=== PATIENT | female | born 1940 | race Caucasian/White ===

== ENCOUNTER → 2023-05-09 11:11 | Outpatient (REF) | payer OTHER, MEDICAID, SELFPAY | LOC: RAD 11:11 | PROVIDERS: ATTENDING PHYSICIAN Physician Assistant; FAMILY PHYSICIAN Family Medicine | DX: I65.23 Occlusion and stenosis of bilateral carotid arteries (principal) | CPT/HCPCS: 70496; 70498; Q9967 ==

== ENCOUNTER → 2023-06-06 13:13 | Outpatient (REF) | payer OTHER, MEDICAID, SELFPAY | LOC: RAD 13:13 | PROVIDERS: ATTENDING PHYSICIAN Surgery Vascular Surgery; FAMILY PHYSICIAN Family Medicine | DX: I77.0 Arteriovenous fistula, acquired (principal) | CPT/HCPCS: 93990 ==

== ENCOUNTER 2023-06-27 14:05 | Inpatient (IN) | payer OTHER, SELFPAY ==
[2023-06-27] VITALS (17 sets, daily range): BP systolic 109–168; BP diastolic 48–88; BMI 26.7
--- NOTE | 2023-06-27 10:21 | W.SUR.PREOP ---
Pre-Operative Surgical Note
-
I have examined this patient prior to the performance of the scheduled procedure.
The patient's condition is unchanged from the time of the current History and
Physical and the patient is able to undergo the scheduled procedure.
[2023-06-27] MEDS: BACTROBAN NASAL 1 GRAM NASAL (10:28)
[2023-06-27] MEDS: PERIDEX 0.12% ORAL RINSE 15 ML PO (10:29)
[2023-06-27] MEDS: VANCOCIN 200 IV (10:30)
[2023-06-27 10:31] LABS: Hematocrit 32.7 % (37.0-47.0); Hemoglobin 10.7 g/dL (12.0-16.0); Mean Corp Hgb Conc. 32.7 g/dL (33.0-37.0); Mean Corpuscular Hgb 36.4 pg (27.0-31.0); Mean Corpuscular Volume 111.2 fL (81.0-99.0); Mean Platelet Volume 11.3 fL (7.4-10.4); Platelet Count 89 10^3/uL (130-400); Red Blood Cell Count 2.94 10^6/uL (4.20-5.40); Red Cell Dist. Width 14.2 % (11.5-14.5); White Blood Cell Count 5.8 10^3/uL (4.8-10.8)
[2023-06-27 10:36] LABS: Glucose - Point of Care 131 mg/dl (70-99)
[2023-06-27 10:48] LABS: INR 1.04; PT 13.6 Sec (11.4-14.6)
[2023-06-27 10:49] LABS: APTT 30.9 Sec (23.4-35.0)
[2023-06-27 10:51] LABS: Blood Urea Nitrogen 24 mg/dl (7-17); Carbon Dioxide 29 mmol/L (22-30); Chloride 97 mmol/L (98-107); Estimated Creatinine Clearance 11 ml/min; Glucose 141 mg/dl (70-99); Potassium 5.2 mmol/L (3.5-5.1); Sodium 134 mmol/L (135-145); eGFR 11.77
--- NOTE | 2023-06-27 14:06 | W.SUR.POST ---
Surgical Immediate Post Op
Note
Pre Op Diagnosis: ESRD
Post Op Diagnosis: ESRD
Procedure Performed: Brachiobasilic AV fistula creation left upper extremity
Primary Surgeon: Antonio Lambert MD
Assist: FRIDA Helm
Anesthesia: GETA
Estimated Blood Loss: 10 ml
Fluids: See anesthesia flowsheet
Drains/Shunts: N/A
Specimens/Cultures: N/A
Doppler/Duplex/Angio (Y/N): Y, Doppler
Complications: None
Operative Findings: Palpable thrill at AV fistula, Doppler radial pulse
[2023-06-27] MEDS: SUBLIMAZE 50 MCG IV (14:38)
[2023-06-27] MEDS: SUBLIMAZE 25 MCG IV ×2 (14:54→14:59)
[2023-06-27 15:12] LABS: Glucose - Point of Care 135 mg/dl (70-99)
[2023-06-27] MEDS: NSS 500 IV (15:20)
--- NOTE | 2023-06-27 16:03 | PTCARENOTE ---
Pt arrived to [address] [place] [address] s/p [facility] AV fistula creation. Pt NV intact, +thrill/bruit, small spot of blood along incision line. Pt states mild pain, but tolerable and does not want any pain medication at this time. Pt oriented to call dave and room, bed
locked and in lowest position, call dave within reach.
[2023-06-27] MEDS: ROXICODONE 5 MG PO ×2 (16:50→21:32)
--- NOTE | 2023-06-27 17:02 | W.CON.NEPH ---
Consultation
-
Date/Time Consultation Requested: 06/27/23 1524
Date/Time Consultation Performed: 06/27/23 1710
Requesting Provider: Antonio Keller
Performing Provider: Adina Chino
Reason for Consultation: ESRD
Medical History
-
Chief Complaint: Here for AVF revision
History of Present Illness:
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 She underwent 3rd revision today of her
nonfunctioning left upper arm AV fistula today and plan HD tomorrow. She has a right chest wall tunneled HD CVC in place. She began hemodialysis in January 2023. She has a history of diabetes mellitus with microvascular complications, maintained on
insulin. She has a history of CAD with non-ST elevated NV in January 2023. Unfortunately, unable to revascularize on cardiac catheterization. She offers no cp or sob. Pain at surgical site. No LE edema. No N/v.
Past Medical History
1.� ESRD, January 2023, presumed due to diabetic nephropathy.
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
3.� Left upper arm AV fistula with revision earlier today.
4.� CAD with NSTEMI January 2023 with cardiac catheterization
�� � revealing occluded left circumflex, unable to open.
5.� Paroxysmal atrial fibrillation on systemic anticoagulation.
6.� History of heart failure, mixed type, resolved with hemodialysis.
7.� History of TAVR.
8.� Anemia, in part CKD related.
9.� Thrombocytopenia.
10. Hypertension.
11. Right chest wall tunneled HD CVC.
12. History of CVA/TIA.
13. Left bundle branch block.
14. PAD.
15. Secondary hyperparathyroidism.
16. Breast cancer.
17. Left carotid endarterectomy.
18. Bilateral eyelid surgery.
19. Cataract surgery.
20. Lens implant.
21. Tonsillectomy.
22. Breast biopsy.
23. Right breast lumpectomy.
24. Peripheral neuropathy.
Social History
She resides alone. She stopped smoking over 50 years ago. No regular alcohol use. She previously worked in the [employer] industry, the [employer] and in [employer].
Family History
�No ESRD though positive for CAD and breast cancer.
Allergies / Home Medications
Allergy/AdvReac Type Severity Reaction Status Date / Time
penicillin V Allergy Rash Verified 06/21/23 11:02
Penicillins Allergy Rash Verified 06/21/23 11:02
Sulfa (Sulfonamide Allergy Rash Verified 06/21/23 11:02
Antibiotics)
sulfamethoxazole Allergy Rash Verified 06/21/23 11:02
[From Bactrim]
trimethoprim [From Bactrim] Allergy Rash Verified 06/21/23 11:02
Medication Instructions Recorded Confirmed Type
cholecalciferol (vitamin D3) 50 4,000 unit PO DAILY Supplement 12/05/13 06/21/23 History
mcg (2,000 unit) tablet
atorvastatin 80 mg tablet 80 mg PO HS High Cholesterol 05/21/17 06/21/23 History
insulin aspart U-100 100 unit/mL 12 unit SC .2MEALSDAILY Diabetes 09/16/20 06/21/23 History
(3 mL) subcutaneous pen (Novolog
FlexPen U-100 Insulin aspart)
insulin degludec 100 unit/mL (3 0 - 18 unit SC HS Diabetes 09/16/20 06/21/23 History
mL) subcutaneous pen (Tresiba
FlexTouch U-100 insulin)
lutein 20 mg tablet 20 mg PO DAILY Supplement 01/09/22 06/21/23 History
furosemide 80 mg tablet 80 mg PO DAILY Fluid 10/05/22 06/21/23 History
Retention/Swelling
apixaban 2.5 mg tablet (Eliquis) 2.5 mg PO BID #60 tabs 02/01/23 06/21/23 Rx
amiodarone 200 mg tablet 200 mg PO DAILY Arrhythmia 04/18/23 06/21/23 History
sevelamer carbonate 800 mg tablet 800 mg PO TID hyperphosphatemia 04/18/23 06/21/23 History
vitamin B complex-vitamin C-folic 1 tab PO HS Supplement 04/18/23 06/21/23 History
acid 0.8 mg tablet (Nephro
Vitamins)
acetaminophen 325 mg tablet 650 mg PO HS 06/21/23 06/21/23 History
(Tylenol)
Review of Systems
-
All complete 12 point ORS have been inquired and found negative other than stated in HPI
Physical Exam
Vital Signs
Vital Signs
Temp Pulse Resp BP Pulse Ox
98.1 F 76 18 115/55 99
06/27/23 16:50 06/27/23 16:50 06/27/23 16:50 06/27/23 16:50 06/27/23 16:50
Lab Results
WBC 5.8 10^3/uL (4.8-10.8) 06/27/23 10:20
RBC 2.94 10^6/uL (4.20-5.40) L 06/27/23 10:20
Hgb 10.7 g/dL (12.0-16.0) L 06/27/23 10:20
Hct 32.7 % (37.0-47.0) L 06/27/23 10:20
Plt Count 89 10^3/uL (130-400) L 06/27/23 10:20
Sodium 134 mmol/L (135-145) L 06/27/23 10:20
Potassium 5.2 mmol/L (3.5-5.1) H 06/27/23 10:20
Chloride 97 mmol/L (98-107) L 06/27/23 10:20
Carbon Dioxide 29 mmol/L (22-30) 06/27/23 10:20
BUN 24 mg/dl (7-17) H 06/27/23 10:20
Creatinine 3.7 mg/dL (0.6-1.0) H 06/27/23 10:20
eGFR 11.77 06/27/23 10:20
Glucose 141 mg/dl (70-99) H 06/27/23 10:20
Calcium 9.0 mg/dl (8.4-10.2) 06/27/23 10:20
Physical Exam
General: Awake, Alert, Oriented and AOx3
HEENT: EOMI and Anicteric
Respiratory: Clear and Normal Excursion
Cardiac: S1/S2 and Regular Rate/Rhythm
Abdomen: Soft, Nontender and Nondistended
Musculoskeletal: No Cyanosis, No Edema and Other (left UE AVF +bruit, incision noted)
Skin: No Rash
Neuro: Nonfocal/Grossly Intact
Psych: Mood/afflect pleasant, Insight/judgement good, Appropriate and Other
Assessment/Plan
-
IMP:
Left upper arm AV fistula revision 06/26
ESRD [facility]
Acute NV with old LBBB status post cardiac catheterization (occluded left circumflex unable to be open) January 2023
Paroxysmal atrial fibrillation on systemic anticoagulation
History heart failure mixed type
History of TAVR
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
Thrombocytopenia
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
Hypertension
Right chest wall tunneled HD CVC
History CVA
Metabolic alkalosis
LBBB
PAD
Secondary hyperparathyroidism
PLan:
Electively P/for left AVF revision
lives alone and unable to get to HD unit tomorrow
plan HD tomorrow and likely d/c after
resume home meds, including phos binders
BP stable
renal diet and FR
d/c IVF
Data Reviewed
-
Labs: Labs Reviewed by me
[2023-06-27 17:28] LABS: Glucose - Point of Care 187 mg/dl (70-99)
--- NOTE | 2023-06-27 17:34 | OR.RPT ---
Operative Report
Operative Report
PROCEDURE DATE: 06/27/2023
Preoperative diagnosis: End-stage renal disease on hemodialysis
Postoperative diagnosis: Same
Procedure: Left upper extremity brachiobasilic arteriovenous fistula creation with single stage basilic vein transposition.
Surgeon: Fausto
Pipe Jeeper: CYNTHIA Bermudez required for all aspects of procedure including traction/countertraction, following of suture line, assistance with closure.
Complications: None
Anesthesia: General
Indications for procedure:
Failed prior left brachiocephalic AV access. Failed revision attempt. Therefore brought for attempted left upper extremity brachiobasilic fistula versus AV graft. Risk/benefits/alternatives were also discussed. Patient understood all wish to
proceed.
Description of procedure:
Patient was identified brought to the operating room placed on the table in supine position. After the adequate administration of anesthesia and perioperative antibiotics she was prepped and draped in the standard surgical fashion. A standard
preoperative timeout was undertaken and everybody was in agreement the plan. A longitudinal incision was made in the medial distal upper arm that was carried through the skin subcutaneous tissue with electrocautery. There is moderate amount of
fatty subcutaneous tissue and this made finding the basilic vein somewhat challenging. I finally was able to find it. The basilic vein was identified and carefully dissected away from surrounding structures and great care to avoid any injury to
structures. It appeared to be a very suitable vein. I therefore then continued my incisions extending proximally up towards the axilla and distally just to the level of the antecubital fossa. The basilic vein was carefully dissected away from
surrounding structures take great care to avoid any injury to structures, namely the median antebrachial cutaneous nerve which was carefully preserved from harm's way. Any branches of the basilic vein were ligated between silk ties and then
divided. As such I was able to mobilize the entirety of the basilic vein out of its bed. More centrally, there was what appeared to be confluence with the deep veins. I therefore did not mobilize beyond this area. Once I fully mobilized
sufficient length of vein I then ligated the vein distally with a silk tie and a clip and then transected it. I then untethered it from the nerve. I distended under heparinized saline. It distended very well. I marked the anterior surface under
distention to avoid any kinking or twisting when I tunneled it.
Next I deepened my dissection in the distal aspect of my incision through the fascial layer, thereby identifying the brachial artery and carefully dissected away from surrounding structures and great care to avoid any injury to structures. I passed
Vesseloops around it proximally distally. It was noted to be a fairly calcified walled artery, but had a good pulsation.
Next I gave the patient 3000 units of intravenous heparin. I then tightened my Vesseloops (double looped) proximally and distally on the brachial artery. Next I made an arteriotomy with 11 blade and extended using a Waller scissor. I then
spatulated the vein and sewed an end-to-side anastomosis using a running 6-0 Prolene suture. I then completed and tied down my suture line. Next I released my Vesseloops on the artery and the bulldog clamp tied placed on the vein. There was an
excellent thrill in the fistula. Hemostasis was now confirmed along the suture line. I confirmed good distal flow with a good doppler signal at the radial artery at the wrist. At this point I was very satisfied. I therefore irrigated all my
incision sites. Hemostasis was fully achieved and confirmed. I then maintained the vein and a superficialized position. Deep to the vein, I closed the wound bed using 2-0 Vicryl interrupted suture. Deep dermal 3-0 Vicryl suture was then run.
The vein was now resting on top of that subcutaneous layer. I carefully mobilized the skin edges, and finally 4-0 Monocryl subcuticular stitch was run directly over the transposed/superficial lysed vein. Dermabond was applied to the incision
sites. Patient tolerated the procedure well.
[2023-06-27] MEDS: NOVOLOG FLEXPEN-HIGH RESISTANCE 2 UNITS SC (17:53)
[2023-06-27] MEDS: RENVELA 800 MG PO (17:53)
[2023-06-27] MEDS: HEPARIN 5000 UNITS SC (20:07)
[2023-06-27 21:27] LABS: Glucose - Point of Care 228 mg/dl (70-99)
[2023-06-27] MEDS: LIPITOR 80 MG PO (21:32)
[2023-06-27] MEDS: TYLENOL 650 MG PO (21:32)
[2023-06-27] MEDS: B COMPLEX w/VITAMIN C 1 CAPLET PO (21:32)
[2023-06-28] MEDS: ROXICODONE 5 MG PO ×2 (01:49→06:25)
[2023-06-28 03:12] VITALS: BP 115/42
[2023-06-28 06:00] VITALS: BMI 26.4
[2023-06-28] MEDS: RENVELA 800 MG PO (06:25)
[2023-06-28 08:00] VITALS: BP 127/56
[2023-06-28 08:11] LABS: Glucose - Point of Care 178 mg/dl (70-99)
[2023-06-28 08:33] LABS: Hematocrit 26.6 % (37.0-47.0); Hemoglobin 8.6 g/dL (12.0-16.0); Mean Corp Hgb Conc. 32.3 g/dL (33.0-37.0); Mean Corpuscular Hgb 36.3 pg (27.0-31.0); Mean Corpuscular Volume 112.2 fL (81.0-99.0); Mean Platelet Volume 11.6 fL (7.4-10.4); Platelet Count 105 10^3/uL (130-400); Red Blood Cell Count 2.37 10^6/uL (4.20-5.40); Red Cell Dist. Width 14.1 % (11.5-14.5); White Blood Cell Count 9.4 10^3/uL (4.8-10.8)
[2023-06-28] MEDS: NOVOLOG FLEXPEN-HIGH RESISTANCE 2 UNITS SC (08:50)
[2023-06-28 08:51] LABS: Blood Urea Nitrogen 42 mg/dl (7-17); Calcium 8.7 mg/dl (8.4-10.2); Carbon Dioxide 28 mmol/L (22-30); Chloride 97 mmol/L (98-107); Estimated Creatinine Clearance 8 ml/min; Glucose 198 mg/dl (70-99); Potassium 5.9 mmol/L (3.5-5.1); Sodium 132 mmol/L (135-145); eGFR 8.01
[2023-06-28] MEDS: VITAMIN D3 (cholecalciferol) 100 MCG PO (08:51)
--- NOTE | 2023-06-28 09:24 | W.PN.VS ---
Addendum entered and electronically signed by Antonio Lambert MD 06/28/23 14:35:
Seen and examined with CYNTHIA Rodríguez. Agree with findings as noted below. Left upper extremity with moderate ecchymosis and mild edema versus diffuse mild hematoma (no focal collection). Palpable thrill in fistula. Incision clean dry and intact. Left
hand warm and pink. Plan/as discussed and noted below.
Original Note:
Today's Communication / Plan
-
See below, plan reviewed with attending Dr. Antonio Lambert
Assessment/Plan
-
Assessment: 82 year old female POD #1 Left upper extremity brachiobasilic arteriovenous fistula creation with single stage basilic vein transposition
Plan:
HD today
Gentle vandana wrap to LUE
If LUE edema remains unchanged this afternoon will dc
Eliquis to restart in two days instructed on dc medication list
Office f/u left on dc instructions
Subjective Data
-
Date of Service: June 28, 2023
Patient seen and examined at bedside, pain at E AVF creation site managed with PRN pain medications. Tolerating HD currently on circuit. Denies nausea, vomiting, fever, and chills.
Objective Data
-
Vital Signs
Temp Pulse Resp BP Pulse Ox
99 F 72 17 127/56 96
06/28/23 08:00 06/28/23 08:00 06/28/23 08:00 06/28/23 08:00 06/28/23 08:00
Intake and Output
06/27/23 06/28/23 06/29/23
06:59 06:59 06:59
Intake Total 1365 / 1365
Output Total 0 / 0
Balance 1365 / 1365
Intake:
Oral fluids 1235 / 1235
IV fluids (Total) 130 / 130
NS 100 / 100
Nss 500 ml @ 40 mls/hr IV . 30 / 30
[id number] [facility] Rx#:[id number]
Output:
Urine, Voided 0 / 0
Lab Results
06/28/23 08:11
06/28/23 08:11
Calcium 8.7 mg/dl (8.4-10.2) 06/28/23 08:11
Physical Exam
-
AAOx3
No dyspnea on room air
LUE with +1 edema, no evidence of hematoma, compartments all soft, +Doppler signal at AVF, + right radial doppler signal, hand warm, suture line well approximated with exofin glue intact
Tolerating HD via chest wall tunneled catheter
--- NOTE | 2023-06-28 09:43 | W.[place]-PDMP ---
[place]-PD[place]
-
Checked the [place]- Prescription Drug Monitoring Program website, no red flags identified; safe to proceed with prescription.
--- NOTE | 2023-06-28 10:19 | W.PN.NEPH.HD ---
Assessment
-
Patient seen on HD
sbp 106
will provide tameka for falling hgb
still with significant post op pain
Progress Note - Hemodialysis
-
Date of Service: June 28, 2023
Duration: 30 minutes and 3 hours
Potassium Bath: 2
Calcium Bath: 2.5
Opti-Dialyzer: 160
Ultrafiltration: Other (2kg)
Blood Flow: 400
Dialysate Flow: 600
Heparin: none
EPO: 6k to be given , hgb down
[2023-06-28] MEDS: RETACRIT 6000 UNITS IV (10:32)
[2023-06-28] MEDS: HEPARIN 3900 UNITS INTRACATH (11:01)
[2023-06-28] MEDS: LASIX 80 MG PO (11:41)
[2023-06-28] MEDS: PACERONE 200 MG PO (11:41)
[2023-06-28] MEDS: RENVELA PO (11:42)
[2023-06-28 12:23] LABS: Glycohemoglobin (HgbA1c) 6.2 % (4.0-5.6)
[2023-06-28] MEDS: NOVOLOG FLEXPEN-HIGH RESISTANCE SC (12:57)
--- NOTE | 2023-06-28 13:16 | W.DS.TRANS ---
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
-
Discharge Instructions:
Discharge Diagnosis/Procedures AVF creation
Diet As tolerated
Activity No strenuous activity
Driving Restrictions No driving for 1 week
Bathing Restrictions OK to Shower
Instructions:
Stand-Alone Forms: DC Instr - Vascular OR
Changes to Home Medications: Yes
Discharge Medications:
DC Medications w/original date entered in [employer]
cholecalciferol (vitamin D3) 50 mcg (2,000 unit) tablet 4,000 unit PO DAILY Supplement 12/05/13
atorvastatin 80 mg tablet 80 mg PO HS High Cholesterol 05/21/17
insulin aspart U-100 100 unit/mL (3 mL) subcutaneous pen (Novolog FlexPen U-100 Insulin aspart) 12 unit SC .2MEALSDAILY Diabetes 09/16/20
insulin degludec 100 unit/mL (3 mL) subcutaneous pen (Tresiba FlexTouch U-100 insulin) 0 - 18 unit SC HS Diabetes 09/16/20
lutein 20 mg tablet 20 mg PO DAILY Supplement 01/09/22
furosemide 80 mg tablet 80 mg PO DAILY Fluid Retention/Swelling 10/05/22
apixaban 2.5 mg tablet (Eliquis) 2.5 mg PO BID #60 tabs 02/01/23
amiodarone 200 mg tablet 200 mg PO DAILY Arrhythmia 04/18/23
sevelamer carbonate 800 mg tablet 800 mg PO TID hyperphosphatemia 04/18/23
vitamin B complex-vitamin C-folic acid 0.8 mg tablet (Nephro Vitamins) 1 tab PO HS Supplement 04/18/23
acetaminophen 325 mg tablet (Tylenol) 650 mg PO HS 06/21/23
oxycodone 5 mg tablet 5 mg PO Q4HPRN PRN moderate pain #6 tabs 06/28/23
Home Medication Changes
held: apixaban 2.5 mg tablet (Eliquis) 2.5 mg PO BID #60 tabs 02/01/23
added: oxycodone 5 mg tablet 5 mg PO Q4HPRN PRN moderate pain #6 tabs 06/28/23
Pending Results: No
--- NOTE | 2023-06-28 16:58 | CM ---
met with patient at bedside.she lives [place] at [address]pt uses an electric wc to ambullate,is able to cook and clean her apt.she is I bathing.patient goes to hd [facility] at [facility].her pcp is dr das and she uses [facility] for her meds.marie rubio takes her to dialysis and back.she is adm for left fistula revision.had hd today and is stable for dishcarge.faxed hd flow sheets to [facility].patient has declined home care services.
== END 2023-06-28 13:51 | disposition home or self-care (01) | DRG 264 ==
LOC: 2 SOUTH 14:05
PROVIDERS: Nurse Practitioner; Specialist; ADMITTING PHYSICIAN Surgery Vascular Surgery; CONSULT PHYSICIAN Internal Medicine; FAMILY PHYSICIAN Family Medicine
PROC: 03180JV Bypass Left Brachial Artery to Superior Vena Cava with Synthetic Substitute, Open Approach (ICD-10-PCS; 2023-06-27)
PROC: 5A1D70Z Performance of Urinary Filtration, Intermittent, Less than 6 Hours Per Day (ICD-10-PCS; 2023-06-28)
DX: I13.2 Hypertensive heart and chronic kidney disease with heart failure and with stage 5 chronic kidney disease, or end stage renal disease (principal); N18.6 End stage renal disease; E11.22 Type 2 diabetes mellitus with diabetic chronic kidney disease; Z99.2 Dependence on renal dialysis
CPT/HCPCS: 36819; 80048; 82962; 83036; 85027; 85610; 85730; 86850; 86900; 86901; G0257; P9047; Q5106

== ENCOUNTER → 2023-08-01 12:44 | Outpatient (REF) | payer OTHER, SELFPAY | LOC: RAD 12:44 | PROVIDERS: ATTENDING PHYSICIAN Registered Nurse; FAMILY PHYSICIAN Internal Medicine Geriatric Medicine | DX: I77.0 Arteriovenous fistula, acquired (principal) | CPT/HCPCS: 93990 ==

== ENCOUNTER 2023-08-15 06:31 | Day surgery (SDC) | payer OTHER, SELFPAY ==
[2023-08-15 10:40] VITALS: BMI 26.6
[2023-08-15 10:45] VITALS: BP 177/68
[2023-08-15 10:52] LABS: Glucose - Point of Care 136 mg/dl (70-99)
[2023-08-15] MEDS: TYLENOL 1000 MG PO (10:58)
[2023-08-15 11:45] VITALS: BP 170/85
[2023-08-15 11:50] VITALS: BP 124/47
--- NOTE | 2023-08-15 12:17 | W.IMMPOSTOP ---
Surgical Immed Post Op Note
-
Primary Surgeon: Wesley Nye MD
Assisting Surgeon: None
Inclinometer Tester: Rebecca Lizama
Pre-op Diagnosis: Right breast sebaceous cyst
Post-op Diagnosis: Same
Procedure Performed: Excision of a right breast sebaceous cyst
Anesthesia Type: Local
Specimen / Cultures: Right breast sebaceous cyst
Estimated Blood Loss: 3 cc
Complications: None
Operative Findings: 2 x 3 cm sebaceous cyst on the right breast removed entirely without violation of the capsule. Wound was measured to be roughly 3 x 4 cm. The skin was fairly immobile so a small flap was created and closed with 8 vertical
mattress 3-0 nylon sutures. The wound was covered with Vaseline gauze strip followed by gauze/Tegaderm dressing.
--- NOTE | 2023-08-15 12:21 | OR.RPT ---
Operative Report
Operative Report
Patient Name: Giana Hirsch
: 1940
Date of Operation: 08/15/2023
Preoperative Diagnosis: Right breast sebaceous cyst
Postoperative Diagnosis: Same
Procedure(s):
Excision of right breast sebaceous cyst
Surgeon(s):
Dr. Nye
Wash Tank Tender(s):
FREDRICK Mercer
Anesthesia: Local
Estimated Blood Loss: 3 cc
Urine Output: None
Drains/Lines/Implants: None
Specimens:
1. Sebaceous cyst
Indication for surgery:
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 She is on Eliquis and did not want to stop it for procedures so elected to have this done in the operating room as opposed to the office. Risk
benefits and alternatives discussed, patient agreed to surgery.
Operative Findings: 2 x 3 cm sebaceous cyst on the right breast removed entirely without violation of the capsule. Wound was measured to be roughly 3 x 4 cm. The skin was fairly immobile so a small flap was created and closed with 8 vertical
mattress 3-0 nylon sutures. The wound was covered with Vaseline gauze strip followed by gauze/Tegaderm dressing.
Details of the operation:
The patient was brought to the operating room a placed in the supine position. An elliptical incision over natural skin lines was marked and the skin was anesthetized using 10 cc of 1% lidocaine with epinephrine. Incision was made using a 15 blade
and carried down through the subcutaneous tissue. The cyst was dissected out without violation of the capsule. The wound was fairly large measuring roughly 3 x 4 cm. The skin was fairly immobile so a small skin flap was made but due to the
tension I elected to use 8 vertical mattress 3-0 nylon sutures. The wound was then covered with Vaseline gauze strip followed by gauze/Tegaderm dressing. All counts were correct at the end of procedure. The patient was then transferred to the PACU
for recovery.
I was the attending physician and performed the procedure with assistance from the PA student above. I was present for all portions of the case
Wesley yNe MD
== END 2023-08-15 12:40 | disposition home or self-care (01) ==
LOC: SDS 06:31
PROVIDERS: ATTENDING PHYSICIAN Surgery
DX: N60.81 Other benign mammary dysplasias of right breast (principal)
CPT/HCPCS: 19120; 88304; 82962

== ENCOUNTER 2023-09-15 13:29 | Inpatient (IN) | payer OTHER, SELFPAY ==
[2023-09-15 07:42] VITALS: BP 167/68
--- NOTE | 2023-09-15 08:27 | ED.GENMED ---
History of Present Illness
General
Chief Complaint: Abdominal Pain
Source: patient
Time Seen by Provider: 09/15/23 08:18
Travel History
Have you had any contact with someone who has COVID-19?: No
Do you have any symptoms of coronavirus? Fever > 100 degrees, chills, cough, shortness of breath, sore throat, loss of taste or smell, muscle aches, or headache?: No
History of Present Illness
History of Present Illness:
83-year-old female presents to the emergency room complaining of abdominal pain. Patient has been having some upper abdominal discomfort after eating and associated with belching for the past several days. However over the past 24 hours her
symptoms have become more severe. She has mild nausea. Patient denies any previous abdominal surgery. She has end-stage renal disease and receives dialysis Saturday.
Past History
Past History
ED Past Medical History: CVA, HTN, Hypercholesterolemia, IDDM, Renal failure, Valvular disease and Other (Cardiomegaly)
ED Past Surgical History: Other (CEA)
Social History
Tobacco: Former smoker
Alcohol: None
Personal:
Living: with family
Employment: Retired
Family History
Family History: Diabetes
Phy Exam
Physical Exam
Physical Exam:
General: Awake, Alert, Oriented X3. No acute distress.
Vitals: unremarkable
Head: Atraumatic
Eyes: Pupils equal, EOMI
Throat: Airway intact, no exudates
Neck: Trachea midline
Lungs: Clear and equal b/l
Heart: Regular rate, no murmurs
Abd: Soft, significant tenderness to palpation right upper quadrant and epigastric, No pulsatile mass
Neuro: Nonfocal
Skin: Warm, dry, no rash
Extremities: pulses equal b/l, no edema
Course
Orders/Labs/Results
Orders:
Orders
09/15/23 07:46
EKG [Electrocardiogram (*1)] Urgent
Reason for Study: Chest Pain
EKG- Treatment ONCE
09/15/23 08:25
Urinalysis Reflex To Culture Urgent
HYDROmorphone [Dilaudid] 0.5 mg IV NOW STA
Ondansetron Injectable [Zofran] 4 mg IV NOW STA
09/15/23 08:27
US Abdomen Complete/Upper Urgent
Comment:
Reason For Exam: ruq/epigastric pain
09/15/23 08:29
Complete Blood Count/With Diff Urgent
09/15/23 09:40
Comprehensive Metabolic Panel Urgent
Lipase Urgent
Troponin I Urgent
09/15/23 11:06
Cefepime HCl [Maxipime] 2,000 mg IV NOW STA
MetroNIDAZOLE 500 MG/100 ML [Flagyl 500 mg] 100 ml IV NOW
09/15/23 11:24
Lactate Level [Lactic Acid] Urgent
09/15/23 12:48
Morphine Sulfate 2 mg IV NOW STA
Ondansetron Injectable [Zofran] 4 mg IV Q6HPRN PRN
09/15/23 13:01
Admit/Transfer Patient As Directed
Co-Sign Provider:
Level of Care: Inpatient admission
Assign to:: Medical/Surgical
Physician / Group: hospitalist
Diagnosis: choledocholithiasis/cholecystitis
Reason for Hospitalization: biliary obstruction
Expected length of stay greater than two midnights?: Yes
ELOS- Estimated Length of Stay in days: 2
I certify the patient meets the requirements for IP care: Yes
09/15/23 13:02
Code Status As Directed
Resuscitation Status: Full Code
09/15/23 13:21
Mrcp Without MR [MR Mrcp Without] Urgent
Comment:
Reason For Exam: choledocholithiasis
Recent pill cam endoscopy?: No
09/15/23 13:27
Amiodarone [Pacerone] 200 mg PO DAILY
Abnormal Lab Results
09/15/23 09/15/23 09/15/23
08:29 09:40 11:24
WBC 11.5 H 10^3/uL
(4.8-10.8)
RBC 3.10 L 10^6/uL
(4.20-5.40)
Hgb 10.9 L g/dL
(12.0-16.0)
Hct 33.0 L %
(37.0-47.0)
MCV 106.5 H fL
(81.0-99.0)
MCH 35.2 H pg
(27.0-31.0)
Plt Count 113 L 10^3/uL
(130-400)
MPV 11.6 H fL
(7.4-10.4)
Abs Immat Gran (auto) 0.1 H 10^3/uL
(0-0.05)
Absolute Neuts (auto) 10.6 H 10^3/uL
(1.4-6.5)
Absolute Lymphs (auto) 0.3 L 10^3/uL
(1.2-3.4)
Neutrophils % 92.6 H %
(42.2-75.2)
Lymphocytes % 2.4 L %
(20.5-51.1)
Potassium 5.3 H mmol/L
(3.5-5.1)
Chloride 93 L mmol/L
(98-107)
BUN 53 H mg/dl
(7-17)
Creatinine 6.0 H* mg/dL
(0.6-1.0)
Glucose 267 H mg/dl
(70-99)
Lactic Acid 3.6 H mmol/L
(0.7-2.0)
Total Bilirubin 1.9 H mg/dl
(0.2-1.3)
AST 1020 H* U/L
(14-36)
ALT 728 H* U/L
(0-35)
Alkaline Phosphatase 355 H U/L
(38-126)
Troponin I 0.119 H* ng/ml
Lipase 1539 H* U/L
(23-300)
09/15/23 08:29
09/15/23 09:40
Vital Signs
Initial and Last Documented VS:
Initial Vital Signs
Temp Pulse Resp BP Pulse Ox
97.6 F 95 16 167/68 99
09/15/23 07:42 09/15/23 07:42 09/15/23 07:42 09/15/23 07:42 09/15/23 07:42
Last Documented Vital Signs
Temp Pulse Resp BP Pulse Ox
97.6 F 87 16 137/55 99
09/15/23 07:42 09/15/23 13:46 09/15/23 12:27 09/15/23 13:46 09/15/23 12:27
MDM/Problems Addressed
Differential Diagnosis Includes:
Acute cholecystitis, pancreatitis, kidney stone,, nephritis
MDM/Problems Addressed:
Patient presents with significant right upper quadrant and epigastric abdominal pain. She is quite tender on exam. Ultrasound shows significant biliary dilation as well as cholelithiasis. Labs show elevated LFTs and lipase. Patient given
antibiotics for acute cholecystitis. She will require hospitalization for stabilizing care including possibly requiring an ERCP. Dr. Knapp is on for gastroenterology and I notified her of the patient.
Chronic conditions affecting care: DM and HTN
*Radiology
Radiology exam reviewed: radiology read reviewed
*Pulse Oximetry
Patient hypoxic: no
*EKG
Interpreted by ED Provider?: Yes
Heart Rate: 95
QRS Pattern: left bundle branch block
Ischemia: no ischemia
*Cuffer Interpretation
Rate: normal
Rhythm: sinus
*Critical Care Note
Total Time (30-74mins, 75-104mins- exclusive of procedures): Not Applicable
ED Attending Note
-
Portions of this chart may have been created with voice recognition software.� Occasional wrong word or��sound alike� substitutions may have occurred due to the inherent limitations of voice recognition software.
Discharge Plan
Departure
Patient Disposition: Admit
Date of Disposition: 09/15/23
Time of Disposition: 11:11
Presentation/result/management discussed w/ accepting MD/DO: Hospitalist
Condition: Fair
Discharge Problem:
Abdominal pain, acute, Choledocholithiasis, Pancreatitis due to common bile duct stone
Interventions
Interventions:
*Risk Screen - Suicide Last Done: 09/15/23 07:42
*General Assessment Last Done: 09/15/23 07:42
*Neglect/Abuse Screening Last Done: 09/15/23 07:42
ED- Fall Risk Assessment Last Done: 09/15/23 09:05
*ED COVID-19 Vaccine History Last Done: 09/15/23 09:03
GZ-Tkmcav-Lpleowlply Assessment Last Done: 09/15/23 08:45
[2023-09-15 08:41] LABS: % Basophils 0.2 % (0-2); % Eosinophils 0.1 % (0-6); % Immature Granulocytes 0.4 % (0-0.5); % Lymphocytes 2.4 % (20.5-51.1); % Monocytes 4.3 % (1.7-9.3); % Neutrophils 92.6 % (42.2-75.2); Absolute Immature Granulocytes 0.1 10^3/uL (0-0.05); Absolute Lymphocytes 0.3 10^3/uL (1.2-3.4); Absolute Monocytes 0.5 10^3/uL (0.1-0.6); Absolute Neutrophils 10.6 10^3/uL (1.4-6.5); Hemoglobin 10.9 g/dL (12.0-16.0); Mean Corpuscular Hgb 35.2 pg (27.0-31.0); Mean Corpuscular Volume 106.5 fL (81.0-99.0); Mean Platelet Volume 11.6 fL (7.4-10.4); Nucleated Red Blood Cells % 0 %; Platelet Count 113 10^3/uL (130-400); Red Cell Dist. Width 14.4 % (11.5-14.5); White Blood Cell Count 11.5 10^3/uL (4.8-10.8)
[2023-09-15] MEDS: DILAUDID 0.5 MG IV ×2 (09:28→14:37)
[2023-09-15] MEDS: ZOFRAN 4 MG IV (09:28)
[2023-09-15 10:24] LABS: Troponin I 0.119 ng/ml
[2023-09-15 10:30] LABS: ALT (SGPT) 728 U/L (0-35); Albumin 4.1 g/dl (3.5-5.0); Alkaline Phosphatase 355 U/L (38-126); Blood Urea Nitrogen 53 mg/dl (7-17); Calcium 9.8 mg/dl (8.4-10.2); Carbon Dioxide 26 mmol/L (22-30); Chloride 93 mmol/L (98-107); Glucose 267 mg/dl (70-99); Lipase 1539 U/L (23-300); Potassium 5.3 mmol/L (3.5-5.1); Sodium 135 mmol/L (135-145); Total Bilirubin 1.9 mg/dl (0.2-1.3); Total Protein 7.2 g/dl (6.3-8.2); eGFR 6.55
[2023-09-15 10:39] LABS: AST (SGOT) 1020 U/L (14-36)
[2023-09-15 11:13] VITALS: BP 137/55
[2023-09-15] MEDS: MAXIPIME 2000 MG IV (11:33)
[2023-09-15] MEDS: FLAGYL 500 MG 100 IV (11:41)
[2023-09-15 11:49] LABS: Lactic Acid 3.6 mmol/L (0.7-2.0)
[2023-09-15 12:27] VITALS: BP 132/74
--- NOTE | 2023-09-15 12:41 | HPS.HSE ---
Family Physician
-
Family Physician: Pascual Lange
Chief Complaint
-
Abdominal pain and nausea
History of Present Illness
This is a 83 y.o female with past medical history significant for ESRD on hemodialysis via a left upper extremity AV fistula q. Wednesdays, coronary artery disease, diastolic CHF with preserved EF, proximal atrial fibrillation,
diabetes on insulin, hypertension, hyperlipidemia, prior CVA status post left carotid endarterectomy, history of breast cancer status post right lumpectomy presenting to the emergency department with worsening diffuse abdominal pain.
Patient reports that she has been having abdominal pain for the last 2 weeks. The pain is described as colicky. She associates it with belching. She reports that the pain is worse after eating. She takes antacids and the pain is somewhat
improved only to recur again. She reports nausea. She denies vomiting although she attempted to vomit to improve her pain. She is been having regular bowel movements and last bowel movement was this morning. She denies any abdominal distention.
She has not had any fevers or chills. She does not notice any changes to the color of urine or stool. Patient denies chest pain shortness of breath palpitations dyspnea on exertion or exertional chest pain.
On arrival in the emergency department she was afebrile at 97.6, blood pressure was stable at 137 over 70s, pulse was 96 respiratory was 16 and oxygen saturation was 97% on room air. On 2 L she was 100%. ECG shows sinus rhythm at 95 with 4 degree
AV block and left bundle branch block. ST depressions in V4-619 from prior. Initial troponin was elevated at 0.19. She had a ultrasound of the abdomen which showed severe by biliary ductal dilation as well as numerous gallstones and gallbladder
with moderate distention of the gallbladder. No sonographic Hung sign indicated. Patient had mild leukocytosis to 11,500, hemoglobin is stable at 10.9, platelet count is 113 (has known chronic from cytopenia). Chemistry is notable for a
potassium of 5.3 bicarb of 28 creatinine of 6.0 and a glucose of 267. She has a lactic acid of 3.6. T. bili is elevated at 1.9, she has marked elevations in AST ALT and alk phos.
Medical History
Past Medical History
Past Medical History: Reports CAD, CHF (diastolic CHF), CVA, HTN, Hypercholesterolemia, IDDM and Renal Failure (ESRD on HD M/W/F via LUE AVF)
Past Surgical History: Reports Other (Left CEA)
Additional Past Surgical History:
lumpectomy
Social History
Tobacco: Non-smoker
Alcohol: None
Drug: None
Personal: Single
Living: Alone
Employment: Retired
Family History
Family History: Not pertinent
Allergies / Home Medications
Allergies reflects when Allergies were last updated in [employer].
Home Medications with original date entered in [employer]
Allergy/Medication List:
Allergies
Allergy/AdvReac Type Severity Reaction Status Date / Time
penicillin V Allergy Rash Verified 09/15/23 07:41
Penicillins Allergy Rash Verified 09/15/23 07:41
Sulfa (Sulfonamide Allergy Rash Verified 09/15/23 07:41
Antibiotics)
sulfamethoxazole Allergy Rash Verified 09/15/23 07:41
[From Bactrim]
trimethoprim [From Bactrim] Allergy Rash Verified 09/15/23 07:41
Home Medications
atorvastatin 80 mg tablet 80 mg PO HS High Cholesterol 05/21/17
insulin aspart U-100 100 unit/mL (3 mL) subcutaneous pen (Novolog FlexPen U-100 Insulin aspart) 12 unit SC BID Diabetes 09/16/20
insulin degludec 100 unit/mL (3 mL) subcutaneous pen (Tresiba FlexTouch U-100 insulin) 10 unit SC HS Diabetes 09/16/20
lutein 20 mg tablet 20 mg PO DAILY Supplement 01/09/22
furosemide 80 mg tablet 80 mg PO DAILY Fluid Retention/Swelling 10/05/22
apixaban 2.5 mg tablet (Eliquis) 2.5 mg PO BID #60 tabs 02/01/23
amiodarone 200 mg tablet 200 mg PO DAILY Arrhythmia 04/18/23
sevelamer carbonate 800 mg tablet 800 mg PO BID hyperphosphatemia 04/18/23
vitamin B complex-vitamin C-folic acid 0.8 mg tablet (Nephro Vitamins) 1 tab PO HS Supplement 04/18/23
diphenhydramine 25 mg-acetaminophen 500 mg tablet (Tylenol PM Extra Strength) 2 tab PO HS 09/15/23
Review of Systems
-
History Source: Patient
Constitutional: Reports No Symptoms
EENT: Reports No Symptoms
Respiratory: Reports No Symptoms
Cardiac: Reports No Symptoms
Abdomen/GI: Reports Abdominal Pain and Nausea
: Reports No Symptoms
Musculoskeletal: Reports No Symptoms
Skin: Reports No Symptoms
Neurological: Reports No Symptoms
Endocrine: Reports No Symptoms
Hematologic/Lymphatic: Reports No Symptoms
Psych: Reports No Symptoms
Physical Exam
Vital Signs
Vital Signs
Temp Pulse Resp BP Pulse Ox
97.6 F 85 16 132/74 99
09/15/23 07:42 09/15/23 12:27 09/15/23 12:27 09/15/23 12:27 09/15/23 12:27
Physical Exam
General: Well Developed, No Apparent Distress, Conversant and Obese
HEENT: NormoCephalic, Anicteric, Moist mucous membranes, Atraumatic, PERRLA and Oxygen
Respiratory: Clear
Cardiac: S1/S2 and Regular Rhythm
Breast: Deferred by me
GI: Soft, Non Distended, Normal Bowel Sounds, Tender and No Hepatosplenomegaly
Rectal: Deferred by Provider
Genito-urinary: Deferred by me
Musculoskeletal: No Clubbing, No Cyanosis, Edema, Left Lower Extremity and Edema, Right Lower Extremity
Skin: Warm
Neuro: AO x 3
Hematologic/Lymphatic: No Lymphadenopathy
Psych: Calm
Laboratory Results
-
09/15/23 08:29
09/15/23 09:40
Laboratory Results
Lactic Acid 3.6 mmol/L (0.7-2.0) H 09/15/23 11:24
Total Bilirubin 1.9 mg/dl (0.2-1.3) H 09/15/23 09:40
AST 1020 U/L (14-36) H* 09/15/23 09:40
ALT 728 U/L (0-35) H* 09/15/23 09:40
Alkaline Phosphatase 355 U/L (38-126) H 09/15/23 09:40
Troponin I 0.119 ng/ml H* 09/15/23 09:40
Lipase 1539 U/L (23-300) H* 09/15/23 09:40
Data Reviewed
-
Ultrasound: Report Reviewed by me
Medical Tests (Nuc Med, Echo, EKG etc): Image Personally Visualized and interpreted
Lab Data: Labs Reviewed by me
Old Records: Reviewed
Impression/Plan
-
IMPRESSION:
PLAN:
1. Choledocholithiasis w/ gallstone pancreatitis: Patient with biliary ductal dilation, marked elevation of LFTs and Lipase. Abdominal pain and nausea but no vomiting. There is gall bladder distention but no hung signs, no fevers, chills or
marked leukocytosis. Cannot rule out calculous cholecystitis entirely. Less likely cholangitis.
- admit to med/surg
- NPO except ice-chips and sips
- pain control with morphine, antiemetics
- very gentle maintenance fluids with LR at 30 ml/hr.
- she is mod-risk for resistant infection, will continue cefepime/flagyl
- mrcp
- GI consultation for ERCP in am
- Surgery consultation for cholecystectomy
2. Trop Elevation - Non MS trop elevation. She has chronic elevation though moderately higher than baseline at 0.19 secondary to inflammatory process and ESRD. No acute ECG changes. No volume overload.
- trend troponin
- treat underlying choledocholithiasis and pancratitis
3. ESRD -
- nephrology consultation, patient on HD via LUE AVF M/W/F. Still has permcath.
- npo for now
- small fluid bolus of 250 ml NS
4. AFIB - pAFIB
- continue amio 200 daily
- holding AC pending ERCP
- may need to bridge with heparin if getting surgery afterwards
5. DM II - on Tresiba 10 hs and aspart 10 bidac
- insulin sliding scale for now while NPO
DVT PPX - heparin sq
Code Status - Full Code (if expected to make reasonable recovery). Intubation ok.
[2023-09-15] MEDS: MORPHINE SULFATE 2 MG IV (12:57)
[2023-09-15] MEDS: PACERONE 200 MG PO (13:46)
--- NOTE | 2023-09-15 14:08 | W.CON.NEPH ---
Consultation
-
Date/Time Consultation Requested: 09/15/23 1330
Date/Time Consultation Performed: 09/15/23 1615
Requesting Provider: Criss Thomas
Performing Provider: Adina Chino
Reason for Consultation: ESRD
Medical History
-
Chief Complaint: Abd pain, nausea
History of Present Illness:
82 years of age, known to our service with a history of ESRD due to presumed diabetic nephropathy on HD MWF, at [facility] in [place] on a had nonfunctioning left upper arm AV fistula functioning now post 3rd revision recently, history of
diabetes mellitus with microvascular complications, maintained on insulin. She has a history of CAD with non-ST elevated IA in January 2023. Unfortunately, unable to revascularize on cardiac catheterization, DCHF,, P Afib on eliquis, Amiodarone, HLD
on statin, prior CVA with left CEA, who presented with colicky abd pain for 2weeks worse with eating hence presented to ER.. ultrasound of the abdomen which showed severe by biliary ductal dilation as well as numerous gallstones and gallbladder with
moderate distention of the gallbladder. , mild leukocytosis to 11,500, hemoglobin is stable at 10.9, platelet count is 113 (has known chronic from cytopenia). Chemistry is notable for a potassium of 5.3 bicarb of 28 creatinine of 6.0 and a glucose
of 267. She has a lactic acid of 3.6. T. bili is elevated at 1.9, she has marked elevations in AST ALT and alk phos, lipase 1539. With IV dilaudid pain controlled. Offers no CP or sob. Recently her AVF has been accessed and functioning well at HD
unit. She offers no n/v currently.
Past Medical History
1.� ESRD, January 2023, presumed due to diabetic nephropathy.
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
3.� Left upper arm AV fistula with revisionx3
4.� CAD with NSTEMI January 2023 with cardiac catheterization
�� � revealing occluded left circumflex, unable to open.
5.� Paroxysmal atrial fibrillation on systemic anticoagulation.
6.� History of heart failure, mixed type, resolved with hemodialysis.
7.� History of TAVR.
8.� Anemia, in part CKD related.
9.� Thrombocytopenia.
10. Hypertension.
11. Right chest wall tunneled HD CVC.
12. History of CVA/TIA.
13. Left bundle branch block.
14. PAD.
15. Secondary hyperparathyroidism.
16. Breast cancer.
17. Left carotid endarterectomy.
18. Bilateral eyelid surgery.
19. Cataract surgery.
20. Lens implant.
21. Tonsillectomy.
22. Breast biopsy.
23. Right breast lumpectomy.
24. Peripheral neuropathy.
right breast sebaceous cyst removal 08/2023
Past Surgical History: Other (see above)
Social History
She resides alone. She stopped smoking over 50 years ago. No regular alcohol use. She previously worked in the [employer], the [employer] and in [employer].
Family History
�No ESRD though positive for CAD and breast cancer.
Allergies / Home Medications
Allergy/AdvReac Type Severity Reaction Status Date / Time
penicillin V Allergy Rash Verified 09/15/23 07:41
Penicillins Allergy Rash Verified 09/15/23 07:41
Sulfa (Sulfonamide Allergy Rash Verified 09/15/23 07:41
Antibiotics)
sulfamethoxazole Allergy Rash Verified 09/15/23 07:41
[From Bactrim]
trimethoprim [From Bactrim] Allergy Rash Verified 09/15/23 07:41
�Medication �Instructions �Recorded �Confirmed �Type
atorvastatin 80 mg tablet 80 mg PO HS High Cholesterol 05/21/17 09/15/23 History
insulin aspart U-100 100 unit/mL 12 unit SC BID Diabetes 09/16/20 09/15/23 History
(3 mL) subcutaneous pen (Novolog
FlexPen U-100 Insulin aspart)
insulin degludec 100 unit/mL (3 10 unit SC HS Diabetes 09/16/20 09/15/23 History
mL) subcutaneous pen (Tresiba
FlexTouch U-100 insulin)
lutein 20 mg tablet 20 mg PO DAILY Supplement 01/09/22 09/15/23 History
furosemide 80 mg tablet 80 mg PO DAILY Fluid 10/05/22 09/15/23 History
Retention/Swelling
apixaban 2.5 mg tablet (Eliquis) 2.5 mg PO BID #60 tabs 02/01/23 09/15/23 Rx
amiodarone 200 mg tablet 200 mg PO DAILY Arrhythmia 04/18/23 09/15/23 History
sevelamer carbonate 800 mg tablet 800 mg PO BID hyperphosphatemia 04/18/23 09/15/23 History
vitamin B complex-vitamin C-folic 1 tab PO HS Supplement 04/18/23 09/15/23 History
acid 0.8 mg tablet (Nephro
Vitamins)
diphenhydramine 25 2 tab PO HS 09/15/23 09/15/23 History
mg-acetaminophen 500 mg tablet
(Tylenol PM Extra Strength)
Review of Systems
-
All complete 12 point ROS have been inquired and found negative other than stated in HPI
Physical Exam
Vital Signs
Vital Signs
Temp Pulse Resp BP Pulse Ox
97.6 F 87 16 137/55 99
09/15/23 07:42 09/15/23 13:46 09/15/23 12:27 09/15/23 13:46 09/15/23 12:27
Lab Results
WBC 11.5 10^3/uL (4.8-10.8) H 09/15/23 08:29
RBC 3.10 10^6/uL (4.20-5.40) L 09/15/23 08:29
Hgb 10.9 g/dL (12.0-16.0) L 09/15/23 08:29
Hct 33.0 % (37.0-47.0) L 09/15/23 08:29
Plt Count 113 10^3/uL (130-400) L 09/15/23 08:29
Sodium 135 mmol/L (135-145) 09/15/23 09:40
Potassium 5.3 mmol/L (3.5-5.1) H 09/15/23 09:40
Chloride 93 mmol/L (98-107) L 09/15/23 09:40
Carbon Dioxide 26 mmol/L (22-30) 09/15/23 09:40
BUN 53 mg/dl (7-17) H 09/15/23 09:40
Creatinine 6.0 mg/dL (0.6-1.0) H* 09/15/23 09:40
eGFR 6.55 09/15/23 09:40
Glucose 267 mg/dl (70-99) H 09/15/23 09:40
Calcium 9.8 mg/dl (8.4-10.2) 09/15/23 09:40
Albumin 4.1 g/dl (3.5-5.0) 09/15/23 09:40
UD abd:
IMPRESSION:
1. SEVERE BILIARY DILATATION suggesting a distal common bile duct obstruction.
2. Distended gallbladder containing cholelithiasis.
3. Severe calcific atherosclerotic plaque in the abdominal aorta.
4. Severe chronic bilateral renal disease.
Physical Exam
General: Awake, Alert, Oriented, AOx3, No Distress and Nontoxic
HEENT: EOMI and Anicteric
Respiratory: Clear, Normal Excursion and Nonlabored Respirations
Cardiac: S1/S2 and Regular Rate/Rhythm
Breast: Deferred by me
Abdomen: Soft, Nontender and Nondistended
Musculoskeletal: No Cyanosis and No Edema
Skin: No Rash, Warm and Dry
Neuro: Nonfocal/Grossly Intact
Psych: Mood/afflect pleasant, Insight/judgement good and Appropriate
Vascular Access: AVF (left UE)
Data Reviewed
-
Radiology: Report Reviewed by me and Discussed with Patient
Labs: Labs Reviewed by me and Discussed with Patient
Assessment/Plan
-
IMP:
Choledocholithiasis w/ gallstone pancreatitis
Trop Elevation - Non IA trop elevation.
[facility] Joe Ezra
Left upper arm AV fistula revision 06/27/23
h/o IA with old LBBB status post cardiac catheterization (occluded left circumflex unable to be open) January 2023
Paroxysmal atrial fibrillation on systemic anticoagulation
History heart failure mixed type
History of TAVR
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
Thrombocytopenia
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
Hypertension
Right chest wall tunneled HD CVC
History CVA
LBBB
PAD
Secondary hyperparathyroidism
PLan:
A/w abd pain -concern of gall stone in CBD, choledocholithiasis
GI and sug consulted
recommended MRCP
ok for agusto study if can not be avoided
less risk of NSS with newer agents reviewed with pt
plan HD tomorrow after MRCP
AVF is functioning, need emla cream
BP stable
ok for gentle IVF while NPO with NS
mild hyperkalemia
renal diet and FR when resumes
[2023-09-15 15:02] VITALS: BMI 25.7
[2023-09-15 15:03] VITALS: BP 108/41
--- NOTE | 2023-09-15 16:03 | CON.GS ---
Consultation
-
Date/Time Consultation Requested: 09/15/23
Requesting Provider: Alvarado Hernandez
Reason for Consultation: choledocholithiasis possible cholecystitis
Medical History
-
Chief Complaint: abdominal pain
History of Present Illness:
Ms. Valderrama is an 83 yo female with a h/o CVA s/p L CEA, DM, CAD with GA in 2022, HFpEF, AFib on Eliquis (LD evening of 09/13), TAVR, breast CA with lumpectomy, ESRD on HD m/w/f and recent sebaceous cyst removal from the right chest with Dr. Nye
one month ago who presents with intermittent post prandial upper abdominal pain over the past 2 weeks which was quick to resolve until last night when pain persisted and she was unable to sleep causing her to present through the ED for evaluation.
She notes belching with these episodes but no nausea and vomiting. She reports that after several doses of pain medications, she is now feeling better and has minimal pain. Abdomen is non-tender on exam.
Past Medical History
Past Medical History: Arrhythmias (afib on eliquis), CAD (GA 2022- occluded left circ (unable to stent)), Cancer (breast ca s/p lumpectomy), CHF (hfpef), CVA, HTN, Hypercholesterolemia, NIDDM, Renal Failure (ESRD with HD M/W/F since january 2023)
and Other (secondary hyperparathyroidism)
Past Surgical History: Cardiac (Left CEA, TAVR) and Other (right breast sebaceous cyst removal 08/2023 (Dr. Nye), Left arm fistula, Right chest tunneled HD access)
Social History
Tobacco: Former Smoker (quit >50 years ago)
Alcohol: None
Employment: Retired (worked in the [employer] industry and the [employer])
Family History
Family History: Reviewed & Not Pertinent
Allergies / Home Medications
Allergy/AdvReac Type Severity Reaction Status Date / Time
penicillin V Allergy Rash Verified 09/15/23 07:41
Penicillins Allergy Rash Verified 09/15/23 07:41
Sulfa (Sulfonamide Allergy Rash Verified 09/15/23 07:41
Antibiotics)
sulfamethoxazole Allergy Rash Verified 09/15/23 07:41
[From Bactrim]
trimethoprim [From Bactrim] Allergy Rash Verified 09/15/23 07:41
�Medication �Instructions �Recorded �Confirmed �Type
atorvastatin 80 mg tablet 80 mg PO HS High Cholesterol 05/21/17 09/15/23 History
insulin aspart U-100 100 unit/mL 12 unit SC BID Diabetes 09/16/20 09/15/23 History
(3 mL) subcutaneous pen (Novolog
FlexPen U-100 Insulin aspart)
insulin degludec 100 unit/mL (3 10 unit SC HS Diabetes 09/16/20 09/15/23 History
mL) subcutaneous pen (Tresiba
FlexTouch U-100 insulin)
lutein 20 mg tablet 20 mg PO DAILY Supplement 01/09/22 09/15/23 History
furosemide 80 mg tablet 80 mg PO DAILY Fluid 10/05/22 09/15/23 History
Retention/Swelling
apixaban 2.5 mg tablet (Eliquis) 2.5 mg PO BID #60 tabs 02/01/23 09/15/23 Rx
amiodarone 200 mg tablet 200 mg PO DAILY Arrhythmia 04/18/23 09/15/23 History
sevelamer carbonate 800 mg tablet 800 mg PO BID hyperphosphatemia 04/18/23 09/15/23 History
vitamin B complex-vitamin C-folic 1 tab PO HS Supplement 04/18/23 09/15/23 History
acid 0.8 mg tablet (Nephro
Vitamins)
diphenhydramine 25 2 tab PO HS 09/15/23 09/15/23 History
mg-acetaminophen 500 mg tablet
(Tylenol PM Extra Strength)
Review of Systems
-
History Source: Patient
All other systems: Negative unless noted
A 10 point review of systems was completed, and was negative except as per HPI.
Physical Exam
Vital Signs
Temp Pulse Resp BP Pulse Ox
98.3 F 89 18 108/41 95
09/15/23 15:03 09/15/23 15:03 09/15/23 15:03 09/15/23 15:03 09/15/23 15:03
09/14/23 09/15/23 09/16/23
06:59 06:59 06:59
Actual Weight 74.48 kg
Body Mass Index (BMI) 25.7
Lab Results
09/15/23 08:29
09/15/23 09:40
WBC 11.5 10^3/uL (4.8-10.8) H 09/15/23 08:29
Hgb 10.9 g/dL (12.0-16.0) L 09/15/23 08:29
Hct 33.0 % (37.0-47.0) L 09/15/23 08:29
Plt Count 113 10^3/uL (130-400) L 09/15/23 08:29
Abs Immat Gran (auto) 0.1 10^3/uL (0-0.05) H 09/15/23 08:29
Neutrophils % 92.6 % (42.2-75.2) H 09/15/23 08:29
Physical Exam
General: Well Developed and Well Nourished
HEENT: Moist Mucous Membranes
Respiratory: Non Labored Respirations
GI: Soft, Non Tender and Non Distended
Skin: Warm and Dry
Neuro: Awake, Alert and AO x 3
Psych: Calm
Data Reviewed
-
Ultrasound: Image Personally Visualized and interpreted, Report Reviewed by me, Discussed with Physician and Discussed with Patient
Labs: Labs Reviewed by me, Discussed with Physician and Discussed with Patient
Old Records: Reviewed
Assessment / Plan
-
Ms. Valderrama is an 83 yo female with a h/o CVA s/p L CEA, DM, CAD with GA in 2022, HFpEF, AFib on Eliquis, TAVR, breast CA with lumpectomy, ESRD on HD m// who presents with intermittent post prandial upper abdominal pain over the past 2 weeks which
was quick to resolve until last night when pain persisted and she was unable to sleep causing her to present through the ED for evaluation. Bilirubin mildly elevated with significant transaminitis and elevation. US with severe biliary dilatation and
cholelithiasis noted with some mild distention and gallbladder wall thickening. AFVSS. Mild leukocytosis. Imaging and labs suggestive of gallstone pancreatitis. Pain currently resolved after analgesics.
--Formal GI eval pending, discussed with store loss prevention manager provider via TT. MRCP recommended given abnormal US findings. Patient notes she is claustrophobic and would like to undergo this tomorrow with sedation and not today
--NPO for testing
--Hold Eliquis
--Ideally would undergo laparoscopic cholecystectomy this admission once pancreatitis resolved and choledocholithiasis is ruled out/treated. Given her cardiac history, will request cardiac clearance prior to any operative intervention
[2023-09-15] MEDS: LR 500 IV ×2 (16:46→17:03)
[2023-09-15] MEDS: HEPARIN 5000 UNITS SC (16:47)
[2023-09-15 18:02] LABS: Glucose - Point of Care 225 mg/dl (70-99)
[2023-09-15] MEDS: NOVOLOG FLEXPEN-MODERATE RESISTANCE 3 UNITS SC (18:20)
[2023-09-15] MEDS: NSS 1000 IV (20:29)
[2023-09-15 22:53] LABS: Glucose - Point of Care 218 mg/dl (70-99)
[2023-09-15 23:00] VITALS: BP 105/22
[2023-09-16] MEDS: HEPARIN SC ×3 (00:15→16:43)
[2023-09-16] MEDS: NOVOLOG FLEXPEN-MODERATE RESISTANCE SC ×2 (00:16→18:01)
--- NOTE | 2023-09-16 03:15 | PTCARENOTE ---
pt was feeling sob, and uneasy, thought her blood sugar was low, accucheck was 218. Checked pulse ox - 99% on RA. This RN placed pt on 2L O2 for comfort and this seemed to help patient relax. Pt was told to alert nurse if the feeling did not go
away. Will continue to monitor.
[2023-09-16 05:59] LABS: Glucose - Point of Care 215 mg/dl (70-99)
[2023-09-16 06:00] VITALS: BMI 25.3
[2023-09-16] MEDS: NOVOLOG FLEXPEN-MODERATE RESISTANCE 3 UNITS SC (06:27)
[2023-09-16 07:12] LABS: Urine Albumin 1+ (Neg - Trace); Urine Bilirubin 1+ (Negative); Urine Character Slightly Cloudy (Clear); Urine Color Yellow; Urine Glucose 1+ (Negative); Urine Ketone Negative (Negative); Urine Leukocyte Negative (Negative); Urine Nitrite Negative (Negative); Urine Occult Blood 1+ (Negative); Urine Specific Gravity 1.005 (<1.030); Urine Urobilinogen Negative (Neg - 1+)
[2023-09-16 07:50] VITALS: BP 161/58
[2023-09-16 07:59] LABS: Urine Granular Cast 0-2 /LPF (0); Urine Hyaline Cast 0-2 /LPF (0-2); Urine Squamous Cell >30 /LPF (Few)
[2023-09-16 08:01] LABS: Urine Bacteria Moderate (Negative); Urine Red Blood Cell 0-2 /HPF (0-2); Urine White Cell 0-2 /HPF (0-5); Urine Yeast Many (Negative)
[2023-09-16] MEDS: PACERONE 200 MG PO (08:59)
--- NOTE | 2023-09-16 09:03 | CON.CAR ---
Addendum entered and electronically signed by Oh Colon MD 09/16/23 12:04:
I saw and examined the patient.
The CUSTOMS IMPORT SPECIALIST's note was reviewed and I agree with the note.
Comment: 83 y/o female with hypertension, severe aortic stenosis s/p TAVR 2019, CAD (with INTERIOR DESIGNER Lcirc), PAD (hx LCEA 2014 Dr. Lambert, 50-69% SUE), ESRD/HD (Dr. Asencio), anemia, breast cancer, PAF on Eliquis, DM2, ICM EF 45-50%, and stroke here with
gallstone pancreatitis. She otherwise denies cp, sob and palptiaitons. on exam she is lethargic after recieving pain and sedating meds but appropriate. She has rrr, no m/r/g, lungs cta. She has a soft abd. She will be elevated risk for any and all
procedures, but no contraindication to proceeding. She has a very high C2V score and should be bridged during any prolonged periods off of DOAC when ok with the teams doing procedures. She has an nonischemic myocardial injury in the setting of
critical illness--Acute gallstone pancreatitis.
Original Note:
Consultation
Consultation Request
Date/Time Consultation Requested: 09/15/23 1633
Date/Time Consultation Performed: 09/16/23 0923
Requesting Provider: Dr. Hernandez
Performing Provider: Jaylene GALICIA for Dr. Colon
Reason for Consultation: pre-operative cardiovascular risk assessment
Medical History
-
Chief Complaint: abdominal pain
History of Present Illness:
83 y/o female with hypertension, severe aortic stenosis s/p TAVR 2019, CAD (with INTERIOR DESIGNER Lcirc), PAD (hx LCEA 2014 Dr. Lambert, 50-69% SUE), ESRD/HD (Dr. Asencio), anemia, breast cancer, PAF on Eliquis, DM2, ICM EF 45-50%, and stroke who is here for evaluation
of 2 weeks of abdominal pain (upper and around to back). It was noted after eating and Pepcid helped, but then over the weekend became constant and severe. She is admitted with suspected choledocholithiasis, gallstone pancreatitis. GI and surgery
consulted. Plan is for MRCP, and ultimately likely lap jose a and we are consulted for pre-op cardiovascular risk assessment. She has no CP, but did have some SOB with abdominal pain, which has resolved since she no longer has abdominal pain.
Past Medical History
Past Medical History: Arrhythmias, CAD, Cancer, CHF, CVA, HTN, NIDDM, Renal Failure and Valvular Disease
Social History
Living: Other ([place])
Family History
Family History: Reviewed & Not Pertinent
Allergies / Home Medications
Allergy/AdvReac Type Severity Reaction Status Date / Time
penicillin V Allergy Rash Verified 09/15/23 07:41
Penicillins Allergy Rash Verified 09/15/23 07:41
Sulfa (Sulfonamide Allergy Rash Verified 09/15/23 07:41
Antibiotics)
sulfamethoxazole Allergy Rash Verified 09/15/23 07:41
[From Bactrim]
trimethoprim [From Bactrim] Allergy Rash Verified 09/15/23 07:41
�Medication �Instructions �Recorded �Confirmed �Type
atorvastatin 80 mg tablet 80 mg PO HS High Cholesterol 05/21/17 09/15/23 History
insulin aspart U-100 100 unit/mL 12 unit SC BID Diabetes 09/16/20 09/15/23 History
(3 mL) subcutaneous pen (Novolog
FlexPen U-100 Insulin aspart)
insulin degludec 100 unit/mL (3 10 unit SC HS Diabetes 09/16/20 09/15/23 History
mL) subcutaneous pen (Tresiba
FlexTouch U-100 insulin)
lutein 20 mg tablet 20 mg PO DAILY Supplement 01/09/22 09/15/23 History
furosemide 80 mg tablet 80 mg PO DAILY Fluid 10/05/22 09/15/23 History
Retention/Swelling
apixaban 2.5 mg tablet (Eliquis) 2.5 mg PO BID #60 tabs 02/01/23 09/15/23 Rx
amiodarone 200 mg tablet 200 mg PO DAILY Arrhythmia 04/18/23 09/15/23 History
sevelamer carbonate 800 mg tablet 800 mg PO BID hyperphosphatemia 04/18/23 09/15/23 History
vitamin B complex-vitamin C-folic 1 tab PO HS Supplement 04/18/23 09/15/23 History
acid 0.8 mg tablet (Nephro
Vitamins)
diphenhydramine 25 2 tab PO HS 09/15/23 09/15/23 History
mg-acetaminophen 500 mg tablet
(Tylenol PM Extra Strength)
Review of Systems
-
History Source: Patient
All other systems: Negative unless noted
Respiratory: Trouble Breathing (when in pain)
Abdomen/GI: Abdominal Pain
Physical Exam
Vital Signs
Temp Pulse Resp BP Pulse Ox
98.8 F 79 16 161/58 95
09/16/23 07:50 09/16/23 07:50 09/16/23 07:50 09/16/23 07:50 09/16/23 07:50
Lab Results
Troponin I 0.119 ng/ml H* 09/15/23 09:40
Physical Exam
General: Well Developed, Well Nourished and No Apparent Distress
HEENT: Normocephalic and Anicteric
Respiratory: Clear and Non Labored Respirations
Cardiac: Regular Rhythm
Musculoskeletal: No Edema
Skin: Warm and Dry
Neuro: AO x 3
Psych: Calm
Impression / Plan
-
Choledocholithiasis, gallstone pancreatitis:
-surgery and GI following
-on ABX
-plan is for MRCP today
-likely lap jose a this admit
-pre-op cardiovascular risk assessment: Patient is at above average risk for cardiac complications (2.5% by NSQIP risk calculator) for proposed procedure (lap jose a). However, she denies any CP. She had SOB, but only when she was in pain. Currently
breathing comfortably on RA. Eliquis held - resume as soon as able (see below).
Abnormal troponin:
-denies CP
-trop was 0.119, EKG stable with LBBB
-repeat trop this AM
-suspect acute non-ischemic myocardial injury in setting of acute illness as above
PAF:
-stable in SR
-on amiodarone as OP
-Eliquis held for procedure- resume as soon as safe from surgery standpoint. [id number] score is 9 for HTN, age, female, CAD/PAD, stroke, DM. If she needs to be off prolonged period of time, and okay with surgery, will need bridging. Last dose was
09/14/23.
ICM EF 45-50%:
-volume status appears stable
-follow
s/p TAVR:
-stable by most recent echo
CAD:
-cath 01/28/23: Right dominant circulation with a 60% lesion in the distal RCA, a 60-70% lesion in the mid LAD spanning the origin of the diagonal, and occlusion of the ostial circumflex immediately after the origin of the first obtuse marginal,
initially thought to be an acute lesion but later revealed to be a chronic total occlusion. Unsuccessful PCI of the ostial circumflex. Med management. On statin and Eliquis as OP (held).
-denies angina
LBBB: chronic, stable
ESRD: HD per nephro
Data Reviewed
-
EKG: Tracing Personally Visualized and interpreted (SR LBBB 95 BPM stable)
Ultrasound: Report Reviewed by me (abd u/s: SEVERE BILIARY DILATATION suggesting a distal common bile duct obstruction. Distended gallbladder containing cholelithiasis)
Medical Tests (Nuc Med, Echo etc): Report Reviewed by me (01/29/23: EF 45-50%. Circumflex territory hypokinesis. Mild concentric left ventricular hypertrophy. Stage II diastolic dysfunction. Severely dilated left atrium. S/p TAVR #23 Paulino Ubaldo.
Peak/mean gradients are 25/13 mmHg. PAP 42 mmHg.)
Labs: Labs Reviewed by me
--- NOTE | 2023-09-16 09:08 | CON.GI ---
Addendum entered and electronically signed by Traci Knapp MD 09/16/23 11:57:
Needs 48 hr hold post Eliquis, ERCP at the earliest tomorrow.
aware.
Addendum entered and electronically signed by Traci Knapp MD 09/16/23 11:37:
I saw and examined the patient.
The NEWSPAPER VENDOR or PA's note was reviewed and I agree with the note.
Comment: 83-year-old female with multiple medical problems including non-ST elevation NC in January, currently not on Plavix, end-stage renal disease on hemodialysis, TAVR, CVA presenting with acute onset mid abdominal pain/discomfort but also in
the mid back. Has been having postprandial abdominal discomfort for few months but more so since Saturday night after dinner. no previous history of pancreatitis but pancreatic insufficiency causing diarrhea in the past, took Creon for couple of
years but since her dialysis, diarrhea stopped and she stopped the Creon. Currently has 1 formed stool a day. Previous smoker, no alcohol use. No recent new medication. In the ER, she has elevated LFTs and lipase, abdominal ultrasound showing
diffuse intrahepatic bile duct dilation with CBD up to 1.5 cm, multiple gallstones with wall thickening of the gallbladder. MRI showed choledocholithiasis obstructing the distal common duct.
On Eliquis, last dose Saturday.
-Gallstone pancreatitis, MRI/MRCP showing choledocholithiasis
Currently no abdominal pain. Last Eliquis dose Saturday.
Currently on Abx
She will be going in for ERCP this afternoon. Consent already obtained.
-For other GI issues, including history of pancreatic insufficiency and colon polyps, continue to follow-up with Dr. Dominique as outpatient.
Original Note:
Consultation
-
Date/Time Consultation Requested: 09/15/2023 7625
Date/Time Consultation Performed: 09/16/23 3762
Requesting Provider: Dr. Hernandez
Performing Provider: Dr. Knapp/FRIDA Lim
Reason for Consultation: CBD dilatation, elevated LFTs
Medical History
Chief Complaint / HPI
Chief Complaint: back pain
History of Present Illness:
83-year-old female with past medical history of CAD with non-ST elevated NC 01/2023, end-stage renal disease on HD Saturday, diabetes, anemia, history of TAVR, hypertension, PAD, PAF, CVA/TIA, CHF, hypertension, hyperlipidemia, breast
cancer status post right lumpectomy, thrombocytopenia who presents to the emergency room with what she states is a discomfort that feels like 'gas' in her back. We are asked to evaluate for the same as well as elevated LFTs and CBD dilatation. She
states that she would have this feeling on and off for the past week however Saturday and Saturday this became intense and she could not sleep. Because of this she called security at [facility] and was sent over to the emergency room. She states that
Dilaudid made the pain better. She also had associated epigastric discomfort. She had nausea however no vomiting. She states that she has only vomited twice in the past 50 years. She had a history of chronic diarrhea and was on Creon for the
past 2 years. She states since she was placed on dialysis in January this has subsided. She denies any fevers, chills, melena, hematochezia, dysphagia or odynophagia. No early satiety or unintentional weight loss. She does not make much urine.
She quit smoking approximately 50 years ago. She does not drink any alcohol. She has no prior history of pancreatitis. At the present time the patient states that her pain has resolved. The patient is on Eliquis for history of A-fib. Her last
dose was on Saturday. She was on Plavix prior but is not on this. She denies any NSAIDs. She does take Tylenol PM in the evening to help her sleep. She is due for dialysis today. This will be performed after she goes down to MRI/MRCP. WBC 11.5,
hemoglobin 10.9, hematocrit 33.0, platelet 113, sodium 135, potassium 5.3, chloride 93, BUN 53, creatinine 6.0, glucose 267, lactic acid, 3.6, total bilirubin 1.9, AST 1020, ALT 728, alk phos 355, troponin 0.119, lipase 1539. Awaiting repeat labs
today. Ultrasound of the abdomen shows diffuse intrahepatic biliary dilatation with severe distention of the CBD measuring up to 1.5 cm. There are many layering shadowing calcified gallstones within the gallbladder. The gallbladder is distended
with diffuse gallbladder wall thickening. Other findings will be detailed below.
Past Medical History
Past Medical History: CAD, Cancer (Breast cancer), CHF, HTN, Hypercholesterolemia, Renal Failure (On HD Saturday) and Other (Thrombocytopenia, PAD, secondary hyperparathyroidism,)
Past Surgical History: Tonsilectomy and Other (L4-L5 laminectomy x 2, left endarterectomy, bilateral cataracts, TAVR (2019) left AV fistula, blepharoplasty, right chest wall tunneled HD, right breast biopsy, right breast lumpectomy, excision right
breast sebaceous cyst)
Social History
Tobacco: Former Smoker
Alcohol: None
Drug: None
Living: Assisted Living
Family History
Family History: Other (No family history of gastrointestinal malignancy or IBD)
Allergies / Home Medications
Allergy/AdvReac Type Severity Reaction Status Date / Time
penicillin V Allergy Rash Verified 09/15/23 07:41
Penicillins Allergy Rash Verified 09/15/23 07:41
Sulfa (Sulfonamide Allergy Rash Verified 09/15/23 07:41
Antibiotics)
sulfamethoxazole Allergy Rash Verified 09/15/23 07:41
[From Bactrim]
trimethoprim [From Bactrim] Allergy Rash Verified 09/15/23 07:41
�Medication �Instructions �Recorded
atorvastatin 80 mg tablet 80 mg PO HS High Cholesterol 05/21/17
insulin aspart U-100 100 unit/mL 12 unit SC BID Diabetes 09/16/20
(3 mL) subcutaneous pen (Novolog
FlexPen U-100 Insulin aspart)
insulin degludec 100 unit/mL (3 10 unit SC HS Diabetes 09/16/20
mL) subcutaneous pen (Tresiba
FlexTouch U-100 insulin)
lutein 20 mg tablet 20 mg PO DAILY Supplement 01/09/22
furosemide 80 mg tablet 80 mg PO DAILY Fluid 10/05/22
Retention/Swelling
apixaban 2.5 mg tablet (Eliquis) 2.5 mg PO BID #60 tabs 02/01/23
amiodarone 200 mg tablet 200 mg PO DAILY Arrhythmia 04/18/23
sevelamer carbonate 800 mg tablet 800 mg PO BID hyperphosphatemia 04/18/23
vitamin B complex-vitamin C-folic 1 tab PO HS Supplement 04/18/23
acid 0.8 mg tablet (Nephro
Vitamins)
diphenhydramine 25 2 tab PO HS 09/15/23
mg-acetaminophen 500 mg tablet
(Tylenol PM Extra Strength)
Review of Systems
-
All other systems: A 12 pt ROS was Negative except as stated above in HPI
Vital Signs
Temp Pulse Resp BP Pulse Ox
98.8 F 79 16 161/58 95
09/16/23 07:50 09/16/23 08:59 09/16/23 07:50 09/16/23 08:59 09/16/23 07:50
Physical Exam
Exam
General: No Apparent Distress
HEENT: Anicteric
Respiratory: Clear (Anterior)
Cardiac: Regular Rhythm
GI: Soft, Non Distended, Normal Bowel Sounds and Tender (Mild epigastric tenderness)
Musculoskeletal: No Edema
Skin: Warm and Dry
Neuro: AO x 3
Psych: Calm
Results
WBC 11.5 10^3/uL (4.8-10.8) H 09/15/23 08:29
Hgb 10.9 g/dL (12.0-16.0) L 09/15/23 08:29
Hct 33.0 % (37.0-47.0) L 09/15/23 08:29
MCV 106.5 fL (81.0-99.0) H 09/15/23 08:29
Plt Count 113 10^3/uL (130-400) L 09/15/23 08:29
Absolute Neuts (auto) 10.6 10^3/uL (1.4-6.5) H 09/15/23 08:29
Sodium 135 mmol/L (135-145) 09/15/23 09:40
Potassium 5.3 mmol/L (3.5-5.1) H 09/15/23 09:40
Chloride 93 mmol/L (98-107) L 09/15/23 09:40
Carbon Dioxide 26 mmol/L (22-30) 09/15/23 09:40
BUN 53 mg/dl (7-17) H 09/15/23 09:40
Creatinine 6.0 mg/dL (0.6-1.0) H* 09/15/23 09:40
Calcium 9.8 mg/dl (8.4-10.2) 09/15/23 09:40
Total Bilirubin 1.9 mg/dl (0.2-1.3) H 09/15/23 09:40
AST 1020 U/L (14-36) H* 09/15/23 09:40
ALT 728 U/L (0-35) H* 09/15/23 09:40
Alkaline Phosphatase 355 U/L (38-126) H 09/15/23 09:40
Lipase 1539 U/L (23-300) H* 09/15/23 09:40
Diagnostic Image Results:
US Abdomen 09/15/23:
IMPRESSION:
1. SEVERE BILIARY DILATATION suggesting a distal common bile duct obstruction.
2. Distended gallbladder containing cholelithiasis.
3. Severe calcific atherosclerotic plaque in the abdominal aorta.
4. Severe chronic bilateral renal disease.
Electronically signed by Mateo Samayoa MD, 09/15/2023 9:48 AM
Prior GI Procedures:
EGD:
Colonoscopy: 04/10/2022 (Do) - Preparation of the colon was fair.
- The examined portion of the ileum was normal.
- Two 5 to 7 mm polyps in the cecum, removed using
injection-lift and a hot snare. Resected and retrieved.
- One 6 mm polyp in the ascending colon, removed using
injection-lift and a hot snare. Resected and retrieved.
- One 7 mm polyp in the descending colon, removed with
a hot snare. Resected and retrieved.
- One 7 mm polyp in the sigmoid colon, removed with a
hot snare. Resected and retrieved.
- One 10 mm polyp in the rectum, removed with a hot
snare. Resected and retrieved. Tattooed.
- Diverticulosis in the sigmoid colon and in the
descending colon.
- Biopsies were taken with a cold forceps from the
entire colon for evaluation of microscopic colitis.
- Large hemorrhoids
- Lax sphincter tone.
polyps tubular adenomas, random bx negative for micro colitis.
Assessment / Plan
-
83-year-old female with past medical history of CAD with non-ST elevated NC 01/2023, end-stage renal disease on HD Saturday, diabetes, anemia, history of TAVR, hypertension, PAD, PAF, CVA/TIA, CHF, hypertension, hyperlipidemia, breast
cancer status post right lumpectomy, thrombocytopenia who presents to the emergency room with what she states is a discomfort that feels like 'gas' in her back. We are asked to evaluate for the same as well as elevated LFTs and CBD dilatation. WBC
11.5, hemoglobin 10.9, hematocrit 33.0, platelet 113, sodium 135, potassium 5.3, chloride 93, BUN 53, creatinine 6.0, glucose 267, lactic acid, 3.6, total bilirubin 1.9, AST 1020, ALT 728, alk phos 355, troponin 0.119, lipase 1539. Awaiting repeat
labs today. Ultrasound of the abdomen shows diffuse intrahepatic biliary dilatation with severe distention of the CBD measuring up to 1.5 cm. There are many layering shadowing calcified gallstones within the gallbladder. The gallbladder is
distended with diffuse gallbladder wall thickening.
Impression:
Epigastric pain/upper abdominal discomfort
Dilated CBD
Cholelithiasis
Elevated LFTs
Elevated lipase
--> Findings suggest choledocholithiasis versus passed stone. Patient currently without any pain at present time.
Other Dx:
-PAF, on Eliquis-> last dose Saturday
-End-stage renal disease on HD Saturday
-History CHF
-History of CVA/TIA
-History anemia, thrombocytopenia
Plan:
-N.p.o. except for p.o. meds, on low-dose IV fluids (40 cc an hour)
-MRI/MRCP this a.m., patient with history of pancreatic insufficiency warranting Creon in the past. Has not needed to use in the past 6 months.
-Possible ERCP later on today after MRI/MRCP resulted, consent signed as patient will be receiving Ativan prior to MRI
-CBC, BMP, LFTs in a.m.
-On cefepime/Flagyl
-Cardiology consult pending
-Surgery following
Data Reviewed
-
Ultrasound: Report Reviewed by me
Old Records: Reviewed
-
-
Thank you for consultation and allowing me to participate in the patient's care. Please call the special forces weapons sergeant GI physician during the after hours with any questions or concerns.
[2023-09-16] MEDS: ATIVAN 1.5 MG IV (09:45)
[2023-09-16] MEDS: NSS (PRESERVATIVE FREE) 0.75 ML IV (09:46)
--- NOTE | 2023-09-16 10:05 | W.PN.GS2 ---
Today's Communication / Plan
-
MRCP
Assessment / Plan
-
83-year-old female with PMH of ESRD, CAD/MD, CVA s/p left CEA, HTN, HLD, DM, A-fib (on Eliquis), diastolic CHF who presents with gallstone pancreatitis
AFVSS
Pain much improved
Labs pending
Discussed with GI VAISHALI/Attending at bedside
- GI following with us with plan for MRCP to eval biliary tree
� ABX as per primary team
- HD as per nephrology
� Analgesics/antiemetics
� Diet as per GI
� Hold Eliquis, okay for DVT PPx from surgical standpoint
No emergent surgical intervention planned today; would recommend cholecystectomy this admission to prevent recurrence; cardiology consult requested for cardiac risk stratification
Subjective Data
-
Date of Service: September 16, 2023
Patient seen and examined at bedside with Dr. Nye. Denies n/v. Minimal epigastric discomfort, otherwise denies pain.
Objective Data
-
Intake and Output
09/15/23 09/16/23 09/17/23
06:59 06:59 06:59
Intake Total 240 / 240
Output Total
Balance 230 / 230
Intake:
Oral fluids 240 / 240
Output:
Urine, Voided
Vital Signs
Temp Pulse Resp BP Pulse Ox
98.8 F 79 16 161/58 95
09/16/23 07:50 09/16/23 08:59 09/16/23 07:50 09/16/23 08:59 09/16/23 07:50
Calcium 9.8 mg/dl (8.4-10.2) 09/15/23 09:40
Total Bilirubin 1.9 mg/dl (0.2-1.3) H 09/15/23 09:40
AST 1020 U/L (14-36) H* 09/15/23 09:40
ALT 728 U/L (0-35) H* 09/15/23 09:40
Alkaline Phosphatase 355 U/L (38-126) H 09/15/23 09:40
Total Protein 7.2 g/dl (6.3-8.2) 09/15/23 09:40
Albumin 4.1 g/dl (3.5-5.0) 09/15/23 09:40
Physical Exam
-
NAD
ABD soft, mildly tender to epigastric area, nd
--- NOTE | 2023-09-16 10:31 | W.PN.HOSP.TC ---
Addendum entered and electronically signed by Suzanne Rosario MD 09/16/23 16:48:
Addendum
Repeat troponin came back around 3. Patient has no symptoms. She is sleeping comfortably during dialysis. Likely positive troponin nonischemic myocardial injury related to renal failure.
Continue monitoring. d/w cardiology.
Hyperkalemia, treated with hemodialysis
End
Original Note:
Today's Communication/Plan
-
Discussed with GI doctor, MRCP is reviewed, plans for ERCP today
Assessment / Plan
Assessment / Plan
Physical Exam
General: Well Developed, No Apparent Distress, Conversant and Obese
HEENT: Normocephalic, Anicteric, Moist mucous membranes, Atraumatic, PERRLA and Oxygen
Respiratory: Clear
Cardiac: S1/S2 and Regular Rhythm
GI: Soft, Non Distended, Normal Bowel Sounds.
Rectal: Deferred by Provider
Genito-urinary: No [place]
Musculoskeletal: No Clubbing, No Cyanosis, no Edema, Left Lower Extremity and Edema, Right Lower Extremity
Skin: Warm
Neuro: AO x 3, she follows commands
Psych: Calm
# Choledocholithiasis w/ gallstone pancreatitis: Patient with biliary ductal dilation, marked elevation of LFTs and Lipase. Abdominal pain and nausea but no vomiting. There is gall bladder distention but no hung signs, no fevers, chills or
marked leukocytosis. Cannot rule out calculous cholecystitis entirely. Less likely cholangitis.
- admit to med/surg
- NPO except ice-chips and sips
- pain control with morphine, antiemetics
- very gentle maintenance fluids with LR at 30 ml/hr.
- she is mod-risk for resistant infection, will continue cefepime/flagyl
- mrcp
Appreciate GI and surgery input
# Claustrophobia, will give IV Ativan
# hyperkalemia, recheck and treat if necessary with HD
# ESRD -
-Primary senior sql developer Dr Asencio
patient on HD via LUE AVF M/W/F. Still has permcath.
- npo for now
- small fluid bolus of 250 ml NS, she would like to use lidocaine cream if fistula
To be utilized
# Paroxysmal atrial fibrillation
No history of palpitations or chest pain.
- continue amio 200 daily
- holding AC pending GI workup
# History of chronic heart failure with reduced ejection fraction. Last ejection fraction reportedly 45 to 50%. She is euvolemic. No shortness of breath or hypoxia.
#History of aortic stenosis status post TAVR.
# Positive troponin with no chest pain. Likely nonischemic myocardial injury in setting of acute illness.
# DM II - on Tresiba 10 hs and aspart 10 bidac
- insulin sliding scale for now while NPO
DVT PPX - heparin sq
Code Status - Full Code (if expected to make reasonable recovery). Intubation ok.
Total time spent to see the patient, examine the patient on the floor, review data and lab results, discuss treatment plan with patient, nursing staff around 55 minutes
Anticipated Discharge: 24 - 48 hours
Subjective/Interval History
-
Date of Service: September 16, 2023
Seen earlier, no pain, no nausea
wanted sedation for MRI
Objective Data
-
Labs:
Laboratory Results
09/16/23 09/16/23
06:00 07:38
WBC Pending
Hgb Pending
Hct Pending
Plt Count Pending
Sodium Pending
Potassium Pending
Chloride Pending
Carbon Dioxide Pending
BUN Pending
Creatinine Pending
Glucose Pending
Calcium Pending
Total Bilirubin Pending
AST Pending
ALT Pending
Alkaline Phosphatase Pending
Vital Signs:
Vital Signs
Temp Pulse Resp BP Pulse Ox
98.8 F 79 16 161/58 95
09/16/23 07:50 09/16/23 08:59 09/16/23 07:50 09/16/23 08:59 09/16/23 07:50
I&O
09/15/23 09/16/23 09/17/23
06:59 06:59 06:59
Intake Total 240 / 240
Output Total
Balance 230 / 230
[2023-09-16 12:02] LABS: Glucose - Point of Care 259 mg/dl (70-99)
--- NOTE | 2023-09-16 12:07 | W.PN.NEPH.HD ---
Assessment
-
Patient seen for dialysis
Hemodynamically stable for UF
Will utilize catheter today
Progress Note - Hemodialysis
-
Date of Service: September 16, 2023
Duration: 30 minutes and 3 hours
Potassium Bath: 2
Calcium Bath: 2.5
Opti-Dialyzer: 160
Ultrafiltration: Other (1kg)
Blood Flow: 400
Dialysate Flow: 600
Heparin: held
EPO: given
[2023-09-16] MEDS: NOVOLOG FLEXPEN-MODERATE RESISTANCE 5 UNITS SC (12:14)
[2023-09-16 13:19] LABS: Hematocrit 27.7 % (37.0-47.0); Hemoglobin 8.9 g/dL (12.0-16.0); Mean Corp Hgb Conc. 32.1 g/dL (33.0-37.0); Mean Corpuscular Hgb 35.3 pg (27.0-31.0); Mean Corpuscular Volume 109.9 fL (81.0-99.0); Mean Platelet Volume 12.3 fL (7.4-10.4); Platelet Count 109 10^3/uL (130-400); Red Blood Cell Count 2.52 10^6/uL (4.20-5.40); Red Cell Dist. Width 14.8 % (11.5-14.5); White Blood Cell Count 7.4 10^3/uL (4.8-10.8)
[2023-09-16] MEDS: RETACRIT 2000 UNITS IV (13:40)
[2023-09-16 14:50] LABS: Albumin 3.3 g/dl (3.5-5.0); Alkaline Phosphatase 251 U/L (38-126); Blood Urea Nitrogen 62 mg/dl (7-17); Calcium 8.6 mg/dl (8.4-10.2); Carbon Dioxide 17 mmol/L (22-30); Chloride 102 mmol/L (98-107); Direct Bilirubin 2.3 mg/dl (0.0-0.4); Estimated Creatinine Clearance 7 ml/min; Glucose 190 mg/dl (70-99); Potassium 6.9 mmol/L (3.5-5.1); Sodium 134 mmol/L (135-145); Total Bilirubin 2.5 mg/dl (0.2-1.3); Total Protein 5.6 g/dl (6.3-8.2); eGFR 6.06
[2023-09-16 15:08] LABS: AST (SGOT) 1383 U/L (14-36)
--- NOTE | 2023-09-16 15:08 | CM ---
Reviewed chart, placed a call to patient's daughter to obtain information for assessment as patient was tired and in dialysis. Patient's daughter answered and stated that she could talk. Patient's daughter stated patient lives in independent living
at [facility]. She described her as mostly independent with bathing, dressing, most ADLs and ambulates with a cane, walker or long distances in a w/c. 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 She gets her meals from [facility] when she doesn't
want to cook. Patient uses the [facility] Van to dialysis. Patient goes to [facility]. Patient's daughter takes patient to her doctor's appointments and takes her shopping.
Patient has a cane, walker in addition to her w/c.
Patient has not had VN but has had the aides from [facility] in to assist her when she has needed it. Patient's daughter stated that patient has the option to pay privately for aides and can have access to as much care as she needs.
Patient's daughter expressed that she was hopeful that patient could return to her apartment upon discharge but stated that they will be agreeable to what is indicated.
Plan: Case management will continue to follow and assist with discharge planning. Patient/family hopeful that patient can return to her apartment.
[2023-09-16 15:41] LABS: ALT (SGPT) 1187 U/L (0-35)
[2023-09-16 16:02] VITALS: BP 113/45
[2023-09-16] MEDS: FLAGYL 500 MG 100 IV ×2 (16:33→23:21)
[2023-09-16] MEDS: MAXIPIME 1000 MG IV (16:35)
[2023-09-16] MEDS: STERILE WATER FOR INJECTION 10 ML IV (16:35)
[2023-09-16 18:01] LABS: Glucose - Point of Care 107 mg/dl (70-99)
--- NOTE | 2023-09-16 20:00 | PTCARENOTE ---
Assumed care of patient at 1900. Patient drowsy but arouses to verbal stimuli, Ox3. Patient reports feelings of 'chest tightness', pointed to bilateral anterior chest wall/breast area, admits to feeling SOB but denied pain worsening on inspiration
or radiating elsewhere. 2L NC placed for comfort and EKG performed - resulted NSR with LBBB, no change from prior. Troponin ordered for 1999 and resulted at 3.880, follow up ordered for 399.
[2023-09-16] MEDS: FLAGYL 500 MG IV (20:09)
[2023-09-16 21:47] LABS: Glucose - Point of Care 210 mg/dl (70-99)
[2023-09-16 23:06] VITALS: BP 119/60
[2023-09-16] MEDS: HEPARIN 5000 UNITS SC (23:22)
[2023-09-16 23:27] LABS: Glucose - Point of Care 183 mg/dl (70-99)
[2023-09-16] MEDS: NOVOLOG FLEXPEN-MODERATE RESISTANCE 1 UNITS SC (23:27)
[2023-09-17] VITALS (7 sets, daily range): BP systolic 110–139; BP diastolic 38–69; BMI 24.9
[2023-09-17 04:40] LABS: Hematocrit 26.5 % (37.0-47.0); Hemoglobin 8.6 g/dL (12.0-16.0); Mean Corp Hgb Conc. 32.5 g/dL (33.0-37.0); Mean Corpuscular Hgb 35.1 pg (27.0-31.0); Mean Corpuscular Volume 108.2 fL (81.0-99.0); Mean Platelet Volume 12.2 fL (7.4-10.4); Platelet Count 108 10^3/uL (130-400); Red Blood Cell Count 2.45 10^6/uL (4.20-5.40); Red Cell Dist. Width 14.8 % (11.5-14.5); White Blood Cell Count 6.2 10^3/uL (4.8-10.8)
[2023-09-17 05:07] LABS: Albumin 3.2 g/dl (3.5-5.0); Alkaline Phosphatase 300 U/L (38-126); Blood Urea Nitrogen 36 mg/dl (7-17); Carbon Dioxide 25 mmol/L (22-30); Chloride 97 mmol/L (98-107); Direct Bilirubin 1.6 mg/dl (0.0-0.4); Estimated Creatinine Clearance 11 ml/min; Glucose 112 mg/dl (70-99); Potassium 5.1 mmol/L (3.5-5.1); Sodium 132 mmol/L (135-145); Total Bilirubin 1.7 mg/dl (0.2-1.3); Total Protein 6.1 g/dl (6.3-8.2); eGFR 10.99
[2023-09-17 05:16] LABS: ALT (SGPT) 1222 U/L (0-35); AST (SGOT) 1344 U/L (14-36)
[2023-09-17] MEDS: NOVOLOG FLEXPEN-MODERATE RESISTANCE SC ×2 (05:30→15:10)
[2023-09-17 05:31] LABS: Glucose - Point of Care 111 mg/dl (70-99)
--- NOTE | 2023-09-17 07:54 | W.PN.HOSP.TC ---
Today's Communication/Plan
-
.
Assessment / Plan
Assessment / Plan
Physical Exam
General: Well Developed, No Apparent Distress, Conversant and Obese
HEENT: Normocephalic, Anicteric, Moist mucous membranes, Atraumatic, PERRLA and Oxygen
Respiratory: Clear
Cardiac: S1/S2 and Regular Rhythm
GI: Soft, Non Distended, Normal Bowel Sounds.
Rectal: Deferred by Provider
Genito-urinary: No [place]
Musculoskeletal: No Clubbing, No Cyanosis, no Edema, Left Lower Extremity and Edema, Right Lower Extremity
Skin: Warm
Neuro: AO x 3, she follows commands
Psych: Calm
# Choledocholithiasis w/ gallstone acute pancreatitis:
No abd pain or nausea, luckily she is not symptomatic at this point. No fevers.
Still on broad spectrum ABx with Flagyl and cefepime.
MRI confirmed CBD obstructing stone with pancreatitis
Plan for ERCP after Eliquis washout.
Appreciate GI and surgery input
# hyponatremia, mild
No confusion
# hyperkalemia, treated with HD
# ESRD -
-Primary domestic maid Dr Asencio
patient on HD via LUE AVF M/W/. Still has permcath and we used it for HD.
Appreciate nephrology help
# Paroxysmal atrial fibrillation
No history of palpitations or chest pain.
- continue amio 200 daily
- holding AC pending finishing GI workup
# History of chronic heart failure with reduced ejection fraction. Last ejection fraction reportedly 45 to 50%. She is euvolemic. No shortness of breath or hypoxia.
#History of aortic stenosis status post TAVR.
# Nonischemic myocardial injury in setting of acute illness and renal failure.
No chest pain
# DM II - Home dose: on Tresiba 10 hs and aspart 10 bidac
- insulin sliding scale for now
DVT PPX - heparin sq
Code Status - Full Code (if expected to make reasonable recovery). Intubation ok.
Total time spent to see the patient, examine the patient on the floor, review data and lab results, discuss treatment plan with patient, consultants, nursing staff around 55 minutes
Anticipated Discharge: 24 - 48 hours
Subjective/Interval History
-
Date of Service: September 17, 2023
No chest pain
No abd pain, nausea or fevers
Objective Data
-
Labs:
Laboratory Results
09/17/23
04:34
WBC 6.2
Hgb 8.6 L
Hct 26.5 L
Plt Count 108 L
Sodium 132 L
Potassium 5.1 D
Chloride 97 L
Carbon Dioxide 25
BUN 36 H
Creatinine 3.9 H
Glucose 112 H
Calcium 9.0
Total Bilirubin 1.7 H
AST 1344 H*
ALT 1222 H*
Alkaline Phosphatase 300 H
Vital Signs:
Vital Signs
Temp Pulse Resp BP Pulse Ox
98.2 F 70 16 139/38 100
09/17/23 07:18 09/17/23 07:18 09/17/23 07:18 09/17/23 07:18 09/17/23 07:18
I&O
09/16/23 09/17/23 09/18/23
06:59 06:59 06:59
Intake Total 240 / 240
Output Total
Balance 230 / 230
[2023-09-17 08:27] LABS: Glucose - Point of Care 116 mg/dl (70-99)
[2023-09-17] MEDS: FLAGYL 500 MG 100 IV ×3 (08:31→23:36)
[2023-09-17] MEDS: HEPARIN 5000 UNITS SC ×3 (08:31→23:36)
[2023-09-17] MEDS: PACERONE 200 MG PO (08:32)
--- NOTE | 2023-09-17 10:57 | W.PN.GS2 ---
Today's Communication / Plan
-
- ERCP today
� Diet as per GI, NPO PM for possible lap jose a
Assessment / Plan
-
83-year-old female with PMH of ESRD, CAD/IA, CVA s/p L CEA, HTN, HLD, DM, A-fib (on Eliquis), diastolic CHF who presents with gallstone pancreatitis
MRCP (09/16/2023): Obstructing choledocholithiasis in the distal CBD, extensive cholelithiasis, acute interstitial pancreatitis, severe chronic bilateral renal disease, atherosclerotic plaque in the abdominal aorta
AFVSS
Pain much improved
Labs with slight down trend in bilirubin and LFTs
Role of cholecystectomy in preventing future episodes of choledocholithiasis and gallstone pancreatitis was reviewed. Timing TBD. Plan for ERCP today.
- ERCP today
� ABX as per primary team
- HD as per nephrology
� Analgesics/antiemetics
� Diet as per GI, NPO PM for possible lap jose a
� Hold Eliquis, okay for DVT PPx from surgical standpoint
Subjective Data
-
Date of Service: September 17, 2023
No complaints. Abdominal pain improved. Vomiting. No fevers.
Objective Data
-
Intake and Output
09/16/23 09/17/23 09/18/23
06:59 06:59 06:59
Intake Total 240 / 240
Output Total
Balance 230 / 230
Intake:
Oral fluids 240 / 240
Output:
Urine, Voided
Vital Signs
Temp Pulse Resp BP Pulse Ox
98.2 F 70 16 145/59 96
09/17/23 07:18 09/17/23 08:32 09/17/23 07:18 09/17/23 08:32 09/17/23 08:15
Lab Results
09/17/23 04:34
06/11/24 04:34
Calcium 9.0 mg/dl (8.4-10.2) 09/17/23 04:34
Total Bilirubin 1.7 mg/dl (0.2-1.3) H 09/17/23 04:34
Direct Bilirubin 1.6 mg/dl (0.0-0.4) H 09/17/23 04:34
AST 1344 U/L (14-36) H* 09/17/23 04:34
ALT 1222 U/L (0-35) H* 09/17/23 04:34
Alkaline Phosphatase 300 U/L (38-126) H 09/17/23 04:34
Total Protein 6.1 g/dl (6.3-8.2) L 09/17/23 04:34
Albumin 3.2 g/dl (3.5-5.0) L 09/17/23 04:34
Physical Exam
-
Gen: NAD
Abd: soft, NT/ND, non-peritoneal
--- NOTE | 2023-09-17 11:20 | W.PN.NEPH.PH ---
Today's Communication / Plan
-
Hd tomorrow
Assessment/Plan
-
IMP:
Choledocholithiasis w/ gallstone pancreatitis
Trop Elevation - Non MT trop elevation.
ESRD [facility], [facility]
Left upper arm AV fistula revision 06/27/23
h/o MT with old LBBB status post cardiac catheterization (occluded left circumflex unable to be open) January 2023
Paroxysmal atrial fibrillation on systemic anticoagulation
History heart failure mixed type
History of TAVR
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
Thrombocytopenia
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
Hypertension
Right chest wall tunneled HD CVC
History CVA
LBBB
PAD
Secondary hyperparathyroidism
PLan:
A/w abd pain -concern of gall stone in CBD, choledocholithiasis
ERCP today, likely choley tomorrow
plan HD tomorrow
orders provided
AVF is functioning but using catheter while inpatient
BP stable
ok for gentle IVF while NPO with NS
mild hyperkalemia
renal diet and FR when resumes
-
-
Date of Service: September 17, 2023
CC / HPI / ROS
-
Chief Complaint:
ESRD
History of Present Illness:
ESRD MWF
hemodynamically stable
Review of Systems:
no chest pain or sob
Labs
-
Labs:
WBC 6.2 10^3/uL (4.8-10.8) 09/17/23 04:34
RBC 2.45 10^6/uL (4.20-5.40) L 09/17/23 04:34
Hgb 8.6 g/dL (12.0-16.0) L 09/17/23 04:34
Hct 26.5 % (37.0-47.0) L 09/17/23 04:34
Plt Count 108 10^3/uL (130-400) L 09/17/23 04:34
Sodium 132 mmol/L (135-145) L 09/17/23 04:34
Potassium 5.1 mmol/L (3.5-5.1) D 09/17/23 04:34
Chloride 97 mmol/L (98-107) L 09/17/23 04:34
Carbon Dioxide 25 mmol/L (22-30) 09/17/23 04:34
BUN 36 mg/dl (7-17) H 09/17/23 04:34
Creatinine 3.9 mg/dL (0.6-1.0) H 09/17/23 04:34
eGFR 10.99 09/17/23 04:34
Glucose 112 mg/dl (70-99) H 09/17/23 04:34
Calcium 9.0 mg/dl (8.4-10.2) 09/17/23 04:34
Albumin 3.2 g/dl (3.5-5.0) L 09/17/23 04:34
Physical Exam
-
Vital Signs:
Vital Signs
Temp Pulse Resp BP Pulse Ox
98.2 F 70 16 145/59 96
09/17/23 07:18 09/17/23 08:32 09/17/23 07:18 09/17/23 08:32 09/17/23 08:15
Cardiovascular:: Regular rate and rhythm
Respiratory:: Bilateral: CTA
Lung Excursion:: Normal
Abdomen:: Nontender and Soft
Bowel Sounds:: Normal
Extremity Edema:: None: Bilateral:
[place] Catheter: No
Other Findings::
AVF/CVC catheter
--- NOTE | 2023-09-17 11:52 | W.PN.CD ---
Addendum entered and electronically signed by Oh Colon MD 09/17/23 13:09:
I saw and examined the patient.
The ORCHESTRA TEACHER's note was reviewed and I agree with the note.
Comment: She is 'happy as a clam'. She is feeling so much better. No cp or sob. She has an rrr no m/r/g, lungs cta. She is for ercp today. Trop noted, but elevated this year to same degree without intervenable disease, she had ESRD and has no cp
or ecg change. Will update echo, but no plan for cath. Given her elevated chads2 vasc score, she should be bridged with heparin if going to be off Eliquis for prolonged periods.
Original Note:
Today's Communication / Plan
-
ERCP today
Echocardiogram
Impression / Plan
-
Choledocholithiasis, gallstone pancreatitis:
-Surgery and GI following
-on ABX
-ERCP today
-likely lap jose a this admit
Pre-op cardiovascular risk assessment
-Patient is at above average risk for cardiac complications (2.5% by NSQIP risk calculator) for proposed procedure (lap jose a)
Abnormal troponin, type unknown
-Peak troponin 3.880, update echo
-EKG stable with LBBB
Paroxysmal atrial fibrillation
-Stable in SR
-On amiodarone as OP
-Eliquis held for procedure, resume as soon as safe from surgery standpoint
-[id number] score is 9 (HTN, age, female, CAD/PAD, stroke, DM). If she needs to be off prolonged period of time, and okay with surgery, will need bridging. Last dose was 09/14/23.
ICM EF 45-50%:
-volume status appears stable
-follow
s/p TAVR:
-stable by most recent echo
CAD:
-Cath 01/28/23: Right dominant circulation with a 60% lesion in the distal RCA, a 60-70% lesion in the mid LAD spanning the origin of the diagonal, and occlusion of the ostial circumflex immediately after the origin of the first obtuse marginal,
initially thought to be an acute lesion but later revealed to be a chronic total occlusion. Unsuccessful PCI of the ostial circumflex. Med management.
-On statin and Eliquis as OP (held).
-Stable without angina
LBBB, chronic, stable
ESRD, on HD per nephro
SUBJECTIVE:
Denies CP, SOB, and dizziness.
Physical Exam
Vital Signs/Labs
Vital Signs
Temp Pulse Resp BP Pulse Ox
98.2 F 70 16 145/59 96
09/17/23 07:18 09/17/23 08:32 09/17/23 07:18 09/17/23 08:32 09/17/23 08:15
09/16/23 09/17/23 09/18/23
06:59 06:59 06:59
Actual Weight 73.198 kg 72.178 kg
09/17/23 04:34
09/17/23 04:34
LAB Results
09/15/23 09/15/23 09/16/23
08:29 09:40 12:55
Troponin I Cancelled 0.119 H* 3.290 H*
09/16/23 09/17/23
19:56 04:34
Troponin I 3.880 H* 3.130 H*
Physical Exam
Constitutional: No acute distress and Comfortable
EENT: Anicteric and Moist mucous membranes
Cardiovascular: Rhythm & rate is regular, Pedal edema is absent and S1S2 is normal
Respiratory: Respiratory effort normal and Lungs clear to auscul.
GI: Distention absent and Normal bowel sounds
Neuro/Psych: AO x 3
Other: Skin (warm and dry)
Data Reviewed
-
Date of Service: September 17, 2023
[2023-09-17] MEDS: STERILE WATER FOR INJECTION 10 ML IV (11:54)
[2023-09-17] MEDS: MAXIPIME 1000 MG IV (11:54)
--- NOTE | 2023-09-17 12:00 | PTOTSP ---
Reviewed chart and attempted to see pt for PT evaluation. Pt declined to participate, stating she has been up to the bathroom and has no concerns about her mobility at this time. Pt anticipates having procedures today and surgery tomorrow. Agreed to
follow up post-op. Will sign off at this time. Please re-order PT/OT post-op when stable to begin activity.
[2023-09-17 14:30] LABS: Glucose - Point of Care 141 mg/dl (70-99)
[2023-09-17 17:09] LABS: Glucose - Point of Care 259 mg/dl (70-99)
[2023-09-17] MEDS: NOVOLOG FLEXPEN-MODERATE RESISTANCE 5 UNITS SC (17:14)
[2023-09-17 21:42] LABS: Glucose - Point of Care 379 mg/dl (70-99)
[2023-09-17] MEDS: NOVOLOG FLEXPEN 9 UNITS SC (22:00)
[2023-09-17 23:56] LABS: Glucose - Point of Care 320 mg/dl (70-99)
[2023-09-17] MEDS: NOVOLOG FLEXPEN-MODERATE RESISTANCE 7 UNITS SC (23:56)
[2023-09-18] VITALS (14 sets, daily range): BP systolic 110–150; BP diastolic 38–70; BMI 25.9
[2023-09-18] MEDS: NOVOLOG FLEXPEN-MODERATE RESISTANCE 1 UNITS SC ×2 (05:26→17:50)
[2023-09-18 05:30] LABS: Glucose - Point of Care 199 mg/dl (70-99)
[2023-09-18] MEDS: HEPARIN SC (08:25)
[2023-09-18 08:35] LABS: Hemoglobin 8.7 g/dL (12.0-16.0)
[2023-09-18 09:07] LABS: Albumin 3.3 g/dl (3.5-5.0); Alkaline Phosphatase 271 U/L (38-126); Carbon Dioxide 25 mmol/L (22-30); Chloride 94 mmol/L (98-107); Direct Bilirubin 1.1 mg/dl (0.0-0.4); Potassium 5.2 mmol/L (3.5-5.1); Sodium 130 mmol/L (135-145); Total Bilirubin 1.1 mg/dl (0.2-1.3); Total Protein 6.5 g/dl (6.3-8.2)
--- NOTE | 2023-09-18 09:08 | W.PN.HOSP.TC ---
Today's Communication/Plan
-
She wants to know timing of surgery
Assessment / Plan
Assessment / Plan
Physical Exam
General: Well Developed, No Apparent Distress, Conversant and Obese
HEENT: Normocephalic, Anicteric, Moist mucous membranes, Atraumatic, PERRLA and Oxygen
Respiratory: Clear
Cardiac: S1/S2 and Regular Rhythm
GI: Soft, Non Distended, Normal Bowel Sounds.
Rectal: Deferred by Provider
Genito-urinary: No [place]
Musculoskeletal: No Clubbing, No Cyanosis, no Edema, Left Lower Extremity and Edema, Right Lower Extremity
Skin: Warm
Neuro: AO x 3, she follows commands
Psych: Calm
# Choledocholithiasis w/ gallstone acute pancreatitis:
No abd pain or nausea,No fevers.
Still on broad spectrum ABx with Flagyl and cefepime.
MRI confirmed CBD obstructing stone with pancreatitis
s/p ERCP after Eliquis washout on 09/16 with good results after biliary sphincterotomy and balloon extraction by Dr heredia. Plan for Lap cholecystectomy today. Seh is NPO.
Appreciate GI and surgery input
# hyponatremia, mild
No confusion
# hyperkalemia, treated with HD
# ESRD -
-Primary stationary steam engineer Dr Asencio
patient on HD via LUE AVF M//. Still has permcath and we used it for HD.
Appreciate nephrology help
# Paroxysmal atrial fibrillation
No history of palpitations or chest pain.
- continue amio 200 daily
- holding AC pending finishing GI workup
# History of chronic heart failure with reduced ejection fraction. Last ejection fraction reportedly 45 to 50%. She is euvolemic. No shortness of breath or hypoxia.
#History of aortic stenosis status post TAVR.
# Nonischemic myocardial injury in setting of acute illness and renal failure.
No chest pain
# DM II - Home dose: on Tresiba 10 hs and aspart 10 bidac
- insulin sliding scale for now
DVT PPX - heparin sq
Code Status - Full Code (if expected to make reasonable recovery). Intubation ok.
Total time spent to see the patient, examine the patient on the floor, review data and lab results, discuss treatment plan with patient, consultants, nursing staff around 55 minutes
Anticipated Discharge: 24 - 48 hours
Subjective/Interval History
-
Date of Service: September 18, 2023
She wants to know timning of surgery
Objective Data
-
Labs:
Laboratory Results
09/18/23 09/18/23
05:00 08:17
Hgb 8.7 L
Hct 26.0 L
Sodium 130 L
Potassium 5.2 H
Chloride 94 L
Carbon Dioxide 25
Total Bilirubin Cancelled 1.1
AST Cancelled Pending
ALT Cancelled Pending
Alkaline Phosphatase Cancelled 271 H
Vital Signs:
Vital Signs
Temp Pulse Resp BP Pulse Ox
98.0 F 62 18 144/70 98
09/18/23 07:00 09/18/23 07:00 09/18/23 07:00 09/18/23 07:00 09/18/23 07:00
I&O
09/17/23 09/18/23 09/19/23
06:59 06:59 06:59
Intake Total 1400 / 1400
Output Total 0 / 0
Balance 1400 / 1400
[2023-09-18 09:17] LABS: ALT (SGPT) 1174 U/L (0-35); AST (SGOT) 1027 U/L (14-36)
[2023-09-18] MEDS: RETACRIT 10000 UNITS IV (09:40)
--- NOTE | 2023-09-18 10:37 | W.PN.NEPH.HD ---
Assessment
-
pt seen during HD
vitals stable
for OR today
accessing CVC currently
AVF is functioning -attempt to use in next HD
likely d/c tunneled catheter soon if functioning still
Progress Note - Hemodialysis
-
Date of Service: September 18, 2023
Duration: 30 minutes and 3 hours
Potassium Bath: 2
Calcium Bath: 2.5
Opti-Dialyzer: 160
Ultrafiltration: Other (2kg)
Blood Flow: 400
Dialysate Flow: 600
Heparin: no
EPO: [id number]
--- NOTE | 2023-09-18 10:37 | W.PN.CD ---
Addendum entered and electronically signed by Oh Colon MD 09/18/23 11:05:
I saw and examined the patient.
The SHERIFF'S OFFICER or PA's note was reviewed and I agree with the note.
Comment: She is on HD without complaint. rrr no m/r/g, lungs cta. Plan is for surgery this afternoon. D/w Dr Field, ok to bridge with heparin 24 hours post op and start Eliquis 48 hours post op.
Original Note:
Today's Communication / Plan
-
-Patient for surgery today (lap jose a)
-AC as soon as acceptable post-op
Impression / Plan
-
Choledocholithiasis, gallstone pancreatitis:
-s/p ERCP 09/17/23: Choledocholithiasis was found. Complete removal was accomplished by biliary sphincterotomy and balloon extraction. A biliary sphincterotomy was performed.
-plan is for lap jose a today
-on ABX
Pre-op cardiovascular risk assessment
-Patient is at above average risk for cardiac complications (2.5% by NSQIP risk calculator) for proposed procedure (lap jose a)
Abnormal troponin, type unknown
-Peak troponin 3.880
-echo 09/17/23: EF 40-45%. Hypokinesis of the inferolateral wall. Stage II diastolic dysfunction. S/p TAVR #23 Paulino Ubaldo with mean gradient of 12mmHg. Moderate pulmonary pressure. Compared to previous echo on 01/29/23, the EF is similar. The
pulmonary pressure is higher. Of note, this was after missing dialysis day, which she is having done now.
-EKG stable with LBBB
-denies CP or SOB
Paroxysmal atrial fibrillation
-Stable in SR
-On amiodarone as OP
-Eliquis held for procedure, resume as soon as safe from surgery standpoint
-[id number] score is 9 (HTN, age, female, CAD/PAD, stroke, DM). If she needs to be off prolonged period of time, and okay with surgery, will need bridging. Last dose was 09/14/23.
ICM EF 45-50%:
-volume status looks okay to me- no SOB while lying. Getting HD now.
-follow
s/p TAVR:
-stable on echo
CAD:
-Cath 01/28/23: Right dominant circulation with a 60% lesion in the distal RCA, a 60-70% lesion in the mid LAD spanning the origin of the diagonal, and occlusion of the ostial circumflex immediately after the origin of the first obtuse marginal,
initially thought to be an acute lesion but later revealed to be a chronic total occlusion. Unsuccessful PCI of the ostial circumflex. Med management.
-On statin and Eliquis as OP (held).
-Stable without angina
LBBB, chronic, stable
ESRD, on HD per nephro
Physical Exam
Vital Signs/Labs
Vital Signs
Temp Pulse Resp BP Pulse Ox
98.0 F 62 18 144/70 98
09/18/23 07:00 09/18/23 07:00 09/18/23 07:00 09/18/23 07:00 09/18/23 07:00
09/17/23 09/18/23 09/19/23
06:59 06:59 06:59
Actual Weight 72.178 kg 74.933 kg
09/18/23 08:17
09/18/23 08:17
LAB Results
09/16/23 09/16/23 09/17/23
12:55 19:56 04:34
Troponin I 3.290 H* 3.880 H* 3.130 H*
Physical Exam
Constitutional: No acute distress
EENT: Anicteric
Cardiovascular: Rhythm & rate is regular
Respiratory: Respiratory effort normal and Lungs clear to auscul.
Neuro/Psych: AO x 3
Data Reviewed
-
Date of Service: September 18, 2023
[2023-09-18] MEDS: FLAGYL 500 MG 100 IV ×3 (10:54→23:02)
[2023-09-18] MEDS: PACERONE 200 MG PO (11:36)
[2023-09-18] MEDS: HEPARIN 3900 UNITS INTRACATH (11:37)
[2023-09-18 12:07] LABS: Glucose - Point of Care 111 mg/dl (70-99)
[2023-09-18] MEDS: STERILE WATER FOR INJECTION 10 ML IV (12:10)
[2023-09-18] MEDS: MAXIPIME 1000 MG IV (12:10)
[2023-09-18] MEDS: NOVOLOG FLEXPEN-MODERATE RESISTANCE SC (12:11)
--- NOTE | 2023-09-18 15:26 | W.PN.UPDATE ---
Update Note
Progress Note Update
patient currently in the OR for cholecystectomy
Her hepatocellular injury is significant - will hold the amiodarone until it comes back down and avoid any other hepatotoxic medications
The choledocholithiasis can elevate ALT but very rarely to this degree
Cardiology aware and would restart when ALT improves
Stopped prn Tylenol as well.
recheck tomorrow and add coags
--- NOTE | 2023-09-18 15:28 | W.IMMPOSTOP ---
Surgical Immed Post Op Note
-
Primary Surgeon: Emir
Assisting: Rupali
Pre-op Diagnosis: Choledocholithiasis
Post-op Diagnosis: Same
Procedure Performed: Laparoscopic cholecystectomy
Anesthesia Type: GETA
Specimen / Cultures: Gallbladder
Estimated Blood Loss: 5cc
Complications: None immediate
Operative Findings: Floppy, mildly edematous gallbladder; critical view obtained
--- NOTE | 2023-09-18 15:29 | OR.RPT ---
Operative Report
Operative Report
Primary Surgeon: Emir
Belt Line Feeder: Rupali NEAL
Pre-op Diagnosis: Choledocholithiasis
Post-op Diagnosis: Same
Procedure Performed: Laparoscopic cholecystectomy
Anesthesia Type: GETA
Specimen / Cultures: Gallbladder
Estimated Blood Loss: 5cc
Complications: None immediate
Operative Findings: Floppy, mildly edematous gallbladder; critical view obtained
Date of Surgery: 09/18/23
Indications: This 83F developed epigastric pain and on workup was found to have choledocholithiasis. She underwent successful ERCP. Laparoscopic cholecystectomy was elected.
Description of procedure: The patient was placed on the operating table in the supine position. General anesthesia was induced. A time-out was completed verifying correct patient, procedure, site, positioning, and special equipment prior to
beginning this procedure. An orogastric tube was placed. The abdomen was prepped and draped in the usual sterile fashion. A stab incision was made in left upper quadrant and the Veress needle was inserted. Proper position was confirmed by aspiration
and saline meniscus test. The abdomen was insufflated with carbon dioxide to a pressure of 12 mmHg. The patient tolerated insufflation well.
A 5mm optical trocar was then inserted at the umbilicus. The laparoscope was inserted and the abdomen inspected. No injuries from initial trocar placement or Veress needle insertion were noted. Additional trocars were then inserted in the following
locations: a 12-mm trocar in the right epigastrium and two 5-mm trocars along the right costal margin. The abdomen was inspected and no abnormalities were found. The table was placed in the reverse Trendelenburg position with the right side up. The
dome of the gallbladder was grasped with an atraumatic grasper and retracted over the dome of the liver. The infundibulum was also grasped with an atraumatic grasper and retracted toward the right lower quadrant. This maneuver exposed Calot�s
triangle. The peritoneum overlying the gallbladder infundibulum was then incised and the cystic duct and cystic artery identified and circumferentially dissected so that a clear view of the liver was achieved through a window between the cystic duct
an cystic artery. At this time, the only two structures going into the gallbladder were the cystic artery and cystic duct.
The cystic duct and cystic artery were then doubly clipped and divided close to the gallbladder. The gallbladder was then dissected from its peritoneal attachments by electrocautery. Hemostasis was assured and the gallbladder and contained stones
were removed using an endoscopic retrieval bag placed through the subxiphoid port. The gallbladder was passed off the table as a specimen. The gallbladder fossa was copiously irrigated with saline and hemostasis was again assured. There was no
evidence of bleeding from the gallbladder fossa or cystic artery or leakage of the bile from the cystic duct stump. The subxiphoid trocar site was closed at the fascial level laparoscopically with 2-0 PDS. Secondary trocars were removed under direct
vision and noted to be hemostatic. The laparoscope was withdrawn and the umbilical trocar removed. The abdomen was allowed to collapse. The skin was closed with subcuticular sutures of 4-0 monocryl and topical skin adhesive. The orogastric tube was
removed.
The patient tolerated the procedure well and was taken to the postanesthesia care unit in stable condition.
The assistance of Rupali NEAL was required due to the complexity of the procedure. During the procedure he assisted with retraction, resection, and closure of the wound.
[2023-09-18 15:38] LABS: Glucose - Point of Care 139 mg/dl (70-99)
[2023-09-18] MEDS: HEPARIN 5000 UNITS SC ×2 (16:58→23:02)
[2023-09-18 17:04] LABS: Glucose - Point of Care 156 mg/dl (70-99)
--- NOTE | 2023-09-18 17:05 | PTCARENOTE ---
pt returned from PACU AOx3, no c/o pain. surgical sites CDI with glue. VS WNL on RA
[2023-09-18 22:02] LABS: Glucose - Point of Care 244 mg/dl (70-99)
[2023-09-19] MEDS: TYLENOL 1000 MG PO ×2 (01:29→07:45)
[2023-09-19 06:00] VITALS: BMI 25.0
[2023-09-19 06:14] LABS: INR 1.28; PT 16.1 Sec (11.4-14.6)
[2023-09-19 07:00] VITALS: BP 130/44
[2023-09-19 07:01] LABS: Albumin 3.1 g/dl (3.5-5.0); Alkaline Phosphatase 264 U/L (38-126); Total Protein 5.8 g/dl (6.3-8.2)
[2023-09-19 07:15] LABS: ALT (SGPT) 1439 U/L (0-35); AST (SGOT) 1339 U/L (14-36)
[2023-09-19 07:35] LABS: Glucose - Point of Care 201 mg/dl (70-99)
[2023-09-19] MEDS: SENOKOT-S 1 TABLET PO (07:45)
[2023-09-19] MEDS: FLAGYL 500 MG 100 IV (07:47)
[2023-09-19] MEDS: NOVOLOG FLEXPEN-MODERATE RESISTANCE 3 UNITS SC (07:48)
[2023-09-19] MEDS: HEPARIN 5000 UNITS SC ×3 (07:48→23:33)
--- NOTE | 2023-09-19 08:34 | W.PN.GS2 ---
Today's Communication / Plan
-
`
Assessment / Plan
-
Assessment: 83 y/o female POD#1 s/p lap jose a
AFVSS
doing well post op
Plan: diet as tolerated
no further role for abx post op from cholecystectomy standpoint
okay for d/c when medically cleared
hold therapeutic AC for 72hrs post op; okay to resume 15 in AM
follow up with dr cullen for 2 weeks post op
Subjective Data
-
Date of Service: September 19, 2023
pt seen and examined
c/o post op incisional pains but controlled
abdi breakfast
Objective Data
-
Intake and Output
09/18/23 09/19/23 09/20/23
06:59 06:59 06:59
Intake Total 1400 / 1400 605 / 605
Output Total 0 / 0
Balance 1400 / 1400 605 / 605
Intake:
Oral fluids 1400 / 1400 480 / 480
IV fluids (Total) 25 / 25
Normosol 25 / 25
IV piggybacks 100 / 100
Output:
Urine, Voided 0 / 0
Vital Signs
Temp Pulse Resp BP Pulse Ox
98.3 F 62 18 130/44 97
09/19/23 07:00 09/19/23 07:00 09/19/23 07:00 09/19/23 07:00 09/19/23 07:00
Lab Results
09/18/23 08:17
09/18/23 08:17
Calcium 9.0 mg/dl (8.4-10.2) 09/17/23 04:34
Total Bilirubin 1.0 mg/dl (0.2-1.3) 09/19/23 05:55
Direct Bilirubin 1.0 mg/dl (0.0-0.4) H 09/19/23 05:55
AST 1339 U/L (14-36) H* 09/19/23 05:55
ALT 1439 U/L (0-35) H* 09/19/23 05:55
Alkaline Phosphatase 264 U/L (38-126) H 09/19/23 05:55
Total Protein 5.8 g/dl (6.3-8.2) L 09/19/23 05:55
Albumin 3.1 g/dl (3.5-5.0) L 09/19/23 05:55
Physical Exam
-
NAD AAOx3
ABD: soft, ND, TTP localized to incision sites
incisions with glue dressings
[2023-09-19] MEDS: TOPROL XL 25 MG PO (09:07)
--- NOTE | 2023-09-19 11:03 | W.PN.CD ---
Today's Communication / Plan
-
-
-
Resume Eliquis when ok with medicine, gi, and surgery. I do not see an indication for heparin bridging but will defer to surgery/GI preference
-
-
Impression / Plan
-
Gallbladder disease: choledocholithiasis, gallstone pancreatitis:
-s/p ERCP 09/17/23: Choledocholithiasis was found. Complete removal was accomplished by biliary sphincterotomy and balloon extraction. A biliary sphincterotomy was performed.
-s/p lap choly 09/18/2023
-on ABX
cardiovascular risk assessment
-No cardiac complication detected
Abnormal troponin, type unknown (possible non-ischemic myocardial injury vs Type II VT), peak troponin 3.9
Paroxysmal atrial fibrillation, amio, Eliquis on hold. In sinus.
ICM EF 45-50%, euvolemic on exam
s/p TAVR for
CAD, chronic stable
LBBB, chronic, stable
ESRD, on HD per nephro
Old stroke
Subjective:
No CP or dyspnea
Data:
-echo 09/17/23: EF 40-45%. Hypokinesis of the inferolateral wall. Stage II diastolic dysfunction. S/p TAVR #23 Paulino Ubaldo with mean gradient of 12mmHg. Moderate pulmonary pressure. Compared to previous echo on 01/29/23, the EF is similar. The
pulmonary pressure is higher. Of note, this was after missing dialysis day
-Cath 01/28/23: Right dominant circulation with a 60% lesion in the distal RCA, a 60-70% lesion in the mid LAD spanning the origin of the diagonal, and occlusion of the ostial circumflex immediately after the origin of the first obtuse marginal,
initially thought to be an acute lesion but later revealed to be a chronic total occlusion. Unsuccessful PCI of the ostial circumflex. Med management.
Physical Exam
Vital Signs/Labs
Vital Signs
Temp Pulse Resp BP Pulse Ox
98.3 F 62 18 130/44 97
09/19/23 07:00 09/19/23 07:00 09/19/23 07:00 09/19/23 07:00 09/19/23 08:26
09/18/23 09/19/23 09/20/23
06:59 06:59 06:59
Actual Weight 74.933 kg 72.393 kg
09/18/23 08:17
09/18/23 08:17
PT 16.1 Sec (11.4-14.6) H 09/19/23 05:55
INR 1.28 09/19/23 05:55
LAB Results
09/16/23 09/16/23 09/17/23
12:55 19:56 04:34
Troponin I 3.290 H* 3.880 H* 3.130 H*
Physical Exam
Constitutional: No acute distress
EENT: Anicteric
Cardiovascular: Rhythm & rate is regular and Pedal edema is absent
Respiratory: Respiratory effort normal and Lungs clear to auscul.
GI: Soft and Distention absent
Neuro/Psych: AO x 3
Data Reviewed
-
Date of Service: September 19, 2023
[2023-09-19] MEDS: MAXIPIME 1000 MG IV (11:32)
[2023-09-19] MEDS: STERILE WATER FOR INJECTION 10 ML IV (11:33)
--- NOTE | 2023-09-19 11:34 | W.PN.HOSP.TC ---
Today's Communication/Plan
-
Repeat CMP to monitor LFTs
Cardiology no need for heparin bridging
HD tomorrow
Pt wants to go home on Saturday
Assessment / Plan
Assessment / Plan
Physical Exam
General: Well Developed, No Apparent Distress, Conversant and Obese
HEENT: Normocephalic, Anicteric, Moist mucous membranes, Atraumatic, PERRLA and Oxygen
Respiratory: Clear
Cardiac: S1/S2 and Regular Rhythm
GI: Soft, Non Distended, Normal Bowel Sounds.
Rectal: Deferred by Provider
Genito-urinary: No [place]
Musculoskeletal: No Clubbing, No Cyanosis, no Edema, Left Lower Extremity and Edema, Right Lower Extremity
Skin: Warm
Neuro: AO x 3, she follows commands
Psych: Calm
# Choledocholithiasis w/ gallstone acute pancreatitis:
s/p ERCP then lab jose a on 09/[address] Field, no complications reported
Mild abd discomfort
Stop ABx
MRI confirmed CBD obstructing stone with pancreatitis
s/p ERCP after Eliquis washout on 09/16 with good results after biliary sphincterotomy and balloon extraction by Dr heredia. Plan for Lap cholecystectomy today. Seh is NPO.
Appreciate GI and surgery input
# Elevated liver enzymes, likely related to cholestasis, ok to stop amiodarone for now, replace with Toprol.
Repeat LFT in am
# hyponatremia, mild
No confusion
# hyperkalemia, treated with HD
# ESRD -
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
patient on HD via LUE AVF //. Still has permcath and we used it for HD.
Appreciate nephrology help
# Paroxysmal atrial fibrillation
No history of palpitations or chest pain.
- continue amio 200 daily
- holding AC pending finishing GI workup
# History of chronic heart failure with reduced ejection fraction. Last ejection fraction reportedly 45 to 50%. She is euvolemic. No shortness of breath or hypoxia.
#History of aortic stenosis status post TAVR.
# Nonischemic myocardial injury in setting of acute illness and renal failure.
No chest pain
# DM II - Home dose: on Tresiba 10 hs and aspart 10 bidac
- insulin sliding scale for now
DVT PPX - heparin sq
Code Status - Full Code (if expected to make reasonable recovery). Intubation ok.
Total time spent to see the patient, examine the patient on the floor, review data and lab results, discuss treatment plan with patient, consultants, nursing staff around 55 minutes
Anticipated Discharge: 24 - 48 hours
Subjective/Interval History
-
Date of Service: September 19, 2023
She has abd discomfort at surgery site
no nausea
Tolerating diet
Objective Data
-
Labs:
Laboratory Results
09/19/23
05:55
PT 16.1 H
INR 1.28
Total Bilirubin 1.0
AST 1339 H*
ALT 1439 H*
Alkaline Phosphatase 264 H
Vital Signs:
Vital Signs
Temp Pulse Resp BP Pulse Ox
98.3 F 62 18 130/44 97
09/19/23 07:00 09/19/23 07:00 09/19/23 07:00 09/19/23 07:00 09/19/23 08:26
I&O
09/18/23 09/19/23 09/20/23
06:59 06:59 06:59
Intake Total 1400 / 1400 605 / 605
Output Total 0 / 0
Balance 1400 / 1400 605 / 605
[2023-09-19 11:58] LABS: Glucose - Point of Care 316 mg/dl (70-99)
[2023-09-19] MEDS: NOVOLOG FLEXPEN-MODERATE RESISTANCE 7 UNITS SC (12:59)
--- NOTE | 2023-09-19 13:49 | W.PN.NEPH.PH ---
Today's Communication / Plan
-
HD tomorrow
Assessment/Plan
-
IMP:
Choledocholithiasis w/ gallstone pancreatitis
Trop Elevation - Non FL trop elevation.
ESRD [facility], F
Left upper arm AV fistula revision 06/27/23
h/o FL with old LBBB status post cardiac catheterization (occluded left circumflex unable to be open) January 2023
Paroxysmal atrial fibrillation on systemic anticoagulation
History heart failure mixed type
History of TAVR
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
Thrombocytopenia
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
Hypertension
Right chest wall tunneled HD CVC
History CVA
LBBB
PAD
Secondary hyperparathyroidism
PLan:
A/w abd pain -concern of gall stone in CBD, choledocholithiasis
s/p ERCP 09/16,s/p lap jose a 09/17
plan HD tomorrow
AVF is functioning but using catheter while inpatient
BP stable
renal diet and FR
-
-
Date of Service: September 19, 2023
CC / HPI / ROS
-
Chief Complaint:
ESRD
History of Present Illness:
ESRD MWF
hemodynamically stable
tolerated HD yesterday
s/p lap jose a 09/17
Review of Systems:
no chest pain or sob
no n/v
abd sore but not tender
Labs
-
Labs:
WBC 6.2 10^3/uL (4.8-10.8) 09/17/23 04:34
RBC 2.45 10^6/uL (4.20-5.40) L 09/17/23 04:34
Hgb 8.7 g/dL (12.0-16.0) L 09/18/23 08:17
Hct 26.0 % (37.0-47.0) L 09/18/23 08:17
Plt Count 108 10^3/uL (130-400) L 09/17/23 04:34
Sodium 130 mmol/L (135-145) L 09/18/23 08:17
Potassium 5.2 mmol/L (3.5-5.1) H 09/18/23 08:17
Chloride 94 mmol/L (98-107) L 09/18/23 08:17
Carbon Dioxide 25 mmol/L (22-30) 09/18/23 08:17
BUN 36 mg/dl (7-17) H 09/17/23 04:34
Creatinine 3.9 mg/dL (0.6-1.0) H 09/17/23 04:34
eGFR 10.99 09/17/23 04:34
Glucose 112 mg/dl (70-99) H 09/17/23 04:34
Calcium 9.0 mg/dl (8.4-10.2) 09/17/23 04:34
Albumin 3.1 g/dl (3.5-5.0) L 09/19/23 05:55
Physical Exam
-
Vital Signs:
Vital Signs
Temp Pulse Resp BP Pulse Ox
98.3 F 62 18 130/44 97
09/19/23 07:00 09/19/23 07:00 09/19/23 07:00 09/19/23 07:00 09/19/23 08:26
Cardiovascular:: Regular rate and rhythm
Respiratory:: Bilateral: CTA
Lung Excursion:: Normal
Abdomen:: Nontender and Soft
Extremity Edema:: None: Bilateral:
[place] Catheter: No
--- NOTE | 2023-09-19 14:34 | W.PN.GI.CBS2 ---
Addendum entered and electronically signed by Eve Henao DO 09/19/23 19:00:
Patient seen and examined independently of FRIDA. I agree with her note with my additions below
Giana is an 83-year-old female who is status postcholecystectomy from yesterday and ERCP from 09/17/2023 after having choledocholithiasis and gallstone pancreatitis. We are continuing to follow her because of her significant liver enzyme elevation.
She feels well and just has mild incisional pain but much better and not the same quality as when she came in.
She denies any history of liver disease or being told she had elevated liver enzymes. She does not drink alcohol. She has no family history of liver disease
# Significant hepatocellular injury with ALT of 1400
-- Based on her records she is had mild ALT elevations roughly 2 times upper limit of normal in January 2023 but generally they are normal
-- Etiology of an ALT over thousand are generally ischemic versus viral
-- It is unusual to see ALT >1000 in obstructive stone disease
-- Perhaps it is multifactorial including obstructing stones + mild hypotension during dialysis + amiodarone + antibiotics
-- Avoid hypotension, amiodarone has been on hold since yesterday (cardiology aware), antibiotics have been stopped and stents have been removed
-- Hopefully they will trend in the right direction., Her total bilirubin is now in the normal range. Her INR is 1.28 and will check again tomorrow, check hepatitis panel for completeness
Original Note:
Today's Communication / Plan
-
abdominal pain improved -- now more incisional pain
some downward bili and alk phos but AST/ALT higher-- ? inflammation vs second etiology for elevation
amiodarone on hold, no documented hypotension but pt admits to period of hypotension with dialysis
she did have course of Cefalexin in July
cont to trend LFT's and CBC with anemia
-On cefepime/Flagyl ok to stop sent message to Dr. Rosario
Assessment / Plan
-
83-year-old female with past medical history of CAD with non-ST elevated SC 01/2023, end-stage renal disease on HD Saturday, diabetes, anemia, history of TAVR, hypertension, PAD, PAF, CVA/TIA, CHF, hypertension, hyperlipidemia, breast
cancer status post right lumpectomy, thrombocytopenia who presents to the emergency room with what she states is a discomfort that feels like 'gas' in her back. We are asked to evaluate for the same as well as elevated LFTs and CBD dilatation. WBC
11.5, hemoglobin 10.9, hematocrit 33.0, platelet 113, sodium 135, potassium 5.3, chloride 93, BUN 53, creatinine 6.0, glucose 267, lactic acid, 3.6, total bilirubin 1.9, AST 1020, ALT 728, alk phos 355, troponin 0.119, lipase 1539. Ultrasound of
the abdomen shows diffuse intrahepatic biliary dilatation with severe distention of the CBD measuring up to 1.5 cm. There are many layering shadowing calcified gallstones within the gallbladder. The gallbladder is distended with diffuse
gallbladder wall thickening.
09/15 MRI with 1. OBSTRUCTING CHOLEDOCHOLITHIASIS in the distal common bile duct and Extensive cholelithiasis. ACUTE INTERSTITIAL EDEMATOUS PANCREATITIS., b/l renal disease, diverticulosis, atherosclerosis, b/l effusion, mild CM, DDD
Laboratory Tests
09/15/23 09/16/23 09/17/23
09:40 12:55 04:34
Total Bilirubin 1.9 H 2.5 H 1.7 H
Direct Bilirubin 2.3 H 1.6 H
AST 1020 H* 1383 H* 1344 H*
ALT 728 H* 1187 H* 1222 H*
Alkaline Phosphatase 355 H 251 H 300 H
09/18/23 09/19/23
08:17 05:55
Total Bilirubin 1.1 1.0
Direct Bilirubin 1.1 H 1.0 H
AST 1027 H* 1339 H*
ALT 1174 H* 1439 H*
Alkaline Phosphatase 271 H 264 H
Impression:
Epigastric pain/upper abdominal discomfort
Dilated CBD with choledocholithiasis s/p EGD 09/16 and jose a 09/17
Cholelithiasis
Elevated LFTs with marked elevated AST/ALT
Elevated lipase
macrocytic anemia
Other Dx:
-PAF, on Eliquis-> last dose Saturday
-End-stage renal disease on HD Saturday
-History CHF
-History of CVA/TIA
-History anemia, thrombocytopenia
hx pancreatic insufficiency with creon use in past
Plan:
abdominal pain improved -- now more incisional pain
some downward bili and alk phos but AST/ALT higher-- ? inflammation vs second etiology for elevation
amiodarone on hold, no documented hypotension but pt admits to period of hypotension with dialysis
she did have course of Cefalexin in July
cont to trend LFT's and CBC with anemia
-On cefepime/Flagyl ok to stop sent message to Dr. Rosario
Subjective
Subjective
Date of Service: September 19, 2023
09/18 brown stool, on cholesterol lowering diet some incisional pain
Objective
Data Reviewed
Laboratory Data:
Laboratory Results
09/18/23 08:17
09/18/23 08:17
Laboratory Results
PT 16.1 Sec (11.4-14.6) H 09/19/23 05:55
INR 1.28 09/19/23 05:55
Total Bilirubin 1.0 mg/dl (0.2-1.3) 09/19/23 05:55
AST 1339 U/L (14-36) H* 09/19/23 05:55
ALT 1439 U/L (0-35) H* 09/19/23 05:55
Alkaline Phosphatase 264 U/L (38-126) H 09/19/23 05:55
Lipase 1539 U/L (23-300) H* 09/15/23 09:40
Vital Signs and I&O:
Vital Signs
Temp Pulse Resp BP Pulse Ox
98.3 F 62 18 130/44 97
09/19/23 07:00 09/19/23 07:00 09/19/23 07:00 09/19/23 07:00 09/19/23 13:49
I&O
09/18/23 09/19/23 09/20/23
06:59 06:59 06:59
Intake Total 1400 / 1400 605 / 605
Output Total 0 / 0
Balance 1400 / 1400 605 / 605
Physical Exam
Physical Exam
HEENT: Anicteric and Moist mucous membranes
Cardiology: Normal Sinus Rhythm
Pulmonary: Clear
GI: Soft, Non Distended and Tender (minimal abdominal pain)
Extremities: No Edema
Neuro: Non Focal
[2023-09-19 15:00] VITALS: BP 115/53
--- NOTE | 2023-09-19 16:37 | CM ---
Reviewed chart, patient refusing PT stating she is at her baseline level of functioning.
Plan: Case management will continue to follow and assist with discharge planning. Back to [facility] if indicated.
[2023-09-19 17:01] LABS: Glucose - Point of Care 254 mg/dl (70-99)
[2023-09-19] MEDS: NOVOLOG FLEXPEN-MODERATE RESISTANCE 5 UNITS SC (17:05)
[2023-09-19] MEDS: ROXICODONE 5 MG PO ×2 (17:16→22:10)
[2023-09-19 21:31] LABS: Glucose - Point of Care 344 mg/dl (70-99)
[2023-09-19] MEDS: NOVOLOG FLEXPEN 10 UNITS SC (22:11)
--- NOTE | 2023-09-19 22:15 | PTCARENOTE ---
Glucose elevated, [id number]=125. COAL CHUTE WORKER made aware, new order provided, see MAR. Will recheck glucose in 2 hours.
[2023-09-19 22:50] VITALS: BP 140/69
[2023-09-19 23:56] LABS: Glucose - Point of Care 193 mg/dl (70-99)
[2023-09-20] VITALS (30 sets, daily range): BP systolic 87–147; BP diastolic 37–113; BMI 26.0
[2023-09-20] MEDS: ROXICODONE 5 MG PO ×2 (05:54→13:55)
[2023-09-20 07:32] LABS: Glucose - Point of Care 125 mg/dl (70-99)
[2023-09-20] MEDS: NOVOLOG FLEXPEN-MODERATE RESISTANCE SC ×2 (08:21→17:20)
[2023-09-20 08:35] LABS: Glucose - Point of Care 206 mg/dl (70-99)
--- NOTE | 2023-09-20 08:51 | RR ---
A Rapid Response was called on this patient, please see Rapid Response form.
0823 request by MD Pastrana to initiate rapid d/t pt becoming unresponsive x2 while initiating dialysis. rapid quickly turned into a code as MD Pastrana did not feel a femoral pulse. This RN initiated CPR at 0825 for a total of 4 mins at which time
ROSC was achieved with a SR on the monitor per MD Pastrana. vitals obtained. during code pt placed on 6L NC and was administered a 500cc bolus. MD Rosario along with rapid response team all at bedside facilitating care. PT awake and alert on the
back end of code speaking in full sentences although did not remember the event. slip maker Ali given bedside report. Belongings and meds with pt upon transfer to the ICU.
--- NOTE | 2023-09-20 08:54 | W.PN.HOSP.TC ---
Addendum entered and electronically signed by Suzanne Rosario MD 09/20/23 11:05:
Addendum
-Post CPR chest x ray, no pneumothorax.
-Initial troponin post CPR is 0.371 which is lower than few days ago. No chest pain post CPR or before the arrest.
- good LFTs noted post lap jose a.
- positive lactic acidosis, likely due to cardiogenic shock.
End
Original Note:
Today's Communication/Plan
-
Postcardiac arrest care in ICU
Cardiac workup including echo, troponin check, further workup pending results
Start IV heparin and aspirin
Continue with Toprol
Follow-up with the blood work result
Updated family
Assessment / Plan
Assessment / Plan
Physical Exam
General: Well Developed, No Apparent Distress, Conversant and Obese
HEENT: Normocephalic, Anicteric, Moist mucous membranes, Atraumatic, PERRLA and Oxygen
Respiratory: Clear
Cardiac: S1/S2 and Regular Rhythm
GI: Soft, Non Distended, Normal Bowel Sounds.
Rectal: Deferred by Provider
Genito-urinary: No [place]
Musculoskeletal: No Clubbing, No Cyanosis, no Edema, Left Lower Extremity and Edema, Right Lower Extremity
Skin: Warm
Neuro: AO x 3, she follows commands
Psych: Calm
# Post cardiac arrest
:Histor patient was undergoing dialysis when she became unresponsive. Dialysis nurse had normal blood pressure at that time. Dialysis nurse held dialysis and try to replace back the dialyzer blood. Patient woke up and looked normal and then she
passed out again while chart writer was seeing her. Patient had no pulse at the time. Nurse was called and he started CPR for around 2 to 4 minutes. By time arrived, patient was starting to regain her pulse and she had initially high blood
pressure. Patient recovered slowly and followed commands with no neurological deficits noted. Patient was surprised by the surrounding crowded and she could not recall what happened. Blood glucose was around 200. Blood pressure and heart rate
were normal at that time. She was given oxygen and 500 cc of normal saline.
Plan::
Transfer the patient to ICU
Pursue cardiac workup including echocardiogram, troponin
Blood work CBC and CMP
Start the patient on intravenous heparin protocol for ACS. She is 48 hours post lap jose a.
Discussed with surgery: Plan was to resume anticoagulation 48 hours postsurgery, patient was on Eliquis
Will follow
Will update ICU doctor
# Choledocholithiasis w/ gallstone acute pancreatitis:
s/p ERCP then lab jose a on 09/[address] Field, no complications reported
Mild abd discomfort
Stopped ABx
MRI confirmed CBD obstructing stone with pancreatitis
s/p ERCP after Eliquis washout on 09/16 with good results after biliary sphincterotomy and balloon extraction by Dr heredia.
Appreciate GI and surgery input
# Elevated liver enzymes, likely related to cholestasis, ok to stop amiodarone for now, replaced with Toprol.
Repeat LFT in am
# hyponatremia, mild
No confusion
# hyperkalemia, treated with HD
# ESRD -
-Primary health education specialist Dr Asencio
patient on HD via LUE AVF M//. Still has permcath and we used it for HD.
Appreciate nephrology help
# Paroxysmal atrial fibrillation
No history of palpitations or chest pain.
- continue amio 200 daily
- holding AC pending finishing GI workup
# History of chronic heart failure with reduced ejection fraction. Last ejection fraction reportedly 45 to 50%. She is euvolemic. No shortness of breath or hypoxia.
#History of aortic stenosis status post TAVR.
# Nonischemic myocardial injury in setting of acute illness and renal failure.
No chest pain
# DM II - Home dose: on Tresiba 10 hs and aspart 10 bidac
- insulin sliding scale for now
DVT PPX - heparin sq
Code Status - Full Code (if expected to make reasonable recovery). Intubation ok.
Total time spent to see the patient, examine the patient on the floor, review data and lab results, discuss treatment plan with patient, consultants, nursing staff around 55 minutes
Anticipated Discharge: > 48 hours
Subjective/Interval History
-
Date of Service: September 20, 2023
Seen earlier and after code 9
Objective Data
-
Labs:
Laboratory Results
09/20/23
08:20
WBC Pending
Hgb Pending
Hct Pending
Plt Count Pending
PT Pending
INR Pending
Sodium Pending
Potassium Pending
Chloride Pending
Carbon Dioxide Pending
BUN Pending
Creatinine Pending
Glucose Pending
Calcium Pending
Total Bilirubin Pending
AST Pending
ALT Pending
Alkaline Phosphatase Pending
Vital Signs:
Vital Signs
Temp Pulse Resp BP Pulse Ox
97.8 F 68 18 140/69 96
09/19/23 22:50 09/19/23 22:50 09/19/23 22:50 09/19/23 22:50 09/19/23 22:50
I&O
09/19/23 09/20/23 09/21/23
06:59 06:59 06:59
Intake Total 605 / 605 580 / 580
Balance 605 / 605 580 / 580
[2023-09-20 08:57] LABS: Hematocrit 26.9 % (37.0-47.0); Mean Corp Hgb Conc. 33.5 g/dL (33.0-37.0); Mean Corpuscular Volume 107.6 fL (81.0-99.0); Mean Platelet Volume 12.9 fL (7.4-10.4); Platelet Count 102 10^3/uL (130-400); Red Cell Dist. Width 14.9 % (11.5-14.5); White Blood Cell Count 7.9 10^3/uL (4.8-10.8)
--- NOTE | 2023-09-20 09:00 | PTCARENOTE ---
Received patient from 3W post CPR. Pt AAOX3. Pox: 98 % 4L NC. Patient denies chest pain/abdominal pain. NSR on monitor. Plan of care ongoing.
[2023-09-20 09:16] LABS: Lactic Acid 3.1 mmol/L (0.7-2.0)
[2023-09-20 09:16] LABS: AST (SGOT) 446 U/L (14-36); Albumin 3.2 g/dl (3.5-5.0); Alkaline Phosphatase 216 U/L (38-126); Blood Urea Nitrogen 54 mg/dl (7-17); Calcium 8.6 mg/dl (8.4-10.2); Carbon Dioxide 27 mmol/L (22-30); Chloride 93 mmol/L (98-107); Estimated Creatinine Clearance 8 ml/min; Glucose 182 mg/dl (70-99); Potassium 4.6 mmol/L (3.5-5.1); Sodium 134 mmol/L (135-145); Total Protein 6.3 g/dl (6.3-8.2); eGFR 7.27
[2023-09-20 09:23] LABS: ALT (SGPT) 966 U/L (0-35)
[2023-09-20 09:33] LABS: Troponin I 0.371 ng/ml
--- NOTE | 2023-09-20 09:38 | W.PN.CD ---
Addendum entered and electronically signed by Silvino Pastrana MD 09/20/23 11:05:
Correction Code: I have is => I was...
Original Note:
Today's Communication / Plan
-
echo
tele
troponin
45 min critical care time spent by me
Impression / Plan
-
Code:
- I have is present today when the patient lost consciousness twice. The first episode was transient and she regained consciousness without intervention. Duration less than perhaps 15 seconds.
- Less than 2 minutes later she lost consciousness a second time. She had no femoral pulse on palpation and was unresponsive with some agonal respirations. CPR was initiated. She was not on telemetry. There was good femoral pulse with CPR. CPR
was initiated with in 1 minute. Defibrillation pads were placed. A cpr pause was performed and there was a rhythm in the 90 bpm range. The next pulse check showed spontaneous palpable pulse. She slowly regained consciousness. No medications
were administered. And intubation was not performed.
- The hospitalist overtook care. The patient will be transported to the ICU. Serial troponins will be obtained. An echocardiogram will be obtained.
- Differential diagnosis for her loss of consciousness with loss of pulse is broad and includes a transient arrhythmia, dialysis related hypotension, other
Gallbladder disease: choledocholithiasis, gallstone pancreatitis:
-s/p ERCP 09/17/23: Choledocholithiasis was found. Complete removal was accomplished by biliary sphincterotomy and balloon extraction. A biliary sphincterotomy was performed.
-s/p lap choly 09/18/2023
-on ABX
cardiovascular risk
- Today 09/21/2023 the patient had loss of consciousness twice. The second episode required about 4 min of CPR.
Abnormal troponin, type unknown (possible non-ischemic myocardial injury vs Type II AL), peak troponin 3.9
Paroxysmal atrial fibrillation, amio, Eliquis on hold. In sinus.
ICM EF 45-50%, euvolemic on exam
s/p TAVR for
CAD, chronic stable
LBBB, chronic, stable
ESRD, on HD per nephro
Old stroke
Subjective:
anxious after this mornings events
Data:
-echo 09/17/23: EF 40-45%. Hypokinesis of the inferolateral wall. Stage II diastolic dysfunction. S/p TAVR #23 Paulino Ubaldo with mean gradient of 12mmHg. Moderate pulmonary pressure. Compared to previous echo on 01/29/23, the EF is similar. The
pulmonary pressure is higher. Of note, this was after missing dialysis day
-Cath 01/28/23: Right dominant circulation with a 60% lesion in the distal RCA, a 60-70% lesion in the mid LAD spanning the origin of the diagonal, and occlusion of the ostial circumflex immediately after the origin of the first obtuse marginal,
initially thought to be an acute lesion but later revealed to be a chronic total occlusion. Unsuccessful PCI of the ostial circumflex. Med management.
Physical Exam
Vital Signs/Labs
Vital Signs
Temp Pulse Resp BP Pulse Ox
98.1 F 68 18 140/69 96
09/20/23 09:05 09/19/23 22:50 09/19/23 22:50 09/19/23 22:50 09/19/23 22:50
09/19/23 09/20/23 09/21/23
06:59 06:59 06:59
Actual Weight 72.393 kg 75.1 kg
09/20/23 08:20
PT 16.1 Sec (11.4-14.6) H 09/19/23 05:55
INR 1.28 09/19/23 05:55
LAB Results
09/20/23
08:45
Troponin I 0.371 H*
Physical Exam
Constitutional: No acute distress
EENT: Anicteric
Cardiovascular: Rhythm & rate is regular and Pedal edema is absent
Respiratory: Respiratory effort normal and Lungs clear to auscul.
GI: Soft and Distention absent
Neuro/Psych: Alert
Data Reviewed
-
Date of Service: September 20, 2023
--- NOTE | 2023-09-20 09:44 | W.PN.NEPH.PH ---
Today's Communication / Plan
-
observe in ICU
Hemodialysis procedure aborted due to cardiac arrest on dialysis
Will attempt dialysis tomorrow
Will discuss case with cardiology today
Assessment/Plan
-
IMP:
Choledocholithiasis w/ gallstone pancreatitis
Trop Elevation - Non MD trop elevation.
ESRD [facility], [facility]
Left upper arm AV fistula revision 06/27/23
h/o MD with old LBBB status post cardiac catheterization (occluded left circumflex unable to be open) January 2023
Paroxysmal atrial fibrillation on systemic anticoagulation
History heart failure mixed type
History of TAVR
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
Thrombocytopenia
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
Hypertension
Right chest wall tunneled HD CVC
History CVA
LBBB
PAD
Secondary hyperparathyroidism
PLan:
A/w abd pain -concern of gall stone in CBD, choledocholithiasis
Patient with cardiac arrest on dialysis today
Cardiology notes to be reviewed
plan HD tomorrow and hold off further dialysis today as patient now in intensive care unit for observation
AVF is functioning but using catheter while inpatient
BP stable
renal diet and FR
-
-
Date of Service: September 20, 2023
CC / HPI / ROS
-
Chief Complaint:
ESRD
History of Present Illness:
ESRD MWF
hemodynamically stable following cardiac arrest on dialysis to
s/p lap jose a 09/17
Review of Systems:
no chest pain or sob
no n/v
abd sore but not tender
Labs
-
Labs:
Sodium 134 mmol/L (135-145) L 09/20/23 08:20
Potassium 4.6 mmol/L (3.5-5.1) 09/20/23 08:20
Chloride 93 mmol/L (98-107) L 09/20/23 08:20
Carbon Dioxide 27 mmol/L (22-30) 09/20/23 08:20
BUN 54 mg/dl (7-17) H 09/20/23 08:20
Creatinine 5.5 mg/dL (0.6-1.0) H* 09/20/23 08:20
eGFR 7.27 09/20/23 08:20
Glucose 182 mg/dl (70-99) H 09/20/23 08:20
Calcium 8.6 mg/dl (8.4-10.2) 09/20/23 08:20
Albumin 3.2 g/dl (3.5-5.0) L 09/20/23 08:20
Physical Exam
-
Vital Signs:
Vital Signs
Temp Pulse Resp BP Pulse Ox
98.1 F 68 18 140/69 96
09/20/23 09:05 09/19/23 22:50 09/19/23 22:50 09/19/23 22:50 09/19/23 22:50
Cardiovascular:: Regular rate and rhythm
Respiratory:: Bilateral: CTA
Lung Excursion:: Normal
Abdomen:: Nontender and Soft
Bowel Sounds:: Normal
Extremity Edema:: None: Bilateral:
[place] Catheter: No
--- NOTE | 2023-09-20 10:10 | W.PN.GS2 ---
Addendum entered and electronically signed by Marshal Betancourt MD 09/20/23 10:24:
Patient seen and examined. Agree with assessment plan as documented below.
Feels tired and sore, but overall no major complaints. Denies nausea or vomiting. Mild abdominal soreness.
Gen: NAD
Abd: soft, mild tender to palpation, ND, non-peritoneal, incisions c/d/i - no erythema or drainage, slight ecchymosis
Patient is a 83 y/o F p/w choledocholithiasis s/p ERCP on 09/17/23 now POD#2 s/p lap jose a
Cardiac arrest while on HD today, CPR initiated with ROSC. She did not require intubation.
Afebrile, vitals currently stable
LFT's trending down
No leukocytosis
Plan:
-- Diet as tolerated
-- Analgesics prn
-- OK for AC with heparin gtt; will follow h/h
Original Note:
Today's Communication / Plan
-
Ok for AC
Assessment / Plan
-
Assessment: 83 y/o female presenting with choledocholithiasis s/p ERCP on 09/17/23 now POD#2 s/p lap jose a
Cardiac arrest while on HD today, CPR initiated with ROSC. She did not require intubation.
Afebrile, vitals currently stable
LFT's trending down
No leukocytosis
Plan: diet as tolerated
analgesics prn
ok for AC with heparin gtt; will follow h/h
Subjective Data
-
Date of Service: September 20, 2023
Patient seen and examined at bedside with Dr. Betancourt. Patient does not remember events from earlier this morning. Notes some incisional soreness. Denies n/v.
Objective Data
-
Intake and Output
09/19/23 09/20/23 09/21/23
06:59 06:59 06:59
Intake Total 605 / 605 580 / 580
Balance 605 / 605 580 / 580
Intake:
Oral fluids 480 / 480 580 / 580
IV fluids (Total)
Normosol
IV piggybacks 100 / 100
Vital Signs
Temp Pulse Resp BP Pulse Ox
98.1 F 68 18 140/69 96
09/20/23 09:05 09/19/23 22:50 09/19/23 22:50 09/19/23 22:50 09/19/23 22:50
Lab Results
09/20/23 08:20
Calcium 8.6 mg/dl (8.4-10.2) 09/20/23 08:20
Total Bilirubin 1.0 mg/dl (0.2-1.3) 09/20/23 08:20
Direct Bilirubin 1.0 mg/dl (0.0-0.4) H 09/20/23 08:20
AST 446 U/L (14-36) H 09/20/23 08:20
ALT 966 U/L (0-35) H* 09/20/23 08:20
Alkaline Phosphatase 216 U/L (38-126) H 09/20/23 08:20
Total Protein 6.3 g/dl (6.3-8.2) 09/20/23 08:20
Albumin 3.2 g/dl (3.5-5.0) L 09/20/23 08:20
Physical Exam
-
NAD AAOx3
ABD: soft, ND, TTP localized to incision sites with early ecchymosis
incisions with glue dressings
--- NOTE | 2023-09-20 10:42 | W.PN.GI.CBS2 ---
Addendum entered and electronically signed by Perla Garg MD 09/20/23 19:08:
I saw and examined the patient.
The CELL ATTENDANT's note was reviewed and I agree with the note.
Patient has witnessed cardiac arrest this a.m while on HD. Regained consciousness without any residual weakness. Vital stable.
LFTs were trending down this a.m.
plan
Continue trend LFT. Possible elevation tomorrow after cardiac arrest
Will check hepatitis panel
Will get ultrasound abdomen with Doppler
Further management as per medical team/cardiology
Original Note:
Today's Communication / Plan
-
events of this AM noted with arrest with start of HD -- now awake and alert
LFT improved-- mild right sided pain with improvement-- may see rise in AST/ALT if any period of hypotension with arrest
cont to trend
cont diet as tolerated
work up for arrest per cardiology and medical team
cont to trend CBC with anemia but remains stable
for echo
family updated
Assessment / Plan
-
83-year-old female with past medical history of CAD with non-ST elevated ID 01/2023, end-stage renal disease on HD Saturday, diabetes, anemia, history of TAVR, hypertension, PAD, PAF, CVA/TIA, CHF, hypertension, hyperlipidemia, breast
cancer status post right lumpectomy, thrombocytopenia who presents to the emergency room with back pain. Work up with elevated LFT's, lipase and elevated lactate. Ultrasound of the abdomen shows diffuse intrahepatic biliary dilatation with severe
distention of the CBD measuring up to 1.5 cm. There are many layering shadowing calcified gallstones within the gallbladder. The gallbladder is distended with diffuse gallbladder wall thickening. 09/15 MRI with 1. OBSTRUCTING CHOLEDOCHOLITHIASIS
in the distal common bile duct and Extensive cholelithiasis. ACUTE INTERSTITIAL EDEMATOUS PANCREATITIS., b/l renal disease, diverticulosis, atherosclerosis, b/l effusion, mild CM, DDD s/p ERCP 09/16 then jose a 09/17. Some rise in AST/ALT 09/18 but
improved 09/19. s/p arrest with CPR 09/19 with ROSC.
Laboratory Tests
09/15/23 09/16/23 09/17/23
09:40 12:55 04:34
Total Bilirubin 1.9 H 2.5 H 1.7 H
Direct Bilirubin 2.3 H 1.6 H
AST 1020 H* 1383 H* 1344 H*
ALT 728 H* 1187 H* 1222 H*
Alkaline Phosphatase 355 H 251 H 300 H
09/18/23 09/19/23
08:17 05:55
Total Bilirubin 1.1 1.0
Direct Bilirubin 1.1 H 1.0 H
AST 1027 H* 1339 H*
ALT 1174 H* 1439 H*
Alkaline Phosphatase 271 H 264 H
09/19 bili 1, AST 446, ALT 966, alk phos 216
Impression:
Epigastric pain/upper abdominal discomfort
Dilated CBD with choledocholithiasis s/p EGD 09/16 and jose a 09/17
Cholelithiasis
Elevated LFTs with marked elevated AST/ALT
Elevated lipase
macrocytic anemia
elevated troponin
Other Dx:
-PAF, on Eliis-> last dose Saturday
-End-stage renal disease on HD Saturday
-History CHF
-History of CVA/TIA
-History anemia, thrombocytopenia
hx pancreatic insufficiency with creon use in past
hx cyst with cefalexin use in July
Plan:
events of this AM noted with arrest with start of HD -- now awake and alert
LFT improved-- mild right sided pain with improvement-- may see rise in AST/ALT if any period of hypotension with arrest
cont to trend
cont diet as tolerated
work up for arrest per cardiology and medical team
cont to trend CBC with anemia but remains stable
for echo
family updated
Subjective
Subjective
Date of Service: September 20, 2023
noted events of this am with arrest with Loss of consciousness and need for CPR but now improved -- awake and alert
Objective
Data Reviewed
Laboratory Data:
Laboratory Results
09/20/23 08:20
Laboratory Results
PT 16.1 Sec (11.4-14.6) H 09/19/23 05:55
INR 1.28 09/19/23 05:55
Total Bilirubin 1.0 mg/dl (0.2-1.3) 09/20/23 08:20
AST 446 U/L (14-36) H 09/20/23 08:20
ALT 966 U/L (0-35) H* 09/20/23 08:20
Alkaline Phosphatase 216 U/L (38-126) H 09/20/23 08:20
Lipase 1539 U/L (23-300) H* 09/15/23 09:40
Vital Signs and I&O:
Vital Signs
Temp Pulse Resp BP Pulse Ox
98.1 F 68 18 140/69 96
09/20/23 09:05 09/19/23 22:50 09/19/23 22:50 09/19/23 22:50 09/19/23 22:50
I&O
09/19/23 09/20/23 09/21/23
06:59 06:59 06:59
Intake Total 605 / 605 580 / 580
Balance 605 / 605 580 / 580
Physical Exam
Physical Exam
HEENT: Other (mild jaundice )
Cardiology: Normal Sinus Rhythm
Pulmonary: Other (decreased )
GI: Soft, Non Distended and Tender (mild right sided-- improving since surgery )
Neuro: Non Focal
[2023-09-20] MEDS: HEPARIN SC (11:10)
[2023-09-20] MEDS: PROTONIX 40 MG PO (11:53)
[2023-09-20] MEDS: TOPROL XL 25 MG PO (11:53)
[2023-09-20] MEDS: LOW STRENGTH ASPIRIN 81 MG PO (11:53)
[2023-09-20 12:14] LABS: Glucose - Point of Care 226 mg/dl (70-99)
[2023-09-20 12:14] LABS: INR 1.17; Lactic Acid 1.4 mmol/L (0.7-2.0); PT 14.7 Sec (11.4-14.6)
[2023-09-20 12:15] LABS: APTT 33.3 Sec (23.4-35.0)
[2023-09-20] MEDS: HEPARIN 4000 UNITS IV (13:02)
[2023-09-20] MEDS: HEPARIN 25000 UNITS/250 ML IV (13:03)
--- NOTE | 2023-09-20 13:11 | CON.INTV ---
Consultation
Consultation Request
Date/Time Consultation Requested: 09/20/2023
Date/Time Consultation Performed: 09/20/2023
Requesting Provider: Dr. Rosario
Performing Provider: DR. David Zuleta
Reason for Consultation: Cardiorespiratory arrest
Medical History
-
History of Present Illness:
83-year-old woman initially admitted on 09/15/2023 for choledocholithiasis with gallstones pancreatitis. Subsequently underwent cholecystectomy during this admission.
On admission she had mild elevation of troponins. EKG was nonischemic. He was deemed to be type II WI.
She has history of end-stage renal disease on hemodialysis. Patient reports always getting dizzy prior to dialysis starting for the first hour.
She has history of atrial fibrillation and type 2 diabetes as well.
Her surgery was on 09/18/2023 without complications.
This morning shortly after starting dialysis patient lost consciousness twice. Initial happen for 15 seconds with rapid regain of consciousness spontaneously. Shortly after lost pulse, had agonal respirations. CPR was initiated. Regain
spontaneous circulation after 1 minute. No medications were administered.
Patient was transferred to the critical care unit for further care.
In the ICU she is alert, cooperative. Denies any lightheadedness or blurry vision.
Denies palpitation.
Denies nausea or vomiting.
Denies abdominal pain.
So far no acute abnormalities found to explain acute decompensation.
She is back to her baseline.
Past Medical History
Past Medical History: Other (See assessment and plan section)
Family History
Family History: Reviewed & Not Pertinent
Allergies / Home Medications
Allergies
Allergy/AdvReac Type Severity Reaction Status Date / Time
penicillin V Allergy Rash Verified 09/15/23 07:41
Penicillins Allergy Rash Verified 09/15/23 07:41
Sulfa (Sulfonamide Allergy Rash Verified 09/15/23 07:41
Antibiotics)
sulfamethoxazole Allergy Rash Verified 09/15/23 07:41
[From Bactrim]
trimethoprim [From Bactrim] Allergy Rash Verified 09/15/23 07:41
Home Medications
�Medication �Instructions �Recorded �Confirmed �Last Taken �Type
atorvastatin 80 mg tablet 80 mg PO HS High Cholesterol 05/21/17 09/15/23 09/14/23 History
insulin aspart U-100 100 unit/mL 12 unit SC BID Diabetes 09/16/20 09/15/23 09/14/23 History
(3 mL) subcutaneous pen (Novolog
FlexPen U-100 Insulin aspart)
insulin degludec 100 unit/mL (3 10 unit SC HS Diabetes 09/16/20 09/15/23 09/14/23 History
mL) subcutaneous pen (Tresiba
FlexTouch U-100 insulin)
lutein 20 mg tablet 20 mg PO DAILY Supplement 01/09/22 09/15/23 09/14/23 History
furosemide 80 mg tablet 80 mg PO DAILY Fluid 10/05/22 09/15/23 09/14/23 History
Retention/Swelling
apixaban 2.5 mg tablet (Eliquis) 2.5 mg PO BID #60 tabs 02/01/23 09/15/23 09/14/23 Rx
amiodarone 200 mg tablet 200 mg PO DAILY Arrhythmia 04/18/23 09/15/23 09/14/23 History
sevelamer carbonate 800 mg tablet 800 mg PO BID hyperphosphatemia 04/18/23 09/15/23 09/14/23 History
vitamin B complex-vitamin C-folic 1 tab PO HS Supplement 04/18/23 09/15/23 09/14/23 History
acid 0.8 mg tablet (Nephro
Vitamins)
diphenhydramine 25 2 tab PO HS Sleep 09/15/23 09/15/23 09/14/23 History
mg-acetaminophen 500 mg tablet
(Tylenol PM Extra Strength)
Review of Systems
-
History Source: Patient
All other systems: Negative unless noted
Vitals / Labs / Diagnostic Testing
Vital Signs
Temp Pulse Resp BP Pulse Ox
98.4 F 65 18 124/92 99
09/20/23 11:02 09/20/23 11:53 09/19/23 22:50 09/20/23 11:53 09/20/23 12:52
Lab Data
09/20/23 08:20
Laboratory Results
09/20/23
11:44
PT 14.7 H
INR 1.17
APTT 33.3
Microbiology
09/16/23 06:58 Urine Urine Culture - Final
Diagnostic Testing:
Physical Exam
-
HEENT: Normocephalic
Cardiovascular: S1/S2 and Regular Rhythm
Respiratory: Non-Labored Respirations
GI: Soft and Non Distended
Neurology: Awake
Skin: Warm
General: Comfortable
Assessment
-
Acute cardiorespiratory arrest: CPR for less than a minute without medications with regain of spontaneous circulation
Unclear if this is related to an arrhythmia or vasovagal versus less likely hypotension from dialysis.
Gallstone pancreatitis/choledocholithiasis: Status postcholecystectomy 09/18/2023
Conditions present prior admission:
Atrial fibrillation on anticoagulation
Ischemic cardiomyopathy ejection fraction 45-50%
Status post TAVR
Coronary Tory disease
Prior LBBB
End-stage renal disease on dialysis
History of prior CVA
Assessment and plan:
Unclear etiology for cardiorespiratory arrest.
No evidence for acute coronary event.
Not requiring supplemental oxygen
Chest x-ray was clear.
EKG unchanged compared to prior
No arrhythmias has been found.
Patient is back to baseline.
Neurologically intact
Hemodynamically stable
Not requiring vasopressors
She states that every time she gets hooked up to dialysis she reports some dizziness but usually goes away after several minutes.
-
Cardiology correspondence reviewed
Will maintain hemodynamic monitoring
On beta-sarah
Repeat echocardiogram
Heparin drip-follow PTT.
Telemetry monitoring.
-
Lactic acidosis postcode.-Clearing.
-
Anemia of chronic kidney disease-stable.
No leukocytosis or signs of infection.
-
Will continue to monitor for 8 hours. If there is no arrhythmias and patient remains hemodynamically stable.
Will consider transfer back to telemetry. Patient was not on telemetry before
-

Data reviewed:
-Chest x-ray 09/20/2023: Reviewed, no evidence for pneumothorax. No acute abnormalities. Low lung volumes.
-EKG 09/20/2023: Reviewed, sinus rhythm with first-degree AV block. Left bundle branch block. No significant change compared to prior.
-echo 09/17/23: EF 40-45%. Hypokinesis of the inferolateral wall. Stage II diastolic dysfunction. S/p TAVR #23 Paulino Ubaldo with mean gradient of 12mmHg. Moderate pulmonary pressure. Compared to previous echo on 01/29/23, the EF is similar. The
pulmonary pressure is higher. Of note, this was after missing dialysis day
-Cath 01/28/23: Right dominant circulation with a 60% lesion in the distal RCA, a 60-70% lesion in the mid LAD spanning the origin of the diagonal, and occlusion of the ostial circumflex immediately after the origin of the first obtuse marginal,
initially thought to be an acute lesion but later revealed to be a chronic total occlusion. Unsuccessful PCI of the ostial circumflex. Med management.
[2023-09-20] MEDS: NOVOLOG FLEXPEN-MODERATE RESISTANCE 3 UNITS SC (13:45)
--- NOTE | 2023-09-20 13:52 | PTCARENOTE ---
Patient's Pox: 98% 1 L NC. Heparin gtt infusing at 850 units/hr. Patient c/o abdominal pain 08/15. Medicated with Oxycodone 5mg. See JUN. Accu check 226. Plan of care ongoing.
--- NOTE | 2023-09-20 15:17 | WOUNDNOTE ---
R BREAST (upper, above areola)
--- NOTE | 2023-09-20 15:20 | WOUNDNOTE ---
[facility] RN note: Patient admitted with cholelithiasis/cholecystitis, s/p lap cholecystectomy 09/18/23. Patient transferred to ICU today (see physician report). Patient stated she doesn't need VN d/t she has special care at [facility].
See H&P for complete history.
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
Wound Location and type/assessment: Patient admitted with: discolored scarred sacral/buttocks skin, newly healed stage 2 sacral/buttocks pressure injury. Patient developed bilateral heel DTI vs stage 2 pressure injury, purple ecchymotic area
bilateral heel. Pedal pulses heard via portable Doppler. Dry scabbed abrasion on R great toe, R 2nd toe, L 5th toe. Suspect patient has small vessel disease.
Appetite: on low cholesterol diet.
Pressure redistribution devices in place: Centrella Max air bed. Pillow to off load heels. Patient can turn self in bed and lift heel off bed herself.
Plan: Foam dressing changed on heels. Sacral shaped silicone border foam maintained. Heels off bed with 2 pillows. Air chair cushion given by RN Criss Condon. Instructed patient pressure injury prevention measures and consistent heel elevation.
Patient verbalized understanding. Small silicone border foam ([id number] size dressing) applied to R breast discolored area for protection. Patient stated it's from her port catheter laying on her skin and also history of radiation. Patient
encouraged to follow up with her mill representative.
Updated and confirmed orders with Dr. Rosario and discussed with [employer] Donaldo.
Care plan to be updated and will follow as needed.
Note to case management requested for discharge: VN if goes home and patient agrees.
Patient plans to follow up with her vascular surgeon Dr. Lambert for heel wound follow up when discharged.
[2023-09-20 17:27] LABS: Glucose - Point of Care 144 mg/dl (70-99)
[2023-09-20 19:09] LABS: APTT 182.6 Sec (23.4-35.0)
[2023-09-20 19:19] LABS: Troponin I 0.371 ng/ml
[2023-09-20 21:17] LABS: Glucose - Point of Care 167 mg/dl (70-99)
--- NOTE | 2023-09-20 21:33 | PTCARENOTE ---
Handoff report received from off going RN. Dual RN Heparin sig noff completed. Pt received on Heparin gtt at 850 units/hr. The patient is AAOx4 and able to make her needs known. Pt complains of discomfort to her right abdomen that is tolerable. The
patient asked to receive prn pain medication and Senokot at 0300 on 09/20. Sinus rhythm on the monitor.Denies chest pain. Diminished breath sounds at the bases. Hypoactive bowel sounds. Bilateral heels with foam dressing. patient repositioned.
Safety measures are in place. Call dave is within reach. Full assessment as noted on the worklist.
[2023-09-20] MEDS: LANTUS 0.100000000000000006 UNITS SC (22:40)
[2023-09-20 22:51] LABS: Glucose - Point of Care 174 mg/dl (70-99)
[2023-09-21] VITALS (31 sets, daily range): BP systolic 73–150; BP diastolic 39–78; BMI 26.2
--- NOTE | 2023-09-21 02:36 | PTCARENOTE ---
0015: Patient reassessed. Remains AAOx3. Sinus kashif on the monitor. No further changes at this time. Safety measures maintained.
[2023-09-21 03:47] LABS: APTT 99.6 Sec (23.4-35.0)
[2023-09-21 04:31] LABS: ALT (SGPT) 632 U/L (0-35); AST (SGOT) 230 U/L (14-36); Albumin 2.7 g/dl (3.5-5.0); Alkaline Phosphatase 185 U/L (38-126); Blood Urea Nitrogen 64 mg/dl (7-17); Calcium 8.5 mg/dl (8.4-10.2); Carbon Dioxide 20 mmol/L (22-30); Chloride 97 mmol/L (98-107); Estimated Creatinine Clearance 8 ml/min; Glucose 133 mg/dl (70-99); Sodium 131 mmol/L (135-145); Total Protein 5.3 g/dl (6.3-8.2); eGFR 7.12
--- NOTE | 2023-09-21 05:57 | PTCARENOTE ---
0340: Patient cleansed. Linens changed.
0500. No changes from previous assessment.
[2023-09-21] MEDS: ROXICODONE 5 MG PO ×3 (06:21→23:04)
--- NOTE | 2023-09-21 06:29 | W.PN.HOSP.TC ---
Today's Communication/Plan
-
Resume Eliquis if cath is not planned
c/w BB, aspirin, IV heparin.
Assessment / Plan
Assessment / Plan
Physical Exam
General: Well Developed, No Apparent Distress, Conversant and Obese
HEENT: Normocephalic, Anicteric, Moist mucous membranes, Atraumatic, PERRLA and Oxygen
Respiratory: Clear
Cardiac: S1/S2 and Regular Rhythm
GI: Soft, Non Distended, Normal Bowel Sounds.
Rectal: Deferred by Provider
Genito-urinary: No [place]
Musculoskeletal: No Clubbing, No Cyanosis, no Edema, Left Lower Extremity and Edema, Right Lower Extremity
Skin: Warm
Neuro: AO x 3, she follows commands
Psych: Calm
# Post cardiac arrest while on HD
Echo showed no significant changes from baseline. Echo 09/19: LVEF is 50 to 55%, normal systolic function and no obvious wall motion abnormalities.
Troponin not significant for ACS and was down from previous readings
No chest pain
c/w Aspirin, IV heparin until we resume Eliquis if no cardiac cath is planned
c/w BB
# Choledocholithiasis w/ gallstone acute pancreatitis:
s/p ERCP then lab jose a on 09/[address] Field, no complications reported
Resumed diet now. LFT coming down
No abd discomfort
Stopped ABx
MRI confirmed CBD obstructing stone with pancreatitis
s/p ERCP after Eliquis washout on 09/16 with good results after biliary sphincterotomy and balloon extraction by Dr heredia.
Appreciate GI and surgery input
# Elevated liver enzymes, likely related to cholestasis, ok to stop amiodarone for now, replaced with Toprol.
LFT coming down
# hyponatremia, mild
No confusion
# hyperkalemia, treated with HD
# ESRD -
-Primary middleware engineer Dr Asencio
patient on HD via LUE AVF M/W/F. Still has permcath and we used it for HD. HD was postponed 09/19 due to cardiac event, today will have HD
Appreciate nephrology help
# Paroxysmal atrial fibrillation
No history of palpitations or chest pain. c/w BB
- was on amio 200 daily
- holding AC pending finishing cardiac clearance. Surgery ok with AC.
# History of chronic heart failure with reduced ejection fraction. Echo 09/19: LVEF is 50 to 55%, normal systolic function and no obvious wall motion abnormalities. She is euvolemic. No shortness of breath or hypoxia.
#History of aortic stenosis status post TAVR.
# Nonischemic myocardial injury in setting of acute illness and renal failure.
No chest pain
# DM II - Home dose: on Tresiba 10 hs and aspart 10 bidac
- insulin sliding scale for now
DVT PPX - heparin sq
Code Status - Full Code (if expected to make reasonable recovery). Intubation ok.
Total time spent to see the patient, examine the patient on the floor, review data and lab results, discuss treatment plan with patient, consultants, nursing staff around 55 minutes
Anticipated Discharge: 24 - 48 hours
Subjective/Interval History
-
Date of Service: September 21, 2023
No chest pain
No sob
No abd pain
Objective Data
-
Labs:
Laboratory Results
09/20/23 09/20/23 09/21/23
08:54 18:43 03:20
PT Cancelled
INR Cancelled
APTT 182.6 H* 99.6 H
Sodium 131 L
Potassium 5.0
Chloride 97 L
Carbon Dioxide 20 L
BUN 64 H
Creatinine 5.6 H*
Glucose 133 H
Calcium 8.5
Total Bilirubin 1.0
AST 230 H
ALT 632 H*
Alkaline Phosphatase 185 H
09/21/23
10:40
PT
INR
APTT Pending
Sodium
Potassium
Chloride
Carbon Dioxide
BUN
Creatinine
Glucose
Calcium
Total Bilirubin
AST
ALT
Alkaline Phosphatase
Vital Signs:
Vital Signs
Temp Pulse Resp BP Pulse Ox
97.7 F 55 11 137/48 98
09/21/23 03:59 09/21/23 06:00 09/21/23 06:00 09/21/23 06:00 09/21/23 05:45
I&O
09/19/23 09/20/23 09/21/23
06:59 06:59 06:59
Intake Total 605 / 605 580 / 580 358.0 / 358.0
Balance 605 / 605 580 / 580 358.0 / 358.0
[2023-09-21] MEDS: MANNITOL 25% 12.5 GRAMS IV ×3 (07:35→09:30)
--- NOTE | 2023-09-21 07:56 | W.PN.CD ---
Today's Communication / Plan
-
-Undergoing dialysis today.
-Discussed need for ICD.
-Likely can be downgraded from the ICU to telemetry.
Impression / Plan
-
Cardiac arrest /possible PEA versus V-fib:
-Cardiac arrest happened in the presence of Dr. Pastrana. 09/20/2023
-Needed CPR. Patient was not on telemetry. However only 4 minutes of CPR was able to achieve ROSC.
-ROSC with CPR -patient avoided intubation
-Echo 09/20/2023: LVEF 45 to 50%. Somewhat improved with recent cardiac arrest.
- Differential diagnosis for her loss of consciousness with loss of pulse is broad and includes a transient arrhythmia, dialysis related hypotension, other
-Patient has baseline bradycardia and has noted to be bradycardic throughout. Transiently increased EF may be secondary to her baseline bradycardia. She also has chronic left bundle branch block
-With cardiac arrest of unclear etiology, ischemic cardiomyopathy with LVEF of 45%, chronic left bundle branch block and fluctuating LVEF from 40 to 50%, and sick sinus syndrome and history of paroxysmal atrial fibrillation on amiodarone, we would
consider putting SET UP WORKER-D.
-Given recent surgery, need for antibiotics and possible infection risk, we will evaluate the date and time for device implantation.
-Patient has dialysis fistula placed on the left arm. She also has permacath placed on the right IJ tunneled to the right shoulder. Limited landscape for BiV ICD implantation.
Paroxysmal atrial fibrillation
-Noted since January 2023.
-On amiodarone, patient is reporting skin damage and hair loss since the start of amiodarone.
-Patient wants to come off of amiodarone.
-Now that she has declared her need for SET UP WORKER-D, patient can be a candidate for AVJ ablation and continued BiV pacing
-Her amiodarone can be discontinued after that.
Gallbladder disease: choledocholithiasis, gallstone pancreatitis:
-s/p ERCP 09/17/23: Choledocholithiasis was found. Complete removal was accomplished by biliary sphincterotomy and balloon extraction. A biliary sphincterotomy was performed.
-s/p lap jose a 09/18/2023
-on ABX
Abnormal troponin, type unknown (possible non-ischemic myocardial injury vs Type II MT), peak troponin 3.9
Paroxysmal atrial fibrillation, amio, Eliquis on hold. In sinus.
ICM EF 45-50%, euvolemic on exam
s/p TAVR for
CAD, chronic stable
LBBB, chronic, stable
ESRD, on HD per nephro
Old stroke
Subjective:
anxious after this mornings events. Alert and awake. Denies any chest pain.
Data:
-echo 09/17/23: EF 40-45%. Hypokinesis of the inferolateral wall. Stage II diastolic dysfunction. S/p TAVR #23 Paulino Ubaldo with mean gradient of 12mmHg. Moderate pulmonary pressure. Compared to previous echo on 01/29/23, the EF is similar. The
pulmonary pressure is higher. Of note, this was after missing dialysis day
-Cath 01/28/23: Right dominant circulation with a 60% lesion in the distal RCA, a 60-70% lesion in the mid LAD spanning the origin of the diagonal, and occlusion of the ostial circumflex immediately after the origin of the first obtuse marginal,
initially thought to be an acute lesion but later revealed to be a chronic total occlusion. Unsuccessful PCI of the ostial circumflex. Med management.
Physical Exam
Vital Signs/Labs
Vital Signs
Temp Pulse Resp BP Pulse Ox
97.7 F 55 11 137/48 98
09/21/23 03:59 09/21/23 06:00 09/21/23 06:00 09/21/23 06:00 09/21/23 05:45
09/20/23 09/21/23 09/22/23
06:59 06:59 06:59
Actual Weight 75.8 kg
09/20/23 08:54
09/21/23 03:20
PT 14.7 Sec (11.4-14.6) H 09/20/23 11:44
INR 1.17 09/20/23 11:44
APTT 99.6 Sec (23.4-35.0) H 09/21/23 03:20
LAB Results
09/20/23 09/20/23 09/20/23
08:40 08:45 09:45
Troponin I Cancelled 0.371 H* Cancelled
09/20/23 09/21/23 09/21/23
18:43 03:20 09:45
Troponin I 0.371 H* 0.340 H* Cancelled
Physical Exam
Constitutional: No acute distress and Comfortable
EENT: Anicteric and Moist mucous membranes
Cardiovascular: Rhythm & rate is regular, Pedal edema present, JVD present and Systolic murmur present
Respiratory: Respiratory effort normal, Lungs clear to auscul., Wheeze Absent and Crackles Absent
GI: Soft, Non tender and Normal bowel sounds
Neuro/Psych: Alert, Oriented and AO x 3
Other: Cath Site and Cardiac Device Site
Data Reviewed
-
Date of Service: September 21, 2023
Medical Decision Making: Reviewed Test Results, Independent Historian Assessment and Test Interpretation
EKG: Tracing Personally Visualized and interpreted
Echo: Tracing Personally Visualized and interpreted
X-Ray/CT/US/MRI/NUC/PET: Image Personally Visualized and interpreted
Labs: Labs Reviewed by me
Old Records: Reviewed
Critical Care Time (in minutes): 50
[2023-09-21] MEDS: NOVOLOG FLEXPEN-MODERATE RESISTANCE SC ×2 (08:05→12:30)
[2023-09-21] MEDS: LOW STRENGTH ASPIRIN 81 MG PO (08:05)
[2023-09-21] MEDS: PROTONIX 40 MG PO (08:05)
[2023-09-21 08:14] LABS: Glucose - Point of Care 119 mg/dl (70-99)
--- NOTE | 2023-09-21 08:41 | W.PN.NEPH.HD ---
Assessment
-
Patient seen on dialysis
Systolic blood pressure stable at 128 at current UF
No evidence of syncope or presyncope at this
Echocardiogram report reviewed and was normal
Troponin levels stable postcardiac arrest event
Progress Note - Hemodialysis
-
Date of Service: September 21, 2023
Duration: 30 minutes and 3 hours
Potassium Bath: 2
Calcium Bath: 2.5
Opti-Dialyzer: 160
Ultrafiltration: Other (2kg)
Blood Flow: 400
Dialysate Flow: 600
Heparin: none (on heparin gtt)
EPO: 10,000
[2023-09-21] MEDS: RETACRIT 10000 UNITS IV (08:50)
[2023-09-21 09:49] LABS: APTT 80.2 Sec (23.4-35.0)
--- NOTE | 2023-09-21 10:47 | W.PN.GS2 ---
Today's Communication / Plan
-
continue diet
lft trending down
no surgical intervention at this time
Assessment / Plan
-
Assessment: 83 y/o female presenting with choledocholithiasis s/p ERCP on 09/17/23 now POD#3 s/p lap jose a
Cardiac arrest while on HD on 09/19, CPR initiated with ROSC. She did not require intubation.
Afebrile, vitals currently stable
LFT's trending down
No leukocytosis
Plan: diet as tolerated
analgesics prn
On heparin gtt
Possible ICD by cards
No further surgical intervention at this time
Subjective Data
-
Date of Service: September 21, 2023
Patient states she feels okay. She has no abdominal pain. She denies nausea or vomiting. She denies nausea or vomiting. She has bowel function.
Objective Data
-
Intake and Output
09/20/23 09/21/23 09/22/23
06:59 06:59 06:59
Intake Total 580 / 580 358.0 / 364.5 13.0 / 13.0
Balance 580 / 580 358.0 / 364.5 13.0 / 13.0
Intake:
Oral fluids 580 / 580 240 / 240
IV fluids (Total) 118.0 / 124.5 13.0 / 13.0
Heparin 118.0 / 124.5 13.0 / 13.0
Vital Signs
Temp Pulse Resp BP Pulse Ox
98.4 F 52 9 123/45 100
09/21/23 08:00 09/21/23 08:30 09/21/23 08:30 09/21/23 08:30 09/21/23 08:30
Lab Results
09/20/23 08:54
09/21/23 03:20
Calcium 8.5 mg/dl (8.4-10.2) 09/21/23 03:20
Total Bilirubin 1.0 mg/dl (0.2-1.3) 09/21/23 03:20
Direct Bilirubin 1.0 mg/dl (0.0-0.4) H 09/20/23 08:20
AST 230 U/L (14-36) H 09/21/23 03:20
ALT 632 U/L (0-35) H* 09/21/23 03:20
Alkaline Phosphatase 185 U/L (38-126) H 09/21/23 03:20
Total Protein 5.3 g/dl (6.3-8.2) L 09/21/23 03:20
Albumin 2.7 g/dl (3.5-5.0) L 09/21/23 03:20
Physical Exam
-
NAD AAOx3
ABD: soft, ND, TTP localized to incision sites
incisions with glue dressings
--- NOTE | 2023-09-21 11:33 | W.PN.INTV ---
Today's Communication / Plan
Recommendations
Continue telemetry monitoring
Dialysis
Eventual ICD placement
Transferred to telemetry
Critical care team will sign off
Assessment
-
Acute cardiorespiratory arrest: CPR for less than a minute without medications with regain of spontaneous circulation
Unclear if this is related to an arrhythmia or vasovagal versus less likely hypotension from dialysis.
Gallstone pancreatitis/choledocholithiasis: Status postcholecystectomy 09/18/2023
Conditions present prior admission:
Atrial fibrillation on anticoagulation
Ischemic cardiomyopathy ejection fraction 45-50%
Status post TAVR
Coronary Tory disease
Prior LBBB
End-stage renal disease on dialysis
History of prior CVA
Assessment and plan:
Unclear etiology for cardiorespiratory arrest.
No evidence for acute coronary event.
Not hypoxemic. Not tachycardic.
Chest x-ray was clear.
EKG unchanged compared to prior
No arrhythmias on telemetry.
Asymptomatic this morning 09/21/2023
Repeat echocardiogram unrevealing. Normal LVEF. Normal RV function. 09/20/2023
Neurologically intact
Hemodynamically stable
Not requiring vasopressors
She states that every time she gets hooked up to dialysis she reports some dizziness but usually goes away after several minutes. Receiving dialysis 09/21/2023 without complications.
-
Cardiology correspondence reviewed
Will maintain hemodynamic monitoring
On beta-sarah
Telemetry monitoring.
Will need ICD placement per cardiology.
-
Continue dialysis, nephrology following.
-
Anemia of chronic kidney disease-stable.
No leukocytosis or signs of infection.
-
Transferred to telemetry.
Critical care team will sign off.
Please call pulmonary if any respiratory issues arise.
-

Data reviewed:
-Chest x-ray 09/20/2023: Reviewed, no evidence for pneumothorax. No acute abnormalities. Low lung volumes.
-EKG 09/20/2023: Reviewed, sinus rhythm with first-degree AV block. Left bundle branch block. No significant change compared to prior.
-echo 09/17/23: EF 40-45%. Hypokinesis of the inferolateral wall. Stage II diastolic dysfunction. S/p TAVR #23 Paulino Ubaldo with mean gradient of 12mmHg. Moderate pulmonary pressure. Compared to previous echo on 01/29/23, the EF is similar. The
pulmonary pressure is higher. Of note, this was after missing dialysis day
-Cath 01/28/23: Right dominant circulation with a 60% lesion in the distal RCA, a 60-70% lesion in the mid LAD spanning the origin of the diagonal, and occlusion of the ostial circumflex immediately after the origin of the first obtuse marginal,
initially thought to be an acute lesion but later revealed to be a chronic total occlusion. Unsuccessful PCI of the ostial circumflex. Med management.
Subjective Dataa
Subjective Data
Date of Service:
Date of Service: September 21, 2023
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
Subjective:
Overnight no major issues.
Remains hemodynamically stable.
No identifiable arrhythmia
Asymptomatic
Receiving dialysis
Review of Systems
General: Fever (n)
Cardiopulmonary: Dyspnea (n)
GI: Abdominal Pain (n)
Neuro: Headache (n)
Objective Data
Data Reviewed
Vital Signs / I&O / Oxygen:
Vital Signs
Temp Pulse Resp BP Pulse Ox
98.4 F 52 9 123/45 100
09/21/23 08:00 09/21/23 08:30 09/21/23 08:30 09/21/23 08:30 09/21/23 08:30
Intake and Output
09/20/23 09/21/23 09/22/23
06:59 06:59 06:59
Intake Total 580 / 580 358.0 / 364.5 13.0 / 13.0
Balance 580 / 580 358.0 / 364.5 13.0 / 13.0
SaO2 100
Nasal Cannula flow liters per 1
minute
Physical Exam
General: Respiratory Distress (n) and Comfortable
HEENT: Normocephalic
Cardiovascular: S1-S2
Respiratory: Non-Labored Respirations
GI: Soft
Neurology: Awake, Alert, AO x 3 and No Motor Deficits
Skin: Warm
Labs/Micro/Reports
Lab Data
09/20/23 08:54
09/21/23 03:20
Laboratory Results
09/20/23 09/20/23 09/20/23
08:54 11:44 18:43
PT Cancelled 14.7 H
INR Cancelled 1.17
APTT Cancelled 33.3 182.6 H*
09/21/23 09/21/23 09/21/23
03:20 09:28 10:40
PT
INR
APTT 99.6 H 80.2 H Cancelled
[2023-09-21 12:26] LABS: Glucose - Point of Care 80 mg/dl (70-99)
[2023-09-21] MEDS: SENOKOT-S 1 TABLET PO (12:34)
[2023-09-21] MEDS: TOPROL XL 25 MG PO (12:39)
--- NOTE | 2023-09-21 13:46 | W.PN.GI.CBS2 ---
Today's Communication / Plan
-
trend LFT
Assessment / Plan
-
83-year-old female with past medical history of CAD with non-ST elevated IN 01/2023, end-stage renal disease on HD Saturday, diabetes, anemia, history of TAVR, hypertension, PAD, PAF, CVA/TIA, CHF, hypertension, hyperlipidemia, breast
cancer status post right lumpectomy, thrombocytopenia who presents to the emergency room with back pain. Work up with elevated LFT's, lipase and elevated lactate. Ultrasound of the abdomen shows diffuse intrahepatic biliary dilatation with severe
distention of the CBD measuring up to 1.5 cm. There are many layering shadowing calcified gallstones within the gallbladder. The gallbladder is distended with diffuse gallbladder wall thickening. 09/15 MRI with 1. OBSTRUCTING CHOLEDOCHOLITHIASIS
in the distal common bile duct and Extensive cholelithiasis. ACUTE INTERSTITIAL EDEMATOUS PANCREATITIS., b/l renal disease, diverticulosis, atherosclerosis, b/l effusion, mild CM, DDD s/p ERCP 09/16 then jose a 09/17. Some rise in AST/ALT 09/18 but
improved 09/19. s/p arrest with CPR 09/19 with ROSC.
Laboratory Tests
09/15/23 09/16/23 09/17/23
09:40 12:55 04:34
Total Bilirubin 1.9 H 2.5 H 1.7 H
Direct Bilirubin 2.3 H 1.6 H
AST 1020 H* 1383 H* 1344 H*
ALT 728 H* 1187 H* 1222 H*
Alkaline Phosphatase 355 H 251 H 300 H
09/18/23 09/19/23
08:17 05:55
Total Bilirubin 1.1 1.0
Direct Bilirubin 1.1 H 1.0 H
AST 1027 H* 1339 H*
ALT 1174 H* 1439 H*
Alkaline Phosphatase 271 H 264 H
09/19 bili 1, AST 446, ALT 966, alk phos 216
Impression:
Epigastric pain/upper abdominal discomfort
Dilated CBD with choledocholithiasis s/p ERCP 09/16 and jose a 09/17
Elevated LFTs with marked elevated AST/ALT
Cardiac arrest 09/19
Other Dx:
-PAF, on Eliquis-> last dose Saturday
-End-stage renal disease on HD Saturday
-History CHF
-History of CVA/TIA
-History anemia, thrombocytopenia
hx pancreatic insufficiency with creon use in past
hx cyst with cefalexin use in July
Plan:
LFTs continue to trend down . continue monitor
further mx per medical/ cardiology
No further GI recommendation at this point. follow up as outpatient . will s/o
Total Time Spent with Patient (in minutes): 35
Subjective
Subjective
Date of Service: September 21, 2023
no GI complaints
Objective
Data Reviewed
Laboratory Data:
Laboratory Results
09/20/23 08:54
09/21/23 03:20
Laboratory Results
PT 14.7 Sec (11.4-14.6) H 09/20/23 11:44
INR 1.17 09/20/23 11:44
APTT Cancelled 09/21/23 10:40
Total Bilirubin 1.0 mg/dl (0.2-1.3) 09/21/23 03:20
AST 230 U/L (14-36) H 09/21/23 03:20
ALT 632 U/L (0-35) H* 09/21/23 03:20
Alkaline Phosphatase 185 U/L (38-126) H 09/21/23 03:20
Lipase 1539 U/L (23-300) H* 09/15/23 09:40
Vital Signs and I&O:
Vital Signs
Temp Pulse Resp BP Pulse Ox
97.6 F 52 9 123/45 100
09/21/23 11:46 09/21/23 08:30 09/21/23 08:30 09/21/23 08:30 09/21/23 08:30
I&O
09/20/23 09/21/23 09/22/23
06:59 06:59 06:59
Intake Total 580 / 580 358.0 / 364.5 13.0 / 13.0
Balance 580 / 580 358.0 / 364.5 13.0 / 13.0
Physical Exam
Physical Exam
GI: Soft, Non Distended and Non Tender
[2023-09-21] MEDS: NOVOLOG FLEXPEN-MODERATE RESISTANCE 3 UNITS SC (17:37)
[2023-09-21 17:43] LABS: Glucose - Point of Care 240 mg/dl (70-99)
--- NOTE | 2023-09-21 21:09 | PTCARENOTE ---
Received patient in bed. Heparin gtt at 650 units/hr (6.5ml). Patient is AAox3. The patient verbalized frustration due to feeling forgetful during the day. Encouragement provided. Plan of care for the shift reviewed with the patient. Sinus kashif on
the monitor. Crackles to left 1/[address] up. Diminished breath sounds at the bases. Hypoactive BS. Patient asked to ambulate to the bathroom. Rolling walker utilized. Pt's hunched over while walking but is steady. Pt brushed her teeth/dentures. Night
care provided. Linens changed. Pt's HR 62 while ambulating, and sinus kashif when at rest. Safety measures maintained. Bed in the lowest position. Call dave is within reach.
[2023-09-21] MEDS: LANTUS 0.100000000000000006 UNITS SC (22:01)
[2023-09-21 22:14] LABS: Glucose - Point of Care 166 mg/dl (70-99)
[2023-09-21] MEDS: HEPARIN 25000 UNITS/250 ML IV (23:09)
--- NOTE | 2023-09-22 00:59 | PTCARENOTE ---
Patient reassessed. Left hand pain is a 2 but tolerable. Patient is awake and watching television. No changes from the previous assessment.
[2023-09-22 03:30] VITALS: BP 127/40
[2023-09-22] MEDS: ROXICODONE 5 MG PO (03:31)
[2023-09-22 04:00] VITALS: BP 115/39
[2023-09-22 04:02] VITALS: BP 124/39
--- NOTE | 2023-09-22 04:12 | PTCARENOTE ---
Patient complains of left hand pain. PRN administered. No change from the previous assessment.
[2023-09-22 05:29] VITALS: BMI 25.5
[2023-09-22 05:29] LABS: Hematocrit 25.3 % (37.0-47.0); Hemoglobin 8.4 g/dL (12.0-16.0); Mean Corp Hgb Conc. 33.2 g/dL (33.0-37.0); Mean Corpuscular Hgb 34.9 pg (27.0-31.0); Red Blood Cell Count 2.41 10^6/uL (4.20-5.40)
[2023-09-22 05:40] LABS: APTT 65.9 Sec (23.4-35.0)
--- NOTE | 2023-09-22 06:43 | W.PN.HOSP.TC ---
Today's Communication/Plan
-
.Trial of HS Gabapentin
c/w Heparin gtt
c/w diet
Assessment / Plan
Assessment / Plan
Physical Exam
General: Well Developed, No Apparent Distress, Conversant and Obese
HEENT: Normocephalic, Anicteric, Moist mucous membranes, Atraumatic, PERRLA and Oxygen
Respiratory: Clear
Cardiac: S1/S2 and Regular Rhythm
GI: Soft, Non Distended, Normal Bowel Sounds.
Rectal: Deferred by Provider
Genito-urinary: No [place]
Musculoskeletal: No Clubbing, No Cyanosis, no Edema, Left Lower Extremity and Edema, Right Lower Extremity
Skin: Warm
Neuro: AO x 3, she follows commands
Psych: Calm
# Post cardiac arrest while on HD
Pulseless arrest and needed 2-4 minutes of CRP.
Echo showed no significant changes from baseline. Echo 09/19: LVEF is 50 to 55%, normal systolic function and no obvious wall motion abnormalities. Repeat troponin is lower.
Troponin not significant for ACS and was down from previous readings
No chest pain
c/w Aspirin, IV heparin until we resume Eliquis after cardiac work up is done.
c/w BB, IVU level of care.
# Nonischemic myocardial injury in setting of acute illness and renal failure.
No chest pain
# Choledocholithiasis w/ gallstone acute pancreatitis:
s/p ERCP then lab jose a on 09/[address] Field, no complications reported
Resumed diet now. LFT coming down
No abd discomfort
Stopped ABx
MRI confirmed CBD obstructing stone with pancreatitis
s/p ERCP after Eliquis washout on 09/16 with good results after biliary sphincterotomy and balloon extraction by Dr heredai.
Appreciate GI and surgery input
# Elevated liver enzymes, likely related to cholestasis, ok to stop amiodarone for now, replaced with Toprol.
LFT coming down. Tolerating diet.
# hyponatremia, mild
No confusion
# hyperkalemia, treated with HD
# ESRD -
-Primary biller Dr Asencio
patient on HD via LUE AVF M//. Still has PermCath and we used it for HD. HD was postponed 09/19 due to cardiac event, had HD this Wednesday 09/20.
Appreciate nephrology help
# Paroxysmal atrial fibrillation
No history of palpitations or chest pain. c/w BB
- was on amio 200 daily
- holding AC pending finishing cardiac clearance. Surgery ok with AC.
# History of chronic heart failure with reduced ejection fraction. Echo 09/19: LVEF is 50 to 55%, normal systolic function and no obvious wall motion abnormalities. She is euvolemic. No shortness of breath or hypoxia.
#History of aortic stenosis status post TAVR.
# DM II - Home dose: on Tresiba 10 hs and aspart 10 bidac
- insulin sliding scale for now
# Diabetic neuropathy. More in LE than UE. Will try low dose Gabapentin to help reduce need for oxy. pt is agreeable.
DVT PPX - heparin sq
Code Status - Full Code (if expected to make reasonable recovery). Intubation ok.
Total time spent to see the patient, examine the patient on the floor, review data and lab results, discuss treatment plan with patient, consultants, nursing staff around 57 minutes
Anticipated Discharge: > 48 hours
Subjective/Interval History
-
Date of Service: September 22, 2023
Doing well
Reports neuropathy pain in legs and arms
Objective Data
-
Labs:
Laboratory Results
09/22/23 09/22/23
05:19 12:00
WBC Pending
Hgb Pending
Hct Pending
Plt Count Pending
APTT 65.9 H Pending
Vital Signs:
Vital Signs
Temp Pulse Resp BP Pulse Ox
97.6 F 62 14 126/63 94
09/22/23 03:04 09/21/23 21:00 09/21/23 21:00 09/21/23 20:00 09/21/23 20:30
I&O
09/20/23 09/21/23 09/22/23
06:59 06:59 06:59
Intake Total 580 / 580 358.0 / 364.5 356.0 / 356.0
Balance 580 / 580 358.0 / 364.5 356.0 / 356.0
[2023-09-22] MEDS: NOVOLOG FLEXPEN-MODERATE RESISTANCE SC ×3 (07:46→17:45)
[2023-09-22 07:48] LABS: Glucose - Point of Care 125 mg/dl (70-99)
--- NOTE | 2023-09-22 07:50 | W.PN.NEPH.PH ---
Today's Communication / Plan
-
HD tomorrow with AVF
if succesful d/c HD catheter
Assessment/Plan
-
IMP:
Choledocholithiasis w/ gallstone pancreatitis
Trop Elevation - Non WI trop elevation.
ESRD [facility], [facility]
Left upper arm AV fistula revision 06/27/23
h/o WI with old LBBB status post cardiac catheterization (occluded left circumflex unable to be open) January 2023
Paroxysmal atrial fibrillation on systemic anticoagulation
History heart failure mixed type
History of TAVR
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
Thrombocytopenia
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
Hypertension
Right chest wall tunneled HD CVC
History CVA
LBBB
PAD
Secondary hyperparathyroidism
PLan:
A/w abd pain -concern of gall stone in CBD, s/p choley
Discussed case with cardiology who want to proceed forward with ICD placement
We will dialyze tomorrow utilizing fistula, if fistula performs well we will DC dialysis catheter so ICD can be placed later this
no issues on HD yesterday
plan HD tomorrow, orders provided
KEILY re: anemia
BP stable
renal diet and FR
-
-
Date of Service: September 22, 2023
CC / HPI / ROS
-
Chief Complaint:
ESRD
History of Present Illness:
ESRD MWF
hemodynamically stable following cardiac arrest on dialysis
s/p lap choley 09/17
Review of Systems:
no chest pain or sob
no n/v
abd sore but not tender
Labs
-
Labs:
WBC 10.0 10^3/uL (4.8-10.8) 09/22/23 05:19
RBC 2.41 10^6/uL (4.20-5.40) L 09/22/23 05:19
Hgb 8.4 g/dL (12.0-16.0) L 09/22/23 05:19
Hct 25.3 % (37.0-47.0) L 09/22/23 05:19
Sodium 131 mmol/L (135-145) L 09/21/23 03:20
Potassium 5.0 mmol/L (3.5-5.1) 09/21/23 03:20
Chloride 97 mmol/L (98-107) L 09/21/23 03:20
Carbon Dioxide 20 mmol/L (22-30) L 09/21/23 03:20
BUN 64 mg/dl (7-17) H 09/21/23 03:20
Creatinine 5.6 mg/dL (0.6-1.0) H* 09/21/23 03:20
eGFR 7.12 09/21/23 03:20
Glucose 133 mg/dl (70-99) H 09/21/23 03:20
Calcium 8.5 mg/dl (8.4-10.2) 09/21/23 03:20
Albumin 2.7 g/dl (3.5-5.0) L 09/21/23 03:20
Physical Exam
-
Vital Signs:
Vital Signs
Temp Pulse Resp BP Pulse Ox
97.2 F 54 18 124/39 94
09/22/23 07:20 09/22/23 07:00 09/22/23 07:00 09/22/23 04:02 09/21/23 20:30
Cardiovascular:: Regular rate and rhythm
Respiratory:: Bilateral: CTA
Lung Excursion:: Normal
Abdomen:: Nontender and Soft
Bowel Sounds:: Normal
Extremity Edema:: None: Bilateral:
[place] Catheter: No
[2023-09-22 07:55] LABS: Mean Platelet Volume 12.4 fL (7.4-10.4); Platelet Count 77 10^3/uL (130-400)
[2023-09-22 08:26] VITALS: BP 136/69
[2023-09-22] MEDS: LOW STRENGTH ASPIRIN 81 MG PO (08:40)
[2023-09-22] MEDS: PROTONIX 40 MG PO (08:40)
[2023-09-22] MEDS: TOPROL XL 25 MG PO (08:40)
[2023-09-22] MEDS: SENOKOT-S 1 TABLET PO (08:55)
[2023-09-22 11:46] LABS: Glucose - Point of Care 140 mg/dl (70-99)
[2023-09-22 12:43] LABS: APTT 68.7 Sec (23.4-35.0)
[2023-09-22 16:14] VITALS: BP 104/45
[2023-09-22 16:32] LABS: Glucose - Point of Care 117 mg/dl (70-99)
[2023-09-22 19:31] LABS: APTT 52.7 Sec (23.4-35.0)
[2023-09-22 20:00] VITALS: BP 108/42
[2023-09-22] MEDS: LANTUS 0.100000000000000006 UNITS SC (21:38)
[2023-09-22] MEDS: NEURONTIN 100 MG PO (21:38)
[2023-09-22 21:53] LABS: Glucose - Point of Care 246 mg/dl (70-99)
--- NOTE | 2023-09-22 23:16 | PTCARENOTE ---
Assumed care of patient @ 190.
AAOx4, sinus kashif no ectopy, persisting peripheral neuropathy at baseline, gabapentin 100 mg given 1st dose. lap sites intact, see nurse shift assessment for further assessment details.
Heparin gtt. rate 850 @ 1900
Heparin gtt. rate 1050 @ 1930, ptt still non therapeutic, next draw at 0200.
[2023-09-23] VITALS (25 sets, daily range): BP systolic 103–155; BP diastolic 34–117; BMI 26.1
[2023-09-23 02:09] LABS: APTT 123.6 Sec (23.4-35.0)
[2023-09-23] MEDS: ROXICODONE 10 MG PO (04:30)
[2023-09-23] MEDS: EMLA CREAM 2 GRAM TOPICAL (06:08)
[2023-09-23] MEDS: TOPROL XL PO (07:21)
[2023-09-23] MEDS: PROTONIX 40 MG PO (07:31)
[2023-09-23] MEDS: LOW STRENGTH ASPIRIN 81 MG PO (07:31)
[2023-09-23] MEDS: NOVOLOG FLEXPEN-MODERATE RESISTANCE SC ×3 (07:33→18:12)
[2023-09-23] MEDS: HEPARIN 25000 UNITS/250 ML IV (07:40)
[2023-09-23 07:58] LABS: Glucose - Point of Care 130 mg/dl (70-99)
--- NOTE | 2023-09-23 08:00 | PTCARENOTE ---
Assumed care of patient from fast food shift supervisor. Patient AAOx4, can move all extremities, generally weak. Decreased sensation in hands and feet at baseline. Patient is sinus kashif on monitor in 40s. Due to receive dialysis this morning, Toprol xl held.
Patient is 99% on room air, spot check with pulse oximeter. Ordered diet, will defer eating till after HD. Patient is anuric. Skin as documented in focused shift assessment. Will review orders, patient written for IVU.
--- NOTE | 2023-09-23 08:14 | W.PN.CD ---
Today's Communication / Plan
-
- HD today then removal of the permacath if fistulae works well.
- BiV ICD tomorrow afternoon. NPO after midnight.
Impression / Plan
-
Cardiac arrest /possible PEA versus V-fib:
-Cardiac arrest happened in the presence of Dr. Pastrana. 09/20/2023
-Needed CPR. Patient was not on telemetry. However only 4 minutes of CPR was able to achieve ROSC.
-ROSC with CPR -patient avoided intubation
-Echo 09/20/2023: LVEF 45 to 50%. Somewhat improved with recent cardiac arrest.
- Differential diagnosis for her loss of consciousness with loss of pulse is broad and includes a transient arrhythmia, dialysis related hypotension, other
-Patient has baseline bradycardia and has noted to be bradycardic throughout. Transiently increased EF may be secondary to her baseline bradycardia. She also has chronic left bundle branch block
-With cardiac arrest of unclear etiology, ischemic cardiomyopathy with LVEF of 45%, chronic left bundle branch block and fluctuating LVEF from 40 to 50%, and sick sinus syndrome and history of paroxysmal atrial fibrillation on amiodarone, we would
consider putting DOUGH SHEETER-D.
-Given recent surgery, need for antibiotics and possible infection risk, we will evaluate the date and time for device implantation.
-Patient has dialysis fistula placed on the left arm and is matured - getting dialysis today via the fistulae.
- Plan for permacath removal today from right IJ tunneled to the right shoulder.
- BiV ICD implantation tomorrow - consent signed.
Paroxysmal atrial fibrillation
-Noted since January 2023.
-On amiodarone,
-patient is reporting skin damage and hair loss since the start of amiodarone.
-Patient wants to come off of amiodarone.
-Now that she has declared her need for DOUGH SHEETER-D, patient can be a candidate for AVJ ablation and continued BiV pacing
-Her amiodarone can be discontinued after that.
Gallbladder disease: choledocholithiasis, gallstone pancreatitis:
-s/p ERCP 09/17/23: Choledocholithiasis was found. Complete removal was accomplished by biliary sphincterotomy and balloon extraction. A biliary sphincterotomy was performed.
-s/p lap jose a 09/18/2023
-on ABX
Abnormal troponin, type unknown (possible non-ischemic myocardial injury vs Type II DE), peak troponin 3.9
Paroxysmal atrial fibrillation, amio, Eliquis on hold. In sinus.
ICM EF 45-50%, euvolemic on exam
s/p TAVR for
CAD, chronic stable
LBBB, chronic, stable
ESRD, on HD per nephro
Old stroke
Subjective:
anxious after this mornings events. Alert and awake. Denies any chest pain.
Data:
-echo 09/17/23: EF 40-45%. Hypokinesis of the inferolateral wall. Stage II diastolic dysfunction. S/p TAVR #23 Paulino Ubaldo with mean gradient of 12mmHg. Moderate pulmonary pressure. Compared to previous echo on 01/29/23, the EF is similar. The
pulmonary pressure is higher. Of note, this was after missing dialysis day
-Cath 01/28/23: Right dominant circulation with a 60% lesion in the distal RCA, a 60-70% lesion in the mid LAD spanning the origin of the diagonal, and occlusion of the ostial circumflex immediately after the origin of the first obtuse marginal,
initially thought to be an acute lesion but later revealed to be a chronic total occlusion. Unsuccessful PCI of the ostial circumflex. Med management.
Physical Exam
Vital Signs/Labs
Vital Signs
Temp Pulse Resp BP Pulse Ox
97.8 F 49 12 118/49 99
09/23/23 07:26 09/23/23 03:00 09/23/23 03:00 09/23/23 00:00 09/23/23 07:46
09/22/23 09/23/23 09/24/23
06:59 06:59 06:59
Actual Weight 73.7 kg 75.5 kg
PT 14.7 Sec (11.4-14.6) H 09/20/23 11:44
INR 1.17 09/20/23 11:44
APTT 123.6 Sec (23.4-35.0) H 09/23/23 01:51
LAB Results
09/20/23 09/20/23 09/20/23
08:40 08:45 09:45
Troponin I Cancelled 0.371 H* Cancelled
09/20/23 09/21/23 09/21/23
18:43 03:20 09:45
Troponin I 0.371 H* 0.340 H* Cancelled
Physical Exam
Constitutional: No acute distress and Comfortable
EENT: Anicteric and Moist mucous membranes
Cardiovascular: Rhythm & rate is regular, Pedal edema is absent and JVD present
Respiratory: Respiratory effort normal, Lungs clear to auscul. and Wheeze Absent
GI: Soft, Non tender and Normal bowel sounds
Neuro/Psych: Alert, Oriented and AO x 3
Other: Cath Site and Cardiac Device Site
Data Reviewed
-
Date of Service: September 23, 2023
Medical Decision Making: Reviewed Test Results, Independent Historian Assessment and Test Interpretation
EKG: Tracing Personally Visualized and interpreted
Echo: Report Reviewed by me
Labs: Labs Reviewed by me
Old Records: Reviewed
[2023-09-23 08:40] LABS: Hematocrit 25.1 % (37.0-47.0); Hemoglobin 8.3 g/dL (12.0-16.0)
--- NOTE | 2023-09-23 08:50 | W.PN.HOSP.TC ---
Today's Communication/Plan
-
Vascular acces determination per nephrology. Plan for AICD in am. Cont cardiac monitoring.
Assessment / Plan
Assessment / Plan
Physical Exam
General: Well Developed, No Apparent Distress, Conversant and Obese
HEENT: Normocephalic, Anicteric, Moist mucous membranes, Atraumatic, PERRLA and Oxygen
Respiratory: Clear
Cardiac: S1/S2 and Regular Rhythm
GI: Soft, Non Distended, Normal Bowel Sounds.
Rectal: Deferred by Provider
Genito-urinary: No [place]
Musculoskeletal: No Clubbing, No Cyanosis, no Edema, Left Lower Extremity and Edema, Right Lower Extremity
Skin: Warm
Neuro: AO x 3, she follows commands
Psych: Calm
A/P:
# Post cardiac arrest while on HD
Pulseless arrest and needed 2-4 minutes of CRP.
Echo showed no significant changes from baseline. Echo 09/19: LVEF is 50 to 55%, normal systolic function and no obvious wall motion abnormalities. Repeat troponin is lower.
Troponin not significant for ACS and was down from previous readings
No chest pain
c/w Aspirin, IV heparin until we resume Eliquis after cardiac work up is done.
c/w BB, IVU level of care.
Plan for AICD tomorrow
# Nonischemic myocardial injury in setting of acute illness and renal failure.
No chest pain
# Choledocholithiasis w/ gallstone acute pancreatitis:
s/p ERCP then lab jose a on 09/[address] Field, no complications reported
Resumed diet now. LFT coming down
No abd discomfort
Stopped ABx
MRI confirmed CBD obstructing stone with pancreatitis
s/p ERCP after Eliquis washout on 09/16 with good results after biliary sphincterotomy and balloon extraction by Dr heredia.
Appreciate GI and surgery input
# Elevated liver enzymes, likely related to cholestasis, ok to stop amiodarone for now, replaced with Toprol.
LFT coming down. Tolerating diet.
# hyponatremia, mild
No confusion
# hyperkalemia, treated with HD
# ESRD -
-Primary tooling mechanic Dr Asencio
patient on HD via LUE AVF M/W/. Still has PermCath and we used it for HD. HD was postponed 09/19 due to cardiac event, had HD this Wednesday 09/20. Plan removal Perm Cath today if fistula working properly- defer to nephrology(discussed with nephro
today 09/22).
Appreciate nephrology help
# Paroxysmal atrial fibrillation
No history of palpitations or chest pain. c/w BB
- was on amio 200 daily
- holding AC pending finishing cardiac clearance. Surgery ok with AC.
# History of chronic heart failure with reduced ejection fraction. Echo 09/19: LVEF is 50 to 55%, normal systolic function and no obvious wall motion abnormalities. She is euvolemic. No shortness of breath or hypoxia.
#History of aortic stenosis status post TAVR.
# DM II - Home dose: on Tresiba 10 hs and aspart 10 bidac
- insulin sliding scale for now
# Diabetic neuropathy. More in LE than UE. Will try low dose Gabapentin to help reduce need for oxy. pt is agreeable.
DVT PPX - heparin sq
Code Status - Full Code (if expected to make reasonable recovery). Intubation ok.
Total time spent to see the patient, examine the patient on the floor, review data and lab results, discuss treatment plan with patient, consultants, nursing staff around 57 minutes
Anticipated Discharge: > 48 hours
Subjective/Interval History
-
Date of Service: September 23, 2023
pte denies any cp/sob
Objective Data
-
Labs:
Laboratory Results
09/23/23 09/23/23
01:51 08:08
Hgb Pending
Hct Pending
APTT 123.6 H Pending
Sodium Pending
Potassium Pending
Chloride Pending
Carbon Dioxide Pending
Vital Signs:
Vital Signs
Temp Pulse Resp BP Pulse Ox
97.8 F 49 12 118/49 99
09/23/23 07:26 09/23/23 03:00 09/23/23 03:00 09/23/23 00:00 09/23/23 08:00
I&O
09/22/23 09/23/23 09/24/23
06:59 06:59 06:59
Intake Total 356.0 / 363.5 223.5 / 223.5
Balance 356.0 / 363.5 223.5 / 223.5
[2023-09-23 08:53] LABS: Carbon Dioxide 27 mmol/L (22-30); Chloride 91 mmol/L (98-107); Potassium 4.4 mmol/L (3.5-5.1); Sodium 128 mmol/L (135-145)
[2023-09-23 09:01] LABS: APTT 93.1 Sec (23.4-35.0)
[2023-09-23] MEDS: RETACRIT 10000 UNITS IV (09:06)
[2023-09-23] MEDS: MANNITOL 25% 12.5 GRAMS IV (09:10)
--- NOTE | 2023-09-23 10:59 | CM ---
Patient seen at bedside, currently on HD. Patient stated that she lives at [facility] and her PCP at [facility] is Dr. Lange. Patient uses the [facility]. Patient [facility] MWF at 12 noon. Patient was independent prior to admission. Patient does use
her electric wheelchair and walker in apartment. Patient daughter provides assistance in transportation. Patient does not drive. CM will continue to follow for discharge planning needs.
Plan; home to independent apartment with VN vs SNF; pending level of care needs..
--- NOTE | 2023-09-23 12:05 | W.PN.NEPH.HD ---
Assessment
-
- fistula functioning well
- planning for catheter removal today
Progress Note - Hemodialysis
-
Date of Service: September 23, 2023
Duration: 30 minutes and 3 hours
Potassium Bath: 3
Calcium Bath: 2.5
Opti-Dialyzer: 160
Ultrafiltration: Other
Blood Flow: 400
Dialysate Flow: 600
[2023-09-23 12:21] LABS: Glucose - Point of Care 105 mg/dl (70-99)
--- NOTE | 2023-09-23 13:20 | WOUNDNOTE ---
L HEEL (with photo flash)
--- NOTE | 2023-09-23 13:21 | WOUNDNOTE ---
R HEEL (with photo flash)
--- NOTE | 2023-09-23 13:34 | WOUNDNOTE ---
WOC RN note: Patient's heels remain the same, purple ecchymotic. Heels off bed with pillow. Foam dressings changed. She stated she is getting a pacer/ICD tomorrow. She mentioned her last LE arterial Doppler was about 8years ago and it was 'fine' as
per patient. Toes warm. Onset texted Dr. Murillo re: bilateral heel DTI's, defer to hospitalist if wants to order LE arterial Doppler study during hospital stay. Reinstructed patient to update Dr. Lambert about her heels at next appointment. Will follow
as needed.
--- NOTE | 2023-09-23 14:00 | PTCARENOTE ---
Patient to have tunneled cath removed by IR. heparin gtt on pause but will resume after. Patient tolerated HD this morning, 2 kgs. were taken off. Patient to have AICD tomorrow. Asked for something for anxiety.
[2023-09-23] MEDS: XANAX 0.25 MG PO (14:15)
--- NOTE | 2023-09-23 14:34 | WOUNDNOTE ---
t/c Dr. Lambert's office, spoke with Bianca who confirmed patient has an appointment with Dr. Lambert on 10/29/23; asked Bianca to make a note for Dr. Lambert to check her heel wounds at appointment. Bianca responded she can do that. During visit today, patient stated
she wears slippers or sneakers at home and that she follows a federal java developer. Suggested she have federal java developer check her foot wear at her next appointment. Discharge instructions updated. Will follow as needed.
--- NOTE | 2023-09-23 14:38 | CON.VAS ---
Addendum entered and electronically signed by Antonio Lambert MD 09/25/23 08:52:
Seen and evaluated with CYNTHIA Bermudez. Agree with findings as noted below. Well-known to me. Case was discussed prior with me as well. Patient admitted with abdominal pain initially. Had ERCP and biliary sphincterotomy. She then underwent
laparoscopic cholecystectomy. On 09/20/2023 she suffered a cardiac arrest episode while on hemodialysis witnessed. Recovering from all this. However now she is noted to have bilateral heel deep tissue injuries. Patient without specific complaints
herself. Nonpalpable distal pulses on exam. Deep tissue injuries as pictured in the wound care notes. No open ulceration. Feet are both warm. No rubor. Noninvasive studies reviewed.
Plan/ Deep tissue injuries likely related to extensive medical ongoing problems and likely contributing factor may be peripheral arterial disease. I discussed with her ultrasound to suggest an adequate perfusion. Discussed however there may not be
a reasonable revascularization ability based on small vessel disease as is often seen in end-stage renal disease. If that is the case and she has small vessel no unreconstructable disease, likely not much further I can do an certainly some risk to
the heels bilaterally (in the limbs as a result). However, hopefully there is something we can intervene upon. Her ultrasounds do suggest possible proximal disease as well. Would favor angiography to ensure optimization of perfusion. Likely will
need to perform staged interventions. Can image both sides but plan on treating 1 side at 1 time. Discussed this all with her. Will plan lower extremity angiography tomorrow.
Original Note:
Consultation
Consultation Request
Performing Provider: Gómez
Reason for Consultation: PAD evaluation
Medical History
-
History of Present Illness:
83-year-old female well-known to the vascular service for history of AV fistula creation and fistula interventions, most recently on 06/27/2023 (Left upper extremity brachiobasilic arteriovenous fistula creation with single stage basilic vein
transposition). Patient was admitted to the emergency room on 09/15/2023 for abdominal pain. Patient had ERCP on 09/17/2023 with biliary sphincterotomy. On 09/18/2023 patient had laparoscopic cholecystectomy. On 09/20/23 patient cardiac arrested for
4 minutes while on HD, witnessed. Transferred to ICU for monitoring. Permacath removed this morning, successful HD treatment this morning via fistula. Planning for BiV ICD tomorrow afternoon. Vascular consult today for bilateral heel DTI's. PAD
evaluation.
Patient seen at bedside this afternoon. Wound care notes have images of bilateral heels. Small purple young where heels lie on mattress. Patient admits she does not walk more than to the restroom. She states her heels are almost always resting
on the bed or on the floor. She denies claudication, denies cramping with walking. Patient admits to neuropathic pain in her toes occasionally and nighttime cramps in her calves that are relieved with a 'prescribed lotion' she was unsure of the
name. Patient states she has had slow healing 'scrapes/cuts to her feet and toes for years.' Her feet are mildly pale, warm. +Doppler PT and DP signals bilaterally. Palpable +2 femoral pulses bilaterally. + Thrill at left upper extremity fistula
site.
ast Medical History: Reports CAD, CHF (diastolic CHF), CVA, HTN, Hypercholesterolemia, IDDM and Renal Failure (ESRD on HD M/W/F via LUE AVF)
Past Surgical History: Reports Other (Left CEA)
Additional Past Surgical History:
lumpectomy
Social History
Tobacco: Non-smoker
Alcohol: None
Drug: None
Personal: Single
Living: Alone
Employment: Retired
Past Medical History
Past Medical History: CAD, CHF, CVA, HTN, Hypercholesterolemia, IDDM and Renal Failure (HD on Saturday)
Past Surgical History: Other (Left CEA, left upper extremity fistulas)
Social History
Tobacco: Non-Smoker
Alcohol: None
Drug: None
Personal: Single
Living: Alone
Employment: Retired
Family History
Family History: Reviewed & Not Pertinent
Allergies / Home Medications
Allergy/AdvReac Type Severity Reaction Status Date / Time
Penicillins Allergy Rash; Verified 09/23/23 14:12
tolerated
cefepime
09/2023
sulfamethoxazole Allergy Rash Verified 09/15/23 07:41
[From Bactrim]
trimethoprim [From Bactrim] Allergy Rash Verified 09/15/23 07:41
�Medication �Instructions �Recorded �Confirmed �Type
atorvastatin 80 mg tablet 80 mg PO HS High Cholesterol 05/21/17 09/15/23 History
insulin aspart U-100 100 unit/mL 12 unit SC BID Diabetes 09/16/20 09/15/23 History
(3 mL) subcutaneous pen (Novolog
FlexPen U-100 Insulin aspart)
insulin degludec 100 unit/mL (3 10 unit SC HS Diabetes 09/16/20 09/15/23 History
mL) subcutaneous pen (Tresiba
FlexTouch U-100 insulin)
lutein 20 mg tablet 20 mg PO DAILY Supplement 01/09/22 09/15/23 History
furosemide 80 mg tablet 80 mg PO DAILY Fluid 10/05/22 09/15/23 History
Retention/Swelling
apixaban 2.5 mg tablet (Eliquis) 2.5 mg PO BID #60 tabs 02/01/23 09/15/23 Rx
amiodarone 200 mg tablet 200 mg PO DAILY Arrhythmia 04/18/23 09/15/23 History
sevelamer carbonate 800 mg tablet 800 mg PO BID hyperphosphatemia 04/18/23 09/15/23 History
vitamin B complex-vitamin C-folic 1 tab PO HS Supplement 04/18/23 09/15/23 History
acid 0.8 mg tablet (Nephro
Vitamins)
diphenhydramine 25 2 tab PO HS Sleep 09/15/23 09/15/23 History
mg-acetaminophen 500 mg tablet
(Tylenol PM Extra Strength)
Review of Systems
-
History Source: Patient
All other systems: Negative unless noted
Constitutional: Reports No Symptoms
EENT: Reports No Symptoms
Respiratory: Reports No Symptoms
Cardiac: Reports Chest Pain (Resolved)
Abdomen/GI: Reports Abdominal Pain (Resolved)
Musculoskeletal: Reports No Symptoms
Skin: Reports No Symptoms
Neurological: Reports No Symptoms
Physical Exam
Vital Signs
Temp Pulse Resp BP Pulse Ox
97.5 F 59 19 131/51 99
09/23/23 11:01 09/23/23 14:00 09/23/23 14:00 09/23/23 12:01 09/23/23 08:00
Lab Results
09/23/23 08:08
09/23/23 08:08
Troponin I Cancelled 09/21/23 09:45
Physical Exam
General: No Apparent Distress
HEENT: Normocephalic and Atraumatic
Respiratory: Non Labored Respirations
Cardiac: Negative JVD
GI: Soft, Non Tender and Non Distended
Musculoskeletal: No Clubbing, No Cyanosis and No Edema
Skin: Warm and Other (See wound care notes)
Neuro: Awake, Alert and Oriented
Psych: Calm
Pulses: Bilateral Femoral: +2, Bilateral Dorsalis Pedis: Doppler and Bilateral Posterior Tibial: Doppler
Assessment / Plan
-
83-year-old female with bilateral heel DTI's, patient is pretty nonmobile
Plan:
-Arterial ultrasounds/BEAN/TBI
-Elevate heels at all times
-Prevalon boots bilaterally
-Local wound care
Data Reviewed
-
Labs: Labs Reviewed by me
[2023-09-23 14:53] LABS: APTT 97.5 Sec (23.4-35.0)
--- NOTE | 2023-09-23 15:14 | PN.IRAD.UPD ---
Update Note - IRAD
- -
WENT BEDSIDE AT 1500 TO REMOVE PATIENT'S RIGHT SIDED TUNNELED DIALYSIS CATHETER, WHICH WAS PLACED IN JANUARY. REMOVAL DUE TO FUNCTIONING LEFT FISTULA. CLEANED AND PREPPED AREA, REMOVED CATHETER, DRESSED WITH QUICKCLOT AND TEGADERM.
[2023-09-23 17:49] LABS: Glucose - Point of Care 139 mg/dl (70-99)
[2023-09-23 19:21] LABS: Hepatitis B Surface Antigen Negative (Negative)
[2023-09-23 19:39] LABS: Hepatitis B Core Ab, Total Negative (Negative); Hepatitis B Surface Antibody Positive; Hepatitis C Antibody Negative (Negative)
[2023-09-23] MEDS: NEURONTIN 100 MG PO (22:27)
[2023-09-23] MEDS: LANTUS 0.100000000000000006 UNITS SC (22:28)
[2023-09-23 22:31] LABS: Hepatitis A IgM Antibody Negative (Negative)
[2023-09-23 22:43] LABS: Glucose - Point of Care 165 mg/dl (70-99)
[2023-09-24] VITALS (14 sets, daily range): BP systolic 95–124; BP diastolic 41–73; BMI 26.0
--- NOTE | 2023-09-24 00:10 | PTCARENOTE ---
09/23/23 - patient resting comfortably in bed, no c/o pain or discomfort, lap choley sites clean dry and intact, patient had half sandwich for dinner, no nausea.
patient to be NPO at midnight for AICD placement,
dialysis catheter site clean/dry/intact,
fistula + bruit/thrill
[2023-09-24 04:35] LABS: % Basophils 0.5 % (0-2); % Immature Granulocytes 5.8 % (0-0.5); % Lymphocytes 16.8 % (20.5-51.1); % Monocytes 11.8 % (1.7-9.3); % Neutrophils 62.1 % (42.2-75.2); Hematocrit 25.9 % (37.0-47.0); Hemoglobin 8.5 g/dL (12.0-16.0); Mean Corp Hgb Conc. 32.8 g/dL (33.0-37.0); Mean Corpuscular Hgb 35.3 pg (27.0-31.0); Mean Corpuscular Volume 107.5 fL (81.0-99.0); Mean Platelet Volume 13.3 fL (7.4-10.4); Platelet Count 73 10^3/uL (130-400); Red Blood Cell Count 2.41 10^6/uL (4.20-5.40); White Blood Cell Count 7.7 10^3/uL (4.8-10.8)
[2023-09-24 04:36] LABS: Absolute Eosinophils 0.2 10^3/uL (0-0.7); Absolute Immature Granulocytes 0.5 10^3/uL (0-0.05); Absolute Lymphocytes 1.3 10^3/uL (1.2-3.4); Absolute Monocytes 0.9 10^3/uL (0.1-0.6); Absolute Neutrophils 4.8 10^3/uL (1.4-6.5); Nucleated Red Blood Cells % 0.8 %
[2023-09-24 04:47] LABS: APTT 118.5 Sec (23.4-35.0)
[2023-09-24] MEDS: NOVOLOG FLEXPEN-MODERATE RESISTANCE SC ×2 (07:14→13:38)
[2023-09-24 07:15] LABS: ALT (SGPT) 248 U/L (0-35); AST (SGOT) 60 U/L (14-36); Albumin 2.9 g/dl (3.5-5.0); Alkaline Phosphatase 166 U/L (38-126); Blood Urea Nitrogen 28 mg/dl (7-17); Calcium 8.4 mg/dl (8.4-10.2); Carbon Dioxide 30 mmol/L (22-30); Chloride 94 mmol/L (98-107); Estimated Creatinine Clearance 11 ml/min; Glucose 116 mg/dl (70-99); Potassium 4.2 mmol/L (3.5-5.1); Sodium 132 mmol/L (135-145); Total Bilirubin 0.9 mg/dl (0.2-1.3); Total Protein 5.7 g/dl (6.3-8.2); eGFR 10.99
[2023-09-24 07:29] LABS: Glucose - Point of Care 123 mg/dl (70-99)
[2023-09-24] MEDS: TOPROL XL PO (07:59)
[2023-09-24] MEDS: LOW STRENGTH ASPIRIN 81 MG PO (08:09)
[2023-09-24] MEDS: PROTONIX 40 MG PO (08:09)
[2023-09-24] MEDS: HEPARIN 25000 UNITS/250 ML IV ×2 (08:31→22:55)
--- NOTE | 2023-09-24 09:00 | PTCARENOTE ---
Addendum entered by Genesis Ricardo RN 09/24/23 10:19:
Patient due to go get AICD at 1300. Will hang vanco supervisor quality control to manager lab.
Original Note:
Heparin gtt now on hold per medical laboratory assistant RN report
--- NOTE | 2023-09-24 09:08 | W.PN.HOSP.TC ---
Today's Communication/Plan
-
AICD today.
Assessment / Plan
Assessment / Plan
Physical Exam
General: Acute and chronically ill, No Apparent Distress, Conversant and Obese
HEENT: Normocephalic, Anicteric, Moist mucous membranes, Atraumatic, PERRLA and Oxygen
Respiratory: Clear
Cardiac: S1/S2 and Regular Rhythm
GI: Soft, Non Distended, Normal Bowel Sounds.
Rectal: Deferred by Provider
Genito-urinary: No [place]
Musculoskeletal: No Clubbing, No Cyanosis, no Edema, Left Lower Extremity and Edema, Right Lower Extremity
Skin: Warm
Neuro: AO x 3, she follows commands
Psych: Calm
A/P:
# Post cardiac arrest while on HD
Pulseless arrest and needed 2-4 minutes of CRP.
Echo showed no significant changes from baseline. Echo 09/19: LVEF is 50 to 55%, normal systolic function and no obvious wall motion abnormalities. Repeat troponin is lower.
Troponin not significant for ACS and was down from previous readings
No chest pain
c/w Aspirin, IV heparin on hold. Restart heparin drip postprocedure and can go back to Eliquis once vascular surgery is okay with that.
c/w BB, and can transfer to telemetry level of care as long as okay with cardiac.
Status post pacemaker today 09/23 (leadless pacemaker placement)--> plan to discharge home when ready with LifeVest with plan for extravascular ICD implantation at a later date once risk of bleeding and infection is improved.
# Bilateral heel ulcers
Vascular surgery evaluation appreciated
Plan for arterial ultrasound/BEAN/TBI
# Back pain
Likely musculoskeletal
One-time dose of Dilaudid and will reevaluate if persists
# ESRD -
-Non HD catheter now in place in [facility] per nephrology--> dialysis through fistula now.
-Dialysis per nephrology
# Paroxysmal atrial fibrillation
-On amiodarone
-On metoprolol succinate
-In the future might be able to discontinue if they do AVJ ablation and biventricular pacing
-Restart heparin drip postprocedure and can go back to Eliquis once vascular surgery is okay with that.
# Choledocholithiasis w/ gallstone acute pancreatitis:
s/p ERCP then lab jose a on 09/[address] Field, no complications reported
s/p ERCP after Eliquis washout on 09/16 with good results after biliary sphincterotomy and balloon extraction by Dr heredia.
Appreciate GI and surgery input
# Nonischemic myocardial injury in setting of acute illness and renal failure.
No chest pain
# Elevated liver enzymes, likely related to cholestasis, ok to stop amiodarone for now, replaced with Toprol.
LFT coming down. Tolerating diet.
# hyponatremia, mild
No confusion
# hyperkalemia, treated with HD
# History of chronic heart failure with reduced ejection fraction. Echo 09/19: LVEF is 50 to 55%, normal systolic function and no obvious wall motion abnormalities. She is euvolemic. No shortness of breath or hypoxia.
#History of aortic stenosis status post TAVR.
# DM II - Home dose: on Tresiba 10 hs and aspart 10 bidac
- insulin sliding scale for now
# Diabetic neuropathy. More in LE than UE. Will try low dose Gabapentin to help reduce need for oxy. pt is agreeable.
DVT PPX - heparin gtt wehn safe post procedure
Code Status - Full Code (if expected to make reasonable recovery). Intubation ok.
Total time spent to see the patient, examine the patient on the floor, review data and lab results, discuss treatment plan with patient, consultants, nursing staff around 57 minutes
Anticipated Discharge: 24 - 48 hours
Subjective/Interval History
-
Date of Service: September 24, 2023
Patient seen after ICD procedure and had some back pain likely positional. No chest pain or shortness of breath.
Objective Data
-
Labs:
Laboratory Results
09/24/23 09/24/23 09/24/23
04:25 06:16 11:15
WBC 7.7
Hgb 8.5 L
Hct 25.9 L
Plt Count 73 L
APTT 118.5 H Pending
Sodium Cancelled 132 L
Potassium Cancelled 4.2
Chloride Cancelled 94 L
Carbon Dioxide Cancelled 30
BUN Cancelled 28 H
Creatinine Cancelled 3.9 H
Glucose Cancelled 116 H
Calcium Cancelled 8.4
Total Bilirubin Cancelled 0.9
AST Cancelled 60 H
ALT Cancelled 248 H
Alkaline Phosphatase Cancelled 166 H
Vital Signs:
Vital Signs
Temp Pulse Resp BP Pulse Ox
98.3 F 61 21 124/51 99
09/24/23 07:11 09/24/23 08:08 09/24/23 08:08 09/24/23 08:08 09/24/23 08:49
I&O
09/23/23 09/24/23 09/25/23
06:59 06:59 06:59
Intake Total 223.5 / 223.5 459.5 / 459.5
Balance 223.5 / 223.5 459.5 / 459.5
--- NOTE | 2023-09-24 11:11 | PTCARENOTE ---
patient taken to porcelain enamel laborer for pacer placement
--- NOTE | 2023-09-24 12:37 | W.PN.CD ---
Today's Communication / Plan
-
- Leadless pacemaker today
- Once ready to discharge then lifevest (<1 month)
- Plan for extravascular ICD
Impression / Plan
-
Cardiac arrest /possible PEA versus V-fib:
-Cardiac arrest happened in the presence of Dr. Pastrana. 09/20/2023
-Needed CPR. Patient was not on telemetry. However only 4 minutes of CPR was able to achieve ROSC.
-ROSC with CPR -patient avoided intubation
-Echo 09/20/2023: LVEF 45 to 50%. Somewhat improved with recent cardiac arrest.
- Differential diagnosis for her loss of consciousness with loss of pulse is broad and includes a transient arrhythmia, dialysis related hypotension, other
-Patient has baseline bradycardia and has noted to be bradycardic throughout. Transiently increased EF may be secondary to her baseline bradycardia. She also has chronic left bundle branch block
-Given recent surgery, need for antibiotics and possible infection risk, we will evaluate the date and time for device implantation.
-Patient has dialysis fistula placed on the left arm and is matured - getting dialysis today via the fistulae.
-s/p permacath removal 09/23/23 from right IJ tunneled to the right shoulder.
-No IV access and with left arm fistulae, she got PICC /Midline on the right arm.
-With ongoing infection issues, PAD and need for percutaneous intervention, recent abd surgery, would recommend leadless pacemaker for her conduction disease (LBBB and hx of TAVR). Not a good candidate for intravscular device implantation.
-Will plan to discharge home on life vest. Once off the heparin and back on Eliquis and risk of infection and bleeding is low, will plan for extra vascular ICD placement.
Paroxysmal atrial fibrillation
-Noted since January 2023.
-On amiodarone,
-patient is reporting skin damage and hair loss since the start of amiodarone.
-Patient wants to come off of amiodarone.
-Now that she has declared her need for OTOLARYNGOLOGY SURGEON-D, patient can be a candidate for AVJ ablation and continued BiV pacing
-Her amiodarone can be discontinued after that.
Gallbladder disease: choledocholithiasis, gallstone pancreatitis:
-s/p ERCP 09/17/23: Choledocholithiasis was found. Complete removal was accomplished by biliary sphincterotomy and balloon extraction. A biliary sphincterotomy was performed.
-s/p lap jose a 09/18/2023
-on ABX
PAD
- Severe PAD
- On Heparin
- Plan for percutaneous intervention by vascular surgery
Abnormal troponin, type unknown (possible non-ischemic myocardial injury vs Type II DE), peak troponin 3.9
Paroxysmal atrial fibrillation, amio, Eliquis on hold. In sinus.
ICM EF 45-50%, euvolemic on exam
s/p TAVR for
CAD, chronic stable
LBBB, chronic, stable
ESRD, on HD per nephro
Old stroke
Subjective:
Feeling well. Alert and awake. Denies any chest pain. Agrees with plan for leadless pacemaker.
Data:
-echo 09/17/23: EF 40-45%. Hypokinesis of the inferolateral wall. Stage II diastolic dysfunction. S/p TAVR #23 Paulino Ubaldo with mean gradient of 12mmHg. Moderate pulmonary pressure. Compared to previous echo on 01/29/23, the EF is similar. The
pulmonary pressure is higher. Of note, this was after missing dialysis day
-Cath 01/28/23: Right dominant circulation with a 60% lesion in the distal RCA, a 60-70% lesion in the mid LAD spanning the origin of the diagonal, and occlusion of the ostial circumflex immediately after the origin of the first obtuse marginal,
initially thought to be an acute lesion but later revealed to be a chronic total occlusion. Unsuccessful PCI of the ostial circumflex. Med management.
Physical Exam
Vital Signs/Labs
Vital Signs
Temp Pulse Resp BP Pulse Ox
98.3 F 60 11 124/51 99
09/24/23 07:11 09/24/23 10:00 09/24/23 10:00 09/24/23 08:08 09/24/23 08:49
09/23/23 09/24/23 09/25/23
06:59 06:59 06:59
Actual Weight 75.5 kg 75.1 kg
09/24/23 04:25
09/24/23 06:16
PT 14.7 Sec (11.4-14.6) H 09/20/23 11:44
INR 1.17 09/20/23 11:44
APTT Cancelled 09/24/23 11:15
Physical Exam
Constitutional: No acute distress and Comfortable
EENT: Anicteric and Moist mucous membranes
Cardiovascular: Rhythm & rate is regular, Pedal edema is absent and JVD pressure is normal
Respiratory: Respiratory effort normal, Wheeze Absent and Crackles Absent
GI: Soft and Normal bowel sounds
Neuro/Psych: Alert, Oriented, AO x 3 and Motor deficits absent
Other: Cath Site and Cardiac Device Site
Data Reviewed
-
Date of Service: September 24, 2023
Medical Decision Making: Reviewed Test Results, Independent Historian Assessment, Test Interpretation and Review of Case with other Provider
EKG: Tracing Personally Visualized and interpreted
Echo: Report Reviewed by me
Medical Tests (PFT, Pathology etc): Image Personally Visualized and interpreted
Labs: Labs Reviewed by me
Old Records: Reviewed
Critical Care Time (in minutes): 31
--- NOTE | 2023-09-24 12:45 | ITS.CL.PN ---
Stamp Clerk - Procedure Note
Procedure
Procedure Note:
Leadless Pacemaker (Micra) Implantation:
Mr. Valderrama is a very pleasant 83 yr old woman with complex medical history including ischemic cardiomyopathy with LVEF of 45%, severe aortic stenosis s/p TAVR (#23 Paulino NIGEL with mean gradient 12 mmHg), paroxysmal atrial fibrillation on
amiodarone and Eliquis, chronic left bundle branch block, severe peripheral artery disease, diabetes mellitus, end-stage renal failure on hemodialysis, CVA, presented with acute choledocholithiasis and acute gallstone pancreatitis status post ERCP
on 09/17/2023 and lap jose a on 09/18/2023 and developed cardiac arrest needing CPR on 09/20/2023. She has AV fistula on the left arm and permacath on the right with difficult to obtain access. She is also on antibiotics for her abdominal
surgery/infection. Permacath was removed and with a loss of IV access, she needed a central line placed on the right arm. She also has severe peripheral artery disease and is undergoing percutaneous intervention by vascular surgery on heparin drip.
�She is not a good candidate for intravascular device implantation. She is advised to placed leadless pacemaker. �She will be [facility] with the plan for extravascular ICD implantation at a later date once the risk of bleeding
and infection is improved.
Indications: Cardiac arrest with severe conduction disease including left bundle branch block and physical block. High suspicion for bradycardia/pauses
Date of the Procedure:
09/24/2023
Pre-Operative Diagnosis: Cardiac arrest with severe conduction disease including left bundle branch block and physical block. High suspicion for bradycardia/pauses.
Post-Operative Diagnosis: Cardiac arrest with severe conduction disease including left bundle branch block and physical block. High suspicion for bradycardia/pauses.
Procedure Performed: Leadless pacemaker placement
Performing Physician:
Chandu Carter MD
Anesthesia:
See anesthesia records
Pre-operative antibiotics:
Vanco and aztreonam
Detailed Description of the Procedure:
Written informed consent was obtained from the patient after a full explanation of the risks and benefits of the procedure including the risks of sedation and anesthesia.
The patient was brought to the electrophysiology laboratory in stable condition in fasting state. Continuous electrocardiographic and hemodynamic monitoring was initiated.
The initial rhythm was normal sinus rhythm with left bundle branch block.
The procedure site was meticulously prepared with surgical scrub and allowed to dry with no pooling. Sterile draping was applied to cover the procedure site. The image intensifier was draped with sterile bag and positioned over the patient.
After infusion of local anesthetic, vascular access was obtained under ultrasound guidance and sheath was placed over guide wire as detailed below.
Heparin bolus was.
First, temporary pacemaker wire was implanted using 6 [place] sheath in the right femoral vein.� Patient has a history of TAVR and left bundle branch block and at high risk for right bundle branch block with septal manipulation to plan for
implantation of the pacemaker.� Excellent threshold and sensing identified. Temporary pacemaker was set at 50 bpm at VVI.
An 8Fr sheath in right femoral vein was placed. Using the various dilators, the access was upgraded to 27Fr sheath for Micra implantation.
The 27 Fr Micra outer sheath was successfully and carefully advanced to the RA.
Leadless Pacemaker (Micra) implantation:
The delivery system of the Micra was prepped with removal of all air underwater and was advanced into the sheath to the RA with continuous saline irrigation. The sheath was pulled back to the IVC and the delivery sheath was advanced into the RV
cavity. The delivery system as placed against the ventricular septum using STAPLES and AGNES fluoroscopic views and the septal approximation was confirmed with contrast injection. Once adequate location was confirmed, the locked sutures were unlocked and
the Micra was slowly advanced pulling back the delivery sheath releasing the anchoring hooks. The Micra was attached successfully to the RV septum. The PM was tested and adequate sensing and threshold noted.
Next, the tug test was done with the pulling the attached suture under fluoroscopic guidance with the three anchors securely embedded and showed movement and widening of the anchors with pulling them. The PPM again was tested showing stable
thresholds and excellent sensing.
The one side of the suture was cut and the other side was gradually and carefully pulled until free. The delivery system sheath was pulled back to the IVC and the PPM was again tested showing stable numbers.
Pa parameter settings were DDDR 50 bpm. �
Measured data in the Micra was sensing of 7 mV of epicardial paced beats, impedance of 610 ohms and the threshold of 0.88 V at 0.24ms�
Implant device:
Micra [id number] - Serial No: [id number]
Procedure End
Following the completion of the Micra implant, catheters were removed.
Given patient dementia, the decision was made to also place a �figure of 8� sutures. The sheaths were removed and hemostasis achieved with manual compression.
Estimated Blood loss:
<5 cc
Specimens Removed:
None.
Implants / Devices:
None
Urine output:
None
Packs / Drains/ Tubes:
None
Instrument / Sponge Count Correct:
Yes
Complications of the Procedure:
None
Condition of Patient at Time of Transfer:
Hemodynamically stable with no neurological or vascular compromise.
Summary:
Successful implantation of MRI compatible Leadless ventricular pacemaker
[2023-09-24] MEDS: VANCOCIN 200 IV (13:36)
[2023-09-24] MEDS: AZACTAM 2000 MG IV (13:36)
[2023-09-24] MEDS: STERILE WATER FOR INJECTION 10 ML IV (13:37)
--- NOTE | 2023-09-24 14:05 | CM ---
Attempted to complete assessment for Giana earlier today, however she was off the floor for a procedure. I returned at 2pm and Giana was still not in her room.
CM will have to follow up in AM for assessment completion.
--- NOTE | 2023-09-24 14:08 | W.PN.NEPH.PH ---
Today's Communication / Plan
-
- HD tomorrow
- ICD planning per cardiology
Assessment/Plan
-
IMP:
Choledocholithiasis w/ gallstone pancreatitis
Trop Elevation - Non NV trop elevation.
ESRD [facility], MWF
Left upper arm AV fistula revision 06/27/23
h/o NV with old LBBB status post cardiac catheterization (occluded left circumflex unable to be open) January 2023
Paroxysmal atrial fibrillation on systemic anticoagulation
History heart failure mixed type
History of TAVR
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
Thrombocytopenia
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
Hypertension
Right chest wall tunneled HD CVC
History CVA
LBBB
PAD
Secondary hyperparathyroidism
PLan:
A/w abd pain -concern of gall stone in CBD, s/p choley
Discussed case with cardiology who want to proceed forward with ICD placement, but non HD cath now in place in [facility]
dialyzing through fistula
no issues on HD yesterday
plan HD tomorrow, orders provided
KEILY re: anemia
BP stable
renal diet and FR
-
-
Date of Service: September 24, 2023
CC / HPI / ROS
-
Chief Complaint:
ESRD
History of Present Illness:
ESRD MWF
hemodynamically stable following cardiac arrest on dialysis
s/p lap choley 09/17
Review of Systems:
no chest pain or sob
no n/v
abd sore but not tender
Labs
-
Labs:
WBC 7.7 10^3/uL (4.8-10.8) 09/24/23 04:25
RBC 2.41 10^6/uL (4.20-5.40) L 06/18/24 04:25
Hgb 8.5 g/dL (12.0-16.0) L 09/24/23 04:25
Hct 25.9 % (37.0-47.0) L 09/24/23 04:25
Plt Count 73 10^3/uL (130-400) L 09/24/23 04:25
Sodium 132 mmol/L (135-145) L 09/24/23 06:16
Potassium 4.2 mmol/L (3.5-5.1) 09/24/23 06:16
Chloride 94 mmol/L (98-107) L 09/24/23 06:16
Carbon Dioxide 30 mmol/L (22-30) 09/24/23 06:16
BUN 28 mg/dl (7-17) H 09/24/23 06:16
Creatinine 3.9 mg/dL (0.6-1.0) H 09/24/23 06:16
eGFR 10.99 09/24/23 06:16
Glucose 116 mg/dl (70-99) H 09/24/23 06:16
Calcium 8.4 mg/dl (8.4-10.2) 09/24/23 06:16
Albumin 2.9 g/dl (3.5-5.0) L 09/24/23 06:16
Physical Exam
-
Vital Signs:
Vital Signs
Temp Pulse Resp BP Pulse Ox
98 F 63 22 104/60 99
09/24/23 13:48 09/24/23 13:30 09/24/23 13:30 09/24/23 13:30 09/24/23 08:49
Cardiovascular:: Regular rate and rhythm
Respiratory:: Bilateral: Coarse
Lung Excursion:: Normal
Abdomen:: Nontender and Soft
Bowel Sounds:: Normal
Extremity Edema:: None: Bilateral:
[place] Catheter: No
[2023-09-24] MEDS: DILAUDID 0.25 MG IV (14:22)
--- NOTE | 2023-09-24 16:30 | PTCARENOTE ---
Rec'd Pt as transfer from ICU, A,A+O, on bedrest post micra pacer placement. R femoral Dsg D+I. R PT and DP pulses by doppler.
--- NOTE | 2023-09-24 16:33 | PTCARENOTE ---
Patient moved to room 2250. Report given to Tonya. Patient is due to have figure 8 suture out at 1630. Heparin gtt to resume 6 hours after.
[2023-09-24 17:23] LABS: Glucose - Point of Care 192 mg/dl (70-99)
--- NOTE | 2023-09-24 17:24 | PTCARENOTE ---
Figure of 8 suture clipped without incident, Pt abdi well. No bleeding noted from R femoral site, femoral dsg remains D+I. + R DP and PT pulses with doppler.
[2023-09-24] MEDS: NOVOLOG FLEXPEN-MODERATE RESISTANCE 1 UNITS SC (17:31)
[2023-09-24] MEDS: SENOKOT-S 1 TABLET PO (20:56)
[2023-09-24 22:39] LABS: Glucose - Point of Care 259 mg/dl (70-99)
[2023-09-24] MEDS: LANTUS 0.100000000000000006 UNITS SC (22:40)
--- NOTE | 2023-09-24 23:12 | PTCARENOTE ---
Pt rec'd at change of shift awake,alert sinus on telemetry with few crackles noted in left base, no cough noted. Pt with no bm for 1 week. Senokot given. Pt reports she does not want to take Metamucil until tomm after dialysis. right femoral vein
with DDI. Pt had requested heel boots, obtained from [facility] and utilized. heparin restarted via rfa iv site at 2300 (6hrs post Fig 8 sutures cut). right upper arm midline flushed with good blood return. Pt requesting Emla cream be used at 0600 before
am dialysis. call dave within reach
[2023-09-24] MEDS: NEURONTIN 100 MG PO (23:44)
--- NOTE | 2023-09-25 04:09 | DOWNTIME ---
There was a [employer] Assistant Downtime on 09/25/2023 from 0100 to 09/25/2023 at 0337. Downtime documentation of patient's care, including medication administrations, has been reconciled in the electronic record per guidelines. Refer to the
patient's paper chart under the miscellaneous tab to see printed paper medication records and downtime forms.
[2023-09-25 05:25] VITALS: BP 94/34
[2023-09-25 05:37] LABS: Hematocrit 24.9 % (37.0-47.0); Hemoglobin 8.1 g/dL (12.0-16.0); Mean Corp Hgb Conc. 32.5 g/dL (33.0-37.0); Mean Corpuscular Hgb 35.7 pg (27.0-31.0); Mean Corpuscular Volume 109.7 fL (81.0-99.0); Platelet Count 90 10^3/uL (130-400); Red Blood Cell Count 2.27 10^6/uL (4.20-5.40); Red Cell Dist. Width 16.1 % (11.5-14.5); White Blood Cell Count 7.6 10^3/uL (4.8-10.8)
[2023-09-25 05:49] LABS: APTT 77.7 Sec (23.4-35.0)
[2023-09-25 05:52] VITALS: BMI 25.7
[2023-09-25] MEDS: EMLA CREAM 2 GRAM TOPICAL (05:55)
[2023-09-25 06:09] LABS: Blood Urea Nitrogen 44 mg/dl (7-17); Calcium 8.9 mg/dl (8.4-10.2); Carbon Dioxide 28 mmol/L (22-30); Chloride 91 mmol/L (98-107); Estimated Creatinine Clearance 8 ml/min; Glucose 210 mg/dl (70-99); Magnesium 2.1 mg/dl (1.6-2.3); Potassium 4.9 mmol/L (3.5-5.1); Sodium 129 mmol/L (135-145); eGFR 7.43
--- NOTE | 2023-09-25 07:55 | W.PN.CD ---
Today's Communication / Plan
-
- OK to continue heparin per vascular
- Life Vest at the time of discharge
- EV ICD next month.
Impression / Plan
-
Cardiac arrest /possible PEA versus V-fib:
-Cardiac arrest happened in the presence of Dr. Pastrana. 09/20/2023
-Needed CPR. Patient was not on telemetry. However only 4 minutes of CPR was able to achieve ROSC.
-ROSC with CPR -patient avoided intubation
-Echo 09/20/2023: LVEF 45 to 50%. Somewhat improved with recent cardiac arrest.
-Differential diagnosis for her loss of consciousness with loss of pulse is broad and includes a transient arrhythmia, dialysis related hypotension, other
-baseline bradycardia / chronic left bundle branch block conduction disease and hx of TAVR prompted the need for a pacemaker along with subQ iCD
-s/p Leadless pacemaker - Med[employer]onic Micra - 09/24/23 - groins are well. Back on heparin drip for PAD
-With ongoing infection issues, PAD and need for percutaneous intervention, recent abd surgery, - Not a good candidate for intravscular device implantation.
-Will plan to discharge home on life vest. Once off the heparin and back on Eliquis and risk of infection and bleeding is low, will plan for extra vascular ICD placement.
Paroxysmal atrial fibrillation
-Noted since January 2023.
-On amiodarone,
Gallbladder disease: choledocholithiasis, gallstone pancreatitis:
-s/p ERCP 09/17/23: Choledocholithiasis was found. Complete removal was accomplished by biliary sphincterotomy and balloon extraction. A biliary sphincterotomy was performed.
-s/p lap jose a 09/18/2023
-on ABX
PAD
- Severe PAD
- On Heparin
- Plan for percutaneous intervention by vascular surgery
Abnormal troponin, type unknown (possible non-ischemic myocardial injury vs Type II VT), peak troponin 3.9
Paroxysmal atrial fibrillation, amio, Eliquis on hold. In sinus.
ICM EF 45-50%, euvolemic on exam
s/p TAVR for
CAD, chronic stable
LBBB, chronic, stable
ESRD, on HD per nephro
Old stroke
Subjective:
Feeling well. Alert and awake. Denies any chest pain. Agrees with plan for leadless pacemaker.
Data:
-echo 09/17/23: EF 40-45%. Hypokinesis of the inferolateral wall. Stage II diastolic dysfunction. S/p TAVR #23 Paulino Ubaldo with mean gradient of 12mmHg. Moderate pulmonary pressure. Compared to previous echo on 01/29/23, the EF is similar. The
pulmonary pressure is higher. Of note, this was after missing dialysis day
-Cath 01/28/23: Right dominant circulation with a 60% lesion in the distal RCA, a 60-70% lesion in the mid LAD spanning the origin of the diagonal, and occlusion of the ostial circumflex immediately after the origin of the first obtuse marginal,
initially thought to be an acute lesion but later revealed to be a chronic total occlusion. Unsuccessful PCI of the ostial circumflex. Med management.
Physical Exam
Vital Signs/Labs
Vital Signs
Temp Pulse Resp BP Pulse Ox
97.5 F 64 18 94/34 99
09/25/23 07:08 09/24/23 16:00 09/25/23 07:08 09/25/23 05:25 09/25/23 07:08
09/24/23 09/25/23 09/26/23
06:59 06:59 06:59
Actual Weight 75.1 kg 74.3 kg
09/25/23 05:20
09/25/23 05:20
PT 14.7 Sec (11.4-14.6) H 09/20/23 11:44
INR 1.17 09/20/23 11:44
APTT 77.7 Sec (23.4-35.0) H 09/25/23 05:20
Magnesium 2.1 mg/dl (1.6-2.3) 09/25/23 05:20
Physical Exam
Constitutional: No acute distress and Comfortable
EENT: Anicteric and Moist mucous membranes
Cardiovascular: Rhythm & rate is regular, Pedal edema is absent and JVD pressure is normal
Respiratory: Respiratory effort normal, Lungs clear to auscul. and Crackles Absent
GI: Soft, Distention absent and Non tender
Neuro/Psych: Alert, Oriented, AO x 3 and Motor deficits absent
Other: Cath Site
Data Reviewed
-
Date of Service: September 25, 2023
Medical Decision Making: Reviewed Test Results, Independent Historian Assessment, Test Interpretation and Review of Case with other Provider
EKG: Tracing Personally Visualized and interpreted
Echo: Report Reviewed by me
X-Ray/CT/US/MRI/NUC/PET: Image Personally Visualized and interpreted
Labs: Labs Reviewed by me
Old Records: Reviewed
--- NOTE | 2023-09-25 08:44 | W.PN.UPDATE ---
Update Note
Progress Note Update
Pt seen at bedside this am with Dr Lambert. Pt agreeable to Angiogram tomorrow. NPO after midnight. Team aware. Continue heel offloading boots
--- NOTE | 2023-09-25 08:55 | W.PN.HOSP.TC ---
Today's Communication/Plan
-
Heparin drip. Cardiac monitoring. Plan for angiogram tomorrow.
Assessment / Plan
Assessment / Plan
Physical Exam
General: Acute and chronically ill, No Apparent Distress, Conversant and Obese
HEENT: Normocephalic, Anicteric, Moist mucous membranes, Atraumatic, PERRLA and Oxygen
Respiratory: Clear
Cardiac: S1/S2 and Regular Rhythm
GI: Soft, Non Distended, Normal Bowel Sounds.
Rectal: Deferred by Provider
Genito-urinary: No [place]
Musculoskeletal: No Clubbing, No Cyanosis, no Edema, Left Lower Extremity and Edema, Right Lower Extremity
Skin: Warm
Neuro: AO x 3, she follows commands
Psych: Calm
A/P:
# Post cardiac arrest while on HD
Pulseless arrest and needed 2-4 minutes of CRP. ROSC.
Echo showed no significant changes from baseline. Echo 09/19: LVEF is 50 to 55%, normal systolic function and no obvious wall motion abnormalities. Repeat troponin is lower.
Troponin not significant for ACS and was down from previous readings but defer to cardiology any further ischemic workup.
c/w Aspirin, beta-sarah, back on IV heparin drip.
Transferred to IVU per cardiac and vascular on 09/23.
Status post pacemaker on 09/23 (leadless pacemaker placement)--> plan to discharge home when ready with LifeVest with plan for extravascular ICD implantation at a later date once risk of bleeding and infection is improved.
# Bilateral heel ulcers
Vascular surgery evaluation appreciated
Continue heparin drip per vascular
Plan for angiogram tomorrow
# Thrombocytopenia
Hematology evaluation--> even though chronic thrombocytopenia patient also on antiplatelets and anticoagulation therefore evaluation by hematology warranted and will follow-up their recommendations.
# Back pain
Likely musculoskeletal
Pain medications as needed
PT eval after angiogram tomorrow once cleared by vascular
# ESRD -
-Non HD catheter now in place in [facility] per nephrology--> dialysis through fistula.
-Dialysis per nephrology
# Paroxysmal atrial fibrillation
-On amiodarone
-On metoprolol succinate
-In the future might be able to discontinue if they do AVJ ablation and biventricular pacing
-Restart heparin drip postprocedure and can go back to Eliquis once vascular surgery is okay with that.
# Choledocholithiasis w/ gallstone acute pancreatitis:
s/p ERCP then lab jose a on 09/[address] Field, no complications reported
s/p ERCP after Eliquis washout on 09/16 with good results after biliary sphincterotomy and balloon extraction by Dr heredia.
Appreciate GI and surgery input
# Nonischemic myocardial injury in setting of acute illness and renal failure.
No chest pain
# Elevated liver enzymes, likely related to cholestasis, ok to stop amiodarone for now, replaced with Toprol.
LFT coming down. Tolerating diet.
# hyponatremia, mild
No confusion
# hyperkalemia, treated with HD
# History of chronic heart failure with reduced ejection fraction. Echo 09/19: LVEF is 50 to 55%, normal systolic function and no obvious wall motion abnormalities. She is euvolemic. No shortness of breath or hypoxia.
#History of aortic stenosis status post TAVR.
# DM II - Home dose: on Tresiba 10 hs and aspart 10 bidac
- insulin sliding scale for now
# Diabetic neuropathy. More in LE than UE. Increased doses of gabapentin but carefully not to exceed certain level given her renal failure.
DVT PPX - heparin gtt
Code Status - Full Code (if expected to make reasonable recovery). Intubation ok.
Total time spent to see the patient, examine the patient on the floor, review data and lab results, discuss treatment plan with patient, consultants, nursing staff around 57 minutes
Anticipated Discharge: > 48 hours
Subjective/Interval History
-
Date of Service: September 25, 2023
Patient has any chest pain or shortness of breath. Patient has some neuropathic pain and would like her Neurontin increased. No active bleeding. Afebrile
Objective Data
-
Labs:
Laboratory Results
09/25/23
05:20
WBC 7.6
Hgb 8.1 L
Hct 24.9 L
Plt Count 90 L D
APTT 77.7 H
Sodium 129 L
Potassium 4.9
Chloride 91 L
Carbon Dioxide 28
BUN 44 H
Creatinine 5.4 H*
Glucose 210 H
Calcium 8.9
Vital Signs:
Vital Signs
Temp Pulse Resp BP Pulse Ox
97.5 F 64 18 94/34 99
09/25/23 07:08 09/24/23 16:00 09/25/23 07:08 09/25/23 05:25 09/25/23 07:08
I&O
09/24/23 09/25/23 09/26/23
06:59 06:59 06:59
Intake Total 459.5 / 459.5 150 / 150
Balance 459.5 / 459.5 150 / 150
[2023-09-25] MEDS: MANNITOL 25% 12.5 GRAMS IV (09:20)
--- NOTE | 2023-09-25 09:25 | CON.ONC ---
Impression
Impression
Chronic thrombocytopenia
ESRD
PEA cardiac arrest while on HD
Paroxysmal atrial fibrillation
Choledocholithiasis w/ gallstone acute pancreatitis s/p LAP jose a on 09/[address] Field,
Nonischemic myocardial injury
aortic stenosis status post TAVR.
DM II
Anemia of renal disease
Plan
Plan
PLT chronically low and basically stable.
Okay to continue A/C as needed for a. fib and vascular indications if PLT > 50,000
Eliquis on hold now per cardiology.
Patient History
History of Present Illness
Heme Consult for thrombocytopenia
HPI: 83-year-old woman initially admitted on 09/15/2023 for abdominal pain from choledocholithiasis with gallstones pancreatitis. Subsequently underwent cholecystectomy during this admission. She has ESRD on HD. She had lap jose a surgery was on
09/18/2023 without complications. This morning shortly after starting dialysis patient lost consciousness twice. Initial happen for 15 seconds with rapid regain of consciousness spontaneously. Shortly after lost pulse, had agonal respirations. CPR
was initiated. Regain spontaneous circulation after 1 minute. No medications were administered. Asked to evaluate her for longstanding thrombocytopenia PLT = 90,000. This is chronic past 3 years (88-129k). Currently no bleeding.
PMH: CAD, CHF (diastolic CHF), CVA, HTN, Hypercholesterolemia, IDDM and Renal Failure (ESRD on HD M/W/F via LUE AVF)
PSH: Left CEA, lumpectomy, lap jose a 09/18/2023
Social History
Tobacco: Non-smoker
Alcohol: None
Drug: None
Personal: Single
Living: Alone
Employment: Retired
Patient Medication
�Medication �Instructions �Recorded �Confirmed �Last Taken �Type
atorvastatin 80 mg tablet 80 mg PO HS High Cholesterol 05/21/17 09/15/23 09/14/23 History
insulin aspart U-100 100 unit/mL 12 unit SC BID Diabetes 09/16/20 09/15/23 09/14/23 History
(3 mL) subcutaneous pen (Novolog
FlexPen U-100 Insulin aspart)
insulin degludec 100 unit/mL (3 10 unit SC HS Diabetes 09/16/20 09/15/23 09/14/23 History
mL) subcutaneous pen (Tresiba
FlexTouch U-100 insulin)
lutein 20 mg tablet 20 mg PO DAILY Supplement 01/09/22 09/15/23 09/14/23 History
furosemide 80 mg tablet 80 mg PO DAILY Fluid 10/05/22 09/15/23 09/14/23 History
Retention/Swelling
apixaban 2.5 mg tablet (Eliquis) 2.5 mg PO BID #60 tabs 02/01/23 09/15/23 09/14/23 Rx
amiodarone 200 mg tablet 200 mg PO DAILY Arrhythmia 04/18/23 09/15/23 09/14/23 History
sevelamer carbonate 800 mg tablet 800 mg PO BID hyperphosphatemia 04/18/23 09/15/23 09/14/23 History
vitamin B complex-vitamin C-folic 1 tab PO HS Supplement 04/18/23 09/15/23 09/14/23 History
acid 0.8 mg tablet (Nephro
Vitamins)
diphenhydramine 25 2 tab PO HS Sleep 09/15/23 09/15/23 09/14/23 History
mg-acetaminophen 500 mg tablet
(Tylenol PM Extra Strength)
Active Medications
Generic Name Dose Route Start Last Admin
Trade Name Freq PRN Reason Stop Dose Admin
Acetaminophen 1,000 mg 09/18/23 15:27 09/19/23 07:45
Acetaminophen 500 Mg Tablet PO 10/16/23 15:26 1,000 mg
Q6HPRN PRN Administration
mild pain/fever>101
Albumin Human 12.5 grams 09/25/23 08:00
Albumin 12.5 Grams/50 Ml Bag *For Hemodialysis* IV 09/25/23 23:59
HD-Q1HPRN PRN
hypotension
Aspirin 81 mg 09/20/23 11:00 09/24/23 08:09
Aspirin 81 Mg Chewable Tablet PO 10/18/23 10:59 81 mg
DAILY SATHYA Administration
Dextrose 12.5 grams 09/18/23 23:00
Dextrose 50% (0.5 Grams/Ml) 50 Ml Syringe IV 10/16/23 22:59
[id number] PRN
hypoglycemia
Protocol
Gabapentin 100 mg 09/22/23 22:00 09/24/23 23:44
Gabapentin 100 Mg Capsule PO 10/20/23 21:59 100 mg
HS SATHYA Administration
Glucagon 1 mg 09/18/23 23:00
Glucagon 1 Mg Vial IM 10/16/23 22:59
PRN PRN
hypoglycemia - no IV access
Protocol
Heparin Sodium 25,000 units in 250 mls @ 0 mls/hr 09/20/23 08:54 09/24/23 22:55
Heparin 41363 Units/250 Ml IV 250 mls
PER PROTOCOL SATHYA Administration
Protocol
Per Protocol
Insulin Glargine 10 units/ 0.1 mls @ 0 mls/hr 09/20/23 22:00 09/24/23 22:40
Device SC 10/18/23 21:59 0.1 mls
HS SATHYA Administration
As Directed
Insulin Aspart 0 units 09/19/23 07:30 09/24/23 17:31
Insulin Aspart Moderate Resistance 300 Units/3 Ml Pen.Injctr SC 10/17/23 07:29 1 units
AC SATHYA Administration
Protocol
Lidocaine/Prilocaine 2 gram 09/15/23 19:52 09/25/23 05:55
Lidocaine 2.5%/Prilocaine 2.5% (Cream) 5 Gram Tube TOPICAL 10/13/23 19:51 2 gram
PRN PRN Administration
pre HD
Mannitol 12.5 grams 09/25/23 08:00
Mannitol 25% (12.5 Grams/50 Ml) Vial IV 09/25/23 23:59
HD-Q1HPRN PRN
hypotension
Metoprolol Succinate 25 mg 09/19/23 08:00 09/24/23 07:59
Metoprolol 25 Mg Extended Release Tablet PO 10/17/23 07:59 Not Given
DAILY SATHYA
Ondansetron HCl 4 mg 09/15/23 12:48
Ondansetron 4 Mg/2 Ml Vial IV 10/13/23 12:47
Q6HPRN PRN
NAUSEA/VOMITING
Oxycodone HCl 5 mg 09/18/23 15:27 09/22/23 03:31
Oxycodone 5 Mg Regular Release Tablet PO 10/02/23 15:26 5 mg
Q4HPRN PRN Administration
mod pain
Oxycodone HCl 10 mg 09/18/23 15:27 09/23/23 04:30
Oxycodone 10 Mg Regular Release Tablet PO 10/02/23 15:26 10 mg
Q4HPRN PRN Administration
severe pain
Pantoprazole Sodium 40 mg 09/20/23 08:00 09/24/23 08:09
Pantoprazole 40 Mg Delayed Release Tablet PO 10/18/23 07:59 40 mg
DAILY SATHYA Administration
Polyethylene Glycol 17 grams 09/15/23 14:57
Polyethylene Glycol Powder 17 Grams Packet PO 10/13/23 14:56
DAILYPRN PRN
constipation
Senna/Docusate Sodium 1 tablet 09/15/23 14:57 09/24/23 20:56
Docusate W/Senna (Radha-Colace) Tablet PO 10/13/23 14:56 1 tablet
BIDPRN PRN Administration
constipation
Sodium Chloride 0 flush 09/15/23 15:00
Sodium Chloride 0.9% (Flush) Syringe IV 10/13/23 14:59
PER PROTOCOL SATHYA
Sodium Chloride 10 ml 09/25/23 08:00
Sodium Chloride (4 Meq/Ml) 30 Ml Vial *For Hemodialysis* IV 09/25/23 23:59
HD-Q1HPRN PRN
cramps
Physical Exam
-
General: No Apparent Distress and Comfortable
HEENT: Negative Jaundice
Cardiology: S1 and S2
Pulmonary: Clear
GI: Soft
Labs
Lab Results
WBC 7.6 10^3/uL (4.8-10.8) 09/25/23 05:20
RBC 2.27 10^6/uL (4.20-5.40) L 09/25/23 05:20
Hgb 8.1 g/dL (12.0-16.0) L 09/25/23 05:20
Hct 24.9 % (37.0-47.0) L 09/25/23 05:20
MCV 109.7 fL (81.0-99.0) H 09/25/23 05:20
MCH 35.7 pg (27.0-31.0) H 09/25/23 05:20
MCHC 32.5 g/dL (33.0-37.0) L 09/25/23 05:20
RDW 16.1 % (11.5-14.5) H 09/25/23 05:20
Plt Count 90 10^3/uL (130-400) L D 09/25/23 05:20
MPV 13.0 fL (7.4-10.4) H 09/25/23 05:20
Abs Immat Gran (auto) 0.5 10^3/uL (0-0.05) H 09/24/23 04:25
Absolute Neuts (auto) 4.8 10^3/uL (1.4-6.5) 09/24/23 04:25
Absolute Lymphs (auto) 1.3 10^3/uL (1.2-3.4) 09/24/23 04:25
Absolute Monos (auto) 0.9 10^3/uL (0.1-0.6) H 09/24/23 04:25
Absolute Eos (auto) 0.2 10^3/uL (0-0.7) 09/24/23 04:25
Absolute Basos (auto) 0.0 10^3/uL (0-0.2) 09/24/23 04:25
Immature Gran % 5.8 % (0-0.5) H 09/24/23 04:25
Neutrophils % 62.1 % (42.2-75.2) 09/24/23 04:25
Lymphocytes % 16.8 % (20.5-51.1) L 09/24/23 04:25
Monocytes % 11.8 % (1.7-9.3) H 09/24/23 04:25
Eosinophils % 3.0 % (0-6) 09/24/23 04:25
Basophils % 0.5 % (0-2) 09/24/23 04:25
Creatinine 5.4 mg/dL (0.6-1.0) H* 09/25/23 05:20
Vital Signs
Vital Signs
Temp Pulse Resp BP Pulse Ox
97.5 F 64 18 94/34 99
09/25/23 07:08 09/24/23 16:00 09/25/23 07:08 09/25/23 05:25 09/25/23 07:08
--- NOTE | 2023-09-25 09:31 | W.PN.NEPH.HD ---
Assessment
-
Patient seen on dialysis
No complaints
AV fistula with good function in left upper extremity
UF will be decreased to 1 kg as systolic blood pressure of 106 and weights are not appreciably increased
For angiogram tomorrow in regards to lower extremity heel wound
Progress Note - Hemodialysis
-
Date of Service: September 25, 2023
Duration: 30 minutes and 3 hours
Potassium Bath: 2
Calcium Bath: 2.5
Opti-Dialyzer: 160
Ultrafiltration: Other (Decrease UF to 1 kg given hypotension)
Blood Flow: 400
Dialysate Flow: 600
Heparin: On heparin drip
EPO: 8000
--- NOTE | 2023-09-25 10:00 | PTCARENOTE ---
received patient this am, IV heparin @ 850units/hr, plt count 90, TT Dr. Murillo, hematology consulted. monitor shows NSR with BBC, VSS. patient has dialysis this am.
[2023-09-25] MEDS: FLEXBUMIN 25% FOR HEMODIALYSIS 12.5 GRAMS IV ×2 (10:05→11:07)
[2023-09-25] MEDS: NOVOLOG FLEXPEN-MODERATE RESISTANCE SC ×2 (10:08→12:01)
[2023-09-25] MEDS: RETACRIT 8000 UNITS IV (10:09)
[2023-09-25 11:47] LABS: Glucose - Point of Care 124 mg/dl (70-99)
--- NOTE | 2023-09-25 12:47 | PTCARENOTE ---
Dialysis completed. Patient called out that she was having chest pressure 2/10 non radiating. States 'it feels like gas.' Patient placed on 2LNC. BP 117/75, HR 73. EKG obtained. Nurse practitioner Jaylene Quinonez notified and up to bedside to
assess patient.
--- NOTE | 2023-09-25 13:09 | PTCARENOTE ---
Nurse practitioner Jaylene Quinonez at bedside to assess patient. Patient states chest pressure resolved. No new orders at this time.
--- NOTE | 2023-09-25 13:15 | W.PN.UPDATE ---
Update Note
Progress Note Update
Nursing alerted me that patient had chest discomfort following HD. I came up to see patient and it had resolved. She looked good. She said it was chest pressure with some SOB for about 10 minutes. Patient really thinks it was gas. However, has
significant CAD as noted. EKG with LBBB, but stable. Discussed with Dr. Carter who saw patient this AM. Patient looked good and BP stable. She would let us know if recurs- otherwise just continue to monitor at this time.
--- NOTE | 2023-09-25 13:25 | CM ---
Chart reviewed. Patient is independent of ADLS, lives in an apartment in the Independent Living at [facility], uses an electric wheelchair along with a RW. Patient received HD at [facility] M/W/F at 12pm. Referral sent for a Life Vest. Patient with
b/l heel DTI needing a PT Evaluation. I spoke with the patient and her daughter and patient would prefer to go home with VN, but if she needs to go to Skilled Rehab she would prefer [facility] and then [facility]. [facility] will take the
Life Vest and transport to HD. Still waiting on [facility] to let us know if they will take the Life Vest. Plan is for the patient to return home with VN vs SNF. CM to follow
[2023-09-25] MEDS: PROTONIX 40 MG PO (13:44)
[2023-09-25] MEDS: TOPROL XL 25 MG PO (13:44)
[2023-09-25] MEDS: LOW STRENGTH ASPIRIN 81 MG PO (13:45)
[2023-09-25 14:34] LABS: APTT 168.8 Sec (23.4-35.0)
[2023-09-25 15:15] LABS: APTT 96.8 Sec (23.4-35.0)
[2023-09-25 15:30] VITALS: BP 153/43
[2023-09-25] MEDS: NEURONTIN 100 MG PO ×2 (16:41→23:18)
[2023-09-25 17:04] LABS: Glucose - Point of Care 199 mg/dl (70-99)
--- NOTE | 2023-09-25 17:04 | PTCARENOTE ---
Bordered foam dressing noted on patients sacrum from 09/19. Dressing removed, redness present and small dot of blood where scab was removed. Area cleansed with saline and covered with bordered foam dressing.
[2023-09-25] MEDS: NOVOLOG FLEXPEN-MODERATE RESISTANCE 1 UNITS SC (17:26)
--- NOTE | 2023-09-25 18:00 | PTCARENOTE ---
downloaded signs from previous shift. A number was put in wrong on patient therefore nothing was being downloaded.
[2023-09-25 19:28] VITALS: BP 115/38
[2023-09-25 22:08] VITALS: BP 118/46
[2023-09-25 22:12] LABS: Glucose - Point of Care 246 mg/dl (70-99)
[2023-09-25] MEDS: LANTUS 0.100000000000000006 UNITS SC (22:25)
[2023-09-25] MEDS: MIRALAX 17 GRAMS PO (22:33)
--- NOTE | 2023-09-25 22:57 | PTCARENOTE ---
Pt received start of shift, HR SB/SR w/1st degree AV block and BBB. Reinforced NPO status at 0000 and updated pt on plan of care, no questions at this time. Pt constipated, prn miralax administered. Pt denies any CP, SOB, or
lightheadedness/dizziness. Informed to notify RN if any changes, call dave within reach.
[2023-09-26] VITALS (22 sets, daily range): BP systolic 10–166; BP diastolic 29–100; PULSE 65; O2SAT 95; BMI 25.6
[2023-09-26 04:19] LABS: % Basophils 0.4 % (0-2); % Eosinophils 2.8 % (0-6); % Immature Granulocytes 1.8 % (0-0.5); % Lymphocytes 20.3 % (20.5-51.1); % Monocytes 12.1 % (1.7-9.3); % Neutrophils 62.6 % (42.2-75.2); Absolute Eosinophils 0.2 10^3/uL (0-0.7); Absolute Immature Granulocytes 0.1 10^3/uL (0-0.05); Absolute Lymphocytes 1.4 10^3/uL (1.2-3.4); Absolute Monocytes 0.9 10^3/uL (0.1-0.6); Absolute Neutrophils 4.5 10^3/uL (1.4-6.5); Hemoglobin 7.1 g/dL (12.0-16.0); Mean Corp Hgb Conc. 32.3 g/dL (33.0-37.0); Mean Corpuscular Hgb 35.5 pg (27.0-31.0); Mean Platelet Volume 12.7 fL (7.4-10.4); Nucleated Red Blood Cells % 0.3 %; Platelet Count 79 10^3/uL (130-400); Red Cell Dist. Width 17.2 % (11.5-14.5); White Blood Cell Count 7.1 10^3/uL (4.8-10.8)
[2023-09-26 04:42] LABS: APTT 69.8 Sec (23.4-35.0); Blood Urea Nitrogen 28 mg/dl (7-17); Calcium 8.6 mg/dl (8.4-10.2); Carbon Dioxide 33 mmol/L (22-30); Chloride 95 mmol/L (98-107); Estimated Creatinine Clearance 12 ml/min; Glucose 116 mg/dl (70-99); Potassium 4.1 mmol/L (3.5-5.1); Sodium 134 mmol/L (135-145); eGFR 12.51
[2023-09-26 06:29] LABS: Glucose - Point of Care 105 mg/dl (70-99)
--- NOTE | 2023-09-26 07:25 | TRANSFER ---
Report taken from Jcarlos RN IVU and patient transferred to cath pre-op bay [address] to be seen by Dr. Lambert, Dr. Camejo and GRAPHIC COORDINATOR. Doppler pulses; VSS. Patient being transferred to Vascular OR at 0730.
[2023-09-26] MEDS: NOVOLOG FLEXPEN-MODERATE RESISTANCE SC ×2 (08:41→11:39)
[2023-09-26] MEDS: NEURONTIN PO ×2 (08:42→16:07)
--- NOTE | 2023-09-26 08:56 | W.PN.HOSP.TC ---
Today's Communication/Plan
-
Vascular procedure today. Resume anticoagulant. PT OT
Assessment / Plan
Assessment / Plan
Physical Exam
General: Acute and chronically ill, No Apparent Distress, Conversant and Obese
HEENT: Normocephalic, Anicteric, Moist mucous membranes, Atraumatic, PERRLA and Oxygen
Respiratory: Clear
Cardiac: S1/S2 and Regular Rhythm
GI: Soft, Non Distended, Normal Bowel Sounds.
Rectal: Deferred by Provider
Genito-urinary: No [place]
Musculoskeletal: No Clubbing, No Cyanosis, no Edema, Left Lower Extremity and Edema, Right Lower Extremity
Skin: Warm
Neuro: AO x 3, she follows commands
Psych: Calm
Vascular procedure today on 09/25:
Procedure:
1. Duplex assisted right common femoral artery cannulation.
2. Aortogram and pelvic angiogram.
3. Left lower extremity arteriogram with third order vessel catheterization of left below-knee popliteal artery via right common femoral artery puncture.
4. Shockwave lithotripsy angioplasty (IVL) of left ubacc-fdm-kxuy popliteal artery with 5 mm angioplasty balloon.
5. Placement of 6 mm x 6 cm Zilver PTX self-expanding drug-eluting stent left ugpxs-bmy-hhws popliteal artery.
6. Right lower extremity arteriogram.
7. Proglide percutaneous closure R common femoral artery
8. Supervision and interpretation.
A/P:
# Post cardiac arrest while on HD
Pulseless arrest and needed 2-4 minutes of CRP. ROSC.
Echo showed no significant changes from baseline. Echo 09/19: LVEF is 50 to 55%, normal systolic function and no obvious wall motion abnormalities. Repeat troponin is lower.
Troponin not significant for ACS and was down from previous readings but defer to cardiology any further ischemic workup.
c/w Aspirin, beta-sarah, back on Eliquis
Transferred to IVU per cardiac and vascular on 09/23.
Status post pacemaker on 09/23 (leadless pacemaker placement)--> plan to discharge home when ready with LifeVest with plan for extravascular ICD implantation at a later date once risk of bleeding and infection is improved.
# Bilateral heel ulcers
Vascular surgery evaluation appreciated
Status post vascular procedure today on 09/25--> underwent balloon angioplasty and drug-eluting stent left popliteal artery.
Discussed with vascular surgery and okay to switch heparin drip to oral Eliquis tonight.
# Thrombocytopenia
Hematology evaluation--> even though chronic thrombocytopenia patient also on antiplatelets and anticoagulation therefore evaluation by hematology warranted--> discussed with hematology and okay with antiplatelets and anticoagulants. Further workup
will be pursued as outpatient.
# Back pain
Likely musculoskeletal
Pain medications as needed
PT OT eval
# ESRD -
-Non HD catheter now in place in [facility] per nephrology--> dialysis through fistula.
-Dialysis per nephrology
# Paroxysmal atrial fibrillation
-On amiodarone
-On metoprolol succinate
-In the future might be able to discontinue if they do AVJ ablation and biventricular pacing
-Restart Eliquis
# Choledocholithiasis w/ gallstone acute pancreatitis:
s/p ERCP then lab jose a on 09/[address] Field, no complications reported
s/p ERCP after Eliquis washout on 09/16 with good results after biliary sphincterotomy and balloon extraction by Dr heredia.
Appreciate GI and surgery input
# Nonischemic myocardial injury in setting of acute illness and renal failure.
No chest pain
# Elevated liver enzymes, likely related to cholestasis, ok to stop amiodarone for now, replaced with Toprol.
LFT coming down. Tolerating diet.
# hyponatremia, mild
No confusion
# hyperkalemia, treated with HD
# History of chronic heart failure with reduced ejection fraction. Echo 09/19: LVEF is 50 to 55%, normal systolic function and no obvious wall motion abnormalities. She is euvolemic. No shortness of breath or hypoxia.
#History of aortic stenosis status post TAVR.
# DM II - Home dose: on Tresiba 10 hs and aspart 10 bidac
- insulin sliding scale for now
# Diabetic neuropathy. More in LE than UE. Increased doses of gabapentin but carefully not to exceed certain level given her renal failure.
DVT PPX - heparin gtt
Code Status - Full Code (if expected to make reasonable recovery). Intubation ok.
Total time spent to see the patient, examine the patient on the floor, review data and lab results, discuss treatment plan with patient, consultants, nursing staff around 57 minutes
Anticipated Discharge: > 48 hours
Subjective/Interval History
-
Date of Service: September 26, 2023
Patient has any chest pain or shortness of breath. Afebrile
Objective Data
-
Labs:
Laboratory Results
09/26/23
03:34
WBC 7.1
Hgb 7.1 L
Hct 22.0 L
Plt Count 79 L
APTT 69.8 H
Sodium 134 L
Potassium 4.1
Chloride 95 L
Carbon Dioxide 33 H
BUN 28 H
Creatinine 3.5 H
Glucose 116 H
Calcium 8.6
Vital Signs:
Vital Signs
Temp Pulse Resp BP Pulse Ox
98 F 58 16 128/42 99
09/26/23 03:25 09/26/23 07:29 09/26/23 07:29 09/26/23 07:29 09/26/23 07:29
I&O
09/25/23 09/26/23 09/27/23
06:59 06:59 06:59
Intake Total 150 / 150 342 / 342
Balance 150 / 150 342 / 342
--- NOTE | 2023-09-26 09:03 | W.SUR.POST ---
Surgical Immediate Post Op
Note
Pre Op Diagnosis: PAD
Post Op Diagnosis: PAD
Procedure Performed: Aortogram, BL LE angiogram, CARD SERVICES SPECIALIST (shockwave) and stent above knee popliteal left lower extremity
Primary Surgeon: Antonio Lambert MD
Secondary Surgeons: N/A
Anesthesia: MAC
Estimated Blood Loss: 2ml
Fluids: See anesthesia flowsheet
Drains/Shunts: N/A
Specimens/Cultures: N/A
Doppler/Duplex/Angio (Y/N): Y
Complications: None
Operative Findings: Severe above knee pop stenosis successful treatment, focal TP trunk occlusion unable to traverse
[2023-09-26 09:22] LABS: Glucose - Point of Care 102 mg/dl (70-99)
[2023-09-26] MEDS: SUBLIMAZE 25 MCG IV (09:24)
--- NOTE | 2023-09-26 10:18 | OR.RPT ---
Operative Report
Operative Report
PROCEDURE DATE: 09/26/2023
Preoperative diagnosis:
1. Bilateral heel deep tissue injury/chronic limb threatening ischemia.
2. Peripheral arterial disease.
3. End-stage renal disease on hemodialysis.
Postoperative diagnosis: Same
Procedure:
1. Duplex assisted right common femoral artery cannulation.
2. Aortogram and pelvic angiogram.
3. Left lower extremity arteriogram with third order vessel catheterization of left below-knee popliteal artery via right common femoral artery puncture.
4. Shockwave lithotripsy angioplasty (IVL) of left clfuu-fwm-cuik popliteal artery with 5 mm angioplasty balloon.
5. Placement of 6 mm x 6 cm Zilver PTX self-expanding drug-eluting stent left otued-zfz-gzvj popliteal artery.
6. Right lower extremity arteriogram.
7. Proglide percutaneous closure R common femoral artery
8. Supervision and interpretation.
Surgeon: Fausto
Outside Dealer Sales Representative: None
Complications: None
Anesthesia: Local, sedation
Fluoroscopy:
24.2 min
63 mGy
11.63 Gy.cm2
Indications for procedure:
Findings on noninvasive studies of significant peripheral arterial disease, and bilateral deep tissue ulcers in the heels. These were likely resultant from her recent chronic hospitalization. She also had evidence of peripheral arterial disease.
In addition has multiple other medical risk factors including end-stage renal disease on hemodialysis. Risk/benefits/alternatives of lower extremity arteriography were discussed. Patient understood all wish to proceed.
Description of procedure:
Patient was identified, brought to the operating room. Placed on the table in the supine position. After the adequate administration of anesthesia, the patient was prepped and draped in the standard surgical fashion. A standard preoperative
timeout was undertaken and everybody was in agreement with the plan.
The right common femoral artery was accessed with a micropuncture kit under direct duplex ultrasound guidance. A 5 Croatian sheath was then advanced over a 0.035 inch wire, and a duque's hook catheter was advanced into the abdominal aorta.
Aortogram and pelvic angiogram was obtained. Findings as follows:
Infrarenal aorta: Patent with no significant stenosis though there is eccentric calcified plaque.
Eccentric calcified plaque noted throughout bilateral common and external iliac arteries, but no significant stenoses noted.
Using a floppy angled hydrophilic wire, the left common femoral artery was cannulated and the catheter was advanced. Left lower extremity arteriogram was obtained. Findings as follows:
Common femoral artery: Patent with at least 2 moderate popcorn like plaques. No hourglass like stenoses.
Profunda femoris artery: Patent with no definitive stenosis.
Superficial femoral artery: Patent with luminal irregularities and eccentric calcified plaque, few areas of small popcorn plaque. But no definitive severe stenosis.
Popliteal artery: Above-knee popliteal artery with 2 tandem severe bulky plaque stenoses.
Anterior tibial artery: Chronically occluded.
Tibial peroneal trunk: Patent with severe focal high-grade stenosis or occlusion at the bifurcation to the PT and peroneal.
Peroneal artery: Patent with some luminal irregularities throughout, but no severe stenosis.
Posterior tibial artery: Patent, diffusely diseased with atherosclerotic plaque. No focal severe stenosis, but diffusely diseased as noted.
At this point I selectively cannulated the left superficial femoral artery and exchanged for a Storq wire and an up and over 6 Croatian sheath. Patient was given 5000 units of intravenous heparin. Next, using a 0.035 inch wire was able to traverse
the area of severe stenosis in the popliteal artery above the knee. Next, under roadmap assisted guidance I was able to advance my CXI catheter and attempted to traverse the TP trunk stenosis. However with multiple attempts I could not traverse
it. Therefore at this point I elected to treat the more proximal popliteal lesion. I exchanged for a 0.014 inch wire. Next I elected to perform IVL (intravascular lithotripsy) with a Shockwave lithotripsy angioplasty balloon given that there was
severe calcific plaque in the above-knee popliteal artery and I did not feel that a standard balloon alone, or primary stenting would be adequate to expand the lesion to allow better flow. I used a 5 mm shockwave lithotripsy angioplasty balloon
with inflation at low atmospheres (4 SOFÍA) with activation of the lithotripsy, followed by inflation to 6 SOFÍA. I did this multiple times using several activations of the lithotripsy. (Moving the balloon slightly each time.). In addition I
shockwave angioplastied the more distal above-knee popliteal artery/behind the popliteal artery given that there is a popcorn like lesion there though it did not appear to cause a severe stenosis. Completion angiogram demonstrated improvement, but
there was still moderate stenosis. I could never get the waist in the balloon to completely resolve. Therefore I felt that stenting this would be more beneficial. I therefore now exchanged back for a 0.035 inch wire. I then used a [employer] PTX 6
mm x 6 cm stent. This was deployed and post angioplastied with a 5 mm angioplasty balloon. Completion angiogram demonstrated good result. There was still slow flow distally. The runoff appeared stable compared to my prior imaging, but flow is
little slower suggesting may be there is some plaque shifting or just vasospasm distally. Regardless, at this point I did try to again cross the TP trunk lesion. I initially now tried with a 0.014 inch steerable wire. Multiple attempts were made,
but I could not traverse the occlusion. I now tried with a 0.035 inch floppy angled hydrophilic wire again. Again no success. Therefore I felt that there is nothing further endovascularly to do for that. Angiogram showed stable runoff. At this
point I then withdrew my sheath to the right distal external iliac artery. Right femoral and right lower extremity arteriogram was obtained. This demonstrated patent right common femoral and profunda femoris artery. The SFA was also patent.
Diffuse popcorn like plaque lesions could be seen throughout the vessels. There was no focal area of severe stenosis noted though. Below the knee there was patent flow through the TP trunk into a two-vessel runoff (AT was chronically occluded).
The PT was diseased throughout and had relatively slow flow and at the ankle there may have been a moderate stenosis although it may have just been slowed flow. The peroneal artery was patent but also somewhat diseased. Gave rise to collaterals
that reconstituted DP on the foot only for a short period. There is relatively poor flow inframalleolar. At this point I was satisfied. I used a Pro-glide percutaneous suture to close the femoral artery. Manual pressure was also gently applied.
Hemostasis was noted.
The patient tolerated procedure well. Upon completion she had dopplerable DP and PT signals bilaterally.
--- NOTE | 2023-09-26 10:27 | CM ---
Chart reviewed. Patient is independent of ADLS, lives in an apartment in the Independent Living at [facility], uses an electric wheelchair along with a RW. Patient received HD at [facility] M/W/F at 12pm. Referral sent for a Life Vest. Patient with
b/l heel DTI needing a PT Evaluation. I spoke with the patient and her daughter and patient would prefer to go home with VN, but if she needs to go to Skilled Rehab she would prefer [facility] and then [facility]. [facility] will take the
Life Vest and transport to HD. [facility] will take the patient with a Life Vest but will need an inservice. Plan is for the patient to return home with VN vs SNF. CM to follow
[2023-09-26] MEDS: PROTONIX 40 MG PO (11:14)
[2023-09-26] MEDS: TYLENOL 1000 MG PO (11:14)
[2023-09-26] MEDS: LOW STRENGTH ASPIRIN 81 MG PO (11:14)
--- NOTE | 2023-09-26 11:23 | W.PN.NEPH.PH ---
Today's Communication / Plan
-
Dialysis tomorrow
Assessment/Plan
-
IMP:
Choledocholithiasis w/ gallstone pancreatitis status postcholecystectomy
Trop Elevation - Non WI trop elevation.
ESRD [facility], MWF
Left upper arm AV fistula revision 06/27/23
h/o WI with old LBBB status post cardiac catheterization (occluded left circumflex unable to be open) January 2023
Paroxysmal atrial fibrillation on systemic anticoagulation
History heart failure mixed type
History of TAVR
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
Thrombocytopenia
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
Hypertension
Right chest wall tunneled HD CVC
History CVA
LBBB
PAD
Secondary hyperparathyroidism
PLan:
Status post angiogram today with left lower popliteal extremity stent
dialyzing through fistula
no issues on HD yesterday
plan HD tomorrow, orders provided
KEILY re: anemia
BP stable
renal diet and FR
-
-
Date of Service: September 26, 2023
CC / HPI / ROS
-
Chief Complaint:
ESRD
History of Present Illness:
ESRD MWF
hemodynamically stable following cardiac arrest on dialysis
s/p lap choley 09/17
Status post angiogram with left lower extremity stent placement today at popliteal artery
Review of Systems:
no chest pain or sob
no n/v
Labs
-
Labs:
WBC 7.1 10^3/uL (4.8-10.8) 09/26/23 03:34
RBC 2.00 10^6/uL (4.20-5.40) L 09/26/23 03:34
Hgb 7.1 g/dL (12.0-16.0) L 09/26/23 03:34
Hct 22.0 % (37.0-47.0) L 09/26/23 03:34
Plt Count 79 10^3/uL (130-400) L 09/26/23 03:34
Sodium 134 mmol/L (135-145) L 09/26/23 03:34
Potassium 4.1 mmol/L (3.5-5.1) 09/26/23 03:34
Chloride 95 mmol/L (98-107) L 09/26/23 03:34
Carbon Dioxide 33 mmol/L (22-30) H 09/26/23 03:34
BUN 28 mg/dl (7-17) H 09/26/23 03:34
Creatinine 3.5 mg/dL (0.6-1.0) H 09/26/23 03:34
eGFR 12.51 09/26/23 03:34
Glucose 116 mg/dl (70-99) H 09/26/23 03:34
Calcium 8.6 mg/dl (8.4-10.2) 09/26/23 03:34
Albumin 2.9 g/dl (3.5-5.0) L 09/24/23 06:16
Physical Exam
-
Vital Signs:
Vital Signs
Temp Pulse Resp BP Pulse Ox
97.5 F 61 16 88/62 99
09/26/23 11:09 09/26/23 11:09 09/26/23 11:09 09/26/23 11:09 09/26/23 11:09
Cardiovascular:: Regular rate and rhythm
Respiratory:: Bilateral: CTA
Lung Excursion:: Normal
Abdomen:: Nontender and Soft
Bowel Sounds:: Normal
Extremity Edema:: None: Bilateral:
[place] Catheter: No
Other Findings::
Left upper extremity AV fistula
[2023-09-26 11:39] LABS: Glucose - Point of Care 130 mg/dl (70-99)
--- NOTE | 2023-09-26 11:43 | W.PN.UPDATE ---
Update Note
Progress Note Update
Hemoglobin at 7.1
Will likely require transfusion on dialysis tomorrow
[2023-09-26] MEDS: TOPROL XL PO (11:51)
--- NOTE | 2023-09-26 13:16 | W.PN.CD ---
Today's Communication / Plan
-
- Life Vest as a bridge to ICD.
- Can go home once life vest is available.
Impression / Plan
-
Cardiac arrest /possible PEA versus V-fib:
-Cardiac arrest happened in the presence of Dr. Pastrana ([employer] Clerk) -on 09/20/2023
-Highly suspicious of ventricular arrhythmia requring CPR - cardiac arrest with need for ICD established.
-Due to high risk of infections and bleeding, will have to delay the implantation of the ICD at this time
-Due to conduction disease, leadless pacemaker was implanted.,
-Plan for extra vascular ICD next month.
-With ongoing infection issues, PAD and need for percutaneous intervention, recent abd surgery, - Not a good candidate for intravscular device implantation.
-Will plan to discharge home on life vest. Once off the heparin and back on Eliquis and risk of infection and bleeding is low, will plan for extra vascular ICD placement.
Bradycardia:
-baseline bradycardia / chronic left bundle branch block conduction disease and hx of TAVR prompted the need for a pacemaker along with subQ iCD
-s/p Leadless pacemaker - Medtronic Micra - 09/24/23 - groins are well. Back on heparin drip for PAD
Paroxysmal atrial fibrillation
-Noted since January 2023.
-On amiodarone,
Gallbladder disease: choledocholithiasis, gallstone pancreatitis:
-s/p ERCP 09/17/23: Choledocholithiasis was found. Complete removal was accomplished by biliary sphincterotomy and balloon extraction. A biliary sphincterotomy was performed.
-s/p lap jose a 09/18/2023
-on ABX
PAD
- Severe PAD
- On Heparin
- s/p percutaneous intervention by vascular surgery- Dr. Lambert 09/26/23
Abnormal troponin, type unknown (possible non-ischemic myocardial injury vs Type II NM), peak troponin 3.9
Paroxysmal atrial fibrillation, amio, Eliquis on hold. In sinus.
ICM EF 45-50%, euvolemic on exam
s/p TAVR for
CAD, chronic stable
LBBB, chronic, stable
ESRD, on HD per nephro
Old stroke
Subjective:
Feeling well. Alert and awake. Denies any chest pain. vascular intervention today.
Data:
-echo 09/17/23: EF 40-45%. Hypokinesis of the inferolateral wall. Stage II diastolic dysfunction. S/p TAVR #23 Paulino Ubaldo with mean gradient of 12mmHg. Moderate pulmonary pressure. Compared to previous echo on 01/29/23, the EF is similar. The
pulmonary pressure is higher. Of note, this was after missing dialysis day
-Cath 01/28/23: Right dominant circulation with a 60% lesion in the distal RCA, a 60-70% lesion in the mid LAD spanning the origin of the diagonal, and occlusion of the ostial circumflex immediately after the origin of the first obtuse marginal,
initially thought to be an acute lesion but later revealed to be a chronic total occlusion. Unsuccessful PCI of the ostial circumflex. Med management.
Physical Exam
Vital Signs/Labs
Vital Signs
Temp Pulse Resp BP Pulse Ox
97.2 F 60 15 83/48 96
09/26/23 12:17 09/26/23 12:17 09/26/23 12:17 09/26/23 12:17 09/26/23 12:17
09/25/23 09/26/23 09/27/23
06:59 06:59 06:59
Actual Weight 74.3 kg 74.1 kg
09/26/23 03:34
09/26/23 03:34
PT 14.7 Sec (11.4-14.6) H 09/20/23 11:44
INR 1.17 09/20/23 11:44
APTT 69.8 Sec (23.4-35.0) H 09/26/23 03:34
Magnesium 2.1 mg/dl (1.6-2.3) 09/25/23 05:20
Physical Exam
Constitutional: No acute distress and Comfortable
EENT: Anicteric and Moist mucous membranes
Cardiovascular: Rhythm & rate is regular, Pedal edema is absent and Systolic murmur present
Respiratory: Respiratory effort normal, Wheeze Absent and Crackles Absent
GI: Soft, Non tender and Normal bowel sounds
Neuro/Psych: Alert, Oriented and AO x 3
Other: Cath Site
Data Reviewed
-
Date of Service: September 26, 2023
Medical Decision Making: Reviewed Test Results, Independent Historian Assessment, Test Interpretation and Review of Case with other Provider
EKG: Tracing Personally Visualized and interpreted
Echo: Report Reviewed by me
Medical Tests (PFT, Pathology etc): Image Personally Visualized and interpreted, Discussed with Physician and Discussed with Patient
Labs: Labs Reviewed by me
Old Records: Reviewed
[2023-09-26 16:56] LABS: Glucose - Point of Care 315 mg/dl (70-99)
[2023-09-26] MEDS: NOVOLOG FLEXPEN-MODERATE RESISTANCE 7 UNITS SC (17:13)
[2023-09-26] MEDS: ELIQUIS 2.5 MG PO (21:05)
[2023-09-26 21:59] LABS: Glucose - Point of Care 312 mg/dl (70-99)
[2023-09-26] MEDS: LANTUS 0.100000000000000006 UNITS SC (22:20)
[2023-09-26] MEDS: NEURONTIN 100 MG PO (22:54)
[2023-09-26] MEDS: MIRALAX 17 GRAMS PO (22:54)
[2023-09-27] VITALS (28 sets, daily range): BP systolic 57–156; BP diastolic 30–72; BMI 26.1
[2023-09-27 01:17] LABS: Glucose - Point of Care 298 mg/dl (70-99)
[2023-09-27 05:27] LABS: INR 1.08
[2023-09-27 05:28] LABS: APTT 34.2 Sec (23.4-35.0)
[2023-09-27 05:31] LABS: Hematocrit 22.9 % (37.0-47.0); Hemoglobin 7.4 g/dL (12.0-16.0); Mean Corp Hgb Conc. 32.3 g/dL (33.0-37.0); Mean Corpuscular Hgb 35.2 pg (27.0-31.0); Mean Platelet Volume 12.1 fL (7.4-10.4); Platelet Count 100 10^3/uL (130-400); Red Cell Dist. Width 16.8 % (11.5-14.5); White Blood Cell Count 8.3 10^3/uL (4.8-10.8)
[2023-09-27 06:05] LABS: Blood Urea Nitrogen 44 mg/dl (7-17); Calcium 9.3 mg/dl (8.4-10.2); Carbon Dioxide 28 mmol/L (22-30); Chloride 94 mmol/L (98-107); Estimated Creatinine Clearance 9 ml/min; Glucose 228 mg/dl (70-99); Potassium 5.3 mmol/L (3.5-5.1); Sodium 132 mmol/L (135-145); eGFR 8.56
[2023-09-27] MEDS: EMLA CREAM 2 GRAM TOPICAL ×2 (06:23→11:17)
[2023-09-27 07:46] LABS: Glucose - Point of Care 244 mg/dl (70-99)
--- NOTE | 2023-09-27 08:45 | WOUNDNOTE ---
[facility] RN note: Patient s/p angiogram LLE with lithotripsy, angioplasty L above the knee popliteal artery with stent on 09/26/[address] Lambert. Pedal pulses heard via portable Doppler. Jennifer Rodríguez Vascular PA was in during visit. Patient's heels about the
same, dark purple ecchymotic in appearance. Sacrum with small stage 2 pressure injury. R sacral/buttocks with pinpoint superficial opening. Silicone border foam dressing changed on R sacral/buttocks and silicone border foam applied to upper mid
sacrum. Patient willing to try Foot Waffle heel relief boots. Foot Waffle boots left in room. Patient transferred to recliner with help from MIAH Hu. Air chair cushion in recliner chair. Heel foam dressings changed. Air chair cushion under
le's in recliner chair. Instructed patient heel pressure relief measures and pressure injury prevention measures. Patient reports a good appetite. Assisted MIAH Hu with switching patient's bed from a [facility] Accumax to a [facility] Max air
bed. Patient able to turn self in bed. Patient stated she plans to go to [facility] when discharged. Patient made aware the Dr. Nicolas from [facility] follows wound care patients every Wed at [facility]. [facility] RN to follow as needed.
--- NOTE | 2023-09-27 08:48 | W.PN.CD ---
Today's Communication / Plan
-
Patient stable overnight. Respiratory status stable no significant arrhythmias. Remains in sinus rhythm. Previous cath site is fine.
Continue with plans for LifeVest as previously coordinated
Additional treatment of anemia as directed by primary team and nephrology. Last note by Dr. Fraga suggesting PRBCs with next HD
Patient scheduled for HD today
Impression / Plan
-
Cardiac arrest /possible PEA versus V-fib:
-Plan regarding management and timing of extravascular ICD as previously outlined by EP/Dr. Carter
-Cardiac arrest happened in the presence of Dr. Pastrana (Maintenance Truck Driver) -on 09/20/2023
-Highly suspicious of ventricular arrhythmia requring CPR - cardiac arrest with need for ICD established.
-Due to high risk of infections and bleeding, will have to delay the implantation of the ICD at this time
-Due to conduction disease, leadless pacemaker was implanted.,
-Plan for extra vascular ICD next month.
-With ongoing infection issues, PAD and need for percutaneous intervention, recent abd surgery, - Not a good candidate for intravscular device implantation.
-Will plan to discharge home on life vest.
-Once off the heparin and back on Eliquis and risk of infection and bleeding is low, will plan for extra vascular ICD placement.
Bradycardia:
-baseline bradycardia / chronic left bundle branch block conduction disease and hx of TAVR prompted the need for a pacemaker along with subQ iCD
-s/p Leadless pacemaker - Med[employer]onic Micra - 09/24/23 -
Paroxysmal atrial fibrillation
-Noted since January 2023.
-On amiodarone,
Anemia. Severe. Hemoglobin 7.1. With significant PAD would prefer to see higher hemoglobin. Appears plan is for transfusion with next dialysis as noted by Dr. García and update note 09/26/2023
Gallbladder disease: choledocholithiasis, gallstone pancreatitis:
-s/p ERCP 09/17/23: Choledocholithiasis was found. Complete removal was accomplished by biliary sphincterotomy and balloon extraction. A biliary sphincterotomy was performed.
-s/p lap jose a 09/18/2023
-on ABX
PAD
- Severe PAD
- On Heparin
- s/p percutaneous intervention by vascular surgery- Dr. Lambert 09/26/23
Abnormal troponin, type unknown (possible non-ischemic myocardial injury vs Type II VA), peak troponin 3.9
Paroxysmal atrial fibrillation, amio, Eliquis on hold. In sinus.
ICM EF 45-50%, euvolemic on exam
s/p TAVR for
CAD, chronic stable
LBBB, chronic, stable
ESRD, on HD per nephro
Old stroke
Subjective:
Feeling well. Alert and awake. Denies any chest pain. vascular intervention today.
Data:
-echo 09/17/23: EF 40-45%. Hypokinesis of the inferolateral wall. Stage II diastolic dysfunction. S/p TAVR #23 Paulino Ubaldo with mean gradient of 12mmHg. Moderate pulmonary pressure. Compared to previous echo on 01/29/23, the EF is similar. The
pulmonary pressure is higher. Of note, this was after missing dialysis day
-Cath 01/28/23: Right dominant circulation with a 60% lesion in the distal RCA, a 60-70% lesion in the mid LAD spanning the origin of the diagonal, and occlusion of the ostial circumflex immediately after the origin of the first obtuse marginal,
initially thought to be an acute lesion but later revealed to be a chronic total occlusion. Unsuccessful PCI of the ostial circumflex. Med management.
Physical Exam
Vital Signs/Labs
Vital Signs
Temp Pulse Resp BP Pulse Ox
98.3 F 57 20 104/72 96
09/27/23 07:33 09/27/23 08:00 09/27/23 07:33 09/27/23 07:35 09/27/23 05:40
09/26/23 09/27/23 09/28/23
06:59 06:59 06:59
Actual Weight 74.1 kg 75.6 kg
09/27/23 05:07
09/27/23 05:07
PT 14.0 Sec (11.4-14.6) 09/27/23 05:07
INR 1.08 09/27/23 05:07
APTT 34.2 Sec (23.4-35.0) 09/27/23 05:07
Magnesium 2.1 mg/dl (1.6-2.3) 09/25/23 05:20
Physical Exam
Constitutional: No acute distress
Cardiovascular: Rhythm & rate is regular
Respiratory: Wheeze Absent and Rhonchi Absent
GI: Soft, Non tender and Normal bowel sounds
Neuro/Psych: Alert and AO x 3
Data Reviewed
-
Date of Service: September 27, 2023
Medical Decision Making: Reviewed Test Results
EKG: Report Reviewed by me
Medical Tests (PFT, Pathology etc): Report Reviewed by me
Labs: Labs Reviewed by me
[2023-09-27] MEDS: ELIQUIS 2.5 MG PO (08:49)
[2023-09-27] MEDS: PROTONIX 40 MG PO (08:49)
[2023-09-27] MEDS: TOPROL XL 25 MG PO (08:49)
[2023-09-27] MEDS: NEURONTIN 100 MG PO ×2 (08:49→16:51)
[2023-09-27] MEDS: LOW STRENGTH ASPIRIN 81 MG PO (08:49)
[2023-09-27] MEDS: FLUSH (NSS) 2 FLUSH IV (08:50)
--- NOTE | 2023-09-27 08:56 | WOUNDNOTE ---
WOC RN note: Patient s/p angiogram LLE with lithotripsy, angioplasty
--- NOTE | 2023-09-27 09:07 | W.PN.VS ---
Today's Communication / Plan
-
See below.
Assessment/Plan
-
Assessment: 83-year-old female POD #1 Aortogram, BL LE angiogram, BANK MESSENGER (shockwave) and stent above knee popliteal left lower extremity
Plan:
Continue antiplatelet of aspirin 81 mg p.o. daily along with oral anticoagulation
Follow-up ultrasound and appointment placed in discharge instructions
Please call with questions or concerns
Subjective Data
-
Date of Service: September 27, 2023
Patient seen and examined at bedside, offers no complaints. Denies abdominal pain, right groin puncture pain, right groin swelling, nausea, fever, and chills. Reports tolerating p.o. diet. Reports left upper extremity AV fistula functioning well
with HD while inpatient.
Objective Data
-
Vital Signs
Temp Pulse Resp BP Pulse Ox
98.3 F 57 20 104/72 96
09/27/23 07:33 09/27/23 08:00 09/27/23 07:33 09/27/23 07:35 09/27/23 05:40
Intake and Output
09/26/23 09/27/23 09/28/23
06:59 06:59 06:59
Intake Total 342 / 342 240 / 240
Balance 342 / 342 240 / 240
Intake:
Oral fluids 240 / 240 240 / 240
IV fluids (Total) 102 / 102
Heparin 102 / 102
Lab Results
09/27/23 05:07
09/27/23 05:07
Calcium 9.3 mg/dl (8.4-10.2) 09/27/23 05:07
Magnesium 2.1 mg/dl (1.6-2.3) 09/25/23 05:20
Total Bilirubin 0.9 mg/dl (0.2-1.3) 09/24/23 06:16
Direct Bilirubin 1.0 mg/dl (0.0-0.4) H 09/20/23 08:20
AST 60 U/L (14-36) H 09/24/23 06:16
ALT 248 U/L (0-35) H 09/24/23 06:16
Alkaline Phosphatase 166 U/L (38-126) H 09/24/23 06:16
Total Protein 5.7 g/dl (6.3-8.2) L 09/24/23 06:16
Albumin 2.9 g/dl (3.5-5.0) L 09/24/23 06:16
Physical Exam
-
AAOx3
No tachycardia
No dyspnea on room air
ABD flat, nontender, nondistended
Left lower extremity AV fistula + thrill
Right groin puncture site CDI, no evidence of hematoma, all surrounding compartments soft
Bilateral feet warm
[2023-09-27 09:09] LABS: Glucose - Point of Care 203 mg/dl (70-99)
[2023-09-27] MEDS: NOVOLOG FLEXPEN-MODERATE RESISTANCE 3 UNITS SC (09:20)
--- NOTE | 2023-09-27 10:14 | W.PN.HOSP.TC ---
Today's Communication/Plan
-
Plan for HD today. Discharge planning in progress
Assessment / Plan
Assessment / Plan
Physical Exam
General: Acute and chronically ill, No Apparent Distress, Conversant and Obese
HEENT: Normocephalic, Anicteric, Moist mucous membranes, Atraumatic, PERRLA and Oxygen
Respiratory: Clear
Cardiac: S1/S2 and Regular Rhythm
GI: Soft, Non Distended, Normal Bowel Sounds.
Rectal: Deferred by Provider
Genito-urinary: No [place]
Musculoskeletal: No Clubbing, No Cyanosis, no Edema, Left Lower Extremity and Edema, Right Lower Extremity
Skin: Warm
Neuro: AO x 3, she follows commands
Psych: Calm
A/P:
# Post cardiac arrest while on HD
Pulseless arrest and needed 2-4 minutes of CRP. ROSC.
Echo showed no significant changes from baseline. Echo 09/19: LVEF is 50 to 55%, normal systolic function and no obvious wall motion abnormalities. Repeat troponin is lower.
Troponin not significant for ACS and was down from previous readings but defer to cardiology any further ischemic workup.
c/w Aspirin, beta-sarah, back on Eliquis
Transferred to IVU per cardiac and vascular on 09/23.
Status post pacemaker on 09/23 (leadless pacemaker placement)--> plan to discharge home when ready with LifeVest with plan for extravascular ICD implantation at a later date once risk of bleeding and infection is improved.
Patient tells me that she has been told that she has a bed available for today--> if that is the case, she can get 1 unit of blood transfusion and hemodialysis and if stable after procedure she can be discharged.
Discussed with family at bedside, daughter
# Bilateral heel ulcers
Vascular surgery evaluation appreciated
Status post vascular procedure on 09/25--> underwent balloon angioplasty and drug-eluting stent left popliteal artery.
Discussed with vascular surgery and okay to switch heparin drip to oral Eliquis tonight.
# Thrombocytopenia
Hematology evaluation--> even though chronic thrombocytopenia patient also on antiplatelets and anticoagulation therefore evaluation by hematology warranted--> discussed with hematology and okay with antiplatelets and anticoagulants. Further workup
will be pursued as outpatient.
#Anemia
Possible blood transfusion with HD today
# Back pain
Likely musculoskeletal
Pain medications as needed
PT OT eval
# ESRD -
-Non HD catheter now in place in VTJ per nephrology--> dialysis through fistula.
-Dialysis per nephrology
# Paroxysmal atrial fibrillation
-On amiodarone
-On metoprolol succinate
-In the future might be able to discontinue if they do AVJ ablation and biventricular pacing
-Restart Eliquis
# Choledocholithiasis w/ gallstone acute pancreatitis:
s/p ERCP then lab jose a on 09/[address] Field, no complications reported
s/p ERCP after Eliquis washout on 09/16 with good results after biliary sphincterotomy and balloon extraction by Dr heredia.
Appreciate GI and surgery input
# Nonischemic myocardial injury in setting of acute illness and renal failure.
No chest pain
# Elevated liver enzymes, likely related to cholestasis, ok to stop amiodarone for now, replaced with Toprol.
LFT coming down. Tolerating diet.
# hyponatremia, mild
No confusion
# hyperkalemia, treated with HD
# History of chronic heart failure with reduced ejection fraction. Echo 09/19: LVEF is 50 to 55%, normal systolic function and no obvious wall motion abnormalities. She is euvolemic. No shortness of breath or hypoxia.
#History of aortic stenosis status post TAVR.
# DM II - Home dose: on Tresiba 10 hs and aspart 10 bidac
- insulin sliding scale for now
# Diabetic neuropathy. More in LE than UE. Increased doses of gabapentin but carefully not to exceed certain level given her renal failure.
DVT PPX - heparin gtt
Code Status - Full Code (if expected to make reasonable recovery). Intubation ok.
Anticipated Discharge: Today
Subjective/Interval History
-
Date of Service: September 27, 2023
Patient denies any chest pain or shortness of breath today.
Objective Data
-
Labs:
Laboratory Results
09/27/23
05:07
WBC 8.3
Hgb 7.4 L
Hct 22.9 L
Plt Count 100 L D
PT 14.0
INR 1.08
APTT 34.2
Sodium 132 L
Potassium 5.3 H D
Chloride 94 L
Carbon Dioxide 28
BUN 44 H
Creatinine 4.8 H*
Glucose 228 H
Calcium 9.3
Vital Signs:
Vital Signs
Temp Pulse Resp BP Pulse Ox
98.3 F 57 20 104/72 98
09/27/23 07:33 09/27/23 08:00 09/27/23 07:33 09/27/23 07:35 09/27/23 08:50
I&O
09/26/23 09/27/23 09/28/23
06:59 06:59 06:59
Intake Total 342 / 342 240 / 240
Balance 342 / 342 240 / 240
[2023-09-27] MEDS: DULCOLAX 10 MG RECTAL (10:19)
--- NOTE | 2023-09-27 10:30 | PTCARENOTE ---
The patient is aaox3, vss, 98% on RA. NSR is noted on the monitor. She has no complaints of pain. She is anxious and speaks rapidly with repetition. Her right groin site is c/d/i with some local ecchymosis. LAVF has a positive bruit and trill. BL
heel, sacral foam intact. BB crackles noted in her bases. She has not had a bm since 09/19/23. She had Miralax last night. I just gave her a Dulcolax suppository.
--- NOTE | 2023-09-27 11:35 | PTCARENOTE ---
The patient attempted to have a BM post suppository insertion. The patient had lots of flatus and a smear.
[2023-09-27 12:13] LABS: Glucose - Point of Care 177 mg/dl (70-99)
[2023-09-27] MEDS: NOVOLOG FLEXPEN-MODERATE RESISTANCE 1 UNITS SC (12:29)
--- NOTE | 2023-09-27 12:48 | W.DCSUMMARY ---
Discharge Summary
Discharge Data
Date of Admission: 09/15/23
Date of Discharge: 09/27/23
-
Pending Results: No
Hospital Course
Patient 83 years old female with history of A-fib, ischemic cardiomyopathy, TAVR in the past, CAD, end-stage renal disease on hemodialysis, CVA, presented to the hospital with choledocholithiasis with gallstone pancreatitis. Patient underwent ERCP
and cholecystectomy during this admission. Course complicated with cardiac arrest. Unclear etiology of her arrest but she had return of spontaneous circulation. Cardiology placed leadless pacemaker and also LifeVest prior to discharge. Plan to
upgrade to AICD in the future once respiratory infection and complication have diminished. Patient underwent revascularization of lower extremity by vascular surgery as well. Patient otherwise has remained hemodynamically stable and stable for
discharge once bed available for rehab.
Discharge duration: 35 minutes
Discharge Plan
-
Patient Disposition: Longterm/SNF
Discharge Diagnosis/Procedures: Cholecystitis status post laparoscopic cholecystectomy, MICRA implant. Cardiac arrest. Peripheral vascular disease status post angioplasty lower extremities. Bilateral heel ulcers. Thrombocytopenia. End-stage
renal disease on hemodialysis. Paroxysmal atrial fibrillation. Anemia.
Diet: Low Cholesterol
Activity: No strenuous activity
Driving Restrictions: No driving for 24 hours
Bathing Restrictions: OK to Shower
Others Tests: Ultrasound appointment: 10/24/2023 at 1 PM
Wound Care: Allow skin glue to flake off on its own.
Activity Restrictions/Additional Instructions:
Wound Care Instructions
Sacral/buttocks-clean with saline, silicone border foam, change q 3 days and prn loosened dressing.
Bilateral heel-no sting barrier wipe (allow to dry), foam dressing, change q 3 days and prn loosened dressing.
Elevate heels off bed with pillow and/or air chair cushion; Soft heel relief boots as tolerated (i.e. Foot Waffle boots); air chair cushion under boots/heels.
Evaluate for air mattress.
Pressure redistributing chair cushion (i.e. Air chair cushion).
Follow up with your popped corn oven attendant.
Follow up with Dr. Lambert, appointment on 10/29/23, ask Dr. Lambert to check your heels.
Instructions: Cholecystectomy (DC)
Stand Alone Forms: DC Instructions- Cath/EP Lab, DC Instr - Vascular OR
Referrals:
Shruti Sheldon NP [Specified Professional Personl] - 10/03/23 11:40 am
Ty Field MD [Active] - in two to four weeks
Pascual Lange MD [Family Provider] - in less than 1 week
Antonio Lambert MD [Active] - 10/29/23 3:00 pm (Vascular surgery follow-up)
Lv Evans MD [Active] - in three to four weeks
Prescriptions:
New
aspirin 81 mg Tablet,Chewable
81 mg PO DAILY Qty: 30 0RF
Insulin Glargine Lantus [Lantus] 10 UNITS
Subcutaneous Insulin Syringe [Syringe-Insulin] 0 UNIT
As Directed mls/hr SC HS
Ordered By: Ron Murillo MD
Last Taken: 09/26/23 22:20 0.1 mls
pantoprazole 40 mg Tablet,Delayed Release (Dr/Ec)
40 mg PO DAILY 30 Days Qty: 30 0RF
gabapentin 100 mg Capsule
100 mg PO TID 30 Days Qty: 90 0RF
metoprolol succinate 25 mg Tablet Extended Release 24 Hr
25 mg PO DAILY 30 Days Qty: 30 0RF
oxycodone 10 mg Tablet
10 mg PO Q4HPRN PRN (Reason: severe pain) Qty: 4 0RF
Continued
insulin degludec [Tresiba FlexTouch U-100] 100 unit/mL (3 mL) Insulin Pen
10 unit SC HS
Patient Comments:
Eliquis 2.5 mg Tablet
2.5 mg PO BID Qty: 60 0RF
Hold Instructions: Resume on 06/30/23.
sevelamer carbonate 800 mg Tablet
800 mg PO BID
Rx Instructions:
with meals
Nephro Vitamins 0.8 mg Tablet
1 tab PO HS
Tylenol PM Extra Strength 25-500 mg Tablet
2 tab PO HS
Discontinued
atorvastatin 80 MG tablet
80 mg PO HS
insulin aspart U-100 [Novolog FlexPen U-100 Insulin] 100 unit/mL (3 mL) Insulin Pen
12 unit SC BID
Rx Instructions:
sliding scale
lutein 20 mg Tablet
20 mg PO DAILY
furosemide 80 mg Tablet
80 mg PO DAILY
amiodarone 200 mg Tablet
200 mg PO DAILY
Discharge Orders:
Discharge Patient (As Directed); Ordered 09/27/23
Ordered By: Ron Murillo
Care Plan Goals
Care Plan Goals:
Problem: Readiness for enhanced knowledge related to diagnosis and treatment plan
Goal: Understand your diagnosis and treatment plan needs, including medications if applicable.
Instructions: Know your diagnosis, underlying causes and treatment plan options, including medications if applicable. Consult with your health care team to learn about your diagnosis and treatment plan, including medications if applicable.
Discharge Date and Time
Discharge Date/Time: 09/27/23 18:37
Print Language: YAKUT
--- NOTE | 2023-09-27 13:45 | W.PN.NEPH.HD ---
Assessment
-
- feeling well on HD
- plan for d/c to [facility] today
Progress Note - Hemodialysis
-
Date of Service: September 27, 2023
Duration: 30 minutes and 3 hours
Potassium Bath: 3
Calcium Bath: 2.5
Opti-Dialyzer: 160
Ultrafiltration: Other
Blood Flow: 400
Dialysate Flow: 600
[2023-09-27] MEDS: RETACRIT 10000 UNITS IV (14:50)
[2023-09-27] MEDS: NOVOLOG FLEXPEN-MODERATE RESISTANCE SC (16:58)
[2023-09-27 16:59] LABS: Glucose - Point of Care 133 mg/dl (70-99)
--- NOTE | 2023-09-27 17:08 | PTCARENOTE ---
The patient had a small formed brown BM.
--- NOTE | 2023-09-27 18:12 | PTCARENOTE ---
Report called to John at [facility]. Her midline and IV removed. The patient put on her Life Vest with few cues.
== END 2023-09-27 18:37 | DRG 417 ==
LOC: IVU 13:29
PROVIDERS: Internal Medicine; Internal Medicine Cardiovascular Disease; Internal Medicine Gastroenterology; Nurse Practitioner; Nurse Practitioner Adult Health; Nurse Practitioner Family; Radiology Vascular & Interventional Radiology; Specialist; Student in an Organized Health Care Education/Training Program; Surgery; ADMITTING PHYSICIAN Internal Medicine; ATTENDING PHYSICIAN Hospitalist; CONSULT PHYSICIAN Internal Medicine Gastroenterology; CONSULT PHYSICIAN Internal Medicine Hematology & Oncology; EMERGENCY PHYSICIAN Emergency Medicine; FAMILY PHYSICIAN Internal Medicine Geriatric Medicine; OTHER PHYSICIAN Internal Medicine; OTHER PHYSICIAN Internal Medicine Cardiovascular Disease; OTHER PHYSICIAN Internal Medicine Critical Care Medicine; OTHER PHYSICIAN Surgery; OTHER PHYSICIAN Surgery Vascular Surgery
PROC: 5A1D70Z Performance of Urinary Filtration, Intermittent, Less than 6 Hours Per Day (ICD-10-PCS; 2023-09-16)
PROC: 0FC98ZZ Extirpation of Matter from Common Bile Duct, Via Natural or Artificial Opening Endoscopic (ICD-10-PCS; 2023-09-17)
PROC: 0FT44ZZ Resection of Gallbladder, Percutaneous Endoscopic Approach (ICD-10-PCS; 2023-09-18)
PROC: 0JPT3XZ Removal of Tunneled Vascular Access Device from Trunk Subcutaneous Tissue and Fascia, Percutaneous Approach (ICD-10-PCS; 2023-09-23)
PROC: 05PY33Z Removal of Infusion Device from Upper Vein, Percutaneous Approach (ICD-10-PCS; 2023-09-23)
PROC: 02HK3NZ Insertion of Intracardiac Pacemaker into Right Ventricle, Percutaneous Approach (ICD-10-PCS; 2023-09-24)
PROC: 04FN3ZZ Fragmentation of Left Popliteal Artery, Percutaneous Approach (ICD-10-PCS; 2023-09-26)
PROC: 047N34Z Dilation of Left Popliteal Artery with Drug-eluting Intraluminal Device, Percutaneous Approach (ICD-10-PCS; 2023-09-26)
PROC: B41D1ZZ Fluoroscopy of Aorta and Bilateral Lower Extremity Arteries using Low Osmolar Contrast (ICD-10-PCS; 2023-09-26)
PROC: B41C1ZZ Fluoroscopy of Pelvic Arteries using Low Osmolar Contrast (ICD-10-PCS; 2023-09-26)
PROC: 30233N1 Transfusion of Nonautologous Red Blood Cells into Peripheral Vein, Percutaneous Approach (ICD-10-PCS; 2023-09-27)
DX: K85.10 Biliary acute pancreatitis without necrosis or infection (principal); I21.A1 Myocardial infarction type 2; N18.6 End stage renal disease; I46.8 Cardiac arrest due to other underlying condition; I13.2 Hypertensive heart and chronic kidney disease with heart failure and with stage 5 chronic kidney disease, or end stage renal disease; I50.32 Chronic diastolic (congestive) heart failure; N25.81 Secondary hyperparathyroidism of renal origin; E87.20 Acidosis, unspecified; K80.64 Calculus of gallbladder and bile duct with chronic cholecystitis without obstruction; E87.1 Hypo-osmolality and hyponatremia; E11.42 Type 2 diabetes mellitus with diabetic polyneuropathy; I25.10 Atherosclerotic heart disease of native coronary artery without angina pectoris; I70.244 Atherosclerosis of native arteries of left leg with ulceration of heel and midfoot; I70.234 Atherosclerosis of native arteries of right leg with ulceration of heel and midfoot; I48.0 Paroxysmal atrial fibrillation; E11.22 Type 2 diabetes mellitus with diabetic chronic kidney disease; I25.5 Ischemic cardiomyopathy; D63.1 Anemia in chronic kidney disease; L89.622 Pressure ulcer of left heel, stage 2; L89.612 Pressure ulcer of right heel, stage 2; E11.51 Type 2 diabetes mellitus with diabetic peripheral angiopathy without gangrene; E87.5 Hyperkalemia; E78.00 Pure hypercholesterolemia, unspecified; D69.6 Thrombocytopenia, unspecified; I44.7 Left bundle-branch block, unspecified; R00.1 Bradycardia, unspecified; F40.240 Claustrophobia; I25.2 Old myocardial infarction; Z79.01 Long term (current) use of anticoagulants; Z79.4 Long term (current) use of insulin; Z79.899 Other long term (current) drug therapy; Z85.3 Personal history of malignant neoplasm of breast; Z86.73 Personal history of transient ischemic attack (TIA), and cerebral infarction without residual deficits; Z87.891 Personal history of nicotine dependence; Z95.3 Presence of xenogenic heart valve; Z99.2 Dependence on renal dialysis; Z86.010 Personal history of colon polyps
CPT/HCPCS: 88304; 93308; 33274; 36589; 71045; 74183; 74330; 75625; 75716; 76000; 76700; 76937; 80048; 80051; 80053; 80076; 81003; 81015; 82248; 82962; 83605; 83690; 83735; 84484; 85014; 85018; 85025; 85027; 85610; 85730; 86704; 86705; 86706; 86709; 86803; 86850; 86900; 86901; 86920; 87070; 87086; 87340; 93005; 93306; 93880; 93922; 93925; 96365; 96375; 97163; 97166; 99285; A9585; C1725; C1760; C1769; C1786; C1874; C1887; C1894; C9765; G0257; P9016; P9047; Q5106; Q9967

== ENCOUNTER → 2023-10-07 12:04 | Outpatient (REF) | payer OTHER, SELFPAY ==
[2023-10-07 12:37] LABS: % Basophils 1.1 % (0-2); % Eosinophils 4.2 % (0-6); % Immature Granulocytes 0.3 % (0-0.5); % Lymphocytes 21.5 % (20.5-51.1); % Monocytes 10.6 % (1.7-9.3); % Neutrophils 62.3 % (42.2-75.2); Absolute Basophils 0.1 10^3/uL (0-0.2); Absolute Eosinophils 0.3 10^3/uL (0-0.7); Absolute Lymphocytes 1.4 10^3/uL (1.2-3.4); Absolute Monocytes 0.7 10^3/uL (0.1-0.6); Hematocrit 31.1 % (37.0-47.0); Hemoglobin 9.7 g/dL (12.0-16.0); Mean Corp Hgb Conc. 31.2 g/dL (33.0-37.0); Mean Corpuscular Hgb 34.3 pg (27.0-31.0); Mean Corpuscular Volume 109.9 fL (81.0-99.0); Mean Platelet Volume 11.8 fL (7.4-10.4); Nucleated Red Blood Cells % 0 %; Platelet Count 142 10^3/uL (130-400); Red Blood Cell Count 2.83 10^6/uL (4.20-5.40); Red Cell Dist. Width 14.9 % (11.5-14.5); White Blood Cell Count 6.4 10^3/uL (4.8-10.8)
[2023-10-07 13:18] LABS: Blood Urea Nitrogen 46 mg/dl (7-17); Calcium 9.3 mg/dl (8.4-10.2); Carbon Dioxide 27 mmol/L (22-30); Chloride 95 mmol/L (98-107); Glucose 95 mg/dl (70-99); Potassium 6.1 mmol/L (3.5-5.1); Sodium 133 mmol/L (135-145); eGFR 7.12
== END ==
LOC: OLABP 12:04
PROVIDERS: ATTENDING PHYSICIAN Family Medicine
DX: I46.9 Cardiac arrest, cause unspecified (principal); I73.9 Peripheral vascular disease, unspecified; I25.2 Old myocardial infarction; K85.10 Biliary acute pancreatitis without necrosis or infection; N18.6 End stage renal disease; E11.22 Type 2 diabetes mellitus with diabetic chronic kidney disease; E78.5 Hyperlipidemia, unspecified; M51.36 Other intervertebral disc degeneration, lumbar region; F41.9 Anxiety disorder, unspecified
CPT/HCPCS: 36415; 80048; 85025

== ENCOUNTER → 2023-10-09 17:11 | Outpatient (REF) | payer SELFPAY ==
[2023-10-09 18:40] LABS: Phosphorus 4.4 mg/dl (2.5-4.5)
== END ==
LOC: OLAB 17:11
PROVIDERS: ATTENDING PHYSICIAN Specialist
DX: N18.6 End stage renal disease (principal)
CPT/HCPCS: 36415; 84100

== ENCOUNTER 2023-10-29 07:43 | Day surgery (SDC) | payer OTHER, SELFPAY ==
[2023-10-29] VITALS (8 sets, daily range): BP systolic 97–151; BP diastolic 31–84; BMI 25.4
--- NOTE | 2023-10-29 08:21 | PTCARENOTE ---
Multiple skin sores on feet with peeling skin and blisters. Heels and sacrum with dressings for previous bed sores acquired on recent admission.Wound consult placed and wound care nurse called. Feet with neuropathy and injury from poorly fitting
shoes.
[2023-10-29 08:42] LABS: Glucose - Point of Care 232 mg/dl (70-99)
[2023-10-29 09:04] LABS: Hematocrit 28.6 % (37.0-47.0); Hemoglobin 9.4 g/dL (12.0-16.0); Mean Corp Hgb Conc. 32.9 g/dL (33.0-37.0); Mean Corpuscular Hgb 35.2 pg (27.0-31.0); Mean Corpuscular Volume 107.1 fL (81.0-99.0); Mean Platelet Volume 11.7 fL (7.4-10.4); Platelet Count 119 10^3/uL (130-400); Red Blood Cell Count 2.67 10^6/uL (4.20-5.40); Red Cell Dist. Width 17.2 % (11.5-14.5); White Blood Cell Count 8.5 10^3/uL (4.8-10.8)
[2023-10-29 09:07] LABS: Blood Urea Nitrogen 35 mg/dl (7-17); Calcium 9.2 mg/dl (8.4-10.2); Carbon Dioxide 32 mmol/L (22-30); Chloride 95 mmol/L (98-107); Glucose 202 mg/dl (70-99); Potassium 4.7 mmol/L (3.5-5.1); Sodium 135 mmol/L (135-145)
--- NOTE | 2023-10-29 09:30 | W.CON.NEPH ---
Consultation
-
Date/Time Consultation Requested: 10/29/23829
Date/Time Consultation Performed: 10/29/23 0855
Requesting Provider: Chandu Faustin
Performing Provider: Adina Chino
Reason for Consultation: ESRD
Medical History
-
Chief Complaint: here for ICD placement
History of Present Illness:
83 years of age, known to our service with a history of ESRD due to presumed diabetic nephropathy on HD MWF, at [facility] in [place] on a had nonfunctioning left upper arm AV fistula functioning s/post 3rd revision now functioning,
history of diabetes mellitus with microvascular complications, maintained on insulin. She has a history of CAD with non-ST elevated SC in January 2023. Unfortunately, unable to revascularize on cardiac catheterization, DCHF,, P Afib on eliquis,
Amiodarone, HLD on statin, prior CVA with left CEA, who recently had choledocholithiasis with gallstone pancreatitis. Patient underwent ERCP and cholecystectomy however post op course complicated with cardiac arrest of Unclear etiology. She then
had leadless pacemaker and LifeVest prior to discharge in September. During this admit she also underwent Aortogram, BL LE angiogram, HIGHWAY LANDSCAPE ARCHITECT (shockwave) and stent above knee popliteal left lower extremity. Now she returns for ICD placement. Last HD was
yesterday, reports no issues with AVF. SHe offers no CP or sob. She is WC bound currently. heel pressure wound seem to improve slowly and monitored by podiatry.
Past Medical History
1.� ESRD, January 2023, presumed due to diabetic nephropathy.
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
3.� Left upper arm AV fistula with revisionx3
4.� CAD with NSTEMI January 2023 with cardiac catheterization
�� � revealing occluded left circumflex, unable to open.
5.� Paroxysmal atrial fibrillation on systemic anticoagulation.
6.� History of heart failure, mixed type, resolved with hemodialysis.
7.� History of TAVR.
8.� Anemia, in part CKD related.
9.� Thrombocytopenia.
10. Hypertension.
11. leadless pacemaker 09/24/23
12. History of CVA/TIA.
13. Left bundle branch block.
14. PAD.
15. Secondary hyperparathyroidism.
16. Breast cancer.
17. Left carotid endarterectomy.
18. Bilateral eyelid surgery.
19. Cataract surgery.
20. Lens implant.
21. Tonsillectomy.
22. Breast biopsy.
23. Right breast lumpectomy.
24. Peripheral neuropathy.
right breast sebaceous cyst removal 08/2023
Aortogram, BL LE angiogram, HIGHWAY LANDSCAPE ARCHITECT (shockwave) and stent above knee popliteal left lower extremity 09/2023
Lap cholecystectomy 09/2023
Past Surgical History: Other (see above)
Social History
She resides alone. She stopped smoking over 50 years ago. No regular alcohol use. She previously worked in the [employer] industry, the [employer] and in [employer].
Family History
�No ESRD though positive for CAD and breast cancer.
Allergies / Home Medications
Allergy/AdvReac Type Severity Reaction Status Date / Time
Penicillins Allergy Rash; Verified 10/29/23 09:23
tolerated
cefepime
09/2023
sulfamethoxazole Allergy Rash Verified 10/29/23 09:23
[From Bactrim]
trimethoprim [From Bactrim] Allergy Rash Verified 10/29/23 09:23
�Medication �Instructions �Recorded �Confirmed �Type
insulin degludec 100 unit/mL (3 10 unit SC HS Diabetes 09/16/20 09/15/23 History
mL) subcutaneous pen (Tresiba
FlexTouch U-100 insulin)
apixaban 2.5 mg tablet (Eliquis) 2.5 mg PO BID #60 tabs 02/01/23 09/15/23 Rx
sevelamer carbonate 800 mg tablet 800 mg PO BID hyperphosphatemia 04/18/23 09/15/23 History
vitamin B complex-vitamin C-folic 1 tab PO HS Supplement 04/18/23 09/15/23 History
acid 0.8 mg tablet (Nephro
Vitamins)
diphenhydramine 25 2 tab PO HS Sleep 09/15/23 09/15/23 History
mg-acetaminophen 500 mg tablet
(Tylenol PM Extra Strength)
Insulin Glargine Lantus As Directed mls/hr SC HS 09/27/23 Rx
[Lantus] 10 units
aspirin 81 mg chewable tablet 81 mg PO DAILY #30 tabs 09/27/23 Rx
gabapentin 100 mg capsule 100 mg PO TID 30 days #90 caps 09/27/23 Rx
metoprolol succinate 25 mg 25 mg PO DAILY 30 days #30 tabs 09/27/23 Rx
tablet,extended release 24 hr
oxycodone 10 mg tablet 10 mg PO Q4HPRN PRN severe pain #4 09/27/23 Rx
tabs
pantoprazole 40 mg tablet,delayed 40 mg PO DAILY 30 days #30 tabs 09/27/23 Rx
release
Review of Systems
-
All complete 12 point ROS have been inquired and found negative other than stated in HPI
Physical Exam
Vital Signs
Vital Signs
Temp Pulse Resp BP Pulse Ox
97.6 F 69 13 151/60 99
10/29/23 07:58 10/29/23 08:45 10/29/23 08:45 10/29/23 08:12 10/29/23 08:15
Lab Results
WBC 8.5 10^3/uL (4.8-10.8) 10/29/23 08:32
RBC 2.67 10^6/uL (4.20-5.40) L 10/29/23 08:32
Hgb 9.4 g/dL (12.0-16.0) L 07/23/24 08:32
Hct 28.6 % (37.0-47.0) L 10/29/23 08:32
Plt Count 119 10^3/uL (130-400) L 10/29/23 08:32
Sodium 135 mmol/L (135-145) 10/29/23 08:32
Potassium 4.7 mmol/L (3.5-5.1) 10/29/23 08:32
Chloride 95 mmol/L (98-107) L 10/29/23 08:32
Carbon Dioxide 32 mmol/L (22-30) H 10/29/23 08:32
BUN 35 mg/dl (7-17) H 10/29/23 08:32
Creatinine 3.7 mg/dL (0.6-1.0) H 10/29/23 08:32
eGFR 11.70 10/29/23 08:32
Glucose 202 mg/dl (70-99) H 10/29/23 08:32
Calcium 9.2 mg/dl (8.4-10.2) 10/29/23 08:32
Physical Exam
General: Awake, Alert, Oriented and AOx3
HEENT: EOMI, Anicteric, Facial Symmetry and No JVD
Respiratory: Clear, Normal Excursion and Nonlabored Respirations
Cardiac: S1/S2 and Regular Rate/Rhythm
Breast: Deferred by me
Abdomen: Soft, Nontender and Nondistended
Musculoskeletal: No Cyanosis and No Edema
Skin: Other (wounds noted in bilat LEs, right heel pressure wound+)
Neuro: Nonfocal/Grossly Intact
Psych: Mood/afflect pleasant, Insight/judgement good and Appropriate
Vascular Access: AVF
Data Reviewed
-
Labs: Labs Reviewed by me and Discussed with Patient
Assessment/Plan
-
IMP:
[facility] [facility] [place]
Left upper arm AV fistula revision 06/27/23
h/o SC with old LBBB status post cardiac catheterization (occluded left circumflex unable to be open) January 2023
Paroxysmal atrial fibrillation on systemic anticoagulation
History heart failure mixed type
History of TAVR
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
Thrombocytopenia
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
Hypertension
Right chest wall tunneled HD CVC
History CVA
LBBB
PAD
Secondary hyperparathyroidism
h/o Choledocholithiasis w/ gallstone pancreatitis status postcholecystectomy 09/2023
cardiac arrest post op s/p leadless pacer 09/2023
Aortogram, BL LE angiogram, HIGHWAY LANDSCAPE ARCHITECT (shockwave) and stent above knee popliteal left lower extremity 09/2023
PLan:
hemodynamically stable, waiting for ICD placement today
plan HD tomorrow
KEILY re: anemia
BP stable
renal diet and FR when resumes diet
d/w pt
[2023-10-29] MEDS: VANCOCIN 200 IV (10:58)
[2023-10-29 12:36] LABS: Glucose - Point of Care 239 mg/dl (70-99)
--- NOTE | 2023-10-29 14:03 | ITS.CL.ICD ---
Income Tax Advisor - ICD
Implantable Cardioverter Defibrillator
Procedure Report:
Subcutaneous ICD Placement:
Ms. Valderrama is a very pleasant 83 yr old woman with history of cardiac arrest baseline bradycardia / chronic left bundle branch block conduction disease and hx of TAVR prompted the need for a pacemaker along with subQ ICD with no upper extremity IV
access has undergone leadless pacemaker and is here for subQ ICD placement.
Indications: Cardiac arrest � Secondary prevention
Date of the Procedure:�10/29/2023
Pre-Operative Diagnosis:�Cardiac arrest � Secondary prevention
Post-Operative Diagnosis:�Cardiac arrest � Secondary prevention
Procedure Performed:�SUBCUTANEOUS IMPLANTABLE DEFIBRILLATOR IMPLANTATION
Surgeon:
Chandu Carter MD
Assistants:
EP staff
Anesthesia:
See anesthesia records
Detailed Description of the Procedure:
The patient was identified using hospital identification and informed consent obtained for the procedure. The risks were explained to the patient and his including, but not limited to: Bleeding, infection, arrhythmia, stroke,
vascular/cardiac/lung puncture, surgery, pacemaker dependency/device malfunction. All questions were answered.
The leadless pacemaker was interrogated and was working adequately. No significant issue noted. The Paladiontronic device pacing and the interaction with the Avogy were tested.
The patient was brought to the electrophysiology laboratory in stable condition in fasting state. Continuous electrocardiographic and hemodynamic monitoring was initiated. The initial rhythm was normal sinus.
The dummy wire and the ICD generator was placed on the skin and positioned at the appropriate location under fluoroscopy. The locations and the incision lines were marked with skin marker.
The procedure site was meticulously prepared with surgical scrub and allowed to dry with no pooling. Sterile draping was applied to cover the procedure site. The image intensifier was draped with sterile bag and positioned over the patient. Left
arm was extended and the axillary fold to the right chest were prepped and draped in the usual fashion.�
Local anesthesia was administered subcutaneously using 1% lidocaine / bupivacaine at the anterior axillary line and the mid line at sub-xiphoid area. A small incision was made at the midline at the subxiphoid location along the skin lines. A large
incision was made at the axillary location for the pocket creation for the device.�
The pocket was fashioned contiguous to the incision with bleeding control with Bovie cautry. A tunneling tool was used to tunnel a line from the midline to the axillary incision after administration of local anesthesia to the tunneling area. The
ICD lead was passed from the pocket to the midline incision. The lead was secured to the underlying fascia with a 2-0 Ethibond suture. Again using the tunneling tool, the second tunneling was done from the midline incision to the cranially along the
sternum scraping it lightly. The ICD lead was placed in the tunnel and squeezed around to expel any air. Saline injection was given to expressed any air out. The lead was secured using 2-0 Ethibond.�
The lead was attached to the ICD generator and the ICD was placed in the pocket. The pocket was irrigated thoroughly with antibiotics saline solution. The generator was secured to the underlying fascia with 2-0 Ethibond at two locations. The pocket
was irrigated again. The wound at midline and axillary locations were closed in 3 layers using 2-0 VLoc sutures and two layers of 4-0 V loc sutures. Steri-Strips and an Aquacel bandage were applied.
With concomitant pacemaker present, DFT testing was done. The leadless pacemaker was switched to VOO 80 bpm at max output. The VF was induced and device appropriately detected the VF and administered the shock with shinto of the sinus rhythm.
Shock impedance was 59 ohm.�
Procedure End:
The procedure was tolerated well. A pressure bandage was applied to the incision area to be removed in a day.�
Estimated Blood loss:�
5 cc
Specimens Removed:�
No cultures and no specimens were obtained. No intraoperative pathology was identified.
Urine output:
None
Packs / Drains/ Tubes:
None
Instrument / Sponge Count Correct:
Yes
Complications of the Procedure:
None
Condition of Patient at Time of Transfer:
Hemodynamically stable with no neurological or vascular compromise.�
Device information:�
Generator:�3 day Blinds MRI S-ICD;�
Model: A219; Serial # [id number]
DEFIB Lead:�
��� Avogy - [employer] S-ICD subcutaneous electrode;
Model: 3501; Serial # [id number]
�
Therapy parameter settings:
��� �������� Shock zone:
����������������������� 200 bpm - 80 J x 5
���
Conditional Shock Zone: ���
����������� 200 bpm with Detection enhancement: INSIGHT - 80 J X 5
�
Summary:
Successful implantation of subcutaneous ICD and DFT testing
Results/Recommendations:�
- Please follow up CXR�
- Admit overnight for monitoring with DFT testing and plan for dialysis in AM.
Instructions to be given to patient:�
- Please follow up with [facility] at [address] [place] [address] ([phone]) to get your wound checked within 2 weeks of your discharge.�
- Do not wet incision site until after it is evaluated at cardiology clinic. No showers until then. Sponge baths are OK.�
- Allow 'steri strips' to fall off on their own�
- If you notice any fevers, shortness of breath, lightheadedness, chest pain, or worsening swelling in the wound site, please contact the arrhythmia clinic, contact your electric stove mechanic, or present to the hospital for evaluation.�
Chandu Carter MD
Electrophysiology
--- NOTE | 2023-10-29 15:15 | WOUNDNOTE ---
L DORSAL FOOT/TOES
--- NOTE | 2023-10-29 15:15 | WOUNDNOTE ---
L 3RD AND 4TH TOE BLISTER
--- NOTE | 2023-10-29 15:17 | WOUNDNOTE ---
R DORSAL FOOT AND GREAT TOE
--- NOTE | 2023-10-29 15:22 | WOUNDNOTE ---
BERYL RN note: Patient admitted for ICD implant in cardiac label stamper.
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
Wound Location and type/assessment: Patient known to service, last seen 09/23/23. Admitted with: Healing tiny stage 2 vs stage 3 sacral pressure injury. Healing DTI's on heels, today appear unstageable PI's. Abrasions vs PAD-small vessel disease to
toes and dorsal feet. Dry scabbed abrasions on R great toe/ dorsal foot, L dorsal foot and scattered dry scabs on tips of toes. Pedal pulses are audible with Doppler. L knee with intact scab from an abrasion. Patient developed blisters on L 3rd and
4th toe from poor fitting shoes, patient states. Denies swelling of feet, does not have any special offloading shoes. Had Prevalon heel boots last admission but patient states she does not want to use them again, too uncomfortable. Has a purple egg
crate on pillow under calves currently to offload heels. Patient states at home she can transfer to a motorized W/C, limited ambulation. Lives at [facility] and goes to [facility] [place] for wound care 3 x wk she confirmed. Has been following with
Food Service Lead Dr. Almonte regularly. Has a follow up apt next Saturday with Dr. Lambert who saw patient last admission.
Appetite: Good.
Pressure redistribution devices in place: Accumax. Patient can turn self in bed and lift heels off bed herself.
Plan: Painted dry eschar with Betadine, covered heels with Foam dressings. L 3rd and 4th toe applied adaptic and folded 2x2 gauze secured with paper tape. Sacral shaped silicone border foam clean, applied piece of alginate to wound and covered with
same foam. Continue to offload Heels with egg crate on pillow under calves. Instructed patient pressure injury prevention measures and consistent heel elevation. Recommended soft slippers with tread until can confirm type of offloading shoes with
Dr. Almonte. Will confirm orders with hospitalist and update care plan. Patient expects to be discharged home tomorrow.
Nurse Bobbi updated with wound care and offloading, will follow as needed.
Note to case management requested for discharge: VN for wound care.
Patient plans to follow up with her vascular surgeon Dr. Lambert and Food Service Lead Dr. Almonte.
--- NOTE | 2023-10-29 15:53 | PTCARENOTE ---
Rec'd pt from [facility] with SQ ICD with incision in sub xiphoid and L mid axillary with dressing dry and intact. Pt on hat marker with HR in 60's in NSR with a Bundle with VSS. Wounds noted on both feet/heels, L knee, and sacrum with foam
dressing (see wound care note). Dexcom (CGM) on left upper arm and informed pt that bedside glucose monitoring will still be necessary. PT on HD (MWF) with fistula in the left upper arm has present bruit and thrill(pink band of left arm for limb
restriction). Family at bedside and call dave within reach and oriented to room.
[2023-10-29] MEDS: TYLENOL 650 MG PO (16:40)
[2023-10-29] MEDS: NEURONTIN 100 MG PO ×2 (16:43→22:34)
[2023-10-29] MEDS: RENVELA 800 MG PO (16:43)
[2023-10-29 17:03] LABS: Glucose - Point of Care 253 mg/dl (70-99)
[2023-10-29] MEDS: NOVOLOG FLEXPEN 10 UNITS SC (17:45)
[2023-10-29] MEDS: NOVOLOG FLEXPEN-MODERATE RESISTANCE 5 UNITS SC (17:47)
[2023-10-29 22:28] LABS: Glucose - Point of Care 265 mg/dl (70-99)
[2023-10-29] MEDS: LIPITOR 80 MG PO (22:34)
[2023-10-29] MEDS: LANTUS 0.1 UNITS SC (22:34)
[2023-10-30] VITALS (21 sets, daily range): BP systolic 87–143; BP diastolic 34–78; BMI 25.8
[2023-10-30] MEDS: OASIS 2 SPRAY PO (00:56)
--- NOTE | 2023-10-30 05:10 | PTCARENOTE ---
Pt. had no complaints of chest or incisional discomfort overnight; VSS, mostly NSR 60's (did V-pace in the low 100's for approx. 45 minutes @ 0100; asymptomatic, Leeanne Orta shown tele strips). Left axillary/lateral chest dressing and xiphoid
dressing CDI without drainage. Pt. very pleasant, hoping for discharge following HD today.
[2023-10-30] MEDS: EMLA CREAM 1 GRAM TOPICAL (07:02)
--- NOTE | 2023-10-30 08:35 | W.PN.CD ---
Today's Communication / Plan
-
- HD today
- stable for discharge from cardiac stand point
Impression / Plan
-
Cardiac arrest /possible PEA versus V-fib:
-Cardiac arrest happened in the presence of Dr. Pastrana (Radiology Nurse) -on 09/20/2023
-Highly suspicious of ventricular arrhythmia requiring CPR
-Due to conduction disease, leadless pacemaker was implanted.,
-now s/p subQ ICD - [employer] (EVICD was denied by the insurance).
-Pressure dressing removed
-Resume Eliquis
ESRD, on HD per nephro
- HD today prior to discharge
Bradycardia:
-baseline bradycardia / chronic left bundle branch block conduction disease and hx of TAVR prompted the need for a pacemaker along with subQ iCD
-s/p Leadless pacemaker - Medtronic Micra - 09/24/23
Paroxysmal atrial fibrillation
-Noted since January 2023.
-On amiodarone,
Gallbladder disease: choledocholithiasis, gallstone pancreatitis:
-s/p ERCP 09/17/23: Choledocholithiasis was found. Complete removal was accomplished by biliary sphincterotomy and balloon extraction. A biliary sphincterotomy was performed.
-s/p lap jose a 09/18/2023
-on ABX
PAD
- Severe PAD
- On Eliquis
- s/p percutaneous intervention by vascular surgery- Dr. Lambert 09/26/23
- Appointment coming next week.
Paroxysmal atrial fibrillation, amio, Eliquis
ICM EF 45-50%, euvolemic on exam
s/p TAVR for
CAD, chronic stable
LBBB, chronic, stable
Old stroke
Subjective:
Feeling well. Alert and awake. Denies any chest pain. SubQ ICD sites looks normal. no hematoma.
Physical Exam
Vital Signs/Labs
Vital Signs
Temp Pulse Resp BP Pulse Ox
97.7 F 79 18 128/49 99
10/30/23 07:38 10/30/23 04:24 10/30/23 07:38 10/30/23 04:24 10/30/23 07:38
10/29/23 10/30/23 10/31/23
06:59 06:59 06:59
Actual Weight 72.575 kg 74.6 kg
Physical Exam
Constitutional: No acute distress and Comfortable
EENT: Anicteric and Moist mucous membranes
Cardiovascular: Rhythm & rate is regular, Pedal edema is absent, JVD pressure is normal and Systolic murmur absent
Respiratory: Respiratory effort normal, Lungs clear to auscul., Wheeze Absent and Crackles Absent
GI: Soft, Distention absent, Non tender and Normal bowel sounds
Neuro/Psych: Alert, Oriented, AO x 3 and Motor deficits absent
Other: Cardiac Device Site
Data Reviewed
-
Date of Service: October 30, 2023
Medical Decision Making: Reviewed Test Results, Independent Historian Assessment and Test Interpretation
EKG: Tracing Personally Visualized and interpreted
Echo: Report Reviewed by me
X-Ray/CT/US/MRI/NUC/PET: Image Personally Visualized and interpreted
Labs: Labs Reviewed by me
Old Records: Reviewed
[2023-10-30 08:44] LABS: Glucose - Point of Care 252 mg/dl (70-99)
[2023-10-30] MEDS: TYLENOL 650 MG PO (09:12)
[2023-10-30] MEDS: LOW STRENGTH ASPIRIN 81 MG PO (09:12)
[2023-10-30] MEDS: RENVELA 800 MG PO (09:12)
[2023-10-30] MEDS: PACERONE 200 MG PO (09:13)
[2023-10-30] MEDS: ELIQUIS 2.5 MG PO (09:13)
[2023-10-30] MEDS: NEURONTIN 100 MG PO (09:13)
[2023-10-30] MEDS: NOVOLOG FLEXPEN 10 UNITS SC (09:14)
[2023-10-30] MEDS: NOVOLOG FLEXPEN-MODERATE RESISTANCE 10 UNITS SC (09:15)
[2023-10-30] MEDS: RETACRIT 6000 UNITS IV (09:29)
[2023-10-30 10:46] LABS: Blood Urea Nitrogen 49 mg/dl (7-17); Calcium 9.1 mg/dl (8.4-10.2); Carbon Dioxide 21 mmol/L (22-30); Chloride 91 mmol/L (98-107); Estimated Creatinine Clearance 8 ml/min; Glucose 281 mg/dl (70-99); Magnesium 1.9 mg/dl (1.6-2.3); Potassium 5.9 mmol/L (3.5-5.1); Sodium 130 mmol/L (135-145); eGFR 8.15
--- NOTE | 2023-10-30 10:50 | W.DS.TRANS ---
DC Summary - Qa Developer
-
Discharge Instructions:
Sleep Apnea Risk Low
Discharge Diagnosis/Procedures Subcutaneous ICD implant
Diet Low Cholesterol,2 Gram Sodium,Diabetic, Carb
Controlled
Driving Restrictions No driving for 24 hours
Bathing Restrictions OK to Shower
Wound Care Remove dressing on chest after shower, leave
steri strips in place
Specialty Instructions Weigh Daily
Instructions:
Stand-Alone Forms: DC Inst - Implanted Device
Changes to Home Medications: No
Discharge Medications:
DC Medications w/original date entered in [employer]
insulin degludec 100 unit/mL (3 mL) subcutaneous pen (Tresiba FlexTouch U-100 insulin) 10 unit SC HS Diabetes 09/16/20
apixaban 2.5 mg tablet (Eliquis) 2.5 mg PO BID #60 tabs 02/01/23
sevelamer carbonate 800 mg tablet 800 mg PO BID hyperphosphatemia 04/18/23
vitamin B complex-vitamin C-folic acid 0.8 mg tablet (Nephro Vitamins) 1 tab PO HS Supplement 04/18/23
diphenhydramine 25 mg-acetaminophen 500 mg tablet (Tylenol PM Extra Strength) 2 tab PO HS Sleep 09/15/23
aspirin 81 mg chewable tablet 81 mg PO DAILY #30 tabs 09/27/23
gabapentin 100 mg capsule 100 mg PO TID 30 days #90 caps 09/27/23
metoprolol succinate 25 mg tablet,extended release 24 hr 25 mg PO DAILY 30 days #30 tabs 09/27/23
amiodarone 200 mg tablet 200 mg PO DAILY 10/29/23
atorvastatin 80 mg tablet 80 mg PO HS 10/29/23
insulin aspart U-100 100 unit/mL (3 mL) subcutaneous pen (Novolog FlexPen U-100 Insulin aspart) 10 unit SC BID 10/29/23
lidocaine HCl 4 % topical cream (Lidocaine Plus) 1 applic topical .DIALYSIS DAYS PRN on dialisys site pre dialysis 10/29/23
Home Medication Changes
Pending Results: Yes
Additional Pending Results:
cbc, a1c
--- NOTE | 2023-10-30 11:41 | CM ---
spoke to pt in room, she is prev indep, lives at [facility]. one story, no steps. she get tHD at [facility] at 12pm. she is getting HD now. plan is for dc to home when medically stable. no dc planning needs noted, she has a rollator
and electric wc she uses.
--- NOTE | 2023-10-30 11:57 | W.PN.NEPH.HD ---
Assessment
-
- HD today and then d/c afterwards
- plan for MWF at [facility]
Progress Note - Hemodialysis
-
Date of Service: October 30, 2023
Duration: 30 minutes and 3 hours
Potassium Bath: 3
Calcium Bath: 2.5
Opti-Dialyzer: 160
Ultrafiltration: Other
Blood Flow: 400
Dialysate Flow: 600
[2023-10-30 12:35] LABS: Platelet Count 154 10^3/uL (130-400)
[2023-10-30 12:36] LABS: Hematocrit 27.1 % (37.0-47.0); Hemoglobin 8.7 g/dL (12.0-16.0); Mean Corp Hgb Conc. 32.1 g/dL (33.0-37.0); Mean Corpuscular Volume 105.9 fL (81.0-99.0); Red Blood Cell Count 2.56 10^6/uL (4.20-5.40); White Blood Cell Count 11.9 10^3/uL (4.8-10.8)
[2023-10-30 12:38] LABS: Glycohemoglobin (HgbA1c) 6.5 % (4.0-5.6)
[2023-10-30] MEDS: NOVOLOG FLEXPEN-MODERATE RESISTANCE SC (12:49)
== END 2023-10-30 13:58 | disposition home or self-care (01) ==
LOC: CATH 07:43
PROVIDERS: Nurse Practitioner Adult Health; ATTENDING PHYSICIAN Internal Medicine Cardiovascular Disease; CONSULT PHYSICIAN Internal Medicine; FAMILY PHYSICIAN Internal Medicine Geriatric Medicine
DX: I13.2 Hypertensive heart and chronic kidney disease with heart failure and with stage 5 chronic kidney disease, or end stage renal disease (principal); I50.32 Chronic diastolic (congestive) heart failure; I44.0 Atrioventricular block, first degree; I44.7 Left bundle-branch block, unspecified; I48.0 Paroxysmal atrial fibrillation; I25.5 Ischemic cardiomyopathy; E11.22 Type 2 diabetes mellitus with diabetic chronic kidney disease; I25.10 Atherosclerotic heart disease of native coronary artery without angina pectoris; E78.5 Hyperlipidemia, unspecified; D69.6 Thrombocytopenia, unspecified; I25.2 Old myocardial infarction; I35.0 Nonrheumatic aortic (valve) stenosis; N18.6 End stage renal disease; Z86.74 Personal history of sudden cardiac arrest; Z95.820 Peripheral vascular angioplasty status with implants and grafts; Z95.2 Presence of prosthetic heart valve; I50.9 Heart failure, unspecified; Z85.3 Personal history of malignant neoplasm of breast; N25.81 Secondary hyperparathyroidism of renal origin; Z86.73 Personal history of transient ischemic attack (TIA), and cerebral infarction without residual deficits; D63.1 Anemia in chronic kidney disease; E11.42 Type 2 diabetes mellitus with diabetic polyneuropathy; Z80.3 Family history of malignant neoplasm of breast; Z88.0 Allergy status to penicillin; Z79.4 Long term (current) use of insulin; Z87.891 Personal history of nicotine dependence; Z82.49 Family history of ischemic heart disease and other diseases of the circulatory system; Z79.82 Long term (current) use of aspirin
CPT/HCPCS: 33270; 71046; 80048; 82962; 83036; 83735; 85027; 87070; 93005; C1722; C1896; P9047; Q5106

== ENCOUNTER → 2023-11-05 09:06 | Outpatient (REF) | payer OTHER, SELFPAY | LOC: RAD 09:06 | PROVIDERS: ATTENDING PHYSICIAN Surgery Vascular Surgery; FAMILY PHYSICIAN Internal Medicine Geriatric Medicine | DX: I73.9 Peripheral vascular disease, unspecified (principal) | CPT/HCPCS: 93922; 93925 ==

== ENCOUNTER 2023-11-14 08:38 | Day surgery (SDC) | payer OTHER, SELFPAY ==
[2023-11-14] VITALS (13 sets, daily range): BP systolic 110–161; BP diastolic 40–90; BMI 26.2; BMI 27.6
[2023-11-14 10:09] LABS: Hematocrit 26.4 % (37.0-47.0); Hemoglobin 8.5 g/dL (12.0-16.0); Mean Corp Hgb Conc. 32.2 g/dL (33.0-37.0); Mean Corpuscular Hgb 34.7 pg (27.0-31.0); Mean Corpuscular Volume 107.8 fL (81.0-99.0); Mean Platelet Volume 11.1 fL (7.4-10.4); Platelet Count 168 10^3/uL (130-400); Red Blood Cell Count 2.45 10^6/uL (4.20-5.40); Red Cell Dist. Width 16.1 % (11.5-14.5); White Blood Cell Count 9.3 10^3/uL (4.8-10.8)
[2023-11-14 10:12] LABS: Glucose - Point of Care 122 mg/dl (70-99)
[2023-11-14 10:59] LABS: Blood Urea Nitrogen 29 mg/dl (7-17); Calcium 9.1 mg/dl (8.4-10.2); Carbon Dioxide 33 mmol/L (22-30); Chloride 92 mmol/L (98-107); Estimated Creatinine Clearance 12 ml/min; Glucose 146 mg/dl (70-99); Potassium 4.2 mmol/L (3.5-5.1); Sodium 135 mmol/L (135-145); eGFR 12.95
[2023-11-14] MEDS: NSS 500 IV (11:10)
[2023-11-14 11:26] LABS: INR 1.14; PT 14.6 Sec (11.4-14.6)
[2023-11-14 11:27] LABS: APTT 37.6 Sec (23.4-35.0)
[2023-11-14] MEDS: SUBLIMAZE 25 MCG IV (14:21)
[2023-11-14] MEDS: SUBLIMAZE 50 MCG IV (14:39)
[2023-11-14 15:06] LABS: Glucose - Point of Care 128 mg/dl (70-99)
--- NOTE | 2023-11-14 15:23 | W.SUR.POST ---
Surgical Immediate Post Op
Note
Pre Op Diagnosis: PAD
Post Op Diagnosis: PAD
Procedure Performed: LLE angio, secondary retrograde access pedal access, balloon angioplasty to TP trunk and posterior tibial artery
Primary Surgeon: Antonio Lambert MD
Secondary Surgeons:N/A
Anesthesia: MAC
Estimated Blood Loss: Less than 2 ml
Fluids: See anesthesia flow sheet
Drains/Shunts: N/A
Specimens/Cultures: N/A
Doppler/Duplex/Angio (Y/N): Y
Complications: None
Operative Findings: Successful ballooning of above arteries
--- NOTE | 2023-11-14 15:30 | PTCARENOTE ---
Received patient from PACU s/p LLE arteriogram/angioplasty and L pedal access. Patient AAOX3, VSS, R groin and L ankle dressings C/D/I, pedal pulses found by doppler, neurovascular checks to LEs WNL - see charting. Patient with HOB flat until 1630,
patient on bedrest with HOB restriction of 30 degrees until 2030 tonight. Patient educated on restrictions and keeping LEs straight, patient verbalizes understanding. L toes with arterial wounds, scattered necrotic/scabbed areas; toes covered in
foams and wrapped in kerlix. Dorsal surfaces of both feet with scabs w/o drainage, patient states scabs are from wearing sandals. Patient turned and protective foam placed on sacrum. PRN oxycodone given for back pain rated 4/10, diet order entered
for patient. Patient oriented to room and call dave, states no concerns at this time.
[2023-11-14] MEDS: ROXICODONE 5 MG PO (15:53)
[2023-11-14 16:53] LABS: Glucose - Point of Care 124 mg/dl (70-99)
[2023-11-14] MEDS: RENVELA 800 MG PO (17:19)
[2023-11-14] MEDS: NEURONTIN 100 MG PO (19:45)
[2023-11-14] MEDS: HEPARIN 5000 UNITS SC (19:45)
[2023-11-14 21:38] LABS: Glucose - Point of Care 166 mg/dl (70-99)
[2023-11-14] MEDS: LANTUS 0.1 UNITS SC (21:44)
[2023-11-14] MEDS: NEPHROCAP 1 CAPSULE PO (21:44)
[2023-11-14] MEDS: LIPITOR 80 MG PO (21:44)
[2023-11-15] MEDS: TYLENOL 650 MG PO (00:05)
[2023-11-15 03:13] VITALS: BP 97/72
[2023-11-15] MEDS: ROXICODONE 5 MG PO ×2 (03:34→10:35)
[2023-11-15 06:00] VITALS: BMI 26.6
[2023-11-15 07:15] VITALS: BP 128/49
[2023-11-15 07:58] LABS: Glucose - Point of Care 159 mg/dl (70-99)
[2023-11-15] MEDS: PACERONE 200 MG PO (08:19)
[2023-11-15] MEDS: LOW STRENGTH ASPIRIN 81 MG PO (08:19)
[2023-11-15] MEDS: TOPROL XL 25 MG PO (08:19)
[2023-11-15] MEDS: NEURONTIN 100 MG PO (08:19)
[2023-11-15] MEDS: RENVELA 800 MG PO (08:19)
[2023-11-15] MEDS: HEPARIN 5000 UNITS SC (08:20)
--- NOTE | 2023-11-15 08:26 | W.PN.VS ---
Today's Communication / Plan
-
See below.
Assessment/Plan
-
Assessment: 83-year-old female POD #1 LLE angio, secondary retrograde access pedal access, balloon angioplasty to TP trunk and posterior tibial artery
Plan:
Continue antiplatelet and blood thinner of aspirin a 1 mg p.o. daily and Eliquis 2.5 mg p.o. twice daily
Patient is stable for discharge. However, she has canceled her spot on her outpatient HD center and has expressed desire for HD while here located at the hospital. She states that she had agreed upon this plan with her outpatient cement contractor
[employer] prior to her procedure. Nephrology consult placed and Dr. Asencio will arrange for HD prior for her discharge today.
Discharge following hemodialysis
Follow-up ultrasound and outpatient appointment placed in discharge instructions
Subjective Data
-
Date of Service: November 15, 2023
Patient seen and examined at bedside, offers no complaints. Denies nausea, vomiting, fever, and chills. Denies pain at right groin puncture site or swelling. Ports tolerating p.o. diet. Patient is on HD for end-stage renal disease and reports
that she has canceled her outpatient HD session and transportation as she previously had spoken to Dr. Asencio on the Saturday before the procedure and he indicated that she could get HD here at the hospital.
Objective Data
-
Vital Signs
Temp Pulse Resp BP Pulse Ox
99.1 F 70 16 128/49 94
11/15/23 07:15 11/15/23 08:19 11/15/23 07:15 11/15/23 08:19 11/15/23 07:15
Intake and Output
11/14/23 11/15/23 11/16/23
06:59 06:59 06:59
Intake Total 480 / 480
Balance 480 / 480
Intake:
Oral fluids 480 / 480
Calcium 9.1 mg/dl (8.4-10.2) 08/08/24 09:49
Physical Exam
-
AAOX3, NAD
No tachycardia
No dyspnea on room air
ABD nontender, nondistended
Right groin puncture site CDI, no evidence of edema/hematoma, all surrounding compartments soft
Bilateral feet warm, left foot wound with clean dry and intact dressing
--- NOTE | 2023-11-15 09:25 | WOUNDNOTE ---
R HEEL (LATERAL POSTERIOR)
--- NOTE | 2023-11-15 09:26 | WOUNDNOTE ---
R BREAST (just above nipple)
--- NOTE | 2023-11-15 09:27 | WOUNDNOTE ---
SACRUM (with photo flash)
--- NOTE | 2023-11-15 09:30 | WOUNDNOTE ---
WO RN note: Patient admitted s/p LLE balloon angioplasty to TP trunk and posterior artery yesterday by Dr. Lambert. Patient lives at [facility]. She goes to special care at [facility] for wound care. She is considering VN.
See H&P for complete history.
PMH: PAD, carotid artery stenosis, L SFA/pop stent, DM, neuropathy, DDD, HTN, CDD5 on HD, obesity, TIA, CVA, TAVR, CAD, breast ca with lumpectomy and radiation, herniated disc surgery, AV fistula creation 06/2023.
Wound Location and type/assessment: Patient has unstageable bilateral heel pressure/arterial/diabetic wounds with roberts eschar (L>R), scant serous drainage from L heel ulcer. No surrounding erythema. L toes with varying sizes of dry black gangrene
(largest on L 4th toe). Bilateral dorsal foot dry brown ulcers patient stated was from her sandals (along with PAD). Pedal pulses heard via portable Doppler. Sacral small stage 3 vs unstageable pressure injury with yellow fibrin tissue. R upper
breast with firm scar/discolored area patient blames previous trauma from an old HD catheter tips laying on her chest. No drainage.
Appetite: good.
Pressure redistribution devices in place: Centrella Viva Dengi air bed. Patient moves self. She ordered high end slippers for home use for her feet.
Plan: Foam dressing changed on heels. Betadine applied to toe dry gangrene ulcers. Heels off bed with pillow and air chair cushion given to assist with heel elevation. Foam turning wedge given. Patient stated the soft heel relief boots do not stay
on and she doesn't want them. Instructed patient pressure injury prevention measures.
Will confirm orders with vascular service. Patient stated she is being discharged late today.
Care plan to be update and will follow as needed. Patient to follow up with Dr. Lambert. Recommended patient follow up with her coat tailor for mammogram.
Note to case management requested for discharge: VN if she wants.
Recommend follow up at wound care center upon discharge.
[2023-11-15 11:10] VITALS: BP 106/92
--- NOTE | 2023-11-15 11:26 | PTCARENOTE ---
prn pain medication given for moderate pain in the pt L foot. see MAR for proper documentation
--- NOTE | 2023-11-15 11:29 | PTCARENOTE ---
pt currently receiving HD, will be picked up by daughter afterwards. pt wound care completed by Claudia after woundcare consult.
[2023-11-15 12:09] LABS: Hematocrit 22.7 % (37.0-47.0); Hemoglobin 7.4 g/dL (12.0-16.0); Mean Corp Hgb Conc. 32.6 g/dL (33.0-37.0); Mean Corpuscular Hgb 35.6 pg (27.0-31.0); Mean Corpuscular Volume 109.1 fL (81.0-99.0); Mean Platelet Volume 11.7 fL (7.4-10.4); Platelet Count 148 10^3/uL (130-400); Red Blood Cell Count 2.08 10^6/uL (4.20-5.40); Red Cell Dist. Width 16.1 % (11.5-14.5); White Blood Cell Count 12.5 10^3/uL (4.8-10.8)
[2023-11-15] MEDS: RETACRIT 10000 UNITS IV (12:10)
[2023-11-15] MEDS: HEPARIN 500 UNITS IV (12:12)
[2023-11-15 12:19] LABS: Blood Urea Nitrogen 42 mg/dl (7-17); Calcium 8.8 mg/dl (8.4-10.2); Carbon Dioxide 28 mmol/L (22-30); Chloride 93 mmol/L (98-107); Estimated Creatinine Clearance 9 ml/min; Glucose 186 mg/dl (70-99); Sodium 131 mmol/L (135-145); eGFR 9.25
--- NOTE | 2023-11-15 13:20 | OR.RPT ---
Operative Report
Operative Report
PROCEDURE DATE: 11/14/2023
Preoperative diagnosis: Chronic limb threatening ischemia left lower extremity
Postoperative diagnosis: Same
Procedure:
1. Duplex assisted right common femoral artery cannulation
2. Aortogram and pelvic angiogram.
3. Left lower extremity arteriogram with third order vessel catheterization of left popliteal artery via right common femoral artery puncture.
4. Duplex assisted left posterior tibial artery retrograde pedal access.
5. Balloon angioplasty of left tibioperoneal trunk with 2 and 3 mm angioplasty balloon.
6. Balloon angioplasty of left posterior tibial artery with 2 mm angioplasty balloon.
7. Right femoral angiogram.
8. Supervision and interpretation
Surgeon: Fausto
Arnp: None
Complications: None
Anesthesia: Local, sedation
Fluoroscopy:
21.8 min
5.3 mGy
7.12 Gy.cm2
Indications for procedure:
Chronic limb threatening ischemia left lower extremity. Had attempted antegrade left lower extremity arteriogram but severe TP trunk plaque/stenosis that was unable to cannulate through. I did treat a significant SFA stenosis with successful
angioplasty/stent. She had persistent foot issues and poor healing potential. Therefore was brought back for repeat attempt at angiography with stance for possible retrograde pedal access. Risk/benefit/alternatives all fully discussed. Patient
understood all wish to proceed.
Description of procedure:
Patient was identified, brought to the operating room. Placed on the table in the supine position. After the adequate administration of anesthesia, the patient was prepped and draped in the standard surgical fashion. A standard preoperative
timeout was undertaken and everybody was in agreement with the plan.
The right common femoral artery was accessed with a micropuncture kit under direct duplex ultrasound guidance. A 5 [place]ese sheath was then advanced over a 0.035 inch wire, and a duque's hook catheter was advanced into the abdominal aorta.
Aortogram and pelvic angiogram was obtained. Findings as follows:
Aortogram and pelvic angiogram showed no difference compared to recent angiogram. Patent distal infrarenal aorta and bilateral common and external iliac arteries with no high-grade stenoses.
Using a floppy angled hydrophilic wire, the left common femoral artery was cannulated and the catheter was advanced. Left lower extremity arteriogram was obtained. Findings as follows:
Common femoral artery: Patent with a couple areas of popcorn like plaque distally.
Profunda femoris artery: Patent with no significant stenosis.
Superficial femoral artery: Patent with popcorn like plaque right at the origin. Resulted in a moderate stenosis. Beyond here patent with some luminal irregularities but no significant stenosis. Patent distal SFA stent with no in-stent restenosis.
Popliteal artery: Patent with a couple popcorn-like plaque lesions behind the knee but not severe.
Anterior tibial artery: Occluded just beyond the origin.
Tibial peroneal trunk: Severe string-like stenosis at the origin, and then patent with moderate stenosis distally.
Peroneal artery: Patent with some luminal irregularities, moderate stenosis proximally. Poor flow distally.
Posterior tibial artery: Patent with diffuse disease/plaque throughout but in the proximal third with significant stenosis. Just smaller in caliber running down to the foot.
Patient in general with severe infrapopliteal artery disease. I felt that there is no good bypass option here. Therefore at this point I then selectively cannulated the superficial femoral artery and then exchanged for a Storq wire and then an up
and over 5 [place]ese 70 cm sheath. The patient was given an appropriate dose of heparin. I now under roadmap assisted guidance to try to cannulate through the tibioperoneal trunk stenosis. My wire kept getting into the anterior tibial artery but
this artery was occluded and so the wire would not get far. The angle from the distal below-knee popliteal into the tibioperoneal trunk that was created due to the stenosis became impossible to traverse. I tried multiple catheters, I tried
multiple wires including 0.035 and 0.014 inch wires. However was unable to traverse it. Therefore I felt at this point the only option was to try retrograde pedal access. I therefore then had prepped and draped the foot. I then under direct
duplex ultrasound guidance punctured the posterior tibial artery at the ankle/proximal foot. I noted that the artery was a severely calcified artery and bypass would not be an option anyway when I looked at it with ultrasound. Even cannulating it
with a needle proved to be very challenging due to the plaque and stenosis. However was finally able to gain wire access. I then exchanged for a micropuncture sheath. I then exchanged over a 0.035 inch wire for a 4 [place] sheath. Now I switch
back to a 0.014 inch wire system and was able to flow through a 0.014 inch steerable Stuart wire which I was able to pass through the severe TP trunk stenosis. Once I did this I tried to get a 2 mm angioplasty balloon up but actually this proved to
be challenging (initial attempt was with a Monorail system balloon) as the balloon did not traverse the area of stenosis. I therefore tried to balloon in the very proximal posterior tibial artery and then try to push the balloon up after deflating
it but this would not work. I therefore then exchanged for an over the wire 2 mm angioplasty balloon. This now I was able to push through the stenosis in the TP trunk. I now angioplastied it with prolonged inflation. I now used that same balloon
to angioplasty down the posterior tibial artery about fci to two thirds down the posterior tibial artery. (Repeated overlapping inflations). Completion angiogram now demonstrated marked improvement of flow through the system and into the
peroneal as well. However there was still a high-grade stenosis in the posterior tibial artery. I felt that's narrowing from the above access would be challenging through this tibial system and I did not think that I be able to pass a shockwave
catheter through from distally, and therefore I just upsized my balloon to 3 mm angioplasty standard balloon instead. Perform prolonged inflation, and now got a very good result. Now and much brisker flow into the runoff PT and peroneal artery.
At this point is very satisfied. My pedal access wires and catheters were now removed. I withdrew my right sided common femoral sheath access sheath to the right external iliac artery. Angiogram demonstrated good puncture in the right common
femoral artery. Both sheaths (right common femoral access, and left retrograde pedal access) were now removed and manual pressure was applied after patient was given appropriate dose of protamine. Hemostasis was achieved. The patient tolerated
procedure well.
[2023-11-15 13:22] LABS: Glucose - Point of Care 132 mg/dl (70-99)
--- NOTE | 2023-11-15 15:40 | W.CON.NEPH ---
Consultation
-
Date/Time Consultation Requested: November 15, 2023 8 AM
Date/Time Consultation Performed: November 15, 2023 8 AM
Requesting Provider: Dr. Magaña
Performing Provider: Dr. Asencio
Reason for Consultation: ESRD
Medical History
-
Chief Complaint: Poorly healing lower extremity ulcer
History of Present Illness:
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
history of diabetes mellitus with microvascular complications, maintained on insulin. She has a history of CAD with non-ST elevated [place] in January 2023. Unfortunately, unable to revascularize on cardiac catheterization, DCHF,, P Afib on eliquis,
Amiodarone, HLD on statin, prior CVA with left CEA, who recently had choledocholithiasis with gallstone pancreatitis. She now has an ICD placement as well. She was admitted for left lower extremity arteriogram with possible angioplasty or stenting
given poorly healing left foot ulcers.
Past Medical History
1.� ESRD, January 2023, presumed due to diabetic nephropathy.
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
3.� Left upper arm AV fistula with revisionx3
4.� CAD with NSTEMI January 2023 with cardiac catheterization
�� � revealing occluded left circumflex, unable to open.
5.� Paroxysmal atrial fibrillation on systemic anticoagulation.
6.� History of heart failure, mixed type, resolved with hemodialysis.
7.� History of TAVR.
8.� Anemia, in part CKD related.
9.� Thrombocytopenia.
10. Hypertension.
11. leadless pacemaker 09/24/23
12. History of CVA/TIA.
13. Left bundle branch block.
14. PAD.
15. Secondary hyperparathyroidism.
16. Breast cancer.
17. Left carotid endarterectomy.
18. Bilateral eyelid surgery.
19. Cataract surgery.
20. Lens implant.
21. Tonsillectomy.
22. Breast biopsy.
23. Right breast lumpectomy.
24. Peripheral neuropathy.
right breast sebaceous cyst removal 08/2023
Aortogram, BL LE angiogram, DATA MANAGEMENT ANALYST (shockwave) and stent above knee popliteal left lower extremity 09/2023
Lap cholecystectomy 09/2023
Past Surgical History: Other (see above)
Social History
She resides alone. She stopped smoking over 50 years ago. No regular alcohol use. She previously worked in the [employer], the [employer] and in [employer].
Family History
�No ESRD though positive for CAD and breast cancer.
Allergies / Home Medications
Allergy/AdvReac Type Severity Reaction Status Date / Time
Penicillins Allergy Unknown Rash; Verified 11/14/23 10:10
tolerated
cefepime
09/2023
sulfamethoxazole Allergy Unknown Rash Verified 11/14/23 10:10
[From Bactrim]
trimethoprim [From Bactrim] Allergy Unknown Rash Verified 11/14/23 10:10
�Medication �Instructions �Recorded �Confirmed �Type
insulin degludec 100 unit/mL (3 10 unit SC HS Diabetes 09/16/20 11/14/23 History
mL) subcutaneous pen (Tresiba
FlexTouch U-100 insulin)
apixaban 2.5 mg tablet (Eliquis) 2.5 mg PO BID #60 tabs 02/01/23 11/14/23 Rx
sevelamer carbonate 800 mg tablet 800 mg PO BID hyperphosphatemia 04/18/23 11/14/23 History
vitamin B complex-vitamin C-folic 1 tab PO HS Supplement 04/18/23 11/14/23 History
acid 0.8 mg tablet (Nephro
Vitamins)
diphenhydramine 25 2 tab PO HS Sleep 09/15/23 11/14/23 History
mg-acetaminophen 500 mg tablet
(Tylenol PM Extra Strength)
aspirin 81 mg chewable tablet 81 mg PO DAILY #30 tabs 09/27/23 11/14/23 Rx
metoprolol succinate 25 mg 25 mg PO DAILY 30 days #30 tabs 24 11/14/23 Rx
tablet,extended release 24 hr
amiodarone 200 mg tablet 200 mg PO DAILY 10/29/23 11/14/23 History
atorvastatin 80 mg tablet 80 mg PO HS 10/29/23 11/12/23 History
insulin aspart U-100 100 unit/mL 0 unit SC BID 10/29/23 11/14/23 History
(3 mL) subcutaneous pen (Novolog
FlexPen U-100 Insulin aspart)
lidocaine HCl 4 % topical cream 1 applic topical MOWEFR PRN on 10/29/23 11/14/23 History
(Lidocaine Plus) dialisys site pre dialysis
gabapentin 100 mg capsule 100 mg PO BID 11/12/23 11/14/23 History
Review of Systems
-
Anxiety
All other systems: Negative unless noted
Physical Exam
Vital Signs
Vital Signs
Temp Pulse Resp BP Pulse Ox
98.6 F 81 18 106/92 94
11/15/23 11:10 11/15/23 11:10 11/15/23 11:10 11/15/23 11:10 11/15/23 11:10
Lab Results
WBC 12.5 10^3/uL (4.8-10.8) H 11/15/23 11:40
RBC 2.08 10^6/uL (4.20-5.40) L 11/15/23 11:40
Hgb 7.4 g/dL (12.0-16.0) L 11/15/23 11:40
Hct 22.7 % (37.0-47.0) L 11/15/23 11:40
Plt Count 148 10^3/uL (130-400) 11/15/23 11:40
Sodium 131 mmol/L (135-145) L 11/15/23 11:40
Potassium 5.0 mmol/L (3.5-5.1) 11/15/23 11:40
Chloride 93 mmol/L (98-107) L 11/15/23 11:40
Carbon Dioxide 28 mmol/L (22-30) 11/15/23 11:40
BUN 42 mg/dl (7-17) H 11/15/23 11:40
Creatinine 4.5 mg/dL (0.6-1.0) H* 11/15/23 11:40
eGFR 9.25 11/15/23 11:40
Glucose 186 mg/dl (70-99) H 11/15/23 11:40
Calcium 8.8 mg/dl (8.4-10.2) 11/15/23 11:40
Physical Exam
Patient is awake alert oriented and in no distress. Mood and affect were pleasant, insight and judgment were good. Pupils are equal round and reactive to light, extraocular movements are intact, sclera were anicteric. Hearing was normal, ears and
nose are intact. Oropharynx was clear. Neck was supple with trachea midline and no thyromegaly. Heart was regular rate and rhythm without rubs. Lower extremities without edema. Lungs were clear to auscultation bilaterally and with normal
excursion. Abdomen was soft, nontender, with normal active bowel sounds, and no hepatosplenomegaly. Skin was without rash and with normal turgor. AV fistula was with good thrill, lower extremity ulcers left foot
Data Reviewed
-
Medical Tests (Nuc Med, Echo etc): Image Personally Visualized and interpreted (Ultrasound lower extremities with BEAN suggesting infrapopliteal arterial disease on the right)
Labs: Labs Reviewed by me (Hemoglobin 7.4 potassium 5.0, sodium 131)
Old Records: Reviewed (Past hemoglobins reviewed)
Assessment/Plan
-
IMP:
ESRD [facility]
Left upper arm AV fistula revision 06/27/23
h/o [place] with old LBBB status post cardiac catheterization (occluded left circumflex unable to be open) January 2023
Paroxysmal atrial fibrillation on systemic anticoagulation
History heart failure mixed type
History of TAVR
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
Thrombocytopenia
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
Hypertension
Right chest wall tunneled HD CVC
History CVA
LBBB
PAD
Secondary hyperparathyroidism
h/o Choledocholithiasis w/ gallstone pancreatitis status postcholecystectomy 09/2023
cardiac arrest post op s/p leadless pacer 09/2023
Lower extremity arteriogram with angioplasty left lower leg
Plan:
Hemodialysis today
Retacrit on dialysis today
BP stable
Plan for discharge after dialysis today
--- NOTE | 2023-11-15 15:44 | W.PN.NEPH.HD ---
Assessment
-
Seen on dialysis, vital signs stable, no complaints. Access good
Progress Note - Hemodialysis
-
Date of Service: November 15, 2023
Duration: 30 minutes and 3 hours
Potassium Bath: 2
Calcium Bath: 2.5
Opti-Dialyzer: 160
Ultrafiltration: Other (2 kg)
Blood Flow: 400
Dialysate Flow: 600
Heparin: 500x2
EPO: 72706 unit
[2023-11-15 16:13] VITALS: BP 143/83
--- NOTE | 2023-11-15 16:29 | CM ---
Initial Assessment completed with patient who lives alone in an Apartment/cottage at [facility], 1 story and no steps to enter. Patient has a rollator, electric wheelchair, SPC and SC, no in-home services. 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
drive. No history of psychiatric hospitalizations. Patient is on HD with [facility] on [address] with -- schedule. [facility]acy is [facility] in [place] and PCP is Dr. Pascual Lange. Anticipate no additional needs at discharge.
--- NOTE | 2023-11-15 16:37 | CM ---
Patient has been medically cleared for discharge to home with no additional skilled services. Daughter transported home.
== END 2023-11-15 16:04 | disposition home or self-care (01) ==
LOC: CATH 08:38
PROVIDERS: Nurse Practitioner; ATTENDING PHYSICIAN Surgery Vascular Surgery; CONSULT PHYSICIAN Specialist; FAMILY PHYSICIAN Internal Medicine Geriatric Medicine
DX: I70.262 Atherosclerosis of native arteries of extremities with gangrene, left leg (principal); E11.621 Type 2 diabetes mellitus with foot ulcer; Z79.4 Long term (current) use of insulin; N18.6 End stage renal disease; I13.2 Hypertensive heart and chronic kidney disease with heart failure and with stage 5 chronic kidney disease, or end stage renal disease; E11.22 Type 2 diabetes mellitus with diabetic chronic kidney disease; Z86.73 Personal history of transient ischemic attack (TIA), and cerebral infarction without residual deficits; E78.5 Hyperlipidemia, unspecified; E11.21 Type 2 diabetes mellitus with diabetic nephropathy; Z95.810 Presence of automatic (implantable) cardiac defibrillator; I25.10 Atherosclerotic heart disease of native coronary artery without angina pectoris; I25.2 Old myocardial infarction; I48.0 Paroxysmal atrial fibrillation; Z95.2 Presence of prosthetic heart valve; D63.1 Anemia in chronic kidney disease; D69.6 Thrombocytopenia, unspecified; I44.7 Left bundle-branch block, unspecified; N25.81 Secondary hyperparathyroidism of renal origin; Z85.3 Personal history of malignant neoplasm of breast; E11.42 Type 2 diabetes mellitus with diabetic polyneuropathy; Z79.82 Long term (current) use of aspirin; Z79.01 Long term (current) use of anticoagulants; Z79.899 Other long term (current) drug therapy
CPT/HCPCS: 37228; 37232; C1725; 37220; 37222; 75625; 75716; 76937; 80048; 82962; 85027; 85610; 85730; 86850; 86900; 86901; 87070; C1769; C1887; C1894; P9047; Q5106

== ENCOUNTER 2023-12-19 10:42 | Inpatient (IN) | payer OTHER, SELFPAY ==
[2023-12-19] VITALS (14 sets, daily range): BP systolic 96–149; BP diastolic 50–76; BMI 26.0
[2023-12-19] MEDS: PERIDEX 0.12% ORAL RINSE 15 ML PO (11:34)
[2023-12-19] MEDS: BACTROBAN NASAL 1 GRAM NASAL (11:34)
[2023-12-19 12:04] LABS: Glucose - Point of Care 161 mg/dl (70-99)
[2023-12-19] MEDS: NSS 500 IV (12:20)
[2023-12-19] MEDS: VANCOCIN 200 IV (12:20)
[2023-12-19 12:28] LABS: Hematocrit 30.3 % (37.0-47.0); Hemoglobin 9.3 g/dL (12.0-16.0); Mean Corp Hgb Conc. 30.7 g/dL (33.0-37.0); Mean Corpuscular Hgb 32.5 pg (27.0-31.0); Mean Corpuscular Volume 105.9 fL (81.0-99.0); Platelet Count 152 10^3/uL (130-400); Red Blood Cell Count 2.86 10^6/uL (4.20-5.40); Red Cell Dist. Width 15.9 % (11.5-14.5); White Blood Cell Count 9.4 10^3/uL (4.8-10.8)
[2023-12-19 12:37] LABS: INR 1.17
[2023-12-19 12:38] LABS: APTT 39.4 Sec (23.4-35.0)
[2023-12-19 12:53] LABS: Blood Urea Nitrogen 28 mg/dl (7-17); Calcium 8.8 mg/dl (8.4-10.2); Carbon Dioxide 34 mmol/L (22-30); Chloride 93 mmol/L (98-107); Estimated Creatinine Clearance 11 ml/min; Glucose 146 mg/dl (70-99); Potassium 4.8 mmol/L (3.5-5.1); Sodium 139 mmol/L (135-145); eGFR 11.33
[2023-12-19 15:27] LABS: Glucose - Point of Care 128 mg/dl (70-99)
--- NOTE | 2023-12-19 16:10 | W.SUR.POST ---
Addendum entered and electronically signed by FRIDA Helm 12/19/23 16:38:
EBL:[id number]
Original Note:
Surgical Immediate Post Op
Note
Pre Op Diagnosis: LLE dry gangrene, right non-healing wound
Post Op Diagnosis: Same
Procedure Performed: LLE BKA, Right lower extremity arteriogram with proximal SFA MOTOR EQUIPMENT COMMANDING OFFICER and stent
Primary Surgeon: Antonio Lambert MD
Patrol Sergeant: FRIDA Helm
Anesthesia: GETA
Estimated Blood Loss:
Fluids: See anesthesia flow sheet
Drains/Shunts: N/A
Specimens/Cultures: Left leg
Doppler/Duplex/Angio (Y/N): Y
Complications: None
Operative Findings: Successful amputation of LEFT lower extremity and placement of RIGHT SFA stent
--- NOTE | 2023-12-19 16:33 | W.CON.NEPH ---
Consultation
-
Date/Time Consultation Requested: 12/19/23 11a
Date/Time Consultation Performed: 12/19/23 1600
Requesting Provider: Dr. Lambert
Performing Provider: Dr. Asencio
Reason for Consultation: ESRD
Medical History
-
Chief Complaint: Poorly healing lower extremity ulcer
History of Present Illness:
83 year old female, known to our service with ESRD due to presumed diabetic nephropathy on HD MWF, at [facility] in [place] on a had nonfunctioning left upper arm AV fistula functioning s/post 3rd revision now functioning, diabetes
mellitus with microvascular complications, maintained on insulin. She has CAD with non-ST elevated [place] in January 2023. Unfortunately, unable to revascularize on cardiac catheterization, Also has HF, PAfib on eliquis, Amiodarone, HLD on statin, prior
CVA with left CEA, who recently had choledocholithiasis with gallstone pancreatitis. She now has an ICD placement as well. She has had poorly healing left foot ulcers which have not progressed to dry gangrene. Salvage therapy was on successful.
She was brought in for left BKA as well as right angiogram which underwent SFA stenting. Operative course was uncomplicated. We are asked to assist with management of her dialysis.
Past Medical History
1.� ESRD, January 2023, presumed due to diabetic nephropathy.
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
3.� Left upper arm AV fistula with revisionx3
4.� CAD with NSTEMI January 2023 with cardiac catheterization
�� � revealing occluded left circumflex, unable to open.
5.� Paroxysmal atrial fibrillation on systemic anticoagulation.
6.� History of heart failure, mixed type, resolved with hemodialysis.
7.� History of TAVR.
8.� Anemia, in part CKD related.
9.� Thrombocytopenia.
10. Hypertension.
11. leadless pacemaker 09/24/23
12. History of CVA/TIA.
13. Left bundle branch block.
14. PAD.
15. Secondary hyperparathyroidism.
16. Breast cancer.
17. Left carotid endarterectomy.
18. Bilateral eyelid surgery.
19. Cataract surgery.
20. Lens implant.
21. Tonsillectomy.
22. Breast biopsy.
23. Right breast lumpectomy.
24. Peripheral neuropathy.
right breast sebaceous cyst removal 08/2023
Aortogram, BL LE angiogram, CERTIFIED NURSE AIDE (shockwave) and stent above knee popliteal left lower extremity 09/2023
Lap cholecystectomy 09/2023
25. left BKA
26. Right LE SFA stent
Past Surgical History: Other (see above)
Social History
She resides alone. She stopped smoking over 50 years ago. No regular alcohol use. 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
Family History
�No ESRD though positive for CAD and breast cancer.
Allergies / Home Medications
Allergy/AdvReac Type Severity Reaction Status Date / Time
Penicillins Allergy Rash; Verified 12/19/23 15:51
tolerated
cefepime
09/2023
sulfamethoxazole Allergy Rash Verified 12/19/23 15:51
[From Bactrim]
trimethoprim [From Bactrim] Allergy Rash Verified 12/19/23 15:51
�Medication �Instructions �Recorded �Confirmed �Type
insulin degludec 100 unit/mL (3 6 - 12 unit SC HS Diabetes 09/16/20 12/19/23 History
mL) subcutaneous pen (Tresiba
FlexTouch U-100 insulin)
apixaban 2.5 mg tablet (Eliquis) 2.5 mg PO BID #60 tabs 02/01/23 12/19/23 Rx
sevelamer carbonate 800 mg tablet 800 mg PO BID hyperphosphatemia 04/18/23 12/19/23 History
vitamin B complex-vitamin C-folic 1 tab PO HS Supplement 04/18/23 12/19/23 History
acid 0.8 mg tablet (Nephro
Vitamins)
diphenhydramine 25 2 tab PO HS Sleep 09/15/23 12/19/23 History
mg-acetaminophen 500 mg tablet
(Tylenol PM Extra Strength)
aspirin 81 mg chewable tablet 81 mg PO DAILY #30 tabs 09/27/23 12/19/23 Rx
metoprolol succinate 25 mg 25 mg PO DAILY 30 days #30 tabs 09/27/23 12/19/23 Rx
tablet,extended release 24 hr
amiodarone 200 mg tablet 200 mg PO DAILY Arrhythmia 10/29/23 12/19/23 History
atorvastatin 80 mg tablet 80 mg PO HS High Cholesterol 10/29/23 12/19/23 History
insulin aspart U-100 100 unit/mL 10 - 12 unit SC BID diabetes 10/29/23 12/19/23 History
(3 mL) subcutaneous pen (Novolog
FlexPen U-100 Insulin aspart)
lidocaine HCl 4 % topical cream 1 applic topical MOWEFR PRN 10/29/23 12/19/23 History
(Lidocaine Plus) pre-dialysis/at dialysis clinic
gabapentin 100 mg capsule 100 mg PO PRN PRN nerve pain 11/12/23 12/19/23 History
lutein 1 dose PO DAILY 12/17/23 12/19/23 History
Review of Systems
-
no CP/SOB. post op
All other systems: Negative unless noted
Physical Exam
Vital Signs
Vital Signs
Temp Pulse Resp BP Pulse Ox
98 F 67 14 149/50 100
12/19/23 11:41 12/19/23 11:41 12/19/23 11:41 12/19/23 11:41 12/19/23 11:41
Lab Results
eGFR 11.33 12/19/23 12:16
Laboratory Tests
11/15/23 12/19/23
11:40 12:16
Hgb 7.4 L 9.3 L
Sodium 139
Potassium 4.8
Carbon Dioxide 34 H
BUN 28 H
Creatinine 3.8 H
Physical Exam
Patient is awake alert oriented and in no distress. Mood and affect were pleasant, insight and judgment were good. Pupils are equal round and reactive to light, extraocular movements are intact, sclera were anicteric. Hearing was normal, ears and
nose are intact. Oropharynx was clear. Neck was supple with trachea midline and no thyromegaly. Heart was regular rate and rhythm without rubs. Lower extremities without edema. Lungs were clear to auscultation bilaterally and with normal
excursion. Abdomen was soft, nontender, with normal active bowel sounds, and no hepatosplenomegaly. Skin was without rash and with normal turgor. AVF with thrill/bruit.
Data Reviewed
-
Radiology: Image Personally Visualized and interpreted (Chest x-ray on 10/29/2023 by my reading shows no acute disease)
Medical Tests (Nuc Med, Echo etc): Report Reviewed by me (Echocardiogram on 09/20/2023 shows ejection fraction 50%)
Labs: Labs Reviewed by me
Old Records: Reviewed
Assessment/Plan
-
IMP:
ESRD [facility]
Left upper arm AV fistula revision 06/27/23
h/o [place] with old LBBB status post cardiac catheterization (occluded left circumflex unable to be open) January 2023
Paroxysmal atrial fibrillation on systemic anticoagulation
History heart failure mixed type
TAVR
Anemia
Thrombocytopenia
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
Hypertension
LBBB
Secondary hyperparathyroidism
h/o Choledocholithiasis w/ gallstone pancreatitis status postcholecystectomy 09/2023
cardiac arrest post op s/p leadless pacer 09/2023
Left BKA
Right SFA stent
Plan:
Hemodialysis tomorrow
KEILY on dialysis
BP stable
May resume outpatient medications from renal perspective
[2023-12-19 16:40] LABS: Glucose - Point of Care 136 mg/dl (70-99)
--- NOTE | 2023-12-19 16:44 | OR.RPT ---
Operative Report
Operative Report
PROCEDURE DATE: 12/19/2023
Preoperative diagnosis:
1. Nonhealing/chronic right foot wounds, PAD.
2. Gangrene left foot.
Postoperative diagnosis: Same
Procedure:
1. Duplex assisted left common femoral artery cannulation.
2. Aortogram and pelvic angiogram.
3. Right lower extremity arteriogram with third order vessel catheterization of right superficial femoral artery via left common femoral artery puncture.
4. Balloon angioplasty of right proximal superficial femoral artery with 4 mm angioplasty balloon.
5. Placement of [employer]isan Mobile Zilver PTX drug-eluting stent right proximal superficial femoral artery with 6 mm x 4 cm stent.
6. Percutaneous Perclose suture closure of left common femoral artery.
7. Left below the knee amputation.
Surgeon: Fausto
Gut Carrier: CYNTHIA Bermudez for the assistance with the open surgical portion (left below the knee amputation), assistance required for all aspects of that procedure including assistance with traction/countertraction, assistance with dissection,
assistance with closure.
Complications: None
Anesthesia: General
Fluoroscopy:
Time: 9.3 minutes
Milligrays: 60
DAP: 9.27
Indications for procedure:
Left lower extremity gangrene, failed attempted revascularizations. Limited/severely diseased infrapopliteal runoff. No real great options going forward. Gangrene throughout all toes. Dry. Discussed with patient recommendation for left below
the knee amputation. Discussed right lower extremity arteriogram due to continued nonhealing wounds although making some progress. Discussed for completeness sake angiography. Risk/benefits/alternatives of right lower extremity angiography and
left below the knee amputation were all fully discussed. Patient understood all wish to proceed.
Description of procedure:
Patient was identified brought to the operating room placed on the table in supine position. After the adequate administration of anesthesia and perioperative antibiotics she was prepped and draped in the standard surgical fashion. A standard
preoperative timeout was undertaken and everybody was in agreement the plan.
Under direct duplex ultrasound guidance the left common femoral artery was punctured using a micropuncture kit. A 5 Welsh sheath was then advanced over a 0.035 inch wire. Ramirez's the catheter advanced into the aorta. Aortogram pelvic
angiogram demonstrated patent aorta and bilateral common/external iliac arteries with no significant stenoses. I then selectively cannulated the right common femoral artery using a flopping on hydrophilic wire and a glide catheter. Right lower
extremity arteriogram demonstrated patent right common femoral artery with no significant stenosis. Patent profunda with eccentric plaque calcified but no significant stenosis. Superficial femoral artery with eccentric plaque throughout, and with
severe proximal stenosis about a centimeter beyond the origin with heavy plaque. Resulted in severe stenosis. More distally in the SFA there was a small popcorn plaque but did not appear to cause any high-grade stenoses. Below the knee proximally
there is a three-vessel runoff. But the anterior tibial artery occluded essentially beyond its origin. Tibioperoneal trunk gave rise to peroneal artery and posterior tibial artery. Peroneal artery appeared to be the more dominant vessel to the
ankle and gave collaterals to reconstitute the DP on the foot. PT was patent continuously but just a diminutive vessel throughout its course just diffusely stenosed. At this point I felt that treating the superficial femoral artery would be of
benefit for potential wound healing. I then selectively cannulated the profunda femoris artery with a flopping of hydrophilic wire and then advance my catheter and exchanged for a Storq wire. Patient was given 5000 units of intravenous heparin.
Up and over sheath access was acquired. Next, using a flopping of hydrophilic wire and a CXI catheter under roadmap assisted guidance I was able to finally traverse the area of severe stenosis in the proximal SFA. This proved to be very
challenging due to the bulky plaque in tight stenosis. Once I traverse the stenosis, I exchanged for a Storq wire. I then performed predilation angioplasty with a 4 mm angioplasty balloon of the stenosis. Next I used a Cook Zilver PTX 6 mm x 4 cm
stent which I deployed just to the origin of the superficial femoral artery taking care to avoid extending into the common femoral or jailing the profunda. This was post angioplastied with a 5 mm angioplasty balloon. Completion angiography
demonstrated excellent result with no residual stenosis and stable flow into the runoff. At this point is very satisfied. Left femoral angiogram demonstrated good puncture in the left common femoral artery. I therefore used an Little Perclose
percutaneous suture. Manual pressure was also gently applied to the puncture site. Hemostasis was fully noted.
Standard posterior flap type incisions were made in the left lower extremity with a transverse incision anteriorly at approximately 10 to 12 cm distal to the tibial tuberosity. Medial and lateral longitudinal incisions were carried down. And then
posterior transverse incision was then again carried down. The incisions were carried through the skin subcutaneous tissue with the electrocautery and then through the fascial layer. Hemostasis was achieved as we progressed. Next the muscles of
the anterior and lateral compartments of the calf were divided with electrocautery. Of note, all the muscles in the calf were viable, but were slightly paler/jeong or in appearance than I would have hoped for. The anterior tibial neurovascular
bundle was ligated between silk ties and then divided. The muscles/attachments of the tibia medially were also divided with electrocautery. As such the tibia was then freed of all its attachments and a periosteal elevator was used to elevate the
periosteum circumferentially. The fibula was similarly freed of all its surrounding soft tissue and muscles. These were transected with electrocautery. The intermuscular septum was then divided with electrocautery. Circumferential dissection of
the fibula was undertaken carefully and a periosteal elevator was used to elevate the periosteum circumferentially around the fibula as well. At this point the tibia and fibula were transected with an oscillating saw. The posterior tissues were
then cut with a amputation knife in a direction parallel to the axis of the leg. This was then teed off in a perpendicular access at the distal posterior transverse skin incision site. The leg specimen was then removed. The peroneal and posterior
tibial arteries were then controlled with hemostats. These were then ligated. (Ligated distally at the transection site). Next I removed any redundant muscle with the electrocautery. I then we ligated the peroneal and posterior tibial arteries
and veins with silk suture ligatures proximally just distal to the bone transection site. Next hemostasis was achieved throughout the muscle bed with [id number] 2-0 and 3-0 silk suture. Next the oscillating saw was used to bevel the anterior
aspect of the tibia so as to avoid any pressure point. A rasp was used to smooth the edges. The fibula was then re- transected with the oscillating saw to a point approximately 1 cm proximal to the tibial transection. The fibular edge was noted
to be smooth. Next we irrigated copiously. Hemostasis was confirmed. We then closed in layers after trimming the skin flap of any redundant/dogear type projections. 0 Vicryl interrupted suture was used to reapproximate the fascial layer. Next
running 3-0 Vicryl deep dermal suture layer was run. Finally skin clips were applied. Bulky dressings were applied. The patient tolerated procedure well.
[2023-12-19] MEDS: DILAUDID 0.25 MG IV (16:54)
[2023-12-19] MEDS: DILAUDID PCA 30 IV (17:08)
[2023-12-19 17:21] LABS: Hematocrit 27.2 % (37.0-47.0); Hemoglobin 8.5 g/dL (12.0-16.0); Mean Corp Hgb Conc. 31.3 g/dL (33.0-37.0); Mean Corpuscular Volume 108.8 fL (81.0-99.0); Mean Platelet Volume 10.8 fL (7.4-10.4); Platelet Count 126 10^3/uL (130-400); Red Cell Dist. Width 15.7 % (11.5-14.5); White Blood Cell Count 8.8 10^3/uL (4.8-10.8)
[2023-12-19] MEDS: NSS 1000 IV ×2 (17:23→17:30)
[2023-12-19 17:42] LABS: Blood Urea Nitrogen 28 mg/dl (7-17); Calcium 8.3 mg/dl (8.4-10.2); Carbon Dioxide 30 mmol/L (22-30); Estimated Creatinine Clearance 10 ml/min; Glucose 125 mg/dl (70-99); eGFR 10.66
[2023-12-19] MEDS: RENVELA PO (17:57)
[2023-12-19 18:03] LABS: Chloride 96 mmol/L (98-107); Potassium 4.8 mmol/L (3.5-5.1); Sodium 140 mmol/L (135-145)
--- NOTE | 2023-12-19 18:40 | PTCARENOTE ---
Received patient from PACU s/p L BKA and right lower extremity arteriogram with stent.
Neurovascular check completed at bedside with [employer].
[2023-12-19 22:12] LABS: Glucose - Point of Care 134 mg/dl (70-99)
[2023-12-19] MEDS: HEPARIN 5000 UNITS SC (22:36)
[2023-12-19] MEDS: LANTUS 0.06 UNITS SC (22:36)
[2023-12-19] MEDS: NEPHROCAP 1 CAPSULE PO (22:37)
[2023-12-19] MEDS: COLACE 100 MG PO (22:37)
[2023-12-19] MEDS: LIPITOR 80 MG PO (22:37)
[2023-12-20] VITALS (8 sets, daily range): BP systolic 108–143; BP diastolic 37–72; PULSE 95; O2SAT 99; BMI 25.6
--- NOTE | 2023-12-20 03:11 | W.PN.UPDATE ---
Update Note
Progress Note Update
RN reports pt not obtaining sufficient pain control tonight with ceramic sprayer. Noted pt refused gabapentin-states she only takes prn at home. Explained that with bka will have more phantom pains and encouraged use. Pt agreeable now.
[2023-12-20] MEDS: NEURONTIN 100 MG PO ×2 (03:16→15:50)
[2023-12-20] MEDS: LMX 4 1 APPLIC TOPICAL (06:40)
[2023-12-20] MEDS: FLEXBUMIN 25% FOR HEMODIALYSIS 12.5 GRAMS IV (08:04)
[2023-12-20] MEDS: MANNITOL 25% 12.5 GRAMS IV (08:04)
[2023-12-20] MEDS: RETACRIT 10000 UNITS IV (08:06)
[2023-12-20 08:36] LABS: Glucose - Point of Care 52 mg/dl (70-99)
[2023-12-20] MEDS: RENVELA PO (08:36)
[2023-12-20 08:43] LABS: INR 1.22; PT 15.2 Sec (11.4-14.6)
[2023-12-20 09:04] LABS: Hematocrit 24.7 % (37.0-47.0); Hemoglobin 7.8 g/dL (12.0-16.0); Mean Corp Hgb Conc. 31.6 g/dL (33.0-37.0); Mean Corpuscular Hgb 33.5 pg (27.0-31.0); Mean Platelet Volume 11.6 fL (7.4-10.4); Platelet Count 153 10^3/uL (130-400); Red Blood Cell Count 2.33 10^6/uL (4.20-5.40); Red Cell Dist. Width 15.9 % (11.5-14.5); White Blood Cell Count 8.6 10^3/uL (4.8-10.8)
[2023-12-20 09:08] LABS: Blood Urea Nitrogen 34 mg/dl (7-17); Calcium 8.3 mg/dl (8.4-10.2); Carbon Dioxide 29 mmol/L (22-30); Chloride 96 mmol/L (98-107); Estimated Creatinine Clearance 8 ml/min; Glucose 94 mg/dl (70-99); Potassium 5.7 mmol/L (3.5-5.1); Sodium 136 mmol/L (135-145); eGFR 8.56
[2023-12-20 09:09] LABS: Glucose - Point of Care 85 mg/dl (70-99)
--- NOTE | 2023-12-20 09:13 | PTCARENOTE ---
Critical lab Creatinine 4.8. Forwarded to Dr. Sierra and Dr. Asencio at 0912 via [employer] text
--- NOTE | 2023-12-20 09:43 | W.PN.NEPH.HD ---
Assessment
-
pt seen during HD
vitals stable
AVF functions well
KEILY for anemia
renal diet and FR
pain control
need to establish EDW s/p BKA
Progress Note - Hemodialysis
-
Date of Service: December 20, 2023
Duration: 30 minutes and 3 hours
Potassium Bath: 2
Calcium Bath: 2.5
Opti-Dialyzer: 160
Ultrafiltration: Other (1kg)
Blood Flow: 400
Dialysate Flow: 600
Heparin: no
EPO: [id number]
--- NOTE | 2023-12-20 09:59 | W.PN.VS ---
Today's Communication / Plan
-
See below.
Assessment/Plan
-
Assessment: 83-year-old female POD #1 Aortogram and pelvic angiogram, RLE arteriogram, balloon angioplasty and drug-eluting stent to right proximal superficial femoral artery, left below the knee amputation
Plan:
Nephrology following for HD management, appreciate recommendations
Will continue DRIVE MAN today for optimal pain management
PT/OT
Case management for disposition recommendations
Encourage incentive spirometry
Restarted home Eliquis 2.5mg p.o. twice daily
Subjective Data
-
Date of Service: December 20, 2023
Patient seen and examined at bedside, reports adequate postoperative pain management. Currently on HD circuit. Offers no complaints. Denies nausea, vomiting, fever, and chills.
Objective Data
-
Vital Signs
Temp Pulse Resp BP Pulse Ox
98.6 F 71 20 139/37 100
12/20/23 07:00 12/20/23 07:00 12/20/23 07:48 12/20/23 07:00 12/20/23 07:48
Intake and Output
12/19/23 12/20/23 12/21/23
06:59 06:59 06:59
Intake Total 680 / 680
Output Total 0 / 0
Balance 680 / 680
Intake:
Oral fluids 480 / 480
IV fluids (Total) 200 / 200
NSS 200 / 200
Output:
Urine, Voided 0 / 0
Lab Results
12/20/23 08:20
12/20/23 08:20
Calcium 8.3 mg/dl (8.4-10.2) L 12/20/23 08:20
Physical Exam
-
AAOX3, NAD
No tachycardia
No dyspnea on room air
ABD nontender, nondistended
Left groin puncture site CDI, no evidence of edema/hematoma, all surrounding compartments soft, left BKA dressing CDI
[2023-12-20 11:26] LABS: Hepatitis B Surface Antigen Negative (Negative)
[2023-12-20 11:43] LABS: Hepatitis B Surface Antibody Positive
[2023-12-20 12:03] LABS: Glucose - Point of Care 95 mg/dl (70-99)
[2023-12-20] MEDS: LOW STRENGTH ASPIRIN 81 MG PO (12:35)
[2023-12-20] MEDS: HEPARIN SC (12:35)
[2023-12-20] MEDS: ELIQUIS 2.5 MG PO ×2 (12:36→21:45)
[2023-12-20] MEDS: RENVELA 800 MG PO ×2 (12:36→17:38)
--- NOTE | 2023-12-20 13:06 | PTCARENOTE ---
Pt immune to infection ith HBV. Forwarded to Dr. Sierra and Dr. Asencio via tiger text. Place in chart
--- NOTE | 2023-12-20 13:58 | CM ---
Addendum entered by Yani Henning 12/20/23 15:37:
[facility] Fax #: [phone]
Original Note:
Patient seen at bedside.
Dx: Real CULLEN
PMH: ESRD dialysis on at [facility] in [place], non healing chronic wound, PAD, DM, CAD
Jessica lives at home in [facility] alone. 0 steps
PLOF: Independent with power chair
Await PT/OT EVALS - Would like to go to [facility] if possible.
Spoke with Melisa from [facility] and states they may be able to accept patient.
States to call her Saturday.
Patient states she was at [facility] previously for her back.
PCP: Tina Lange
Pharmacy: [facility]
PLAN: Await PT/OT evals - CM to follow up
[2023-12-20 17:04] LABS: Glucose - Point of Care 109 mg/dl (70-99)
[2023-12-20 21:31] LABS: Glucose - Point of Care 167 mg/dl (70-99)
[2023-12-20] MEDS: LANTUS 0.06 UNITS SC (21:44)
[2023-12-20] MEDS: NEPHROCAP 1 CAPSULE PO (21:45)
[2023-12-20] MEDS: LIPITOR 80 MG PO (21:45)
[2023-12-20] MEDS: TYLENOL 500 MG PO (23:57)
[2023-12-21 03:54] VITALS: BP 111/55
[2023-12-21 06:00] VITALS: BMI 25.8
[2023-12-21 07:05] LABS: Glucose - Point of Care 162 mg/dl (70-99)
[2023-12-21] MEDS: DILAUDID 0.5 MG IV (07:24)
[2023-12-21 07:34] LABS: Blood Urea Nitrogen 22 mg/dl (7-17); Carbon Dioxide 26 mmol/L (22-30); Chloride 93 mmol/L (98-107); Estimated Creatinine Clearance 12 ml/min; Glucose 151 mg/dl (70-99); Potassium 6.9 mmol/L (3.5-5.1); Sodium 134 mmol/L (135-145); eGFR 13.42
--- NOTE | 2023-12-21 07:47 | PTCARENOTE ---
Critical lab: Potassium 6.9. Mayte Tom MD notified via tiger text [id number]. placed in chart.
--- NOTE | 2023-12-21 07:57 | W.PN.VS ---
Today's Communication / Plan
-
as above
Assessment/Plan
-
Assessment: 83-year-old female POD #2 Aortogram and pelvic angiogram, RLE arteriogram, balloon angioplasty and drug-eluting stent to right proximal superficial femoral artery, left below the knee amputation
Plan:
Nephrology following for HD management, appreciate recommendations. Will give ca gluconate for high k. notified and will repeat k, possibly will need additional HD
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
PT/OT
Case management for disposition recommendations
Encourage incentive spirometry
Subjective Data
-
Date of Service: December 21, 2023
No acute events over night. Pt says her pain is controlled so long as her bka is not manipulated.
Objective Data
-
Vital Signs
Temp Pulse Resp BP Pulse Ox
98.3 F 89 16 111/55 96
12/21/23 03:54 12/21/23 03:54 12/21/23 03:54 12/21/23 03:54 12/21/23 03:54
Intake and Output
12/20/23 12/21/23 12/22/23
06:59 06:59 06:59
Intake Total 680 / 680 390 / 390
Output Total 0 / 0
Balance 680 / 680 390 / 390
Intake:
Oral fluids 480 / 480 30 / 30
IV fluids (Total) 200 / 200 360 / 360
NSS 200 / 200
Output:
Urine, Voided 0 / 0
Lab Results
12/21/23 06:28
Calcium 9.0 mg/dl (8.4-10.2) 12/21/23 06:28
Physical Exam
-
drowsy
L bka stump c/d/i
R foot with dry eschar, monophasic DP and PT
--- NOTE | 2023-12-21 07:58 | PTCARENOTE ---
Pt morning BP 90/53 MD Mayte Tom made aware. Hold morning dose of amiodarone and metoprolol.
[2023-12-21 07:59] LABS: Hematocrit 26.9 % (37.0-47.0); Hemoglobin 8.4 g/dL (12.0-16.0); Mean Corp Hgb Conc. 31.2 g/dL (33.0-37.0); Mean Corpuscular Hgb 33.9 pg (27.0-31.0); Mean Corpuscular Volume 108.5 fL (81.0-99.0); Mean Platelet Volume 11.8 fL (7.4-10.4); Platelet Count 115 10^3/uL (130-400); Red Blood Cell Count 2.48 10^6/uL (4.20-5.40); Red Cell Dist. Width 15.8 % (11.5-14.5); White Blood Cell Count 6.2 10^3/uL (4.8-10.8)
[2023-12-21 08:39] LABS: Glucose - Point of Care 94 mg/dl (70-99)
--- NOTE | 2023-12-21 08:41 | W.PN.ANESINT ---
Anesthesia Intubation Note
- Intubation Note
Intubation Note:
Diagnosis:
PEA
Blade:
MAC 4
Tube Size: 8.0
Depth: 22cm at teeth
Side Taped:R
Drugs Used:none
Grade View:1
EtCO2 Present:
yes with chest comp
Atraumatic:
Y
Attempts: 1
Insertion Start and Stop Time:08:15 - 08:17
SaO2 Pre:
SaO2 Post:not availble
Glidescope Used:
no
Other Airway Adjustments:
Pre-Oxygenated:
Y
Portable Chest X-Ray:
pending
RSI:
Suctioned:
Bilateral Breath Sounds Confirmed:
Y
Vent Settings:
pt managed by code team
Settings per ___Attending Physician
[2023-12-21 08:49] LABS: Glucose - Point of Care 115 mg/dl (70-99)
--- NOTE | 2023-12-21 09:13 | W.PN.UPDATE ---
Update Note
Progress Note Update
Code 9 called for patient. 83 yo female with extensive vasculopathy s/p right bka this hospitalization, esrd on HD, dialyzed yesterday, CAD, S/p TAVR, s/p Micra and subq ICD.
She had progressive bradycardia and unresponsiveness. She had a K of 6.9. ACLS protocol was followed for ~40 minutes.
Unfortunately never able to regain pulse after initial transient return.
Darvinther called in the middle of the code, and arrived at the bedside. She was aware of all the efforts.
--- NOTE | 2023-12-21 09:14 | PTCARENOTE ---
0818 Patient found unresponsive after IV team came to notify tis RN. Heart rate in the 30's on monitor. Rapid response called. Mayte Tom MD messaged via tiger text of rapid. Per Calcium Gluconate 10% 10 ML vial given. CPR started code 9
called. See code 9 documentation.
--- NOTE | 2023-12-21 09:23 | W.PN.UPDATE ---
Update Note
Progress Note Update
Patient drowsy this am but conversant during dressing change. K resulted as 6.9 this am. Ca gluconate ordered, nephrology alerted, repeat k and insulin d50 also ordered and communicated stat. Alerted by nurse roughly 10 min later that the patient
did not look well and heart rate was 30. Ca gluconate already given by that time by the nurse. Code 9 called, patient coded for ~40 minutes. Time of called at 09:02am. Family at bedside. Primary cause of acute hyperkalemia, secondary to
ESRD and CAD.
--- NOTE | 2023-12-21 09:57 | CHAP ---
Responded to code. Daughter Criss arrived within 30 minutes, experiencing shock and grief. Offered comfort to her and to her , when he arrived. After the code ended, they had some time with Giana, and we offered prayers commending her
to God. We gave thanks for her life and love, asking peace for all. They then had more time with their mother, and finally went to the family room to make calls. We discussed home arrangements, and they were assured of the unit nurse's
availability, should they have further questions or needs.
[2023-12-21 10:01] LABS: Blood Urea Nitrogen 20 mg/dl (7-17); Calcium 9.1 mg/dl (8.4-10.2); Carbon Dioxide 11 mmol/L (22-30); Chloride 97 mmol/L (98-107); Estimated Creatinine Clearance 11 ml/min; Glucose 231 mg/dl (70-99); Potassium 6.2 mmol/L (3.5-5.1); Sodium 135 mmol/L (135-145)
--- NOTE | 2023-12-21 10:38 | PTCARENOTE ---
Called [facility] at 1035. Pt does not meet criteria. Spoke with Sana [facility] staff member.
== END 2023-12-21 09:02 | disposition expired | DRG 239 ==
LOC: 2 NORTH 10:42
PROVIDERS: Internal Medicine; Nurse Practitioner; Specialist; ADMITTING PHYSICIAN Surgery Vascular Surgery; CONSULT PHYSICIAN Specialist; FAMILY PHYSICIAN Internal Medicine Geriatric Medicine
PROC: 0Y6J0Z2 Detachment at Left Lower Leg, Mid, Open Approach (ICD-10-PCS; 2023-12-19)
PROC: B4101ZZ Fluoroscopy of Abdominal Aorta using Low Osmolar Contrast (ICD-10-PCS; 2023-12-19)
PROC: B41C1ZZ Fluoroscopy of Pelvic Arteries using Low Osmolar Contrast (ICD-10-PCS; 2023-12-19)
PROC: B41F1ZZ Fluoroscopy of Right Lower Extremity Arteries using Low Osmolar Contrast (ICD-10-PCS; 2023-12-19)
PROC: 047K34Z Dilation of Right Femoral Artery with Drug-eluting Intraluminal Device, Percutaneous Approach (ICD-10-PCS; 2023-12-19)
PROC: 5A1D70Z Performance of Urinary Filtration, Intermittent, Less than 6 Hours Per Day (ICD-10-PCS; 2023-12-20)
PROC: 0BH17EZ Insertion of Endotracheal Airway into Trachea, Via Natural or Artificial Opening (ICD-10-PCS; 2023-12-21)
DX: E11.52 Type 2 diabetes mellitus with diabetic peripheral angiopathy with gangrene (principal); N18.6 End stage renal disease; I70.262 Atherosclerosis of native arteries of extremities with gangrene, left leg; N25.81 Secondary hyperparathyroidism of renal origin; I12.0 Hypertensive chronic kidney disease with stage 5 chronic kidney disease or end stage renal disease; E87.5 Hyperkalemia; I25.10 Atherosclerotic heart disease of native coronary artery without angina pectoris; I48.0 Paroxysmal atrial fibrillation; E78.00 Pure hypercholesterolemia, unspecified; L97.529 Non-pressure chronic ulcer of other part of left foot with unspecified severity; I70.201 Unspecified atherosclerosis of native arteries of extremities, right leg; D63.1 Anemia in chronic kidney disease; D69.6 Thrombocytopenia, unspecified; E11.22 Type 2 diabetes mellitus with diabetic chronic kidney disease; E11.40 Type 2 diabetes mellitus with diabetic neuropathy, unspecified; I44.7 Left bundle-branch block, unspecified; I25.2 Old myocardial infarction; Z79.01 Long term (current) use of anticoagulants; Z79.4 Long term (current) use of insulin; Z79.82 Long term (current) use of aspirin; Z79.899 Other long term (current) drug therapy; Z82.49 Family history of ischemic heart disease and other diseases of the circulatory system; Z85.3 Personal history of malignant neoplasm of breast; Z86.73 Personal history of transient ischemic attack (TIA), and cerebral infarction without residual deficits; Z86.74 Personal history of sudden cardiac arrest; Z87.891 Personal history of nicotine dependence; Z95.3 Presence of xenogenic heart valve; Z95.810 Presence of automatic (implantable) cardiac defibrillator; Z99.2 Dependence on renal dialysis
CPT/HCPCS: 88307; 88311; 27880; 37226; 37228; 75625; 75716; 80048; 82962; 85027; 85610; 85730; 86706; 86850; 86900; 86901; 87340; 92950; 97163; 97167; C1725; C1760; C1769; C1874; C1887; C1894; G0257; P9047; Q5106; Q9967